=== PATIENT | female | born 1945 | race Caucasian/White ===

== ENCOUNTER → 2018-01-01 01:11 | Outpatient (CLI) | payer MEDICARE, SELFPAY ==
--- NOTE | 2018-01-01 09:30 | DI.REPORT_ITS ---
SYMPTOM/DIAGNOSIS: ABD PAIN, PERIUMBILICAL R10.33, ABD BLOATING R14.0 FLAT PLATE ABDOMEN: Comparison CT scan is 12/21/16. The visualized lung bases are clear. There are surgical clips seen in the right upper quadrant of the abdomen. There is a small amount of retained stool throughout the colon. No evidence of bowel obstruction or organomegaly seen. No pneumoperitoneum is present. There is a left convex scoliosis of the spine. Mild degenerative changes are present. IMPRESSION: No evidence of an acute abdomen.
== END ==
PROVIDERS: PCP Family Medicine; Visit Provider Family Medicine
DX: R10.33 Periumbilical pain (principal); R14.0 Abdominal distension (gaseous)
CPT/HCPCS: 74018

== ENCOUNTER → 2018-01-01 08:42 | Outpatient (CLI) | payer MEDICARE, SELFPAY ==
[2018-01-01 09:28] LABS: HCT 42.4 % (36.0-46.0); HGB 14.4 g/dL (12.0-15.5); Mean Corpuscular Hemoglobin 30.8 pg (27.0-33.0); Mean Corpuscular Volume 90.6 fL (80-95); Mean Platelet Volume 9.6 fL (8.0-11.0); Platelet Count 268 x1000/uL (130-400); RBC 4.68 m/cumm (4.00-5.20); RBC Distribution Width 12.7 % (11.7-14.6); White Blood Cell Count 5.78 k/cumm (4.4-10.8)
[2018-01-01 10:35] LABS: ALT 22 U/L (12-78); AST 23 U/L (15-37); Albumin 4.3 g/dL (3.4-5.0); Alkaline Phosphatase 97 U/L (46-116); Anion Gap 9.4 mmol/L (3-11); BUN 24 mg/dL (7-18); Bilirubin, Total 0.7 mg/dL (0.2-1.0); CO2 26.6 mmol/L (21.0-32.0); Calcium 10.1 mg/dL (8.5-10.1); Chloride 103 mmol/L (98-107); Estimated GFR 44.04 (mL/min/1.73m2); Glucose 109 mg/dL (70-100); Potassium 4.2 mmol/L (3.5-5.1); Sodium 139 mmol/L (136-145); TSH (W/Ref FT4) 4.18 uIU/mL (0.358-3.74); Vitamin B12 292 pg/mL (193-986)
[2018-01-01 10:40] LABS: Folate > 20.0 ng/mL (8.6-20.0)
[2018-01-01 11:02] LABS: FREE T4 0.74 ng/dL (0.76-1.46)
== END ==
PROVIDERS: PCP Family Medicine; Visit Provider Family Medicine
DX: I10 Essential (primary) hypertension (principal); R14.0 Abdominal distension (gaseous); R10.33 Periumbilical pain; R41.3 Other amnesia
CPT/HCPCS: 36415; 80053; 85027; 74018; 82607; 82746; 84439; 84443

== ENCOUNTER → 2018-01-15 01:13 | Outpatient (CLI) | payer MEDICARE, SELFPAY ==
--- NOTE | 2018-01-15 10:05 | DI.REPORT_ITS ---
SYMPTOM/DIAGNOSIS: [facility] Z00.00 BILATERAL SCREENING MAMMOGRAM: Mammograms were interpreted according to the usual protocol including computer analysis with CAD system, tomosynthesis and C view imaging. Comparison is made with exams from 2008 through 2013. The breasts are composed of scattered fibroglandular densities. No suspicious masses or suspicious microcalcifications are seen. There has been no significant change. IMPRESSION: Category 1-B, negative mammogram. Routine screening is recommended. [facility] ASSESS[facility] OF FINDINGS: Negative. Category 1. Patient will receive a letter notifying them of these results. BI-RADS category B. There are scattered areas of fibroglandular density.
== END ==
PROVIDERS: PCP Family Medicine; Visit Provider Family Medicine
DX: Z12.31 Encounter for screening mammogram for malignant neoplasm of breast (principal)
CPT/HCPCS: 77063; 77067

== ENCOUNTER 2018-02-02 00:55 | Outpatient (CLI) | payer MEDICARE, MEDICAID, SELFPAY ==
--- NOTE | 2018-02-02 07:51 | DI.US_ITS ---
SYMPTOM/DIAGNOSIS: ABD BLOATING, S/P HYST, PERIUMBILICAL PAIN, R10.33 PELVIC ULTRASOUND: Comparison is made with CT of the abdomen and pelvis dated 2006 and 2017. Transabdominal and transvaginal exams were performed. The transabdominal images are limited by lack of bladder distension. The bladder is unremarkable. The kidneys have a normal appearance. The ovaries are normal in size. A 6 mm. calcification is seen in the left ovary. This was seen on the prior CT examinations. No cyst or mass is identified. There is no evidence of free fluid. IMPRESSION: Incidental left ovarian calcification. No evidence of cyst or mass.
== END 2018-02-02 01:15 ==
PROVIDERS: PCP Family Medicine; Visit Provider Family Medicine
DX: R14.0 Abdominal distension (gaseous) (principal); R10.33 Periumbilical pain; N83.8 Other noninflammatory disorders of ovary, fallopian tube and broad ligament; Z90.710 Acquired absence of both cervix and uterus
CPT/HCPCS: 76830; 76856

== ENCOUNTER 2018-03-15 09:13 | Outpatient (CLI) | payer MEDICARE, MEDICAID, SELFPAY ==
--- NOTE | 2018-03-15 09:10 | DI.RAD_ITS ---
SYMPTOM/DIAGNOSIS: PAIN RIGHT SHOULDER: Two projections are provided. Mild degenerative changes involving the glenohumeral and AC joint are identified. The bony structures are normally mineralized.
== END 2018-03-15 09:33 ==
PROVIDERS: PCP Family Medicine; Referring Provider Family Medicine; Visit Provider Orthopaedic Surgery
DX: M25.511 Pain in right shoulder (principal); M19.011 Primary osteoarthritis, right shoulder; I10 Essential (primary) hypertension
CPT/HCPCS: 20610; 99214; 73030; J1040

== ENCOUNTER 2018-05-06 17:53 | Inpatient (IN) | payer MEDICARE, MEDICAID, SELFPAY ==
[2018-05-06] VITALS (35 sets, daily range): BP systolic 95–146; BP diastolic 38–63; PULSE 70–112; RESP 8–21; TEMP 37.1–38.7; O2SAT 94–99
--- NOTE | 2018-05-06 18:12 | DI.RAD_ITS ---
SYMPTOM/DIAGNOSIS: FEVER, CHEST PAIN, R/O ACUTE DISEASE PA AND LATERAL CHEST: Comparison is made with 02 January 2018. The heart size is at the upper limits of normal. Aortic calcification is seen. The lungs appear clear. IMPRESSION: No acute abnormality.
[2018-05-06 18:32] LABS: Abs Immature Grans 0.04 k/cumm (0.0-0.09); Absolute Basophil Count 0.01 k/cumm (0.0-0.2); Absolute Eosinophil Count 0.01 k/cumm (0.0-0.7); Absolute Monocyte Count 0.61 k/cumm (0.11-0.7); Absolute Neutrophil Count 12.09 k/cumm (1.2-6.7); Basophils % 0.1; Eosinophils % 0.1; HCT 36.7 % (36.0-46.0); HGB 12.6 g/dL (12.0-15.5); Immature Grans % 0.3; Lymphocytes % 6.2; Mean Corp. HGB Concentration 34.3 g/dL (32.0-36.0); Mean Corpuscular Hemoglobin 30.5 pg (27.0-33.0); Mean Corpuscular Volume 88.9 fL (80-95); Mean Platelet Volume 9.6 fL (8.0-11.0); Monocytes % 4.5; Neutrophils % 88.8; Platelet Count 210 x1000/uL (130-400); RBC 4.13 m/cumm (4.00-5.20); RBC Distribution Width 12.6 % (11.7-14.6); White Blood Cell Count 13.61 k/cumm (4.4-10.8)
[2018-05-06] MEDS: Acetaminophen 500 MG TAB 1000 MG PO (18:32)
[2018-05-06] MEDS: Normal Saline 250 ML 500 ML IV ×2 (18:32→21:37)
[2018-05-06 18:33] LABS: Absolute Lymphocyte Count 0.84 k/cumm (1.2-3.4); Lactate-non-spesis 1.8 mmol/L (0.6-1.4)
[2018-05-06] MEDS: Ondansetron 4 MG/2 ML VIAL IVP (18:33)
--- NOTE | 2018-05-06 18:35 | ED.GENADUL_ITS ---
Discharge Plan Disposition Patient Disposition: [facility] INPATIENT Condition: Stable Discharge Details Chief Complaint: Fever Clinical Impression: Acute pyelonephritis, Gastroenteritis, Fever, Intractable nausea and vomiting, Intractable abdominal pain Primary Care Provider: Tamiko Doe ED Provider: Lety Vinson Home Meds and New Rx's Prescriptions: No Action clonazepam [Klonopin] 0.5 MG tablet 0.5 mg PO PRN PRNRF: 0 amlodipine 2.5 MG tablet 2.5 mg PO DAILY RF: 0 Citalopram Hydrobromide [Citalopram HBr] 40 MG tablet 40 mg PO DAILY RF: 0 lisinopril 40 MG tablet 40 mg PO QAM RF: 0 dexlansoprazole [Dexilant] 60 MG capsule,biphase delayed releas 60 mg PO DAILY Qty: 28 RF: 0 aspirin 81 MG tablet,delayed release (DR/EC) 81 mg PO DAILY Qty: 30 RF: 0 rosuvastatin [Crestor] 40 MG tablet 40 mg PO QPM Qty: 30 RF: 0 Medical Decision Making 72-year-old female with a history of irritable bowel syndrome, hypertension, depression who presents for vomiting diarrhea with epigastric pain since yesterday. Patient denies known fever, recent travel or antibiotics. Temp 101.7. Heart rate 100s. Patient appears uncomfortable with nausea and epigastric pain. Tenderness palpation epigastric region. Lungs clear to auscultation. No lower extreme edema. Differential diagnosis includes gastroenteritis, cholecystitis, gastritis, peptic ulcer disease. No complaint of chest pain or shortness of breath and appears more infectious so doubt ACS. EKG notes a rate of 98, sinus, TWI in V5/V6, seen in previous w/ new < 1mm ST depression in V5/V6. No acute ST elevation. QTc 414. QRS 78. Will place an IV, labs, UA, blood cultures, lactate, CT abdomen/pelvis, normal saline, zofran, pepcid, and tylenol. 1929 --labs and imaging reviewed. White blood cell count 13. Potassium 3.2. Anion gap 13.1. Lactate 1.8. Magnesium 1.4. Troponin negative. Urinalysis notes small leukocyte esterase moderate blood, urine culture sent. Pt states nausea resolved still complaining of a GI cocktail reassess. 2114 --patient states nausea returning and still with epigastric pain. Will give a dose of Compazine and reassess. Patient states she is concerned about going home as her is home alone in a wheelchair. 2199 --patient states nausea is somewhat improved but still with epigastric pain radiating to chest. Repeat troponin negative. Repeat EKG appears to note resolution of ST depression and no other acute findings. She has hyperactive bowel sounds. Suspect chest pain referred from abdominal pain. Will give a dose of Rocephin, morphine and admit for pyelonephritis, gastroenteritis and intractable nausea and pain. 2204 --d/w Dr. Peña - accepts pt for admission. Medical Records Medical records reviewed: Yes I reviewed the patient's medical records. Imaging Data Radiologic Study: Radiologist's impression: CT Abdomen and Pelvis With Contrast EXAM DATE/TIME: 05/06/2018 6:14 PM FINDINGS: Lower thorax: Tiny hiatal hernia. ABDOMEN: Liver: No mass. Gallbladder and bile ducts: Cholecystectomy. No significant biliary dilation. Pancreas: No ductal dilation. No masses. Spleen: No splenomegaly or focal lesions. Adrenals: No mass. Kidneys and ureters: Moderate hydroureter, abnormal right epithelial ureteral enhancement. No calyceal dilation on the right. No vandana hydronephrosis bilaterally. No renal masses. Slightly heterogeneous right nephrogram. No gross stones are seen on postcontrast imaging. Stomach and bowel: Diverticulosis of the sigmoid colon. No focal pathology in the remainder of the colon. No focal pathology in the small bowel. Appendix: No evidence of appendicitis. PELVIS: Bladder: Unremarkable as visualized. Reproductive: Hysterectomy. ABDOMEN and PELVIS: Intraperitoneal space: No free air. No significant fluid collection. Bones/joints: No acute fracture. No dislocation. Soft tissues: Small fat-containing right inguinal hernia. Vasculature: Moderate aortoiliac atherosclerosis. No aortic aneurysm. Lymph nodes: No significantly enlarged lymph nodes. IMPRESSION: 1. Evidence of right renal and ureteral inflammation, suggesting ascending urinary tract infection such as pyelonephritis. 2. Incidental findings as described. XR Chest, 2 Views EXAM DATE/TIME: 05/06/2018 7:19 PM FINDINGS: Lungs: No airspace consolidation. Pleural space: No pleural effusion. No pneumothorax. Heart/Mediastinum: Mild cardiomegaly without significant volume overload. Upper abdomen: Right upper quadrant clips, probable cholecystectomy. Bones/joints: No acute fracture. IMPRESSION: Mild cardiomegaly without significant volume overload. Lab Data Lab results reviewed: Yes I reviewed the patient's lab results. 05/06/18 19:26 Urine - Reflex from Ua Urine Culture - Pending 05/06/18 18:48 Blood Blood Culture - Pending 05/06/18 18:25 Blood Blood Culture - Pending Laboratory Tests Range/Units 05/06/18 05/06/18 05/06/18 18:25 18:25 18:25 WBC (4.4-10.8) k/cumm 13.61 H RBC (4.00-5.20) m/cumm 4.13 Hgb (12.0-15.5) g/dL 12.6 Hct (36.0-46.0) % 36.7 MCV (80-95) fL 88.9 MCH (27.0-33.0) pg 30.5 MCHC (32.0-36.0) g/dL 34.3 RDW (11.7-14.6) % 12.6 Plt Count (130-400) x1000/uL 210 MPV (8.0-11.0) fL 9.6 Immature Gran % 0.3 Neutrophils % 88.8 Lymphocytes % 6.2 Monocytes % 4.5 Eosinophils % 0.1 Basophils % 0.1 Absolute Neutrophils (1.2-6.7) k/cumm 12.09 H Absolute Lymphocytes (1.2-3.4) k/cumm 0.84 L Absolute Monocytes (0.11-0.7) k/cumm 0.61 Absolute Eosinophils (0.0-0.7) k/cumm 0.01 Absolute Basophils (0.0-0.2) k/cumm 0.01 Sodium (136-145) mmol/L 136 Potassium (3.5-5.1) mmol/L 3.2 L Chloride (98-107) mmol/L 100 Carbon Dioxide (21.0-32.0) mmol/L 22.9 Anion Gap (3-11) mmol/L 13.1 H BUN (7-18) mg/dL 15 Creatinine (0.55-1.02) mg/dL 1.02 Estimated GFR/1.73 m2 (mL/min/1.73m2) 53.12 Glucose (70-100) mg/dL 115 H Lactate (0.6-1.4) mmol/L 1.8 H Calcium (8.5-10.1) mg/dL 9.7 Magnesium (1.8-2.4) mg/dL 1.4 L Total Bilirubin (0.2-1.0) mg/dL 1.1 H AST (15-37) U/L 24 ALT (12-78) U/L 21 Alkaline Phosphatase (46-116) U/L 114 Troponin I (0.00-0.06) ng/mL < 0.02 Total Protein (6.4-8.2) g/dL 7.3 Albumin (3.4-5.0) g/dL 3.4 Lipase (73-393) U/L 64 L Urine Color (Yellow) Urine Clarity Urine pH (5-8) Ur Specific [place] (1.005-1.025) Urine Protein (Negative) mg/dL Urine Ketones (Negative) mg/dL Urine Blood (Negative) Urine Nitrite (Negative) Urine Bilirubin (Negative) Urine Urobilinogen (Up TO 0.2) EU/dL Ur Leukocyte Esterase (Negative) Urine RBC Urine WBC (0-5) HPF Ur Epithelial Cells Urine Crystals Urine Bacteria Urine Mucus Ur Culture Indicated? Urine Glucose (Negative) mg/dL Range/Units 05/06/18 05/06/18 19:26 21:25 WBC (4.4-10.8) k/cumm RBC (4.00-5.20) m/cumm Hgb (12.0-15.5) g/dL Hct (36.0-46.0) % MCV (80-95) fL MCH (27.0-33.0) pg MCHC (32.0-36.0) g/dL RDW (11.7-14.6) % Plt Count (130-400) x1000/uL MPV (8.0-11.0) fL Immature Gran % Neutrophils % Lymphocytes % Monocytes % Eosinophils % Basophils % Absolute Neutrophils (1.2-6.7) k/cumm Absolute Lymphocytes (1.2-3.4) k/cumm Absolute Monocytes (0.11-0.7) k/cumm Absolute Eosinophils (0.0-0.7) k/cumm Absolute Basophils (0.0-0.2) k/cumm Sodium (136-145) mmol/L Potassium (3.5-5.1) mmol/L Chloride (98-107) mmol/L Carbon Dioxide (21.0-32.0) mmol/L Anion Gap (3-11) mmol/L BUN (7-18) mg/dL Creatinine (0.55-1.02) mg/dL Estimated GFR/1.73 m2 (mL/min/1.73m2) Glucose (70-100) mg/dL Lactate (0.6-1.4) mmol/L Calcium (8.5-10.1) mg/dL Magnesium (1.8-2.4) mg/dL Total Bilirubin (0.2-1.0) mg/dL AST (15-37) U/L ALT (12-78) U/L Alkaline Phosphatase (46-116) U/L Troponin I (0.00-0.06) ng/mL 0.03 Total Protein (6.4-8.2) g/dL Albumin (3.4-5.0) g/dL Lipase (73-393) U/L Urine Color (Yellow) Yellow Urine Clarity Cloudy Urine pH (5-8) 6.0 Ur Specific [place] (1.005-1.025) 1.010 Urine Protein (Negative) mg/dL 30 H Urine Ketones (Negative) mg/dL Trace H Urine Blood (Negative) Moderate H Urine Nitrite (Negative) Negative Urine Bilirubin (Negative) Negative Urine Urobilinogen (Up TO 0.2) EU/dL 0.2 Ur Leukocyte Esterase (Negative) Small H Urine RBC Not Applicable Urine WBC (0-5) HPF Ur Epithelial Cells Not Applicable Urine Crystals Not Applicable Urine Bacteria Not Applicable Urine Mucus Not Applicable Ur Culture Indicated? Yes Urine Glucose (Negative) mg/dL Negative ECG Data Attestation: I personally reviewed and interpreted this ECG (s) as follows: Interpretation: EKG #1: Rate of 98, sinus, less than [address] depression and T wave inversion in V5 and V6 but no acute ST elevation. QTc 414, QRS 78. EKG #2: Rate of 75, sinus, resolution of ST depression. T wave inversion noted in V5 and V6 which is been seen in previous. No acute ST elevation. QTc 440. QRS 80. HPI General Mode of arrival: EMS . Date/Time Provider Initiated Documentation: 05/06/18 17:56 . Limitations to Documentation: no limitations . Information obtained by: patient . HPI Narrative: Patient is a 72-year-old female with a history of hypertension, irritable bowel syndrome, depression who presents for vomiting and diarrhea since yesterday. Admits to 2 episodes of vomiting and 2 episodes of diarrhea with last occurring this afternoon. She also admits to epigastric pain. She denies any known fever, chest pain, shortness of breath, urinary symptoms, recent travel, recent antibiotics or recent surgery. Related Data Home Medications Medication Instructions Recorded Confirmed lisinopril 40 mg PO QAM 11/24/12 01/01/18 dexlansoprazole [Dexilant] 60 mg PO DAILY #28 cap 10/03/15 01/01/18 Citalopram Hydrobromide 40 mg PO DAILY tab-cap NS 11/28/17 01/01/18 [Citalopram HBr] amlodipine 2.5 mg PO DAILY tab-cap NS 11/28/17 clonazepam [Klonopin] 0.5 mg PO PRN PRN NS 11/28/17 01/02/18 aspirin 81 mg PO DAILY #30 tabec 01/02/18 rosuvastatin [Crestor] 40 mg PO QPM #30 tab 01/02/18 Previous Rx's Medication Instructions Recorded dexlansoprazole [Dexilant] 60 mg PO DAILY #28 cap 10/03/15 aspirin 81 mg PO DAILY #30 tabec 01/02/18 rosuvastatin [Crestor] 40 mg PO QPM #30 tab 01/02/18 Allergies Allergy/AdvReac Type Severity Reaction Status Date / Time aspirin AdvReac upset Unverified 05/06/18 18:06 stomach r/t GERD metoclopramide HCl AdvReac hysterical Unverified 05/06/18 18:06 [From Reglan] crying trazodone AdvReac itching Unverified 05/06/18 18:06 enviornmental Allergy Mild head Uncoded 05/06/18 18:06 congestion General Stated Complaint: Fever SEBASTIÁN: 3 Review of Systems Review of Systems All systems reviewed & are unremarkable except as noted in HPI and below Constitutional Reports as per HPI, Denies chills and Denies fever(s) Eyes Denies blurry vision ENT Denies dizziness, Denies sore throat and Denies throat swelling Cardiovascular Denies chest pain and Denies dyspnea Respiratory Denies dyspnea Gastrointestinal Denies abdominal pain, Denies diarrhea and Denies vomiting Genitourinary Denies hematuria and Denies dysuria Musculoskeletal Denies back pain and Denies numbness Integumentary/Breasts Denies lesions and Denies rash Neurologic Denies dizziness and Denies numbness Allergic/Immunologic Denies throat swelling PFSH Adenomatous polyp of colon Allergic rhinitis Cardiomyopathy Cervical spondylosis Depression Environmental allergies GERD (gastroesophageal reflux disease) Hypertension IBS (irritable bowel syndrome) Osteoarthritis Osteopenia COLONOSCOPY (~12/2014) Colonoscopy - IV Sedation Cystocele, Paravaginal repair GASTROSCOPY (01/20/15) Rectocele, Paravaginal repair Vaginal hysterectomy Medical History Adenomatous polyp of colon Allergic rhinitis Cardiomyopathy Cervical spondylosis Depression Environmental allergies GERD (gastroesophageal reflux disease) Hypertension IBS (irritable bowel syndrome) Osteoarthritis Osteopenia Social History Smoking/Tobacco Use Status: Never Surgical History COLONOSCOPY (~12/2014) Colonoscopy - IV Sedation Cystocele, Paravaginal repair GASTROSCOPY (01/20/15) Rectocele, Paravaginal repair Vaginal hysterectomy Social History Smoking/Tobacco Use Status: Never Exam Const General: cooperative and healthy appearing Orientation: alert and awake HENME Head: normal to inspection Ears: hearing grossly normal bilaterally and external ears normal General nose exam: external nose normal Face and sinus: normal facial exam Eyes General: appearance normal, both eyes and all related structures Eyelids: eyelids normal EOM: EOM intact bilaterally Neck Neck: normal visual inspection Lymphatic: no lymphadenopathy noted Chest Chest: normal inspection of the chest Resp Effort & Inspection: normal respiratory effort and able to speak in complete sentences Auscultation: clear to auscultation bilaterally Cardio Rate: regular rate Rhythm: regular rhythm GI Inspection: normal to inspection Palpation: soft, not firm, no guarding, no hepatosplenomegaly, no masses and tender in the epigastrum Auscultation: hyperactive bowel sounds Back/Spine/Pelvis Back: no CVA tenderness Skin General skin exam: no rashes or lesions noted Neuro General: alert and awake Cognition: normal cognition Speech: speech normal Gait: normal gait Motor: muscle tone normal throughout Sensory Exam: no sensory deficits noted Extrem General: normal to inspection, full ROM, normal capillary refill and no edema Psych Appearance: grossly normal Mental Status: mental status grossly normal Speech and Movement: speech and movement normal Affect: normal affect Thought Process: normal Course Vital Signs Temperature 99.6 F 12/09/18 17:45 Pulse 111 H 05/06/18 17:45 Respiratory Rate 15 05/06/18 17:45 Blood Pressure 126/57 L 05/06/18 17:45 Pulse Oximetry 99 05/06/18 17:45 Temperature 101.7 F H 05/06/18 18:32 Temperature Source Oral 05/06/18 18:12 Pulse 111 H 05/06/18 17:45 Respiratory Rate 15 05/06/18 17:45 Respiratory Effort 05/06/18 18:03 Blood Pressure 126/57 L 05/06/18 17:45 Blood Pressure Position Supine 05/06/18 17:45 Pulse Oximetry 99 05/06/18 17:45 Oxygen Delivery Method Room Air 05/06/18 17:45 Oxygen Flow Rate 0 05/06/18 17:45 Pain Level 6 05/06/18 17:45 Lab/Test Results Lab/Test Results: 05/06/18 18:25 Blood Blood Culture - Pending 05/06/18 18:12 Blood Blood Culture - Pending
[2018-05-06 18:52] LABS: ALT 21 U/L (12-78); AST 24 U/L (15-37); Albumin 3.4 g/dL (3.4-5.0); Alkaline Phosphatase 114 U/L (46-116); Anion Gap 13.1 mmol/L (3-11); BUN 15 mg/dL (7-18); Bilirubin, Total 1.1 mg/dL (0.2-1.0); CO2 22.9 mmol/L (21.0-32.0); CREATININE 1.02 mg/dL (0.55-1.02); Calcium 9.7 mg/dL (8.5-10.1); Chloride 100 mmol/L (98-107); Estimated GFR 53.12 (mL/min/1.73m2); Glucose 115 mg/dL (70-100); Lipase 64 U/L (73-393); Magnesium 1.4 mg/dL (1.8-2.4); Potassium 3.2 mmol/L (3.5-5.1); Sodium 136 mmol/L (136-145); Total Protein 7.3 g/dL (6.4-8.2); Troponin I < 0.02 ng/mL (0.00-0.06)
--- NOTE | 2018-05-06 19:14 | DI.CT_ITS ---
SYMPTOMS/DIAGNOSIS: EPIGASTRIC PAIN, DIARRHEA, ? ACUTE CHOLECYSTITIS, ? COLITIS CT OF THE ABDOMEN AND PELVIS: Comparison is made with November,. Images were performed after IV and without oral contrast. There is mild right perinephric stranding. There is a small area of inhomogeneity in the mid to lower pole of the right kidney. There is urothelial enhancement. No hydronephrosis or ureteral calculi are seen. The left kidney is unremarkable. The bladder is unremarkable. The patient is status post hysterectomy. There are bilateral fatty-containing inguinal hernias, right greater than left. The appendix is normal. There is sigmoid diverticulosis but no evidence of diverticulitis. The ovaries are unremarkable. The lung bases are clear. The liver, spleen, adrenals and pancreas are unremarkable. The patient is status post cholecystectomy. IMPRESSION: Findings suspicious for right focal pyelonephritis. There is diffuse enhancement of the urothelium. No obstructing stone is seen.
[2018-05-06] MEDS: Omnipaque 350 MG/ML 100 ML BTL IJ (19:25)
[2018-05-06] MEDS: Potassium Chloride 20 MEQ TABCR 40 MEQ PO (19:28)
[2018-05-06] MEDS: FAMOTIDINE 20 MG/50 ML BAG 200 MG IVPB (19:28)
--- NOTE | 2018-05-06 19:30 | DI.VRAD_ITS ---
EXAM: CT Abdomen and Pelvis With Contrast EXAM DATE/TIME: 05/06/2018 6:14 PM CLINICAL HISTORY: 72 years old, female; Pain; Abdominal pain; Epigastric; Patient HX: Epigastric pain; Additional info: R/O acute cholecystitis TECHNIQUE: Axial computed tomography images of the abdomen and pelvis with intravenous contrast. Coronal and sagittal reformatted images were created and reviewed. COMPARISON: CT ABD PELVIS WO CONTRAST 12/21/2016 3:24 PM FINDINGS: Lower thorax: Tiny hiatal hernia. ABDOMEN: Liver: No mass. Gallbladder and bile ducts: Cholecystectomy. No significant biliary dilation. Pancreas: No ductal dilation. No masses. Spleen: No splenomegaly or focal lesions. Adrenals: No mass. Kidneys and ureters: Moderate hydroureter, abnormal right epithelial ureteral enhancement. No calyceal dilation on the right. No vandana hydronephrosis bilaterally. No renal masses. Slightly heterogeneous right nephrogram. No gross stones are seen on postcontrast imaging. Stomach and bowel: Diverticulosis of the sigmoid colon. No focal pathology in the remainder of the colon. No focal pathology in the small bowel. Appendix: No evidence of appendicitis. PELVIS: Bladder: Unremarkable as visualized. Reproductive: Hysterectomy. ABDOMEN and PELVIS: Intraperitoneal space: No free air. No significant fluid collection. Bones/joints: No acute fracture. No dislocation. Soft tissues: Small fat-containing right inguinal hernia. Vasculature: Moderate aortoiliac atherosclerosis. No aortic aneurysm. Lymph nodes: No significantly enlarged lymph nodes. IMPRESSION: 1. Evidence of right renal and ureteral inflammation, suggesting ascending urinary tract infection such as pyelonephritis. 2. Incidental findings as described. Dictated and Authenticated by: Priya Betts MD. Ordering:BRENNA TAN MD
--- NOTE | 2018-05-06 19:31 | DI.VRAD_ITS ---
EXAM: XR Chest, 2 Views EXAM DATE/TIME: 05/06/2018 7:19 PM CLINICAL HISTORY: 72 years old, female; Pain and signs and symptoms; Fever; Chest pain; Type not specified; Patient HX: Fever, chest pain; Additional info: R/O acute disease TECHNIQUE: XR of the chest, 2 views. COMPARISON: CR CHEST 2 VIEWS PA,LAT 01/02/2018 1:03 AM FINDINGS: Lungs: No airspace consolidation. Pleural space: No pleural effusion. No pneumothorax. Heart/Mediastinum: Mild cardiomegaly without significant volume overload. Upper abdomen: Right upper quadrant clips, probable cholecystectomy. Bones/joints: No acute fracture. IMPRESSION: Mild cardiomegaly without significant volume overload. Dictated and Authenticated by: Priya Betts MD. Ordering:BRENNA TAN MD
[2018-05-06 19:35] LABS: Bilirubin Negative (Negative); Blood Moderate (Negative); Clarity Cloudy; Glucose Negative (Negative); Ketones Trace mg/dL (Negative); Leukocyte Esterase Small (Negative); Nitrite Negative (Negative); Urobilinogen 0.2 EU/dL (Up TO 0.2)
[2018-05-06 19:54] LABS: C & S Indicated? Yes
[2018-05-06] MEDS: traMADol 50 MG TAB PO (20:34)
[2018-05-06] MEDS: Prochlorperazine 10 MG/2 ML VIAL IVP (21:36)
[2018-05-06 21:48] LABS: Troponin I 0.03 ng/mL (0.00-0.06)
--- NOTE | 2018-05-06 23:38 | HPE_ITS ---
Date of service: 05/06/18 Time of Service: 23:37 Assessment and Plan (1) Pyelonephritis: Current visit: Yes Status: Acute continue parenteral antibiotics including Ceftriaxone however increase dosing to 2 gm iv Q24hr. check renal US to rule out obstruction/stones/abscess; cont. antiemetics and analgesics (2) Hypomagnesemia: Current visit: Yes Status: Acute correct w/ iv supplementation and when able add oral supplements as well. check repeat levels in the a.m. (3) Hypokalemia: Current visit: Yes Status: Acute replete w/ iv supplementation (and if able to tolerate oral supplements as well), repeat levels in the a.m. (4) Gastroenteritis: Current visit: Yes Status: Acute empiric treatment w/ iv fluids, antiemetics and analgesics. check stool for fecal WBC, stool pathogens but suspect her diarrhea is secondary to her pyelonephritis History of Present Illness Chief Complaint: nausea, vomiting, chills, abdominal pain Narrative: 72 yr old female w/ PMH IBS, GERD, HTN, depression w/ 3 d. hx of nausea, epigastric abdominal pains, diarrhea (loose stools 3 to 4 x per day, no melena nor hematochezia). No recent hx of travel or other ill contacts nor recent antibiotic use. Patient also complains of chills including rigors and was found to be febrile at 101.7 on arrival to the ER. Workup in the ER included labs: UA, lactate, CBC, cmp and CT of abdomen and pelvis. UA showed moderate blood, small leukocyte esterace and too many WBC on HPF that it obscured the microscopic exam. Her CT of her abdomen and pelvis showed right ureteral and renal inflammation suggesting and ascending UTI such as pyelonephritis. The rest of her labs were remarkable for leukocytosis of 13,600 , elevated lactate of 1.8, incr. anion gap of 12.1, low magnesium of 1.4 and low potassium of 3.2 and unremarkable for normal LFT and lipase. Treatment in the ER included iv fluids, potassium 40 meq po, pepcid 20 mg ivp, zofran and compazine for her nausea and tramadol and morphine for her pain and Ceftriaxone 1 gm for her UTI. She is now admitted for parenteral antibiotics for treatment of acute pyelonephritis and gastroenteritis. Review of Systems Review of Systems All systems reviewed & are unremarkable except as noted in HPI and below Constitutional Reports chills, Reports fever(s), Reports malaise, Reports poor appetite and Reports weakness Cardiovascular Denies chest pain, Denies edema and Reports lightheadedness Respiratory Reports system reviewed and no additional complaints, except as docu Gastrointestinal Reports as per HPI Genitourinary Denies hematuria, Reports urinary frequency and Denies dysuria Musculoskeletal Reports back pain Integumentary/Breasts Reports system reviewed and no additional complaints, except as docu Neurologic Reports system reviewed and no additional complaints, except as docu and Reports weakness Psychiatric Reports depression Endocrine Reports polyuria Hematologic/Lymphatic Reports system reviewed and no additional complaints, except as docu Allergic/Immunologic Reports system reviewed and no additional complaints, except as docu PFSH Depression (Chronic) GERD (gastroesophageal reflux disease) (Chronic) Gait disturbance (Chronic) Left carotid bruit (Chronic) Essential hypertension (Chronic) Adenomatous polyp of colon (Chronic) Allergic rhinitis (Chronic) Cardiomyopathy (Chronic) Cervical spondylosis (Chronic) Environmental allergies (Chronic) IBS (irritable bowel syndrome) (Chronic) Osteoarthritis (Chronic) Osteopenia (Chronic) COLONOSCOPY (Resolved ~12/2014) Colonoscopy - IV Sedation (Resolved) Cystocele, Paravaginal repair (Resolved) GASTROSCOPY (Resolved 01/20/15) Rectocele, Paravaginal repair (Resolved) Vaginal hysterectomy (Resolved) Medical History Depression (Chronic) GERD (gastroesophageal reflux disease) (Chronic) Gait disturbance (Chronic) Left carotid bruit (Chronic) Essential hypertension (Chronic) Adenomatous polyp of colon (Chronic) Allergic rhinitis (Chronic) Cardiomyopathy (Chronic) Cervical spondylosis (Chronic) Environmental allergies (Chronic) IBS (irritable bowel syndrome) (Chronic) Osteoarthritis (Chronic) Osteopenia (Chronic) Social History marital status: lives independently: Yes number of children: 2 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 Smoking/Tobacco Use Status: Never alcohol intake: current alcohol intake frequency: a few times a month substance use type: does not use Surgical History COLONOSCOPY (Resolved ~12/2014) Colonoscopy - IV Sedation (Resolved) Cystocele, Paravaginal repair (Resolved) GASTROSCOPY (Resolved 01/20/15) Rectocele, Paravaginal repair (Resolved) Vaginal hysterectomy (Resolved) Social History marital status: lives independently: Yes number of children: 2 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 Smoking/Tobacco Use Status: Never alcohol intake: current alcohol intake frequency: a few times a month substance use type: does not use Meds Home Medications Medication Instructions Recorded Confirmed Type lisinopril 40 mg PO QAM 11/24/12 05/06/18 History dexlansoprazole [Dexilant] 60 mg PO DAILY #28 cap 10/03/15 05/06/18 Rx Citalopram Hydrobromide 40 mg PO DAILY tab-cap NS 11/28/17 05/06/18 History [Citalopram HBr] amlodipine 2.5 mg PO DAILY tab-cap NS 11/28/17 05/06/18 History clonazepam [Klonopin] 0.5 mg PO PRN PRN NS 11/28/17 05/06/18 History aspirin 81 mg PO DAILY #30 tabec 01/02/18 05/06/18 Rx rosuvastatin [Crestor] 40 mg PO QPM #30 tab 01/02/18 05/06/18 Rx Allergies Allergy/AdvReac Type Severity Reaction Status Date / Time aspirin AdvReac upset Unverified 05/06/18 18:06 stomach r/t GERD metoclopramide HCl AdvReac hysterical Unverified 05/06/18 18:06 [From Reglan] crying trazodone AdvReac itching Unverified 05/06/18 18:06 enviornmental Allergy Mild head Uncoded 05/06/18 18:06 congestion Exam Const General: cooperative and no acute distress Nutritional Appearance: overweight [facility] Head: normal to inspection, normocephalic and atraumatic Ears: hearing grossly normal bilaterally General nose exam: external nose normal Face and sinus: normal facial exam Mouth: oral mucosae normal Neck Neck: normal visual inspection, full ROM, no lymphadenopathy, trachea midline and supple Carotids: normal carotid upstroke and bruit bilaterally Lymphatic: no lymphadenopathy noted Resp Effort & Inspection: normal respiratory effort and able to speak in complete sentences Auscultation: clear to auscultation bilaterally Cardio Jugular venous pressure: no JVD Palpation: normal PMI Rate: regular rate Rhythm: regular rhythm Heart Sounds: S1 normal, S2 normal and normal, physiologic split S2 Bruits: no abdominal aortic bruits and carotid bruit bilaterally Pulses: normal peripheral pulses GI Inspection: normal to inspection Palpation: soft, no hepatosplenomegaly and nontender Percussion: normal to percussion Auscultation: normal bowel sounds Rectal Exam - female: deferred General: No CVA tenderness Back/Spine/Pelvis Back: no CVA tenderness Cervical Spine: normal cervical lordosis Thoracic/Lumbar Spine: thoracic and lumbar spine normal to inspection Skin General skin exam: no rashes or lesions noted, elasticity normal and turgor normal Neuro General: alert, awake, oriented x3, moves all extremities and no focal motor deficits Cognition: normal cognition Speech: speech normal Motor: muscle tone normal throughout and strength 5/5 throughout Sensory Exam: no sensory deficits noted Extrem General: normal to inspection, full ROM, normal capillary refill, no joint enlargement, no clubbing, cyanosis or edema and no pedal edema Psych Appearance: grossly normal and well kempt Mental Status: mental status grossly normal Speech and Movement: speech and movement normal Mood: congruent mood Affect: normal affect Attitude: cooperative Thought Process: normal Thought Content: normal Insight: insight good Judgment: judgment good Results Imaging Abdomen CT scan report/results: report reviewed (FINDINGS: Lower thorax: Tiny hiatal hernia. ABDOMEN: Liver: No mass. Gallbladder and bile ducts: Cholecystectomy. No significant biliary dilation. Pancreas: No ductal dilation. No masses. Spleen: No splenomegaly or focal lesions. Adrenals: No mass. Kidneys and ureters: Moderate hy) EKG: image reviewed (1st EKG 05/06/2018 @ 17:56 demonstrated NSR rate 98 bpm, nonspecific ST-T abnormalities in I , aVL, V5-V6; repeat EKG at 21:29 w/ similar changes, NSR rate 75 bpm) Labs : 05/06/18 18:25 05/06/18 18:25 Laboratory Results - last 24 hr 05/06/18 05/06/18 05/06/18 18:25 18:25 18:25 WBC 13.61 H RBC 4.13 Hgb 12.6 Hct 36.7 MCV 88.9 MCH 30.5 MCHC 34.3 RDW 12.6 Plt Count 210 MPV 9.6 Immature Gran % 0.3 Neutrophils % 88.8 Lymphocytes % 6.2 Monocytes % 4.5 Eosinophils % 0.1 Basophils % 0.1 Absolute Neutrophils 12.09 H Absolute Lymphocytes 0.84 L Absolute Monocytes 0.61 Absolute Eosinophils 0.01 Absolute Basophils 0.01 Sodium 136 Potassium 3.2 L Chloride 100 Carbon Dioxide 22.9 Anion Gap 13.1 H BUN 15 Creatinine 1.02 Estimated GFR/1.73 m2 53.12 Glucose 115 H Lactate 1.8 H Calcium 9.7 Magnesium 1.4 L Total Bilirubin 1.1 H AST 24 ALT 21 Alkaline Phosphatase 114 Troponin I < 0.02 Total Protein 7.3 Albumin 3.4 Lipase 64 L Urine Color Urine Clarity Urine pH Ur Specific [place] Urine Protein Urine Ketones Urine Blood Urine Nitrite Urine Bilirubin Urine Urobilinogen Ur Leukocyte Esterase Urine RBC Urine WBC Ur Epithelial Cells Urine Crystals Urine Bacteria Urine Mucus Ur Culture Indicated? Urine Glucose 05/06/18 05/06/18 19:26 21:25 WBC RBC Hgb Hct MCV MCH MCHC RDW Plt Count MPV Immature Gran % Neutrophils % Lymphocytes % Monocytes % Eosinophils % Basophils % Absolute Neutrophils Absolute Lymphocytes Absolute Monocytes Absolute Eosinophils Absolute Basophils Sodium Potassium Chloride Carbon Dioxide Anion Gap BUN Creatinine Estimated GFR/1.73 m2 Glucose Lactate Calcium Magnesium Total Bilirubin AST ALT Alkaline Phosphatase Troponin I 0.03 Total Protein Albumin Lipase Urine Color Yellow Urine Clarity Cloudy Urine pH 6.0 Ur Specific [place] 1.010 Urine Protein 30 H Urine Ketones Trace H Urine Blood Moderate H Urine Nitrite Negative Urine Bilirubin Negative Urine Urobilinogen 0.2 Ur Leukocyte Esterase Small H Urine RBC Not Applicable Urine WBC Ur Epithelial Cells Not Applicable Urine Crystals Not Applicable Urine Bacteria Not Applicable Urine Mucus Not Applicable Ur Culture Indicated? Yes Urine Glucose Negative Last Vital Signs Temp 37.1 C 05/06/18 22:53 Pulse 70 05/06/18 22:53 Resp 17 05/06/18 22:53 BP 100/47 L 05/06/18 22:53 Pulse Ox 94 L 05/06/18 22:53
[2018-05-07] MEDS: Enoxaparin 40 MG/0.4 ML SYR SC (00:18)
[2018-05-07] MEDS: Pantoprazole 40 MG VIAL IVP (00:18)
[2018-05-07] MEDS: Normal Saline Flush 10 ML SYR IVP ×2 (00:18→01:22)
[2018-05-07] MEDS: Acetaminophen 325 MG TAB PO ×4 (00:19→20:20)
[2018-05-07] MEDS: POTASSIUM CHLORIDE/0.9% NACL 1,000 ML 150 MEQ IV ×2 (00:26→07:38)
[2018-05-07] MEDS: MAGNESIUM SULFATE 4 GM/100 ML BAG IVPB (01:10)
[2018-05-07 06:54] LABS: Lactate-non-spesis 2.5 mmol/L (0.6-1.4)
[2018-05-07 07:00] VITALS: BP 150/75; PULSE 83; RESP 17; TEMP 38.1; O2SAT 97
[2018-05-07 07:03] LABS: Absolute Eosinophil Count 0.01 k/cumm (0.0-0.7); Absolute Lymphocyte Count 0.72 k/cumm (1.2-3.4); Absolute Monocyte Count 0.01 k/cumm (0.11-0.7); Absolute Neutrophil Count 1.81 k/cumm (1.2-6.7); Eosinophils % 0.4; HCT 36.6 % (36.0-46.0); HGB 11.9 g/dL (12.0-15.5); Lymphocytes % 28.2; Mean Corp. HGB Concentration 32.5 g/dL (32.0-36.0); Mean Corpuscular Hemoglobin 30.2 pg (27.0-33.0); Mean Corpuscular Volume 92.9 fL (80-95); Mean Platelet Volume 9.5 fL (8.0-11.0); Monocytes % 0.4; Platelet Count 203 x1000/uL (130-400); RBC 3.94 m/cumm (4.00-5.20); RBC Distribution Width 13.2 % (11.7-14.6); White Blood Cell Count 2.55 k/cumm (4.4-10.8)
[2018-05-07 07:27] VITALS: TEMP 38.1
[2018-05-07 07:31] LABS: Troponin I < 0.02 ng/mL (0.00-0.06)
[2018-05-07 07:34] LABS: ALT 114 U/L (12-78); AST 210 U/L (15-37); Albumin 3.2 g/dL (3.4-5.0); Alkaline Phosphatase 165 U/L (46-116); Anion Gap 10.6 mmol/L (3-11); BUN 14 mg/dL (7-18); Bilirubin, Total 1.3 mg/dL (0.2-1.0); CO2 23.4 mmol/L (21.0-32.0); CREATININE 1.33 mg/dL (0.55-1.02); Calcium 9.1 mg/dL (8.5-10.1); Chloride 104 mmol/L (98-107); Estimated GFR 39.11 (mL/min/1.73m2); Glucose 126 mg/dL (70-100); Magnesium 3.6 mg/dL (1.8-2.4); Potassium 5.1 mmol/L (3.5-5.1); Sodium 138 mmol/L (136-145); Total Protein 7.4 g/dL (6.4-8.2)
[2018-05-07 07:35] LABS: Troponin I < 0.02 ng/mL (0.00-0.06)
[2018-05-07] MEDS: Aspirin E.C. 81 MG TABEC PO (08:25)
[2018-05-07] MEDS: amLODIPine 2.5 MG TAB PO (08:25)
[2018-05-07] MEDS: Citalopram 20 MG TAB 40 MG PO (08:25)
[2018-05-07] MEDS: Lisinopril 20 MG TAB 40 MG PO (08:26)
[2018-05-07 08:27] VITALS: TEMP 37.1
--- NOTE | 2018-05-07 09:36 | DI.US_ITS ---
SYMPTOMS/DIAGNOSIS: URINARY TRACT INFECTION, PYELONEPHRITIS, ABDOMINAL PAIN RENAL ULTRASOUND: Comparison is made with September,. The kidneys are normal in size and echogenicity. There are a few echogenic reflectors in both kidneys, which could represent artifacts. No stones are demonstrated by CT. There is no evidence of hydronephrosis. No perinephric collection is seen. The area of inhomogeneous enhancement in the right kidney is not visible by ultrasound. The bladder prevoid volume was 160 cc. Debris is noted in the bladder. The patient was unable to void. IMPRESSION: Debris is noted in the bladder. The kidneys are unremarkable.
--- NOTE | 2018-05-07 10:24 | PDOC.CMIN ---
- If Service Date Differs Date of service: 05/07/18 Time of Service: 10:24 Care Management Initial Assess REASON FOR HOSPITALIZATION:: Pyelonephritis PAST MEDICAL HISTORY/PAST SURGICAL HISTORY:: Depression (Chronic). GERD (gastroesophageal reflux disease) (Chronic). Gait disturbance (Chronic). Left carotid bruit (Chronic). Essential hypertension (Chronic). Adenomatous polyp of colon (Chronic). Allergic rhinitis (Chronic). Cardiomyopathy (Chronic). Cervical spondylosis (Chronic). Environmental allergies (Chronic). IBS (irritable bowel syndrome) (Chronic). Osteoarthritis (Chronic). Osteopenia (Chronic). COLONOSCOPY (Resolved ~12/2014). Colonoscopy - IV Sedation (Resolved). Cystocele, Paravaginal repair (Resolved). GASTROSCOPY (Resolved 01/20/15). Rectocele, Paravaginal repair (Resolved). Vaginal hysterectomy (Resolved) PREVIOUS FUNCTIONAL STATUS/SOCIAL/FAMILY SUPPORTS:: Venus resides with her Bryn and granddaughter in [place]. Venus states that she has one living son Jose Alejandro, whom resides locally, and one son whom passed years ago. Venus states that she is Bryn's caregiver in the community. 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 She is eating breakfast and states she is doing 'okay' ADVANCE DIRECTIVES:: On file - Bryn Marrufo is agent, Jose Alejandro Marrufo is alternate Has patient been provided with information about the portal?: Yes Did the patient sign up for the portal?: No CODE STATUS:: Full Code INSURANCE COVERAGE / FINANCIAL ISSUES:: Medicare, Medicaid, AARP CURRENT HOME/COMMUNITY SERVICES/EQUIPMENT:: Currently Venus has no service or medical equipment in the community. PRIMARY CARE PHYSICIAN:: Dr. Doe POTENTIAL DISCHARGE NEEDS:: F/U appointment with PCP PATIENT/FAMILY EDUCATION NEEDS:: Review DC instructions, any limitations, and ongoing DC planning discussion. Discuss 'Ask Me three' ANTICIPATED BARRIERS TO DISCHARGE:: None identified at this time. TRANSPORTATION:: Via private vehicle with son Jose Alejandro PLAN:: Venus will return home with no anticipated services, she will F/U with PCP and plan of care as prescribed. Venus's son Jose Alejandro will transport when ready.
[2018-05-07] MEDS: Heparin 5,000 UNITS/ML VIAL 5000 UNITS SC ×2 (10:43→16:10)
[2018-05-07] MEDS: Normal Saline 1,000 ML 150 ML IV (10:44)
--- NOTE | 2018-05-07 10:55 | INITIAL_ITS ---
- If Service Date Differs Date of service: 05/07/18 Time of Service: 10:24 Care Management Initial Assess REASON FOR HOSPITALIZATION:: Pyelonephritis PAST MEDICAL HISTORY/PAST SURGICAL HISTORY:: Depression (Chronic). GERD ( gastroesophageal reflux disease) (Chronic). Gait disturbance (Chronic). Left carotid bruit (Chronic). Essential hypertension (Chronic). Adenomatous polyp of colon (Chronic). Allergic rhinitis (Chronic). Cardiomyopathy (Chronic). Cervical spondylosis (Chronic). Environmental allergies (Chronic). IBS ( irritable bowel syndrome) (Chronic). Osteoarthritis (Chronic). Osteopenia ( Chronic). COLONOSCOPY (Resolved ~12/2014). Colonoscopy - IV Sedation (Resolved ). Cystocele, Paravaginal repair (Resolved). GASTROSCOPY (Resolved 01/20/15). Rectocele, Paravaginal repair (Resolved). Vaginal hysterectomy (Resolved) PREVIOUS FUNCTIONAL STATUS/SOCIAL/FAMILY SUPPORTS:: Venus resides with her Bryn and granddaughter in [place]. Venus states that she has one living son Jose Alejandro, whom resides locally, and one son whom passed years ago. Venus states that she is Bryn's caregiver in the community. 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 She is eating breakfast and states she is doing ' okay' ADVANCE DIRECTIVES:: On file - Bryn Marrufo is agent, Jose Alejandro Marrufo is alternate Has patient been provided with information about the portal?: Yes Did the patient sign up for the portal?: No CODE STATUS:: Full Code INSURANCE COVERAGE / FINANCIAL ISSUES:: Medicare, Medicaid, AARP CURRENT HOME/COMMUNITY SERVICES/EQUIPMENT:: Currently Venus has no service or medical equipment in the community. PRIMARY CARE PHYSICIAN:: Dr. Doe POTENTIAL DISCHARGE NEEDS:: F/U appointment with PCP PATIENT/FAMILY EDUCATION NEEDS:: Review DC instructions, any limitations, and ongoing DC planning discussion. Discuss 'Ask Me three' ANTICIPATED BARRIERS TO DISCHARGE:: None identified at this time. TRANSPORTATION:: Via private vehicle with son Jose Alejandro PLAN:: Venus will return home with no anticipated services, she will F/U with PCP and plan of care as prescribed. Venus's son Jose Alejandro will transport when ready.
[2018-05-07 13:37] VITALS: BP 91/48; PULSE 68; RESP 15; TEMP 37.1; O2SAT 95
[2018-05-07 15:55] VITALS: BP 86/56; PULSE 79; RESP 18; TEMP 36.5; O2SAT 95
--- NOTE | 2018-05-07 16:16 | PHARADMIT ---
Addendum entered by Neelam Hamilton 05/09/18 11:58: Pharmacy Note Subjective treating pyelonephritis switching to PO abx Objective one temp 37.9 this AM, SCr trending down, Mag 2.2, H/H trending down, stool occult pending, stool lactoferrin positive, Assessment ceftriaxone IV switched to Cipro PO, ctitalopram on hold due to possible QTc prolongation with added Cipro. lisinopril restarted, heparin switched to enoxaparin, pantoprazole switched to Q12H Plan continue to watch VS, for med changes, stool studies Original Note: Addendum entered by Kendal Muller 05/08/18 16:41: Pharmacy Note Subjective stool studies done- watch for results Objective BP-170/75 other VS okay Cl-108(up) mag-3.0(down) LFTs-improving Assessment ceftriaxone continues (day 3), low threshold to broaden abx E.Coli from urine culture sensitive to ceftriaxone; blood cultures no growth at 24 hours lisinopril still on hold Plan continue to watch VS, labs(mag), and for med changes Original Note: Admission Pharmacy Clinical Review acute pyelonephritis, gastroenteritis, n/v Code Status Full Code Current Weight 63.503 kg Renally Cleared and Narrow Therapeutic Index Meds Crcl ~32.4 using adjusted body weight current meds okay QTc Value / Action Taken QTc 440 BP Control, Fever BP 86/56 afebrile Electrolytes reviewed mag 3.6 DVT Prophylaxis heparin Opiate Usage / Scheduled Bowel Regimen Ordered prn/prn Plt/SCr for Heparin / Enoxaparin plt 203 SCr 1.33 INR for Warfarin n/a H/H stable, WBC/Bands h/h 11.9/36.6 wbc 2.55 Antibiotic appropriateness ceftriaxone Cultures and Sensitivities blood cultures pending, urine culture grew E.coli Surgical ABX d/c within 24 hr n/a DM control / Insulin Dosing BG 126 none Heart Failure (Check EF%) (WOLF's, B-Block, Diuretics) amlodipine, lisinopril, IV to PO Switch n/a Home Meds Reviewed yes Home Meds Not Ordered dexlanzoprazole (has pantoprazole ordered) Comments AST 210 ALT 114
--- NOTE | 2018-05-07 16:27 | PGE_ITS ---
Date of Service Date of service: 05/07/18 Time of Service: 16:25 Assessment and Plan (1) Pyelonephritis: Current visit: Yes Status: Acute Currently on high dose Ceftriaxone, with cultures positive for E.Coli, sensitivities pending. Fever curve appears to be downtrending. Will attempt fluid bolus, monitor lactate, with low threshold for broadening antibiotic therapy. (2) Gastroenteritis: Current visit: Yes Status: Acute Continue supportive care and monitor stool studies. Fecal leukocytes pending. (3) GERD (gastroesophageal reflux disease): Current visit: No Status: Chronic Currently on PPI therapy. (4) Hypomagnesemia: Current visit: Yes Status: Acute Check daily and replete along with hypokalemia. (5) Hypokalemia: Current visit: Yes Status: Acute Replete as above. (6) Hypertension: Current visit: Yes Status: Chronic Continue CCB and WOLF-I with strict hold parameters. (7) DVT prophylaxis: Current visit: Yes Status: Acute Heparin SC. Subjective Interval history since last seen: 72 year old woman with a prior history of DM and HTN admitted from [facility] Emergency Department with diagnosis of Pyelonephritis. Mrs. Mcrae has a past medical history significant for IBS, GERD, HTN, and depression. She presented to the ED with a 3 day history of nausea, epigastric abdominal pain, and diarrhea with reported loose stools 3-4 times per day without melena nor hematochezia. She also reported fevers with accompanied chills. Workup in the ED included evidence of a fever, mild leukocytosis, abnormal appearing urinalysis, elevated lactate, and elevated LFTs. CT of her abdomen and pelvis showed right ureteral and renal inflammation suggesting and ascending UTI / pyelonephritis. She was referred for admission for further evaluation and treatment. Current urine cultures are showing growth of E.Coli. Patient is currently febrile but with a favorable fever curve. She is hypotensive but not tachycardic. No other events reported. Exam Narrative Exam Narrative: General: Patient appears comfortable, AAOX3, NAD Neck: Supple CV: Regular, nontachycardic, S1S2, No rubs, murmurs, or gallops. Pulmonary: Clear to auscultation bilaterally, no crackles, wheezing, or rhonchi Abdomen: + Bowel Sounds, soft, nondistended. Minimal tenderness along suprapubic region. Vascular: No lower extremity edema Psych: Normal mood and affect. Objective Objective Clinical Data: Abnormal lab results 05/06/18 05/06/18 05/06/18 Range/Units 18:25 18:25 18:25 WBC 13.61 H (4.4-10.8) k/cumm RBC (4.00-5.20) m/cumm Hgb (12.0-15.5) g/dL Absolute Neutrophils 12.09 H (1.2-6.7) k/cumm Absolute Lymphocytes 0.84 L (1.2-3.4) k/cumm Absolute Monocytes (0.11-0.7) k/cumm Potassium 3.2 L (3.5-5.1) mmol/L Anion Gap 13.1 H (3-11) mmol/L Creatinine (0.55-1.02) mg/dL Glucose 115 H (70-100) mg/dL Lactate 1.8 H (0.6-1.4) mmol/L Magnesium 1.4 L (1.8-2.4) mg/dL Total Bilirubin 1.1 H (0.2-1.0) mg/dL AST (15-37) U/L ALT (12-78) U/L Alkaline Phosphatase (46-116) U/L Albumin (3.4-5.0) g/dL Lipase 64 L (73-393) U/L Urine Protein (Negative) mg/dL Urine Ketones (Negative) mg/dL Urine Blood (Negative) Ur Leukocyte Esterase (Negative) 05/06/18 05/07/18 05/07/18 Range/Units 19:26 06:40 06:40 WBC 2.55 L D (4.4-10.8) k/cumm RBC 3.94 L (4.00-5.20) m/cumm Hgb 11.9 L (12.0-15.5) g/dL Absolute Neutrophils (1.2-6.7) k/cumm Absolute Lymphocytes 0.72 L (1.2-3.4) k/cumm Absolute Monocytes 0.01 L (0.11-0.7) k/cumm Potassium (3.5-5.1) mmol/L Anion Gap (3-11) mmol/L Creatinine 1.33 H (0.55-1.02) mg/dL Glucose 126 H (70-100) mg/dL Lactate (0.6-1.4) mmol/L Magnesium 3.6 H (1.8-2.4) mg/dL Total Bilirubin 1.3 H (0.2-1.0) mg/dL AST 210 H (15-37) U/L ALT 114 H (12-78) U/L Alkaline Phosphatase 165 H (46-116) U/L Albumin 3.2 L (3.4-5.0) g/dL Lipase (73-393) U/L Urine Protein 30 H (Negative) mg/dL Urine Ketones Trace H (Negative) mg/dL Urine Blood Moderate H (Negative) Ur Leukocyte Esterase Small H (Negative) 05/07/18 Range/Units 06:40 WBC (4.4-10.8) k/cumm RBC (4.00-5.20) m/cumm Hgb (12.0-15.5) g/dL Absolute Neutrophils (1.2-6.7) k/cumm Absolute Lymphocytes (1.2-3.4) k/cumm Absolute Monocytes (0.11-0.7) k/cumm Potassium (3.5-5.1) mmol/L Anion Gap (3-11) mmol/L Creatinine (0.55-1.02) mg/dL Glucose (70-100) mg/dL Lactate 2.5 H (0.6-1.4) mmol/L Magnesium (1.8-2.4) mg/dL Total Bilirubin (0.2-1.0) mg/dL AST (15-37) U/L ALT (12-78) U/L Alkaline Phosphatase (46-116) U/L Albumin (3.4-5.0) g/dL Lipase (73-393) U/L Urine Protein (Negative) mg/dL Urine Ketones (Negative) mg/dL Urine Blood (Negative) Ur Leukocyte Esterase (Negative) Vital Signs Temperature 36.5 C 05/07/18 15:55 Temperature Source Tympanic 05/07/18 15:55 Pulse 79 05/07/18 15:55 Pulse Rhythm Regular 05/06/18 22:53 Pulse 74 05/06/18 21:20 Respiratory Rate 18 05/07/18 15:55 Respiratory Effort 05/06/18 22:53 Respiratory Depth Normal 05/06/18 22:53 Respiratory Pattern Normal 05/06/18 22:53 Blood Pressure 86/56 L 05/07/18 15:55 Blood Pressure Mean 64 05/06/18 21:00 Blood Pressure Position Supine 05/06/18 17:45 Pulse Oximetry 95 05/07/18 15:55 Oxygen Delivery Method Room Air 05/07/18 15:55 Oxygen Flow Rate 0 05/07/18 15:55 Pain Level 5 05/07/18 16:15 Intake & Output 05/06/18 05/07/18 05/07/18 23:59 11:59 23:59 Intake Total 100 / 100 1927.5 / 1927.5 740 / 740 Output Total 650 / 650 300 / 300 Balance 100 / 100 1277.5 / 1277.5 440 / 440 Weight 63.503 kg Intake: IV 100 / 100 1377.5 / 1377.5 Oral 550 / 550 740 / 740 Output: Urine 650 / 650 300 / 300 Other: Urine Color Light Yesenia Light Yesenia Urine Appearance Clear Clear Clear Urine Odor None None Comment Void x1 in the toilet. Void x1 in the toilet. Voiding Methods Toilet Toilet Laboratory Results WBC 2.55 k/cumm (4.4-10.8) L D 05/07/18 06:40 RBC 3.94 m/cumm (4.00-5.20) L 05/07/18 06:40 Hgb 11.9 g/dL (12.0-15.5) L 05/07/18 06:40 Hct 36.6 % (36.0-46.0) 05/07/18 06:40 MCV 92.9 fL (80-95) D 05/07/18 06:40 MCH 30.2 pg (27.0-33.0) 05/07/18 06:40 MCHC 32.5 g/dL (32.0-36.0) 05/07/18 06:40 RDW 13.2 % (11.7-14.6) 05/07/18 06:40 Plt Count 203 x1000/uL (130-400) 05/07/18 06:40 MPV 9.5 fL (8.0-11.0) 05/07/18 06:40 Immature Gran % 0.0 05/07/18 06:40 Neutrophils % 71.0 05/07/18 06:40 Lymphocytes % 28.2 05/07/18 06:40 Monocytes % 0.4 05/07/18 06:40 Eosinophils % 0.4 05/07/18 06:40 Basophils % 0.0 05/07/18 06:40 Absolute Neutrophils 1.81 k/cumm (1.2-6.7) 05/07/18 06:40 Absolute Lymphocytes 0.72 k/cumm (1.2-3.4) L 05/07/18 06:40 Absolute Monocytes 0.01 k/cumm (0.11-0.7) L 05/07/18 06:40 Absolute Eosinophils 0.01 k/cumm (0.0-0.7) 05/07/18 06:40 Absolute Basophils 0.00 k/cumm (0.0-0.2) 05/07/18 06:40 Sodium 138 mmol/L (136-145) 05/07/18 06:40 Potassium 5.1 mmol/L (3.5-5.1) D 05/07/18 06:40 Chloride 104 mmol/L (98-107) 05/07/18 06:40 Carbon Dioxide 23.4 mmol/L (21.0-32.0) 05/07/18 06:40 Anion Gap 10.6 mmol/L (3-11) 05/07/18 06:40 BUN 14 mg/dL (7-18) 05/07/18 06:40 Creatinine 1.33 mg/dL (0.55-1.02) H 05/07/18 06:40 Estimated GFR/1.73 m2 39.11 (mL/min/1.73m2) 05/07/18 06:40 Glucose 126 mg/dL (70-100) H 05/07/18 06:40 Lactate 2.5 mmol/L (0.6-1.4) H 05/07/18 06:40 Calcium 9.1 mg/dL (8.5-10.1) 05/07/18 06:40 Magnesium 3.6 mg/dL (1.8-2.4) H 05/07/18 06:40 Total Bilirubin 1.3 mg/dL (0.2-1.0) H 05/07/18 06:40 AST 210 U/L (15-37) H 05/07/18 06:40 ALT 114 U/L (12-78) H 05/07/18 06:40 Alkaline Phosphatase 165 U/L (46-116) H 05/07/18 06:40 Troponin I < 0.02 ng/mL (0.00-0.06) 05/07/18 06:40 Total Protein 7.4 g/dL (6.4-8.2) 05/07/18 06:40 Albumin 3.2 g/dL (3.4-5.0) L 05/07/18 06:40 Lipase 64 U/L (73-393) L 05/06/18 18:25 Urine Color Yellow (Yellow) 05/06/18 19:26 Urine Clarity Cloudy 05/06/18 19:26 Urine pH 6.0 (5-8) 05/06/18 19:26 Ur Specific [place] 1.010 (1.005-1.025) 05/06/18 19:26 Urine Protein 30 mg/dL (Negative) H 05/06/18 19:26 Urine Ketones Trace mg/dL (Negative) H 05/06/18 19:26 Urine Blood Moderate (Negative) H 05/06/18 19:26 Urine Nitrite Negative (Negative) 05/06/18 19:26 Urine Bilirubin Negative (Negative) 05/06/18 19:26 Urine Urobilinogen 0.2 EU/dL (Up TO 0.2) 05/06/18 19:26 Ur Leukocyte Esterase Small (Negative) H 05/06/18 19:26 Urine RBC Not Applicable 05/06/18 19:26 Urine WBC HPF (0-5) 05/06/18 19:26 Ur Epithelial Cells Not Applicable 05/06/18 19:26 Urine Crystals Not Applicable 05/06/18 19:26 Urine Bacteria Not Applicable 05/06/18 19:26 Urine Mucus Not Applicable 05/06/18 19:26 Ur Culture Indicated? Yes 05/06/18 19:26 Urine Glucose Negative mg/dL (Negative) 05/06/18 19:26 Objective Narrative Objective Narrative: Exam(s) a US:US renal SYMPTOMS/DIAGNOSIS: URINARY TRACT INFECTION, PYELONEPHRITIS, ABDOMINAL PAIN RENAL ULTRASOUND: Comparison is made with September,. The kidneys are normal in size and echogenicity. There are a few echogenic reflectors in both kidneys, which could represent artifacts. No stones are demonstrated by CT. There is no evidence of hydronephrosis. No perinephric collection is seen. The area of inhomogeneous enhancement in the right kidney is not visible by ultrasound. The bladder prevoid volume was 160 cc. Debris is noted in the bladder. The patient was unable to void. IMPRESSION: Debris is noted in the bladder. The kidneys are unremarkable.
[2018-05-07] MEDS: Normal Saline 500 ML IV (16:54)
[2018-05-07 17:57] VITALS: BP 116/71; PULSE 65; RESP 18; TEMP 37; O2SAT 96
[2018-05-07] MEDS: Normal Saline 1,000 ML 250 ML IV (18:12)
[2018-05-07] MEDS: ROSUVASTATIN 20 MG TAB 40 MG PO (20:14)
[2018-05-08] MEDS: Pantoprazole 40 MG VIAL IVP
[2018-05-08 00:13] VITALS: BP 103/65; PULSE 66; RESP 17; TEMP 37; O2SAT 96
[2018-05-08] MEDS: Normal Saline Flush 10 ML SYR IVP ×2 (02:15)
[2018-05-08] MEDS: Normal Saline 1,000 ML 150 ML IV ×3 (02:51→16:24)
[2018-05-08 07:20] VITALS: BP 152/81; PULSE 71; RESP 18; TEMP 36.6; O2SAT 96
[2018-05-08 08:25] LABS: Lactate-non-spesis 0.8 mmol/L (0.6-1.4)
[2018-05-08 08:31] LABS: Abs Immature Grans 0.02 k/cumm (0.0-0.09); Absolute Basophil Count 0.01 k/cumm (0.0-0.2); Absolute Eosinophil Count 0.06 k/cumm (0.0-0.7); Absolute Lymphocyte Count 2.17 k/cumm (1.2-3.4); Absolute Monocyte Count 0.89 k/cumm (0.11-0.7); Absolute Neutrophil Count 6.84 k/cumm (1.2-6.7); Basophils % 0.1; Eosinophils % 0.6; HGB 10.2 g/dL (12.0-15.5); Immature Grans % 0.2; Lymphocytes % 21.7; Mean Corp. HGB Concentration 31.9 g/dL (32.0-36.0); Mean Corpuscular Hemoglobin 30.1 pg (27.0-33.0); Mean Corpuscular Volume 94.4 fL (80-95); Mean Platelet Volume 9.9 fL (8.0-11.0); Monocytes % 8.9; Neutrophils % 68.5; Platelet Count 189 x1000/uL (130-400); RBC 3.39 m/cumm (4.00-5.20); White Blood Cell Count 9.99 k/cumm (4.4-10.8)
[2018-05-08] MEDS: Heparin 5,000 UNITS/ML VIAL 5000 UNITS SC ×3 (08:35→16:21)
[2018-05-08] MEDS: Aspirin E.C. 81 MG TABEC PO (08:36)
[2018-05-08] MEDS: amLODIPine 2.5 MG TAB PO (08:36)
[2018-05-08] MEDS: Citalopram 20 MG TAB 40 MG PO (08:36)
[2018-05-08 08:40] LABS: ALT 100 U/L (12-78); AST 98 U/L (15-37); Albumin 2.8 g/dL (3.4-5.0); Alkaline Phosphatase 156 U/L (46-116); Anion Gap 8.2 mmol/L (3-11); BUN 12 mg/dL (7-18); Bilirubin, Total 0.3 mg/dL (0.2-1.0); CO2 22.8 mmol/L (21.0-32.0); CREATININE 1.08 mg/dL (0.55-1.02); Calcium 8.8 mg/dL (8.5-10.1); Chloride 108 mmol/L (98-107); Estimated GFR 49.73 (mL/min/1.73m2); Glucose 110 mg/dL (70-100); Potassium 4.5 mmol/L (3.5-5.1); Sodium 139 mmol/L (136-145); Total Protein 6.7 g/dL (6.4-8.2)
[2018-05-08 16:15] VITALS: BP 170/75; PULSE 66; RESP 18; TEMP 37.1; O2SAT 95
[2018-05-08] MEDS: Acetaminophen 325 MG TAB PO (16:22)
--- NOTE | 2018-05-08 17:23 | W.PM.PROGNOT ---
Date of Service Date of service: 05/08/18 Time of Service: 17:23 Assessment and Plan (1) Pyelonephritis: Current visit: Yes Status: Acute Currently on high dose Ceftriaxone, with cultures positive for pansensitive E.Coli. Continues to be afebrile, now with hypotension resolved as well. Lactate now normalized. Continue to monitor. (2) Gastroenteritis: Current visit: Yes Status: Acute Continue supportive care and monitor stool studies. Fecal leukocytes positive, with C.diff Ag positive but toxin negative. Reflexed to PCR with results pending. Stool culture pending as well. (3) GERD (gastroesophageal reflux disease): Current visit: No Status: Chronic Currently on PPI therapy. (4) Hypomagnesemia: Current visit: Yes Status: Acute Check daily and replete along with hypokalemia - both now resolved. (5) Hypokalemia: Current visit: Yes Status: Acute Replete as above. (6) Hypertension: Current visit: Yes Status: Chronic Continue CCB. WOLF-I on hold due to initial dehydration and mild LORRIE that appears to be resolved - current creatinine at or near baseline. (7) DVT prophylaxis: Current visit: Yes Status: Acute Heparin SC. Subjective Interval history since last seen: 72 year old woman with a prior history of DM and HTN admitted from [facility] Emergency Department with diagnosis of Pyelonephritis. Mrs. Mcrae has a past medical history significant for IBS, GERD, HTN, and depression. She presented to the ED with a 3 day history of nausea, epigastric abdominal pain, and diarrhea with reported loose stools 3-4 times per day without melena nor hematochezia. She also reported fevers with accompanied chills. Workup in the ED included evidence of a fever, mild leukocytosis, abnormal appearing urinalysis, elevated lactate, and elevated LFTs. CT of her abdomen and pelvis showed right ureteral and renal inflammation suggesting and ascending UTI / pyelonephritis. She was referred for admission for further evaluation and treatment. Current urine cultures are showing growth of pansensitive E.Coli. Patient is currently afebrile, with hypotension resolved. No other events reported. She has been afebrile since morning of 12. Exam Narrative Exam Narrative: General: Patient appears comfortable, AAOX3, NAD Neck: Supple CV: Regular, nontachycardic, S1S2, No rubs, murmurs, or gallops. Pulmonary: Clear to auscultation bilaterally, no crackles, wheezing, or rhonchi Abdomen: + Bowel Sounds, soft, nondistended. No tenderness. Vascular: No lower extremity edema Psych: Normal mood and affect. Objective Objective Clinical Data: Abnormal lab results 05/08/18 05/08/18 Range/Units 08:10 08:10 RBC 3.39 L (4.00-5.20) m/cumm Hgb 10.2 L (12.0-15.5) g/dL Hct 32.0 L (36.0-46.0) % MCHC 31.9 L (32.0-36.0) g/dL Absolute Neutrophils 6.84 H (1.2-6.7) k/cumm Absolute Monocytes 0.89 H (0.11-0.7) k/cumm Chloride 108 H (98-107) mmol/L Creatinine 1.08 H (0.55-1.02) mg/dL Glucose 110 H (70-100) mg/dL Magnesium 3.0 H (1.8-2.4) mg/dL AST 98 H (15-37) U/L ALT 100 H (12-78) U/L Alkaline Phosphatase 156 H (46-116) U/L Albumin 2.8 L (3.4-5.0) g/dL Vital Signs Temperature 37.1 C 05/08/18 16:15 Temperature Source Tympanic 05/08/18 16:15 Pulse 66 05/08/18 16:15 Pulse Rhythm Regular 05/08/18 10:15 Pulse 74 05/06/18 21:20 Respiratory Rate 18 05/08/18 16:15 Respiratory Effort Non-Labored 05/08/18 10:15 Respiratory Depth Normal 05/08/18 10:15 Respiratory Pattern Normal 05/08/18 10:15 Blood Pressure 170/75 H 05/08/18 16:15 Blood Pressure Mean 64 05/06/18 21:00 Blood Pressure Position Supine 05/06/18 17:45 Pulse Oximetry 95 05/08/18 16:15 Oxygen Delivery Method Room Air 05/08/18 16:15 Oxygen Flow Rate 0 05/08/18 16:15 Pain Level 6 05/08/18 16:22 Comment 05/07/18 17:57 Intake & Output 1205/08/18 05/08/18 23:59 11:59 23:59 Intake Total 3030 / 3030 1800 / 1800 1160 / 1160 Output Total 500 / 500 1150 / 1150 650 / 650 Balance 2530 / 2530 650 / 650 510 / 510 Weight 62.8 kg Intake: IV 2049 1500 / 1500 980 / 980 Oral 980 / 980 300 / 300 180 / 180 Output: Urine 500 / 500 1150 / 1150 650 / 650 Other: Urine Color Light Yesenia Yellow Yellow Urine Appearance Clear Clear Urine Odor None Normal Comment Void x1 in the toilet. Voiding Methods Toilet Toilet Toilet Laboratory Results WBC 9.99 k/cumm (4.4-10.8) D 05/08/18 08:10 RBC 3.39 m/cumm (4.00-5.20) L 05/08/18 08:10 Hgb 10.2 g/dL (12.0-15.5) L 05/08/18 08:10 Hct 32.0 % (36.0-46.0) L 05/08/18 08:10 MCV 94.4 fL (80-95) 05/08/18 08:10 MCH 30.1 pg (27.0-33.0) 05/08/18 08:10 MCHC 31.9 g/dL (32.0-36.0) L 05/08/18 08:10 RDW 14.0 % (11.7-14.6) 05/08/18 08:10 Plt Count 189 x1000/uL (130-400) 05/08/18 08:10 MPV 9.9 fL (8.0-11.0) 05/08/18 08:10 Immature Gran % 0.2 05/08/18 08:10 Neutrophils % 68.5 05/08/18 08:10 Lymphocytes % 21.7 05/08/18 08:10 Monocytes % 8.9 05/08/18 08:10 Eosinophils % 0.6 05/08/18 08:10 Basophils % 0.1 05/08/18 08:10 Absolute Neutrophils 6.84 k/cumm (1.2-6.7) H 05/08/18 08:10 Absolute Lymphocytes 2.17 k/cumm (1.2-3.4) 05/08/18 08:10 Absolute Monocytes 0.89 k/cumm (0.11-0.7) H 05/08/18 08:10 Absolute Eosinophils 0.06 k/cumm (0.0-0.7) 05/08/18 08:10 Absolute Basophils 0.01 k/cumm (0.0-0.2) 05/08/18 08:10 Sodium 139 mmol/L (136-145) 05/08/18 08:10 Potassium 4.5 mmol/L (3.5-5.1) 05/08/18 08:10 Chloride 108 mmol/L (98-107) H 05/08/18 08:10 Carbon Dioxide 22.8 mmol/L (21.0-32.0) 05/08/18 08:10 Anion Gap 8.2 mmol/L (3-11) 05/08/18 08:10 BUN 12 mg/dL (7-18) 05/08/18 08:10 Creatinine 1.08 mg/dL (0.55-1.02) H 05/08/18 08:10 Estimated GFR/1.73 m2 49.73 (mL/min/1.73m2) 05/08/18 08:10 Glucose 110 mg/dL (70-100) H 05/08/18 08:10 Lactate 0.8 mmol/L (0.6-1.4) 05/08/18 08:10 Calcium 8.8 mg/dL (8.5-10.1) 05/08/18 08:10 Magnesium 3.0 mg/dL (1.8-2.4) H 05/08/18 08:10 Total Bilirubin 0.3 mg/dL (0.2-1.0) 05/08/18 08:10 AST 98 U/L (15-37) H 05/08/18 08:10 ALT 100 U/L (12-78) H 05/08/18 08:10 Alkaline Phosphatase 156 U/L (46-116) H 05/08/18 08:10 Troponin I < 0.02 ng/mL (0.00-0.06) 05/07/18 06:40 Total Protein 6.7 g/dL (6.4-8.2) 05/08/18 08:10 Albumin 2.8 g/dL (3.4-5.0) L 05/08/18 08:10 Lipase 64 U/L (73-393) L 05/06/18 18:25 Urine Color Yellow (Yellow) 05/06/18 19:26 Urine Clarity Cloudy 05/06/18 19:26 Urine pH 6.0 (5-8) 05/06/18 19:26 Ur Specific [place] 1.010 (1.005-1.025) 05/06/18 19:26 Urine Protein 30 mg/dL (Negative) H 05/06/18 19:26 Urine Ketones Trace mg/dL (Negative) H 05/06/18 19:26 Urine Blood Moderate (Negative) H 05/06/18 19:26 Urine Nitrite Negative (Negative) 05/06/18 19: Urine Bilirubin Negative (Negative) 05/06/18 19:26 Urine Urobilinogen 0.2 EU/dL (Up TO 0.2) 05/06/18 19:26 Ur Leukocyte Esterase Small (Negative) H 05/06/18 19:26 Urine RBC Not Applicable 05/06/18 19:26 Urine WBC HPF (0-5) 05/06/18 19:26 Ur Epithelial Cells Not Applicable 05/06/18 19:26 Urine Crystals Not Applicable 05/06/18 19:26 Urine Bacteria Not Applicable 05/06/18 19:26 Urine Mucus Not Applicable 05/06/18 19:26 Ur Culture Indicated? Yes 05/06/18 19:26 Urine Glucose Negative mg/dL (Negative) 05/06/18 19:26
--- NOTE | 2018-05-08 17:29 | PDOC.CMPRO ---
- If Service Date Differs Date of service: 05/08/18 Time of Service: 17:30 Care Management Progress Note S/O: CM met with the patient at the bedside, patient reviewed at interdisciplinary rounds, clinical chart reviewed. Venus reports that she is feeling better today. She states that she was ill for a few days before coming to the hospital. Venus is currently receiving IV antibiotics for pyelonephritis she continues to receive IV fluids, her white count is improving. She does have a plan in place to take care of her and granddaughter while she is in the hospital. She is unsure how she will transport home family versus RCT through [facility] coordinated by CM. A: Venus is a 72-year-old female admitted with pyelonephritis P: Venus will return home when medically ready per provider. No anticipated services at time of discharge. CM to coordinate transportation if family is unable to transport.
[2018-05-08] MEDS: ROSUVASTATIN 20 MG TAB 40 MG PO (19:42)
[2018-05-09] VITALS (13 sets, daily range): BP systolic 138–200; BP diastolic 63–82; PULSE 60–96; RESP 16–20; TEMP 37–37.9; O2SAT 92–95
[2018-05-09] MEDS: Pantoprazole 40 MG VIAL IVP ×3 (00:06→21:13)
[2018-05-09] MEDS: Heparin 5,000 UNITS/ML VIAL 5000 UNITS SC ×2 (00:06→08:08)
[2018-05-09] MEDS: Mylanta Suspension 30 ML CUP PO ×2 (02:51→03:24)
[2018-05-09] MEDS: Normal Saline 1,000 ML 75 ML IV (03:35)
[2018-05-09 04:30] LABS: Troponin I 0.03 ng/mL (0.00-0.06)
[2018-05-09] MEDS: Aspirin E.C. 81 MG TABEC PO (08:08)
[2018-05-09] MEDS: amLODIPine 2.5 MG TAB PO (08:08)
[2018-05-09] MEDS: Citalopram 20 MG TAB 40 MG PO (08:08)
[2018-05-09 08:12] LABS: Abs Immature Grans 0.05 k/cumm (0.0-0.09); Absolute Basophil Count 0.02 k/cumm (0.0-0.2); Absolute Eosinophil Count 0.04 k/cumm (0.0-0.7); Absolute Lymphocyte Count 2.06 k/cumm (1.2-3.4); Absolute Monocyte Count 0.94 k/cumm (0.11-0.7); Absolute Neutrophil Count 6.56 k/cumm (1.2-6.7); Basophils % 0.2; Eosinophils % 0.4; HCT 29.8 % (36.0-46.0); HGB 9.8 g/dL (12.0-15.5); Immature Grans % 0.5; Lymphocytes % 21.3; Mean Corp. HGB Concentration 32.9 g/dL (32.0-36.0); Mean Corpuscular Hemoglobin 30.4 pg (27.0-33.0); Mean Corpuscular Volume 92.5 fL (80-95); Mean Platelet Volume 9.3 fL (8.0-11.0); Monocytes % 9.7; Neutrophils % 67.9; Platelet Count 218 x1000/uL (130-400); RBC 3.22 m/cumm (4.00-5.20); RBC Distribution Width 13.2 % (11.7-14.6); White Blood Cell Count 9.67 k/cumm (4.4-10.8)
[2018-05-09 08:26] LABS: ALT 69 U/L (12-78); AST 43 U/L (15-37); Albumin 2.6 g/dL (3.4-5.0); Alkaline Phosphatase 150 U/L (46-116); BUN 9 mg/dL (7-18); Bilirubin, Total 0.2 mg/dL (0.2-1.0); CREATININE 0.95 mg/dL (0.55-1.02); Calcium 8.6 mg/dL (8.5-10.1); Chloride 107 mmol/L (98-107); Estimated GFR 57.66 (mL/min/1.73m2); Glucose 103 mg/dL (70-100); Magnesium 2.2 mg/dL (1.8-2.4); Potassium 3.9 mmol/L (3.5-5.1); Sodium 138 mmol/L (136-145); Total Protein 6.2 g/dL (6.4-8.2)
[2018-05-09 08:35] LABS: Troponin I < 0.02 ng/mL (0.00-0.06)
[2018-05-09] MEDS: Lisinopril 20 MG TAB 40 MG PO (09:24)
--- NOTE | 2018-05-09 11:15 | W.PM.PROGNOT ---
Date of Service Date of service: 05/09/18 Time of Service: 11:21 Assessment and Plan (1) Pyelonephritis: Current visit: Yes Status: Acute Complicated UTI, with initial CT showing mild right sided perinephric stranding, and right renal and ureteral inflammation. Subsequent ultrasound without evidence of abscess. Had been on high dose Ceftriaxone for 3 days, changed to oral cipro today with cultures positive for pansensitive E.Coli - SSRI placed on hold due to potential interaction in fluoroquinolone therapy - patient is being placed on telemetry as well. Continues to be afebrile, however now with rising temperature of unknown etiology. Hypotension resolved as well, and Lactate normalized. Continue to monitor carefully, and if repeat fever will need work-up. (2) Gastroenteritis: Current visit: Yes Status: Acute Fecal leukocytes +, with Stool cultures ordered and pending. Continue supportive care and monitor stool studies. Fecal leukocytes positive, with stool cultures pending. History of C. Diff Ag +, toxin negative stool with negative PCR in 2017 - will repeat a C.Diff test again now. (3) GERD (gastroesophageal reflux disease): Current visit: No Status: Chronic Currently on PPI therapy - Changed to IV at admission, and will increase to BID today given worsening anemia and current epigastric discomfort on exam. (4) Hypomagnesemia: Current visit: Yes Status: Acute Check daily and replete along with hypokalemia - both now resolved. (5) Hypokalemia: Current visit: Yes Status: Acute Replete as above. (6) Hypertension: Current visit: Yes Status: Chronic Continue CCB. WOLF-I had been on hold due to initial dehydration and mild LORRIE. Creatinine now at baseline and patient is hypertensive. Will resume Lisinopril. (7) Anemia: Current visit: Yes Status: Chronic Worsening Hgb in setting of acute illness - new finding for patient. Given concurrent loose stools and epigastric pain will increase to BID PPI and check stool for occult blood. Check iron studies, B12, FA, and TSH as well. Monitor hgb closely. (8) Chest pain: Current visit: Yes Status: Acute Episode of chest discomfort that appears to have resolved with prn mylanta overnight per report. EKG reviewed and compared to prior - evidence of NSR with normal axis and good R Wave Progression with Q Wave isolated to lead 3, TW inversion in V4-5, and flat in V6, along with nonspecific ST segment abnormality in I and AVL - all present previously on EKG from 12/2017. Current and repeat Troponin negative. Will trend. Patient is currently chest pain free. Will monitor on Telemetry as well. (9) DVT prophylaxis: Current visit: Yes Status: Acute Discontinue Heparin SC and initiate Lovenox as LORRIE has resolved. Subjective Interval history since last seen: 72 year old woman with a prior history of DM and HTN admitted from [facility] Emergency Department with diagnosis of Pyelonephritis. Mrs. Mcrae has a past medical history significant for IBS, GERD, HTN, and depression. She presented to the ED with a 3 day history of nausea, epigastric abdominal pain, and diarrhea with reported loose stools 3-4 times per day without melena nor hematochezia. She also reported fevers with accompanied chills. Workup in the ED included evidence of a fever, mild leukocytosis, abnormal appearing urinalysis, elevated lactate, and elevated LFTs. CT of her abdomen and pelvis showed right ureteral and renal inflammation suggesting and ascending UTI / pyelonephritis. She was referred for admission for further evaluation and treatment. Current urine cultures are showing growth of pansensitive E.Coli, and patient was changed to oral Ciprofloxacin this morning. Initial hypotension has resolved. However, overnight and again this morning her temperature [place] to 37.7 and 37.9 after a very nice drop over the last 2 days - the last time she was febrile was 48 hours prior. Today she states that she has had recurrence of diarrhea as well. No other events reported. Exam Narrative Exam Narrative: General: AAOX3, NAD Neck: Supple CV: Regular, nontachycardic, S1S2, No rubs, murmurs, or gallops. Pulmonary: Clear to auscultation bilaterally, no crackles, wheezing, or rhonchi Abdomen: + Bowel Sounds, soft, nondistended. Recurrence of mild epigastric tenderness. Vascular: No lower extremity edema Psych: Normal mood and affect. Objective Objective Clinical Data: Abnormal lab results 05/09/18 05/09/18 Range/Units 08:05 08:05 RBC 3.22 L (4.00-5.20) m/cumm Hgb 9.8 L (12.0-15.5) g/dL Hct 29.8 L (36.0-46.0) % Absolute Monocytes 0.94 H (0.11-0.7) k/cumm Glucose 103 H (70-100) mg/dL AST 43 H (15-37) U/L Alkaline Phosphatase 150 H (46-116) U/L Total Protein 6.2 L (6.4-8.2) g/dL Albumin 2.6 L (3.4-5.0) g/dL Vital Signs Temperature 37.9 C H 05/09/18 07:25 Temperature Source Tympanic 05/09/18 07:25 Pulse 60 05/09/18 07:25 Pulse Rhythm Regular 05/09/18 08:10 Pulse 74 05/06/18 21:20 Respiratory Rate 16 05/09/18 07:25 Respiratory Effort Non-Labored 05/09/18 08:10 Respiratory Depth Normal 05/09/18 08:10 Respiratory Pattern Normal 05/09/18 08:10 Blood Pressure 162/68 H 05/09/18 07:25 Blood Pressure Mean 64 05/06/18 21:00 Blood Pressure Position Supine 05/06/18 17:45 Pulse Oximetry 94 L 05/09/18 07:25 Oxygen Delivery Method Room Air 05/09/18 07:25 Oxygen Flow Rate 0 05/09/18 07:25 Pain Level 0 05/09/18 07:25 Comment 05/09/18 07:25 Intake & Output 05/08/18 05/08/18 05/09/18 11:59 23:59 11:59 Intake Total 1800 / 1800 2282.5 / 2282.5 603.75 / 603.75 Output Total 1150 / 1150 1350 / 1350 800 / 800 Balance 650 / 650 932.5 / 932.5 -196.25 / -196.25 Weight 62.8 kg 62.4 kg Intake: IV 1500 / 1500 1862.5 / 1862.5 603.75 / 603.75 Oral 300 / 300 420 / 420 0 / 0 Output: Urine 1150 / 1150 1350 / 1350 800 / 800 Other: Urine Color Yellow Yellow Yellow Urine Appearance Clear Clear Clear Urine Odor Normal Normal Comment Pt void in toilet x1. Voiding Methods Toilet Toilet Bedside Commode Laboratory Results WBC 9.67 k/cumm (4.4-10.8) 05/09/18 08:05 RBC 3.22 m/cumm (4.00-5.20) L 05/09/18 08:05 Hgb 9.8 g/dL (12.0-15.5) L 05/09/18 08:05 Hct 29.8 % (36.0-46.0) L 05/09/18 08:05 MCV 92.5 fL (80-95) 05/09/18 08:05 MCH 30.4 pg (27.0-33.0) 05/09/18 08:05 MCHC 32.9 g/dL (32.0-36.0) 05/09/18 08:05 RDW 13.2 % (11.7-14.6) 05/09/18 08:05 Plt Count 218 x1000/uL (130-400) 05/09/18 08:05 MPV 9.3 fL (8.0-11.0) 05/09/18 08:05 Immature Gran % 0.5 05/09/18 08:05 Neutrophils % 67.9 05/09/18 08:05 Lymphocytes % 21.3 05/09/18 08:05 Monocytes % 9.7 05/09/18 08:05 Eosinophils % 0.4 05/09/18 08:05 Basophils % 0.2 05/09/18 08:05 Absolute Neutrophils 6.56 k/cumm (1.2-6.7) 05/09/18 08:05 Absolute Lymphocytes 2.06 k/cumm (1.2-3.4) 05/09/18 08:05 Absolute Monocytes 0.94 k/cumm (0.11-0.7) H 05/09/18 08:05 Absolute Eosinophils 0.04 k/cumm (0.0-0.7) 05/09/18 08:05 Absolute Basophils 0.02 k/cumm (0.0-0.2) 05/09/18 08:05 Sodium 138 mmol/L (136-145) 05/09/18 08:05 Potassium 3.9 mmol/L (3.5-5.1) 05/09/18 08:05 Chloride 107 mmol/L (98-107) 05/09/18 08:05 Carbon Dioxide 23.0 mmol/L (21.0-32.0) 05/09/18 08:05 Anion Gap 8.0 mmol/L (3-11) 05/09/18 08:05 BUN 9 mg/dL (7-18) 05/09/18 08:05 Creatinine 0.95 mg/dL (0.55-1.02) 05/09/18 08:05 Estimated GFR/1.73 m2 57.66 (mL/min/1.73m2) 05/09/18 08:05 Glucose 103 mg/dL (70-100) H 05/09/18 08:05 Lactate 0.8 mmol/L (0.6-1.4) 05/08/18 08:10 Calcium 8.6 mg/dL (8.5-10.1) 05/09/18 08:05 Magnesium 2.2 mg/dL (1.8-2.4) 05/09/18 08:05 Total Bilirubin 0.2 mg/dL (0.2-1.0) 05/09/18 08:05 AST 43 U/L (15-37) H 05/09/18 08:05 ALT 69 U/L (12-78) 05/09/18 08:05 Alkaline Phosphatase 150 U/L (46-116) H 05/09/18 08:05 Troponin I < 0.02 ng/mL (0.00-0.06) 05/09/18 08:05 Total Protein 6.2 g/dL (6.4-8.2) L 05/09/18 08:05 Albumin 2.6 g/dL (3.4-5.0) L 05/09/18 08:05 Lipase 64 U/L (73-393) L 05/06/18 18:25 Urine Color Yellow (Yellow) 05/06/18 19:26 Urine Clarity Cloudy 05/06/18 19:26 Urine pH 6.0 (5-8) 05/06/18 19:26 Ur Specific [place] 1.010 (1.005-1.025) 05/06/18 19:26 Urine Protein 30 mg/dL (Negative) H 05/06/18 19:26 Urine Ketones Trace mg/dL (Negative) H 05/06/18 19:26 Urine Blood Moderate (Negative) H 05/06/18 19:26 Urine Nitrite Negative (Negative) 05/06/18 19:26 Urine Bilirubin Negative (Negative) 05/06/18 19:26 Urine Urobilinogen 0.2 EU/dL (Up TO 0.2) 05/06/18 19:26 Ur Leukocyte Esterase Small (Negative) H 05/06/18 19:26 Urine RBC Not Applicable 05/06/18 19:26 Urine WBC HPF (0-5) 05/06/18 19:26 Ur Epithelial Cells Not Applicable 05/06/18 19:26 Urine Crystals Not Applicable 05/06/18 19:26 Urine Bacteria Not Applicable 05/06/18 19:26 Urine Mucus Not Applicable 05/06/18 19:26 Ur Culture Indicated? Yes 05/06/18 19:26 Urine Glucose Negative mg/dL (Negative) 05/06/18 19:26
[2018-05-09] MEDS: Normal Saline Flush 10 ML SYR IVP ×2 (11:58→21:13)
[2018-05-09] MEDS: Ciprofloxacin 500 MG TAB PO ×2 (11:58→19:50)
[2018-05-09 12:12] LABS: Iron 33 ug/dL (50-175); Total Iron Binding Capacity 229 ug/dL (250-450); Transferrin Sat 14 % (15-50)
[2018-05-09 12:47] LABS: Ferritin 180 ng/mL (8-388); TSH 3.45 uIU/mL (0.358-3.74); Vitamin B12 295 pg/mL (193-986)
[2018-05-09 12:50] LABS: Folate > 20.0 ng/mL (8.6-20.0)
--- NOTE | 2018-05-09 13:19 | PDOC.CMPRO ---
- If Service Date Differs Date of service: 05/09/18 Time of Service: 13:19 Care Management Progress Note S/O: Venus is sitting up on the edge of her bed when this administrative underwriter visits this morning, she is pleasant and receptive to discussion. Venus had chest pain overnight, and states that she is feeling better at the time of discussion. Per MD report Venus continues on PO Cipro at this time, and telemetry has been placed. No change in DC plan at this time. A: Venus is a 72-year-old female admitted with pyelonephritis P: Venus will return home when medically ready per provider. No anticipated services at time of discharge. CM to coordinate transportation if family is unable to transport.
[2018-05-09 15:53] LABS: Troponin I < 0.02 ng/mL (0.00-0.06)
[2018-05-09] MEDS: ROSUVASTATIN 20 MG TAB 40 MG PO (19:50)
--- NOTE | 2018-05-10 00:25 | NUR.NOTE ---
Nursing Note: 7P to 7A shift: Pt is AO x 3. Ambulates to bathroom with walker with supervision. Denied of pain until this time. B/P improves.Lung sounds clear throughout. No diarrhea reported this shift. voiding well. Call lights within reach.
[2018-05-10 03:37] VITALS: BP 132/78; PULSE 78; RESP 18; TEMP 36.8; O2SAT 95
[2018-05-10 07:00] VITALS: PULSE 70
[2018-05-10 07:18] LABS: Abs Immature Grans 0.08 k/cumm (0.0-0.09); Absolute Basophil Count 0.01 k/cumm (0.0-0.2); Absolute Eosinophil Count 0.07 k/cumm (0.0-0.7); Absolute Lymphocyte Count 2.25 k/cumm (1.2-3.4); Absolute Monocyte Count 1.05 k/cumm (0.11-0.7); Absolute Neutrophil Count 5.48 k/cumm (1.2-6.7); Basophils % 0.1; Eosinophils % 0.8; HCT 31.3 % (36.0-46.0); HGB 10.3 g/dL (12.0-15.5); Immature Grans % 0.9; Lymphocytes % 25.2; Mean Corp. HGB Concentration 32.9 g/dL (32.0-36.0); Mean Corpuscular Hemoglobin 29.6 pg (27.0-33.0); Mean Corpuscular Volume 89.9 fL (80-95); Mean Platelet Volume 9.4 fL (8.0-11.0); Monocytes % 11.7; Neutrophils % 61.3; Platelet Count 249 x1000/uL (130-400); RBC 3.48 m/cumm (4.00-5.20); RBC Distribution Width 12.9 % (11.7-14.6); White Blood Cell Count 8.94 k/cumm (4.4-10.8)
[2018-05-10 07:20] VITALS: BP 180/82; PULSE 78; RESP 18; TEMP 37.5; O2SAT 96
[2018-05-10 07:35] LABS: ALT 54 U/L (12-78); AST 30 U/L (15-37); Albumin 2.9 g/dL (3.4-5.0); Alkaline Phosphatase 156 U/L (46-116); Anion Gap 11.6 mmol/L (3-11); BUN 8 mg/dL (7-18); Bilirubin, Total 0.5 mg/dL (0.2-1.0); CO2 24.4 mmol/L (21.0-32.0); CREATININE 1.06 mg/dL (0.55-1.02); Calcium 9.7 mg/dL (8.5-10.1); Chloride 103 mmol/L (98-107); Estimated GFR 50.81 (mL/min/1.73m2); Glucose 102 mg/dL (70-100); Magnesium 1.8 mg/dL (1.8-2.4); Potassium 3.7 mmol/L (3.5-5.1); Sodium 139 mmol/L (136-145); Total Protein 6.7 g/dL (6.4-8.2)
[2018-05-10] MEDS: Ciprofloxacin 500 MG TAB PO (08:16)
[2018-05-10] MEDS: Lisinopril 20 MG TAB 40 MG PO (08:16)
[2018-05-10] MEDS: amLODIPine 2.5 MG TAB PO (08:16)
[2018-05-10] MEDS: Enoxaparin 40 MG/0.4 ML SYR SC (08:16)
[2018-05-10] MEDS: Aspirin E.C. 81 MG TABEC PO (08:16)
[2018-05-10] MEDS: Magnesium Oxide 400 MG TAB PO (08:52)
[2018-05-10] MEDS: Acetaminophen 325 MG TAB PO (08:52)
[2018-05-10] MEDS: Normal Saline Flush 10 ML SYR IVP (08:53)
[2018-05-10] MEDS: POTASSIUM CHLORIDE 20 MEQ, POTASSIUM CHLORIDE 10 MEQ 30 MEQ PO (08:54)
[2018-05-10] MEDS: Pantoprazole 40 MG VIAL IVP (10:07)
[2018-05-10 10:42] LABS: Specimen Description Feces
--- NOTE | 2018-05-10 10:48 | W.PM.DS.N ---
Date of service: 05/10/18 Time of Service: 12:24 DS: Diagnosis Discharge Diagnosis (1) Pyelonephritis: Status: Acute (2) GERD (gastroesophageal reflux disease): Status: Chronic (3) Hypomagnesemia: Status: Acute (4) Hypokalemia: Status: Acute (5) Anemia: Status: Chronic (6) C. difficile enteritis: Status: Acute Discharge Plan Disposition Patient Disposition: HOME Condition: Stable Discharge Details Reason For Visit: ACUTE PYELONEPHRITIS,GASTROENTERISTIS,INTRACT.N/V/ Admit Date/Time: 05/06/18 22:06 Admit Provider: Scott Peña Attending Provider: Scott Peña Primary Care Provider: Tamiko Doe [facility] Course Hospital Course: CC: Fever, Diarrhea HPI: 72 year old woman with a prior history of DM and HTN admitted from [facility] Emergency Department with diagnosis of Acute Complicated UTI. Mrs. Mcrae has a past medical history significant for IBS, GERD, HTN, and depression. She presented to the ED with a 3 day history of nausea, epigastric abdominal pain, and diarrhea with reported loose stools 3-4 times per day without melena nor hematochezia. She also reported fevers with accompanied chills. Workup in the ED included evidence of a fever, mild leukocytosis, abnormal appearing urinalysis, elevated lactate, and elevated LFTs. CT of her abdomen and pelvis showed right ureteral and renal inflammation suggesting and ascending UTI / pyelonephritis. She was referred for admission for further evaluation and treatment. Current urine cultures are showing growth of pansensitive E.Coli, and patient was changed to oral Ciprofloxacin yesterday morning. She is tolerating this medicine well and reports continued improvement in her symptoms. Her suprapubic tenderness continues but is markedly better. Initial hypotension has resolved. The patient had developed temperature elevation to 37.7 and 37.9 yesterday morning after a very nice drop over the last 2 days - the last time she was febrile was 48 hours prior to that. She also reported recurrence of diarrhea yesterday, but no further episodes today. Her C. Diff came back positive by PCR - of note, she reports that her had this infection recently. No other events reported. Hospital Course: (1) Complicated UTI: Complicated UTI, with initial CT showing mild right sided perinephric stranding, and right renal and ureteral inflammation. Subsequent ultrasound without evidence of abscess. Had been on high dose Ceftriaxone for 3 days, changed to oral cipro yesterday with cultures positive for pansensitive E.Coli - SSRI placed on hold due to potential interaction in fluoroquinolone therapy. Continues to be afebrile. Hypotension resolved as well, and Lactate normalized. (2) C. Diff: Initial labs included Fecal leukocytes +, with Stool cultures ordered and still pending. Patient's C. Diff Ag was positive, with toxin negative prompting a reflexed sample for PCR - verbally reported today as positive. Patient's symptoms appear to be mild, with slightly improved diarrhea.. She also reports with C. difficile infection recently at home. Will initiate low-dose oral vancomycin. As Mrs. Marrufo still requires antibiotic therapy, the plan will be for continuation of oral vancomycin for a 1 week after completion of ciprofloxacin. She will also be initiated on probiotics, and her PPI therapy will be changed to an H2 jose. Discussion on hygiene and appropriate home practices for preventive measures of spreading this infection were discussed with the patient in detail as well. This plan was discussed and agreed upon with infectious disease specialist at [facility]. (3) GERD (gastroesophageal reflux disease): Currently on PPI therapy -will be changed to H2 jose in the setting of C. difficile infection. Will follow up with symptoms with primary care after this hospitalization. (4) Hypomagnesemia: Along with hypokalemia - both now resolved. (5) Hypokalemia: Replete as above. (6) Hypertension: Continue CCB. WOLF-I had been on hold due to initial dehydration and mild LORRIE. Creatinine now at baseline and patient is hypertensive. Resumed Lisinopril. (7) Anemia: Worsening Hgb in setting of acute illness - new finding for patient. Normal B12, FA, and TSH. Iron low but with low TIBC and normal ferritin that is not elevated - etiology likely multifactorial. (8) Chest pain: Episode of chest discomfort that appears to have resolved with prn mylanta overnight per report. EKG reviewed and compared to prior - evidence of NSR with normal axis and good R Wave Progression with Q Wave isolated to lead 3, TW inversion in V4-5, and flat in V6, along with nonspecific ST segment abnormality in I and AVL - all present previously on EKG from 12/2017. Current and repeat Troponin negative. Likely GI in origin. (9) Depression SSRI on hold as patient is on Fluoroquinolone therapy. (10) LORRIE: Likely prerenal in setting of diarrhea/dehydration and illness. Resolved. Home Meds and New Rx's Prescriptions: New ciprofloxacin HCl 500 mg Tablet 500 mg PO BID Qty: 10 RF: 0 vancomycin 125 mg Capsule 125 mg PO Q6H Qty: 48 RF: 0 acidophilus-pectin, citrus 25 million cell -100 mg Tablet 1 cap PO TID Qty: 90 RF: 0 ranitidine HCl 150 mg capsule 150 mg PO BID Qty: 60 RF: 0 Continued clonazepam [Klonopin] 0.5 MG tablet 0.5 mg PO PRN PRNRF: 0 amlodipine 2.5 MG tablet 2.5 mg PO DAILY RF: 0 Citalopram Hydrobromide [Citalopram HBr] 40 MG tablet 40 mg PO DAILY RF: 0 lisinopril 40 MG tablet 40 mg PO QAM RF: 0 aspirin 81 MG tablet,delayed release (DR/EC) 81 mg PO DAILY Qty: 30 RF: 0 rosuvastatin [Crestor] 40 MG tablet 40 mg PO QPM Qty: 30 RF: 0 Discontinued Dexilant 60 MG capsule,biphase delayed releas 60 mg PO DAILY Qty: 28 RF: 0 Discharge Instructions Instructions: Clostridium Difficile Infection (DC), Clostridium Difficile Infection (GEN) Additional Instructions: See your primary care doctor within 1 week. Please take your antibiotics until they are both finished. You will stop your dexilant because this medicine can be associated with increased risk for a C.Diff infection. Please hold your Citalopram until you finish your antibiotic 'ciprofloxacin', then you may restart it. Take probiotics as prescribed. Stand Alone Forms: Nursing Discharge Form Referrals: Tamiko Doe MD [Primary Care Provider] - 05/21/18 1:00 pm Activity:: No strenuous activity. Equipment/Supplies:: No Equipment Needed Diet:: Carb Counting Discharge Orders Discharge Orders: Discharge Order (Routine); Ordered 05/10/18 Ordered By: Shade Lagos Exam Narrative Exam Narrative: General: AAOX3, NAD Neck: Supple CV: Regular, nontachycardic, S1S2, No rubs, murmurs, or gallops. Pulmonary: Clear to auscultation bilaterally, no crackles, wheezing, or rhonchi Abdomen: + Bowel Sounds, soft, nondistended. Minimal suprapubic tenderness, improved since admission. Vascular: No lower extremity edema Psych: Normal mood and affect. DS: Data Vitals/I&O Vitals and I&O: Vital Signs Temperature 37.5 C 05/10/18 07:20 Temperature Source Tympanic 05/10/18 07:20 Pulse 78 05/10/18 07:20 Pulse Rhythm Regular 05/09/18 20:29 Pulse 74 05/06/18 21:20 Respiratory Rate 18 05/10/18 07:20 Respiratory Effort Non-Labored 05/09/18 20:29 Respiratory Depth Normal 05/09/18 20:29 Respiratory Pattern Normal 05/09/18 20:29 Blood Pressure 180/82 H 05/10/18 07:20 Blood Pressure Mean 64 05/06/18 21:00 Blood Pressure Position Supine 05/06/18 17:45 Pulse Oximetry 96 05/10/18 07:20 Oxygen Delivery Method Room Air 05/10/18 07:20 Oxygen Flow Rate 0 05/10/18 07:20 Pain Level 6 05/10/18 07:20 Comment 05/09/18 07:25 Intake & Output 05/09/18 05/09/18 05/10/18 11:59 23:59 11:59 Intake Total 903.75 / 903.75 120 / 120 Output Total 1300 / 2400 1100 / 2400 900 / 900 Balance -396.25 / -1496.25 -1100 / -1496.25 -780 / -780 Weight 62.4 kg Intake: IV 603.75 / 603.75 Oral 300 / 300 120 / 120 Output: Urine 1300 / 2400 1100 / 2400 900 / 900 Other: Urine Color Yellow Yellow Yellow Urine Appearance Clear Clear Clear Urine Odor Normal Normal Normal Comment Pt void in toilet x1. Voiding Methods Toilet Toilet Completed studies during hospitalization [Text1]: Exam(s) 05/06 a RAD:XR chest 2V PA & lateral SYMPTOM/DIAGNOSIS: FEVER, CHEST PAIN, R/O ACUTE DISEASE PA AND LATERAL CHEST: Comparison is made with 02 January 2018. The heart size is at the upper limits of normal. Aortic calcification is seen. The lungs appear clear. IMPRESSION: No acute abnormality. Exam(s) EXAM: CT Abdomen and Pelvis With Contrast EXAM DATE/TIME: 05/06/2018 6:14 PM CLINICAL HISTORY: 72 years old, female; Pain; Abdominal pain; Epigastric; Patient HX: Epigastric pain; Additional info: R/O acute cholecystitis TECHNIQUE: Axial computed tomography images of the abdomen and pelvis with intravenous contrast. Coronal and sagittal reformatted images were created and reviewed. COMPARISON: CT ABD PELVIS WO CONTRAST 12/21/2016 3:24 PM FINDINGS: Lower thorax: Tiny hiatal hernia. ABDOMEN: Liver: No mass. Gallbladder and bile ducts: Cholecystectomy. No significant biliary dilation. Pancreas: No ductal dilation. No masses. Spleen: No splenomegaly or focal lesions. Adrenals: No mass. Kidneys and ureters: Moderate hydroureter, abnormal right epithelial ureteral enhancement. No calyceal dilation on the right. No vandana hydronephrosis bilaterally. No renal masses. Slightly heterogeneous right nephrogram. No gross stones are seen on postcontrast imaging. Stomach and bowel: Diverticulosis of the sigmoid colon. No focal pathology in the remainder of the colon. No focal pathology in the small bowel. Appendix: No evidence of appendicitis. PELVIS: Bladder: Unremarkable as visualized. Reproductive: Hysterectomy. ABDOMEN and PELVIS: Intraperitoneal space: No free air. No significant fluid collection. Bones/joints: No acute fracture. No dislocation. Soft tissues: Small fat-containing right inguinal hernia. Vasculature: Moderate aortoiliac atherosclerosis. No aortic aneurysm. Lymph nodes: No significantly enlarged lymph nodes. IMPRESSION: 1. Evidence of right renal and ureteral inflammation, suggesting ascending urinary tract infection such as pyelonephritis. 2. Incidental findings as described. Exam(s) 04/[address]:CT abdomen & pelvis w SYMPTOMS/DIAGNOSIS: EPIGASTRIC PAIN, DIARRHEA, ? ACUTE CHOLECYSTITIS, ? COLITIS CT OF THE ABDOMEN AND PELVIS: Comparison is made with November,. Images were performed after IV and without oral contrast. There is mild right perinephric stranding. There is a small area of inhomogeneity in the mid to lower pole of the right kidney. There is urothelial enhancement. No hydronephrosis or ureteral calculi are seen. The left kidney is unremarkable. The bladder is unremarkable. The patient is status post hysterectomy. There are bilateral fatty-containing inguinal hernias, right greater than left. The appendix is normal. There is sigmoid diverticulosis but no evidence of diverticulitis. The ovaries are unremarkable. The lung bases are clear. The liver, spleen, adrenals and pancreas are unremarkable. The patient is status post cholecystectomy. IMPRESSION: Findings suspicious for right focal pyelonephritis. There is diffuse enhancement of the urothelium. No obstructing stone is seen. Exam(s) EXAM: XR Chest, 2 Views EXAM DATE/TIME: 05/06/2018 7:19 PM CLINICAL HISTORY: 72 years old, female; Pain and signs and symptoms; Fever; Chest pain; Type not specified; Patient HX: Fever, chest pain; Additional info: R/O acute disease TECHNIQUE: XR of the chest, 2 views. COMPARISON: CR CHEST 2 VIEWS PA,LAT 01/02/2018 1:03 AM FINDINGS: Lungs: No airspace consolidation. Pleural space: No pleural effusion. No pneumothorax. Heart/Mediastinum: Mild cardiomegaly without significant volume overload. Upper abdomen: Right upper quadrant clips, probable cholecystectomy. Bones/joints: No acute fracture. IMPRESSION: Mild cardiomegaly without significant volume overload. Exam(s) a US:US renal SYMPTOMS/DIAGNOSIS: URINARY TRACT INFECTION, PYELONEPHRITIS, ABDOMINAL PAIN RENAL ULTRASOUND: Comparison is made with September,. The kidneys are normal in size and echogenicity. There are a few echogenic reflectors in both kidneys, which could represent artifacts. No stones are demonstrated by CT. There is no evidence of hydronephrosis. No perinephric collection is seen. The area of inhomogeneous enhancement in the right kidney is not visible by ultrasound. The bladder prevoid volume was 160 cc. Debris is noted in the bladder. The patient was unable to void. IMPRESSION: Debris is noted in the bladder. The kidneys are unremarkable. Labs on day of discharge: Labs from last 24 hours 05/10/18 05/10/18 05/09/18 06:15 06:15 15:15 WBC 8.94 RBC 3.48 L Hgb 10.3 L Hct 31.3 L MCV 89.9 MCH 29.6 MCHC 32.9 RDW 12.9 Plt Count 249 MPV 9.4 Immature Gran % 0.9 Neutrophils % 61.3 Lymphocytes % 25.2 Monocytes % 11.7 Eosinophils % 0.8 Basophils % 0.1 Absolute Neutrophils 5.48 Absolute Lymphocytes 2.25 Absolute Monocytes 1.05 H Absolute Eosinophils 0.07 Absolute Basophils 0.01 Sodium 139 Potassium 3.7 Chloride 103 Carbon Dioxide 24.4 Anion Gap 11.6 H BUN 8 Creatinine 1.06 H Estimated GFR/1.73 m2 50.81 Glucose 102 H Calcium 9.7 Magnesium 1.8 Iron TIBC Transferrin % Sat Ferritin Total Bilirubin 0.5 AST 30 ALT 54 Alkaline Phosphatase 156 H Troponin I < 0.02 Total Protein 6.7 Albumin 2.9 L Vitamin B12 Folate TSH Stl C.difficile Tox PCR C.difficile Tox Source 05/09/18 05/09/18 05/09/18 08:30 08:05 08:05 WBC RBC Hgb Hct MCV MCH MCHC RDW Plt Count MPV Immature Gran % Neutrophils % Lymphocytes % Monocytes % Eosinophils % Basophils % Absolute Neutrophils Absolute Lymphocytes Absolute Monocytes Absolute Eosinophils Absolute Basophils Sodium Potassium Chloride Carbon Dioxide Anion Gap BUN Creatinine Estimated GFR/1.73 m2 Glucose Calcium Magnesium Iron 33 L TIBC 229 L Transferrin % Sat 14 L Ferritin 180 Total Bilirubin AST ALT Alkaline Phosphatase Troponin I Total Protein Albumin Vitamin B12 295 Folate > 20.0 H TSH 3.45 Stl C.difficile Tox PCR Pending C.difficile Tox Source Pending Preliminary micro results at discharge 05/06/18 18:48 Blood Culture - Preliminary Blood NO GROWTH 72 HOURS 05/06/18 18:25 Blood Culture - Preliminary Blood NO GROWTH 72 HOURS Urine Culture Final 05/08/18-0804 Day 1 Result ISOLATES BELOW ISOLATE 1 COLONY COUNT >100,000 COLONIES/ML ISOLATE 1 APPEARANCE Gram Negative Ilia ISOLATE 1 ACTION SUSCEPTIBILITY TO FOLLOW Day 2 Result ISOLATES BELOW ISOLATE 1 COLONY COUNT >100,000 COLONIES/ML ISOLATE 1 APPEARANCE Gram Negative Ilia ISOLATE 2 COLONY COUNT 10,000 - 50,000 COLONIES/ML ISOLATE 2 APPEARANCE Mixed Gram Positive Demetrio Organism 1 Escherichia coli COLONY COUNT >100,000 COLONIES/ML Organism 2 GRAM POSITIVE DEMETRIO,MIXED COLONY COUNT 10,000 - 50,000 COLONIES/ML Esch coli RESULT Ampicillin S Ampicillin/Sulbactam S Cefazolin S Ceftazidime S CEFTRIAXONE S Ciprofloxacin S Gentamicin S Nitrofurantoin S Imipenem S Levofloxacin S Tobramycin S Trimethoprim/Sulfamethoxazole S Piperacillin/Tazobactam S Lactoferrin Detection Final 05/08/18-1519 RESULT POSITIVE Occult Blood Stool Guaiac(1sp) Final 05/09/18-1205 STOOL OCCULT BLOOD #1 NEGATIVE [facility] Depression (Chronic) GERD (gastroesophageal reflux disease) (Chronic) Gait disturbance (Chronic) Left carotid bruit (Chronic) Essential hypertension (Chronic) Adenomatous polyp of colon (Chronic) Allergic rhinitis (Chronic) Cardiomyopathy (Chronic) Cervical spondylosis (Chronic) Environmental allergies (Chronic) IBS (irritable bowel syndrome) (Chronic) Osteoarthritis (Chronic) Osteopenia (Chronic) COLONOSCOPY (Resolved ~12/2014) Colonoscopy - IV Sedation (Resolved) Cystocele, Paravaginal repair (Resolved) GASTROSCOPY (Resolved 01/20/15) Rectocele, Paravaginal repair (Resolved) Vaginal hysterectomy (Resolved) Medical History Depression (Chronic) GERD (gastroesophageal reflux disease) (Chronic) Gait disturbance (Chronic) Left carotid bruit (Chronic) Essential hypertension (Chronic) Adenomatous polyp of colon (Chronic) Allergic rhinitis (Chronic) Cardiomyopathy (Chronic) Cervical spondylosis (Chronic) Environmental allergies (Chronic) IBS (irritable bowel syndrome) (Chronic) Osteoarthritis (Chronic) Osteopenia (Chronic) Social History marital status: lives independently: Yes number of children: 2 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 Surgical History COLONOSCOPY (Resolved ~12/2014) Colonoscopy - IV Sedation (Resolved) Cystocele, Paravaginal repair (Resolved) GASTROSCOPY (Resolved 01/20/15) Rectocele, Paravaginal repair (Resolved) Vaginal hysterectomy (Resolved) Social History marital status: lives independently: Yes number of children: 2 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
[2018-05-10 11:30] LABS: Campylobacter PCR SEE COMMENTS; Salmonella PCR SEE COMMENTS; Shiga Toxin PCR SEE COMMENTS; Shigella/Enteroinvasive Ecoli SEE COMMENTS
[2018-05-10 12:00] VITALS: BP 127/67; PULSE 68; RESP 18; TEMP 36.4; O2SAT 96
[2018-05-10] MEDS: Vancomycin 125 MG CAP PO (12:20)
[2018-05-10] MEDS: Lactobacillus Acidophilus CAP 1 CAP PO (13:50)
--- NOTE | 2018-05-10 14:12 | PT.INIE ---
Date of service: 05/10/18 Time of Service: 14:12 PT Notes Inpatient Physical Therapy Evaluation Date: 05/09/2018 Referring Doctor: Shade Lagos PT Orders: PT CONSULT: Assess for discharge safety Precautions: Contact precautions/enteric precautions Patient Profile/Admitting Diagnosis: Patient is a 72-year-old female admitted with pyelonephritis, hypomagnesemia, hypokalemia, gastroenteritis, rule out C. difficile PMHX: Irritable bowel syndrome, polyp of the colon, osteoarthritis, cervical spondylosis, hypertension, gastroesophageal reflux disease, depression, allergic rhinitis, cardiomyopathy, osteopenia, colonoscopy, hysterectomy, paravaginal repair Social History/Home Situation: Lives with spouse in a home, baseline mobility independent gait without assistive device, independent with ADLs Equipment Owned/DME: None Subjective: Patient sitting dressed in her own clothing at edge of bed, stands to greet the therapist in room. Agreeable to PT eval, states she has not been having any difficulty with walking. Objective: Mental Status: Alert and oriented to name place and situation Pain: No complaints of pain Bed Mobility/Transfers: Sit to stand: Independent Stand to sit: Independent Gait: Contact/enteric precautions observed for mobility out of room Independent gait with no assistive device 200 feet, steady step through gait pattern with no loss of balance. Patient returned to room sitting at edge of bed at end of session attempting to call on the phone. Balance: Static Sitting: Normal Dynamic Sitting: Normal Static Standing: Normal Dynamic Standing: Good Special Tests: Mobility Limitations Standardized Measure [facility] AM-PAC 6 clicks Basic Mobility Inpatient Short Form: Raw Score: 24 standardized Score: 61.14 CMS Score: 0% [facility] Modifier: CH Informed Consent/Education: Patient instructed in purpose of PT consult and plan of care. Assessment: Patient is a 72-year-old female admitted with pyelonephritis, hypomagnesemia, hypokalemia, gastroenteritis, rule out C. difficile in setting of Irritable bowel syndrome, polyp of the colon, osteoarthritis, cervical spondylosis, hypertension, gastroesophageal reflux disease, depression, allergic rhinitis, cardiomyopathy, osteopenia, colonoscopy, hysterectomy, paravaginal repair. Patient presents at baseline level of mobility, independent transfers, independent gait without assistive device, no loss of balance with gait. Patient is being discharged home today skilled PT services not indicated, patient is not in need of an assistive device. Impairments are contributing to the following functional limitations: AMPAC score CMS Score: 0% Patient is assessed as a Low 27277 complexity based on the following: History: See above Examination: See above Presentation: Stable Decision Making: AMPAC score CMS Score: 0% Goals: Not applicable Plan of Care/Treatment Plan: PT eval only DISCHARGE RECOMMENDATIONS: Home with his spouse TREATMENT CODE/TIME: 24 minutes initial evaluation 1350 G Codes in the area mobility of walking and moving around: current status [id number] ; projected status GP [id number] discharge status (if discharging) GP [id number] based on [facility] CMS Score: 0% Zelda Glez PT Disclaimer: This note was created using [employer] voice recognition software. It was reviewed for major content. However, there may be multiple small discrepancies and errors due to the voice recognition aspects of the software.
--- NOTE | 2018-05-10 14:22 | IN_ITS ---
Date of service: 05/10/18 Time of Service: 14:12 PT Notes Inpatient Physical Therapy Evaluation Date: 05/09/2018 Referring Doctor: Shade Lagos PT Orders: PT CONSULT: Assess for discharge safety Precautions: Contact precautions/enteric precautions Patient Profile/Admitting Diagnosis: Patient is a 72-year-old female admitted with pyelonephritis, hypomagnesemia, hypokalemia, gastroenteritis, rule out C. difficile PMHX: Irritable bowel syndrome, polyp of the colon, osteoarthritis, cervical spondylosis, hypertension, gastroesophageal reflux disease, depression, allergic rhinitis, cardiomyopathy, osteopenia, colonoscopy, hysterectomy, paravaginal repair Social History/Home Situation: Lives with spouse in a home, baseline mobility independent gait without assistive device, independent with ADLs Equipment Owned/DME: None Subjective: Patient sitting dressed in her own clothing at edge of bed, stands to greet the therapist in room. Agreeable to PT eval, states she has not been having any difficulty with walking. Objective: Mental Status: Alert and oriented to name place and situation Pain: No complaints of pain Bed Mobility/Transfers: Sit to stand: Independent Stand to sit: Independent Gait: Contact/enteric precautions observed for mobility out of room Independent gait with no assistive device 200 feet, steady step through gait pattern with no loss of balance. Patient returned to room sitting at edge of bed at end of session attempting to call on the phone. Balance: Static Sitting: Normal Dynamic Sitting: Normal Static Standing: Normal Dynamic Standing: Good Special Tests: Mobility Limitations Standardized Measure [facility] AM-PAC 6 clicks Basic Mobility Inpatient Short Form: Raw Score: 24 standardized Score: 61.14 CMS Score: 0% [facility] Modifier: CH Informed Consent/Education: Patient instructed in purpose of PT consult and plan of care. Assessment: Patient is a 72-year-old female admitted with pyelonephritis, hypomagnesemia, hypokalemia, gastroenteritis, rule out C. difficile in setting of Irritable bowel syndrome, polyp of the colon, osteoarthritis, cervical spondylosis, hypertension, gastroesophageal reflux disease, depression, allergic rhinitis, cardiomyopathy, osteopenia, colonoscopy, hysterectomy, paravaginal repair. Patient presents at baseline level of mobility, independent transfers, independent gait without assistive device, no loss of balance with gait. Patient is being discharged home today skilled PT services not indicated, patient is not in need of an assistive device. Impairments are contributing to the following functional limitations: AMPAC score CMS Score: 0% Patient is assessed as a Low 29785 complexity based on the following: History: See above Examination: See above Presentation: Stable Decision Making: AMPAC score CMS Score: 0% Goals: Not applicable Plan of Care/Treatment Plan: PT eval only DISCHARGE RECOMMENDATIONS: Home with his spouse TREATMENT CODE/TIME: 24 minutes initial evaluation 1350 G Codes in the area mobility of walking and moving around: current status [id number] ; projected status GP [id number] discharge status (if discharging) GP G8980 based on [facility] CMS Score: 0% Zelda Glez PT Disclaimer: This note was created using [employer] voice recognition software. It was reviewed for major content. However, there may be multiple small discrepancies and errors due to the voice recognition aspects of the software.
[2018-05-10 14:23] LABS: Result Positive
[2018-05-10 14:32] VITALS: PULSE 70
--- NOTE | 2018-05-10 14:32 | PDOC.CMDIS ---
- If Service Date Differs Date of service: 05/10/18 Time of Service: 14:32 LACE Index Scoring Tool - Questions: Length of Stay (in days): 4 - 6 Acuity (Admit via E.D.?): Yes E.D. Visits: 2 - Answers: Total Score: 9 Risk of Readmission: Low Risk Care Management Discharge Reason for Hospitalization: Pyelonephritis Discharge Plan: Venus will return home today with no services. She will F/U with PCP and plan of care as prescribed. Venus states that she has a friend whom will be transporting her home. Patient/Family Education Needs: Review DC instructions, any limitations, and discuss Ask Me Three
--- NOTE | 2018-05-10 14:36 | CHAPLAIN ---
I visited with Venus yesterday. She was resting in bed telling me that she has been very tired lately. She shared some personal history and talked about caring for her Bryn and their 17 year old granddaughter who has CP. Kendall said she occasionally gets a few hours to herself, but not often. It is becoming more difficult she said, for her to provide physical care for Bryn as it's hard to lift him.
== END 2018-05-10 15:47 | disposition home or self-care (01) | DRG 690 ==
LOC: ER 22:39 → MS 05-07 09:37
PROVIDERS: General Practice; Internal Medicine; Admitting Provider Internal Medicine; Emergency Provider Physician Assistant; PCP Family Medicine; Visit Provider Internal Medicine
DX: N10 Acute pyelonephritis (principal); A04.72 Enterocolitis due to Clostridium difficile, not specified as recurrent; B96.20 Unspecified Escherichia coli [E. coli] as the cause of diseases classified elsewhere; E87.6 Hypokalemia; E83.42 Hypomagnesemia; K21.9 Gastro-esophageal reflux disease without esophagitis; K58.0 Irritable bowel syndrome with diarrhea; I10 Essential (primary) hypertension; D64.9 Anemia, unspecified; F32.9 Major depressive disorder, single episode, unspecified; R07.9 Chest pain, unspecified
CPT/HCPCS: 36415; 76770; 80053; 83690; 87040; 87077; 87505; 93005; 96361; 96365; 96375; 97161; 99220; 99232; 99233; 99239; 99285; J1650; 71046; 74177; 81003; 81015; 82270; 82272; 82607; 82728; 82746; 83540; 83550; 83605; 83630; 83735; 84443; 84484; 85025; 87086; 87186; 87324; 87798; 93010; 99226; G0378; J0696; J0780; J1644; J2405; J3475; J3490

== ENCOUNTER 2018-05-12 12:39 | Emergency (ER) | payer MEDICARE, MEDICAID, SELFPAY ==
[2018-05-12 12:46] VITALS: BP 161/61; PULSE 71; RESP 18; TEMP 36.5; O2SAT 97
--- NOTE | 2018-05-12 13:17 | DI.CT_ITS ---
SYMPTOM/DIAGNOSIS: LLQ PAIN, C-DIFF, DIARRHEA, CONCERN FOR COLITIS CT ABDOMEN AND PELVIS: Comparison is 05/06/18 No acute findings are seen in the lung bases. There is a small hiatal hernia. The liver, spleen, pancreas, bile ducts and adrenal glands are unremarkable. The patient is status post cholecystectomy. The kidneys show normal and symmetric enhancement. No evidence of a solid renal mass or calculus is seen. There is persistent prominence of the right renal collecting system with a mild enhancement of the wall. No ureterolithiasis seen. The urinary bladder is unremarkable. Reproductive organs are unremarkable as visualized. There is diverticulosis of the colon but no evidence of acute diverticulitis. A normal appendix is seen. No evidence of bowel obstruction or inflammation is present. No significant abdominal or pelvic adenopathy, ascites or pneumoperitoneum is present. Note is made of bilateral fat containing inguinal hernia right greater than left. Degenerative changes are seen in the spine. No aggressive osseous lesions are seen. IMPRESSION: No acute abnormality.
--- NOTE | 2018-05-12 13:43 | ED.GENADUL_ITS ---
Discharge Plan Disposition Patient Disposition: HOME Condition: Good Discharge Details Chief Complaint: Nausea/Vomit/Diar Clinical Impression: Diarrhea Primary Care Provider: Tamiko Doe ED Provider: Geo Elias Home Meds and New Rx's Prescriptions: No Action clonazepam [Klonopin] 0.5 MG tablet 0.5 mg PO PRN PRNRF: 0 amlodipine 2.5 MG tablet 2.5 mg PO DAILY RF: 0 Citalopram Hydrobromide [Citalopram HBr] 40 MG tablet 40 mg PO DAILY RF: 0 lisinopril 40 MG tablet 40 mg PO QAM RF: 0 aspirin 81 MG tablet,delayed release (DR/EC) 81 mg PO DAILY Qty: 30 RF: 0 rosuvastatin [Crestor] 40 MG tablet 40 mg PO QPM Qty: 30 RF: 0 ciprofloxacin HCl 500 mg Tablet 500 mg PO BID Qty: 10 RF: 0 vancomycin 125 mg Capsule 125 mg PO Q6H Qty: 48 RF: 0 acidophilus-pectin, citrus 25 million cell -100 mg Tablet 1 cap PO TID Qty: 90 RF: 0 ranitidine HCl 150 mg capsule 150 mg PO BID Qty: 60 RF: 0 Discharge Instructions Instructions: Acute Diarrhea (ED) Additional Instructions: Please continue taking your home vancomycin dose as prescribed by the hospitalist Dr. Lagos. We have given you your dose for today, the next dose will need to be taken in 6 hours from discharge. Please drink 8-10 cups of water per day if you notice any worsening of your symptoms, or any new symptoms such as vomiting, worsening diarrhea, bloody diarrhea, worsening abdominal fever, chills, shortness of breath, chest pain, numbness, weakness, or fainting , please return immediately to the emergency department for reevaluation. Please follow up with your primary care provider as soon as possible for reassessment and reevaluation. As always, it was a pleasure participating in your medical care today. Referrals: Tamiko Doe MD [Primary Care Provider] - Medical Decision Making This is a 72-year-old female with a past medical history of C. difficile diarrhea, and pyelonephritis for which she was admitted within the past week, and then discharged 2 days ago. She was discharged home on ciprofloxacin, for the pyelonephritis with a prescription for oral vancomycin for home use for the C. difficile. She is doing well at home until this morning when she noted that her diarrhea returned and she developed cramping in her abdomen. The cramping is new compared to her initial presentation, she states that the pain is worse than it was in the past. Physical exam shows no signs of an acute abdomen but mild cramping throughout. Signs are relatively stable. Due to the patient's age, and risk factors, as well as her abdominal tenderness in the setting of known C. difficile, I am concerned for potential worsening colitis or abscess. Initial CT scan was negative. Patient's pain we will get a repeat CT scan, to rule out any acute process. If this appears relatively benign, I feel that she can continue on her home vancomycin with close PCP follow-up. Additionally we will rehydrate the patient for the time being. 3:24 PM Patient's laboratory workup has returned there is no evidence of leukocytosis, left shift, or significant anemia. Electrolytes are normal. The patient CT scan has returned demonstrates no acute process in the abdomen, no evidence of colitis. After a mild fluid rehydration patient is feeling much better, and she states that her cramping is notably improved. With no fever, reassuring vital signs, resolved abdominal cramping, very minimal diarrhea with only 3-4 episodes per day, as well as being on the appropriate antibiotics for Clostridium difficile, and no evidence of colitis on CT scan I feel that she can be safely discharged home. We recommended the importance of continuing her oral vancomycin prescription, we have given her first dose here today. We discussed red flags which to return the patient understands. I have extensively reviewed the treatment plan and discharge instructions with the patient. I have addressed all patient concerns at this time. The patient was made aware of what symptoms to monitor for that would warrant a return to the emergency department. Discussed the plan with the patient, they demonstrate verbal understanding and agreement with our assessment and plan at this time. Additionally of note the patient states that while I am here I would like imaging of my right shoulder because I have chronic arthritis there and my orthopedic surgeon wanted imaging. We did get a shoulder x-ray, this shows no evidence of acute process. Right Shoulder XRAY FINDINGS: The bony structures are in anatomic alignment. No fracture is present. No radiopaque foreign body is identified. The joint spaces are well maintained. IMPRESSION: No evidence of acute bony abnormality. Comparison: CT ABDOMEN PELVIS W 05/06/2018 7:01 PM Findings: Small hiatal hernia. Prior cholecystectomy. Prior hysterectomy. Fat-containing bilaterally normal hernias. Persistent prominence to the right intrarenal collecting system and renal pelvis unchanged. Normal appearing solid organs. No intestinal obstruction. No obstructive uropathy. No free fluid. No free air. No inflammatory changes. Impression: No specific etiology identified for the patient's symptoms. Dictated and Authenticated by: Chapincito Blood MD. HPI General Date/Time Provider Initiated Documentation: 05/12/18 12:52 . HPI Narrative: This is a 72-year-old female who is a very poor personal medical history historian who presents today for evaluation of diarrhea and abdominal cramping. Patient was seen and assessed here in the emergency department within the past week, she was admitted and subsequently treated for pyelonephritis, as well as Clostridium difficile. CT scan at that time showed no evidence of acute diverticulitis. Patient's also demonstrated chronic anemia at that time, he was eventually discharged home 2 days ago with continued Cipro ofloxacin treatment for the UTI, and a prescription to start vancomycin at the completion of that treatment which would start today. The patient denies any vomiting but does admit to nausea, she denies any dark or tarry stools, or any blood in her stools. Patient denies any associated chest pain, arm pain, or leg pain. She denies any dysuria, hematuria, increased urinary frequency, or systemic symptoms of fever or chills. She has been able to eat without significant difficulty but does have slightly decreased appetite. Past surgical history is positive for cholecystectomy. Patient denies any other complaints at this time, she denies any other modifying factors. Related Data Home Medications Medication Instructions Recorded Confirmed lisinopril 40 mg PO QAM 11/24/12 05/06/18 Citalopram Hydrobromide 40 mg PO DAILY tab-cap NS 11/28/17 05/06/18 [Citalopram HBr] amlodipine 2.5 mg PO DAILY tab-cap NS 11/28/17 05/06/18 clonazepam [Klonopin] 0.5 mg PO PRN PRN NS 11/28/17 05/06/18 aspirin 81 mg PO DAILY #30 tabec 01/02/18 05/06/18 rosuvastatin [Crestor] 40 mg PO QPM #30 tab 01/02/18 05/06/18 acidophilus-pectin, citrus 1 cap PO TID #90 tab 05/10/18 ciprofloxacin HCl 500 mg PO BID #10 tab 05/10/18 ranitidine HCl 150 mg PO BID #60 cap 05/10/18 vancomycin 125 mg PO Q6H #48 cap 05/10/18 Previous Rx's Medication Instructions Recorded aspirin 81 mg PO DAILY #30 tabec 01/02/18 rosuvastatin [Crestor] 40 mg PO QPM #30 tab 01/02/18 acidophilus-pectin, citrus 1 cap PO TID #90 tab 05/10/18 ciprofloxacin HCl 500 mg PO BID #10 tab 05/10/18 ranitidine HCl 150 mg PO BID #60 cap 05/10/18 vancomycin 125 mg PO Q6H #48 cap 05/10/18 Allergies Allergy/AdvReac Type Severity Reaction Status Date / Time aspirin AdvReac upset Unverified 05/12/18 12:52 stomach r/t GERD metoclopramide HCl AdvReac hysterical Unverified 05/12/18 12:52 [From Reglan] crying trazodone AdvReac itching Unverified 05/12/18 12:52 enviornmental Allergy Mild head Uncoded 05/12/18 12:52 congestion General Stated Complaint: Nausea/Vomit/Diar SEBASTIÁN: 3 Review of Systems Review of Systems All systems reviewed & are unremarkable except as noted in HPI and below PFSH Medical History Depression (Chronic) GERD (gastroesophageal reflux disease) (Chronic) Gait disturbance (Chronic) Left carotid bruit (Chronic) Essential hypertension (Chronic) Adenomatous polyp of colon (Chronic) Allergic rhinitis (Chronic) Cardiomyopathy (Chronic) Cervical spondylosis (Chronic) Environmental allergies (Chronic) IBS (irritable bowel syndrome) (Chronic) Osteoarthritis (Chronic) Osteopenia (Chronic) Surgical History COLONOSCOPY (Resolved ~12/2014) Colonoscopy - IV Sedation (Resolved) Cystocele, Paravaginal repair (Resolved) GASTROSCOPY (Resolved 01/20/15) Rectocele, Paravaginal repair (Resolved) Vaginal hysterectomy (Resolved) Social History lives independently: Yes number of children: 2 current occupational status: retired 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 3.ENT: Atraumatic external nose and ears. Mildly dry MM. Neck: Symmetric, trachea midline, No thyromegaly. 4.CVS: +S1/S2, No murmurs or gallops. Peripheral pulses 2+ and equal in all extremities. Brisk capillary refill in all extremities. 5.RESP: Unlabored respiratory effort. Clear to auscultation bilaterally. No wheezes rales or rhonchi 6.GI: Soft, Nondistended, No hepatosplenomegaly. No guarding or rebound. Mild tenderness throughout, particularly in the left lower quadrant, as well as the right lower quadrant. No signs of abdominal distention. 7.MSK: Normocephalic/Atraumatic, Extremities w/o deformity or ttp No cyanosis or clubbing, Normal movement of all extremities 8.Skin: Warm, Dry. No rashes or lesions. 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 Sensation grossly intact, no focal neurologic deficits. 10.Psych: (AAO) x3. Appropriate mood and affect Course Vital Signs Temperature 36.5 C 05/12/18 12:46 Pulse 71 05/12/18 12:46 Respiratory Rate 18 05/12/18 12:46 Blood Pressure 161/61 H 05/12/18 12:46 Pulse Oximetry 97 05/12/18 12:46 Temperature 36.5 C 05/12/18 12:46 Temperature Source Temporal Artery Scan 05/12/18 12:46 Pulse 71 05/12/18 12:46 Respiratory Rate 18 05/12/18 12:46 Respiratory Effort Non-Labored 05/12/18 12:51 Blood Pressure 161/61 H 05/12/18 12:46 Blood Pressure Position Sitting 05/12/18 12:46 Pulse Oximetry 97 05/12/18 12:46 Oxygen Delivery Method Room Air 05/12/18 12:46 Oxygen Flow Rate 0 05/12/18 12:46 Pain Level 4 05/12/18 12:46
[2018-05-12 13:45] LABS: Absolute Basophil Count 0.03 k/cumm (0.0-0.2); Absolute Eosinophil Count 0.09 k/cumm (0.0-0.7); Absolute Lymphocyte Count 2.26 k/cumm (1.2-3.4); Absolute Monocyte Count 0.78 k/cumm (0.11-0.7); Absolute Neutrophil Count 4.37 k/cumm (1.2-6.7); Basophils % 0.4; Eosinophils % 1.2; HCT 36.1 % (36.0-46.0); HGB 12.1 g/dL (12.0-15.5); Immature Grans % 1.3; Lymphocytes % 29.6; Mean Corp. HGB Concentration 33.5 g/dL (32.0-36.0); Mean Corpuscular Hemoglobin 30.4 pg (27.0-33.0); Mean Corpuscular Volume 90.7 fL (80-95); Mean Platelet Volume 8.9 fL (8.0-11.0); Monocytes % 10.2; Neutrophils % 57.3; Platelet Count 311 x1000/uL (130-400); RBC 3.98 m/cumm (4.00-5.20); RBC Distribution Width 13.3 % (11.7-14.6); White Blood Cell Count 7.63 k/cumm (4.4-10.8)
[2018-05-12 13:57] LABS: ALT 58 U/L (12-78); AST 45 U/L (15-37); Albumin 3.5 g/dL (3.4-5.0); Alkaline Phosphatase 146 U/L (46-116); Anion Gap 11.4 mmol/L (3-11); BUN 8 mg/dL (7-18); Bilirubin, Total 0.6 mg/dL (0.2-1.0); CO2 27.6 mmol/L (21.0-32.0); CREATININE 1.09 mg/dL (0.55-1.02); Chloride 103 mmol/L (98-107); Glucose 100 mg/dL (70-100); Potassium 3.7 mmol/L (3.5-5.1); Sodium 142 mmol/L (136-145); Total Protein 7.8 g/dL (6.4-8.2)
[2018-05-12] MEDS: Normal Saline 1,000 ML 1000 ML IV (14:10)
[2018-05-12] MEDS: Omnipaque 350 MG/ML 100 ML BTL IJ (14:42)
--- NOTE | 2018-05-12 14:48 | DI.RAD_ITS ---
SYMPTOM/DIAGNOSIS: CHRONIC ARTHRITIS PAIN RIGHT SHOULDER: Multiple views. No acute fracture or dislocation is seen. Mild hypertrophic changes are seen at the acromioclavicular joint. The glenohumeral joint was well maintained. The soft tissues are unremarkable. IMPRESSION: No acute abnormality.
--- NOTE | 2018-05-12 15:13 | DI.VRAD_ITS ---
EXAM: CT Abdomen and Pelvis With Contrast EXAM DATE/TIME: 05/12/2018 1:21 PM CLINICAL HISTORY: 72 years old, female; Pain; Other: Llq; Patient HX: C diff, diarrhea, concern for colitis TECHNIQUE: Axial computed tomography images of the abdomen and pelvis with intravenous contrast. All CT scans at this facility use at least one of these dose optimization techniques: automated exposure control; mA and/or kV adjustment per patient size (includes targeted exams where dose is matched to clinical indication); or iterative reconstruction. Coronal and sagittal reformatted images were created and reviewed. CONTRAST: 77 ml of Omnipaque 350 administered intravenously. COMPARISON: CT ABDOMEN PELVIS W 05/06/2018 7:01 PM FINDINGS: Small hiatal hernia. Prior cholecystectomy. Prior hysterectomy. Fat-containing bilaterally normal hernias. Persistent prominence to the right intrarenal collecting system and renal pelvis unchanged. Normal appearing solid organs. No intestinal obstruction. No obstructive uropathy. No free fluid. No free air. No inflammatory changes. IMPRESSION: No specific etiology identified for the patient's symptoms. Dictated and Authenticated by: Chapincito Blood MD. Ordering:GUILHERME Guardado MD
--- NOTE | 2018-05-12 15:14 | DI.VRAD_ITS ---
EXAM: XR Right Shoulder Complete, 2 or More Views EXAM DATE/TIME: 05/12/2018 2:28 PM CLINICAL HISTORY: 72 years old, female; Pain; Shoulder; Right; Patient HX: Shoulder pain TECHNIQUE: XR Right shoulder complete 2 or more views. COMPARISON: CR XR shoulder RT complete 2+V 03/15/2018 9:24 AM FINDINGS: The bony structures are in anatomic alignment. No fracture is present. No radiopaque foreign body is identified. The joint spaces are well maintained. IMPRESSION: No evidence of acute bony abnormality. Dictated and Authenticated by: Chapincito Blood MD. Ordering:GUILHERME Guardado MD
[2018-05-12 15:50] VITALS: PULSE 77; RESP 18; TEMP 36.4; O2SAT 99
== END 2018-05-12 15:49 | disposition home or self-care (01) ==
PROVIDERS: Emergency Provider Student in an Organized Health Care Education/Training Program; PCP Family Medicine
DX: R19.7 Diarrhea, unspecified (principal); M19.011 Primary osteoarthritis, right shoulder
CPT/HCPCS: 36415; 80053; 96360; 96361; 99285; 73030; 74177; 85025; 99284; J3490

== ENCOUNTER → 2018-07-10 09:49 | Outpatient (BNVA) | payer MEDICARE, MEDICAID, SELFPAY | PROVIDERS: PCP Family Medicine; Referring Provider Family Medicine; Visit Provider Orthopaedic Surgery | DX: M75.81 Other shoulder lesions, right shoulder (principal) | CPT/HCPCS: 20610; 99214; 99241; J1040 ==

== ENCOUNTER → 2018-08-08 09:30 | Outpatient (BNVA) | payer MEDICARE, MEDICAID, SELFPAY | PROVIDERS: PCP Family Medicine; Referring Provider Family Medicine; Visit Provider Orthopaedic Surgery | DX: M25.511 Pain in right shoulder (principal); I10 Essential (primary) hypertension | CPT/HCPCS: 99211; 99213 ==

== ENCOUNTER 2018-10-12 00:56 | Outpatient (CLI) | payer MEDICARE, MEDICAID, SELFPAY ==
--- NOTE | 2018-10-12 10:47 | DI.MRI_ITS ---
SYMPTOMS/DIAGNOSIS: RT ROTATOR CUFF PAIN MRI OF THE RIGHT SHOULDER: Comparison is made with plain films dated . Proton density and fat suppressed T 2 axial and coronal and T 1 and fat suppressed T 2 sagittal sequences were performed. There is significant spurring at the AC joint with inferior impingement. There is a full thickness tear of the supraspinatus tendon which is retracted to the level of the acromion. There is high signal in the supraspinatus tendon consistent with degeneration. There is significant muscular atrophy of the supraspinatus, greater than 50%, consistent with a Goutallier grade IV. The infraspinatus tendon also shows high signal which may represent a partial tear. The teres minor, biceps and subscapularis tendons appear intact. No labral defects are identified. There is a joint effusion as well as fluid in the subcoracoid bursa. IMPRESSION: Full thickness tear with retraction of the supraspinatus tendon as well as severe muscle atrophy consistent with a chronic rotator cuff tear. There is also a severe partial tear vs degeneration of the infraspinatus tendon.
== END 2018-10-12 01:16 ==
PROVIDERS: PCP Family Medicine; Visit Provider Orthopaedic Surgery
DX: M75.101 Unspecified rotator cuff tear or rupture of right shoulder, not specified as traumatic (principal)
CPT/HCPCS: 73221

== ENCOUNTER → 2018-10-23 09:05 | Outpatient (BNVA) | payer MEDICARE, MEDICAID, SELFPAY | PROVIDERS: PCP Family Medicine; Referring Provider Family Medicine; Visit Provider Orthopaedic Surgery | DX: M75.101 Unspecified rotator cuff tear or rupture of right shoulder, not specified as traumatic (principal); I10 Essential (primary) hypertension | CPT/HCPCS: 99211; 99213 ==

== ENCOUNTER 2019-01-25 13:47 | Outpatient (REF) | payer MEDICARE, MEDICAID, SELFPAY ==
[2019-01-25 18:49] LABS: HCT 38.9 % (36.0-46.0); HGB 12.8 g/dL (12.0-15.5); Mean Corp. HGB Concentration 32.9 g/dL (32.0-36.0); Mean Corpuscular Volume 91.1 fL (80-95); Mean Platelet Volume 10.4 fL (8.0-11.0); Platelet Count 299 x1000/uL (130-400); RBC 4.27 m/cumm (4.00-5.20); RBC Distribution Width 12.9 % (11.7-14.6); White Blood Cell Count 7.53 k/cumm (4.4-10.8)
[2019-01-25 18:59] LABS: ALT 19 U/L (14-59); AST 10 U/L (15-37); Alkaline Phosphatase 108 U/L (46-116); BUN 29 mg/dL (7-18); Bilirubin, Total 0.5 mg/dL (0.2-1.0); CREATININE 1.27 mg/dL (0.55-1.02); Chloride 104 mmol/L (98-107); Estimated GFR 41.13 (mL/min/1.73m2); Glucose 100 mg/dL (70-100); Potassium 4.3 mmol/L (3.5-5.1); Sodium 139 mmol/L (136-145); Total Protein 7.7 g/dL (6.4-8.2)
== END 2019-01-25 14:07 ==
LOC: NCHCN 13:47
PROVIDERS: PCP Family Medicine; Visit Provider Nurse Practitioner Family
DX: N18.3 Chronic kidney disease, stage 3 (moderate) (principal)
CPT/HCPCS: 80053; 85027

== ENCOUNTER 2019-06-15 16:16 | Observation (INO) | payer MEDICARE, MEDICAID, SELFPAY ==
[2019-06-15] VITALS (41 sets, daily range): BP systolic 122–195; BP diastolic 54–82; PULSE 70–90; RESP 9–21; TEMP 36.7–36.9; O2SAT 96–99
--- NOTE | 2019-06-15 17:01 | ED.GENADUL_ITS ---
Discharge Plan Disposition Patient Disposition: [facility] INPATIENT Condition: Good Discharge Details Chief Complaint: Chest Pain Clinical Impression: Chest pain, Abdominal pain Admit Date/Time: 06/15/19 21:23 Admit Provider: Scott Peña Attending Provider: Nellie Estrada Primary Care Provider: Branden Atkinson ED Provider: Po Schultz Hospital Course Hospital Course: 73 y.o female with Costochondritis admitted from [facility] ED with CP. EKG in ED T wave inversion in aVL and nonspecific J point depression in V leads, all which have been present on prior EKG's, troponins negative, CTA abdomen and pelvis which did not show any TAA/dissection or any PE but demonstrated 3 mm subpleural nodule in RUL. CTA of the abdomen and pelvis demonstrated prior cholecystectomy, hysterectomy and 10 mm left adnexal calcification, fatty liver changes and atherosclerosis of her abdominal aorta w/out AAA. She was admitted to [facility] [place] for further management. Telemetry was NSR. Her pain is more consitent with costocondritis. She was given tylenol and ibuprofen for symptom management with good relief. When speaking with patient she endorses she takes care of her at home and has been pulling and pushing his wheelchair up and down the ramp to get in and out of the house likely factor for pain. PT evaluated patient and recommend outpatient physical therapy for shoulder. Patient is being discharged home. Recommend to take tylenol and ibuprofen for pain. She denies SOB, N/V/D Discharge Instructions Instructions: Costochondritis (DC) Additional Instructions: Take tylenol 650-1000 mg every 6-8 hours for pain Apply bengay to chest twice a day for pain Recommend outpatient PT for strength Forms: Nursing Discharge Form Referrals: Branden Atkinson, [employer] [employer] [facility] [facility] [Primary Care Provider] - 06/28/19 10:45 am Discharge Data Discharge Date/Time-TO BE ENTERED AT DEPARTURE: 06/15/19 21:55 Medical Decision Making 1700 --73-year-old female with multiple complaints including history of GERD, hypertension, here with chest discomfort that started last night, resolved and then recurred today during stressful situation, arguing with her . Pain is currently mild. Hemodynamically stable. Screening ECG was reviewed and interpreted by me: Initial EKG with heart rate of 83 has artifact and is missing signal lead V3. A second ECG timed 1626 was reviewed and interpreted by me: Normal sinus rhythm, 85 bpm, normal axis, T wave inversion noted in aVL. I compared this EKG to prior ECG from 05/06/2018 where T wave inversions were present laterally V4 to th e 6. There is a change on today's ECG compared to prior. Plan to check troponin. Patient is already taken aspirin today. Patient has no shortness of breath, no hypoxia, no leg swelling or calf ten derness and has no risk factor identified for pulmonary embolism. Consider GI etiology given patient's history. I will give Pepcid IV. Nursing unable to obtain IV access. A peripheral ultrasound-guided IV was placed by me right upper arm without complication. -- Patient reassessed and now notes epigastric abd pain. Tender in epigastrum with no peritoneal findings. Consider dissection of aorta. Discussed labs with patient including GFR. Patient provides informed consent to proceed with CTA. Mylanta given. -- CTA chest interpreted by radiology: IMPRESSION: 1. No acute findings. 2. No thoracic aortic aneurysm or dissection. Mild atherosclerotic calcium 3. 3 mm right upper lobe nodule in a subpleural location. This is of low index suspicion. CTA abd/pelv interpreted by radiology: IMPRESSION: 1. Atherosclerotic aorta without aneurysm or dissection. 2. Fatty liver changes. 3. Previous hysterectomy. 4. Coarse benign appearing left adnexal 10 mm calcification. Labs reviewed: initial trop neg. Patient reassessed and continues to have abdominal discomfort. Plan for observation hospitalization. Spoke with Dr. Peña who will admit. Plan for trend trop. HPI General Mode of arrival: ambulatory . Date/Time Provider Initiated Documentation: 06/15/19 16:23 . Limitations to Documentation: no limitations . Information obtained by: patient . HPI Narrative: 73-year-old female with history of multiple medical problems including GERD, hiatal hernia, gastritis, hypertension, here with complaint of chest pain. Pain is localized to retrosternal and also seems to radiate to her back. Pain started last night when she was having an argument with her . Pain resolved and then recurred today around 4 PM. Pain is been persistent since 4 PM. Pain is mild. No modifiers. No associated shortness of breath. No leg swelling. No nausea or vomiting. She does had some mild dizziness today. Related Data Home Medications Medication Instructions Recorded Confirmed lisinopril 40 mg PO QAM 11/24/12 06/15/19 Citalopram Hydrobromide 40 mg PO DAILY tab-cap NS 11/28/17 10/23/18 [Citalopram HBr] amlodipine 2.5 mg PO DAILY tab-cap NS 11/28/17 06/15/19 clonazepam [Klonopin] 0.5 mg PO PRN PRN NS 11/28/17 10/23/18 aspirin 81 mg PO DAILY #30 tabec 01/02/18 06/15/19 rosuvastatin [Crestor] 40 mg PO QPM #30 tab 01/02/18 10/23/18 ranitidine HCl 150 mg PO BID #60 cap 05/10/18 10/23/18 tramadol 50 mg tablet 50 mg PO QHS 10/23/18 10/23/18 ondansetron 4 mg PO Q6H PRN 06/15/19 06/15/19 camphor-methyl salicyl-menthol 1 applic TP QD-BID PRN #113 gm 06/17/19 [Bengay Ultra Strength] carvedilol [Coreg] 6.25 mg PO BID #30 tab 06/17/19 Previous Rx's Medication Instructions Recorded aspirin 81 mg PO DAILY #30 tabec 01/02/18 rosuvastatin [Crestor] 40 mg PO QPM #30 tab 01/02/18 ranitidine HCl 150 mg PO BID #60 cap 05/10/18 camphor-methyl salicyl-menthol 1 applic TP QD-BID PRN #113 gm 06/17/19 [Bengay Ultra Strength] carvedilol [Coreg] 6.25 mg PO BID #30 tab 06/17/19 Allergies Allergy/AdvReac Type Severity Reaction Status Date / Time aspirin AdvReac upset Unverified 06/15/19 16:23 stomach r/t GERD metoclopramide HCl AdvReac hysterical Unverified 06/15/19 16:23 [From Reglan] crying trazodone AdvReac itching Unverified 06/15/19 16:23 enviornmental Allergy Mild head Uncoded 06/15/19 16:23 congestion General Stated Complaint: Chest Pain SEBASTIÁN: 2 Review of Systems All systems reviewed & are unremarkable except as noted in HPI and below Constitutional Constitutional: Denies fever(s) Cardiovascular Cardiovascular: Reports as per HPI and Denies dyspnea Respiratory Respiratory: Denies dyspnea PFSH Medical History Adenomatous polyp of colon (Chronic) Allergic rhinitis (Chronic) Cardiomyopathy (Chronic) Cervical spondylosis (Chronic) Depression (Chronic) Environmental allergies (Chronic) Essential hypertension (Chronic) Gait disturbance (Chronic) GERD (gastroesophageal reflux disease) (Chronic) IBS (irritable bowel syndrome) (Chronic) Left carotid bruit (Chronic) Osteoarthritis (Chronic) Osteopenia (Chronic) Surgical History COLONOSCOPY (Resolved ~12/2014) DR.ANNICK ARAMBULA Colonoscopy - IV Sedation (Resolved) 2009 Cystocele, Paravaginal repair (Resolved) GASTROSCOPY (Resolved 01/20/15) DR.ANNICK ARAMBULA Rectocele, Paravaginal repair (Resolved) Vaginal hysterectomy (Resolved) Social History Smoking/Tobacco Use Status: Never Alcohol Intake: current Alcohol Intake frequency: a few times a month Drug use: Never Substance use type: does not use Number of Children: 2 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 What is your relationship status?: Panel score (0-1 are the most socially isolated patients): 1 Do you feel safe at home: Yes Do you feel safe in your relationship?: Yes Exam Const General: cooperative and no acute distress HENMT Head: normocephalic and atraumatic Mouth: moist mucous membranes Eyes Conjunctivae: normal conjunctivae Sclera: normal sclerae Neck Neck: trachea midline and supple Resp Auscultation: clear to auscultation bilaterally, no rales, no rhonchi and no wheezes Cardio Jugular venous pressure: no JVD Rate: regular rate and not tachycardic Rhythm: regular rhythm GI Palpation: soft, not firm, no guarding, no masses, not rigid and nontender Skin General skin exam: no rashes or lesions noted Neuro General: alert, awake, oriented x3 and tone normal Extrem General: no calf tenderness and no edema Psych Appearance: grossly normal Mental Status: mental status grossly normal Course Vital Signs Vital signs: Vital Signs Temperature 36.7 C 06/15/19 16:20 Pulse 90 06/15/19 16:20 Respiratory Rate 20 06/15/19 16:20 Blood Pressure 156/66 H 06/15/19 16:20 Pulse Oximetry 99 06/15/19 16:20 Temperature 36.7 C 06/15/19 16:20 Temperature Source Skin 06/15/19 16:20 Pulse 90 06/15/19 16:20 Respiratory Rate 16 06/15/19 16:24 Respiratory Effort Non-Labored 06/15/19 16:24 Respiratory Depth Normal 06/15/19 16:24 Respiratory Pattern Normal 06/15/19 16:24 Blood Pressure 156/66 H 06/15/19 16:20 Blood Pressure Position Sitting 06/15/19 16:20 Pulse Oximetry 99 06/15/19 16:20 Oxygen Delivery Method Room Air 06/15/19 16:20 Oxygen Flow Rate 0 06/15/19 16:20 Pain Level 6 06/15/19 16:20
[2019-06-15] MEDS: Normal Saline Flush 10 ML SYR IVP (17:07)
[2019-06-15 17:10] LABS: Abs Immature Grans 0.02 k/cumm (0.0-0.09); Absolute Basophil Count 0.02 k/cumm (0.0-0.2); Absolute Eosinophil Count 0.05 k/cumm (0.0-0.7); Absolute Lymphocyte Count 2.24 k/cumm (1.2-3.4); Absolute Monocyte Count 0.42 k/cumm (0.11-0.7); Absolute Neutrophil Count 5.98 k/cumm (1.2-6.7); Basophils % 0.2; Eosinophils % 0.6; HCT 41.8 % (36.0-46.0); HGB 13.9 g/dL (12.0-15.5); Immature Grans % 0.2 %; Lymphocytes % 25.7; Mean Corp. HGB Concentration 33.3 g/dL (32.0-36.0); Mean Corpuscular Volume 90.1 fL (80-95); Mean Platelet Volume 9.4 fL (8.0-11.0); Monocytes % 4.8; Neutrophils % 68.5; Platelet Count 334 x1000/uL (130-400); RBC 4.64 m/cumm (4.00-5.20); RBC Distribution Width 12.8 % (11.7-14.6); White Blood Cell Count 8.73 k/cumm (4.4-10.8)
[2019-06-15] MEDS: FAMOTIDINE 20 MG/50 ML BAG 200 MG IVPB (17:11)
[2019-06-15 17:16] LABS: Lipase 115 U/L (73-393)
--- NOTE | 2019-06-15 17:17 | DI.RAD_ITS ---
EXAM: XR CHEST 2V PA LATERAL CLINICAL HISTORY: chest pain TECHNIQUE: COMPARISON: XR shoulder RT complete 2+V from 05/12/2018 CT THORAX ABD/PEL CTA from 06/15/2019 FINDINGS: The heart is not enlarged. Lungs are clear. No pleural effusion. IMPRESSION: No evidence of acute process.
[2019-06-15 17:25] LABS: Albumin 4.3 g/dL (3.4-5.0); Alkaline Phosphatase 146 U/L (46-116); BUN 23 mg/dL (7-18); Bilirubin, Total 0.4 mg/dL (0.2-1.0); Calcium 10.2 mg/dL (8.5-10.1); Chloride 100 mmol/L (98-107); Estimated GFR 40.04 (mL/min/1.73m2); Glucose 134 mg/dL (74-106); Potassium 3.7 mmol/L (3.5-5.1); Sodium 138 mmol/L (136-145); Total Protein 8.8 g/dL (6.4-8.2); Troponin I < 0.05 ng/Ml (<0.06)
--- NOTE | 2019-06-15 17:43 | DI.VRAD_ITS ---
PROCEDURE INFORMATION: Exam: XR Chest, 2 Views Exam date and time: 06/15/2019 5:20 PM Age: 73 years old Clinical indication: Other: Lt chest pain, improved TECHNIQUE: Imaging protocol: XR of the chest Views: 2 views. COMPARISON: CR XR CHEST 2V PA LATERAL 05/06/2018 7:15 PM FINDINGS: Lungs: Unremarkable. No consolidation. Pleural space: Unremarkable. No pleural effusion. No pneumothorax. Heart/Mediastinum: Unremarkable. No cardiomegaly. Vasculature: Atherosclerosis. Bones/joints: Degenerative changes in the spine. IMPRESSION: No acute finding. Dictated and Authenticated by: Vero Hansen MD. Ordering:JONO Fontenot MD
--- NOTE | 2019-06-15 18:17 | NUR.NOTE ---
Patient unable to recall her home medications. Attempted to access medication list from her PCP, unsuccessful. All pharmacies in [facility] contacted, [facility] and [facility] Patient does not get her medications from any these places.
[2019-06-15 18:18] LABS: ALT 24 U/L (14-59)
[2019-06-15 18:19] LABS: AST 28 U/L (15-37)
[2019-06-15] MEDS: Mylanta Suspension 30 ML CUP (18:25)
--- NOTE | 2019-06-15 18:42 | NUR.NOTE ---
I was able to contact granddaughter and about her medications. Was able to update/ confirm a few of the medications
--- NOTE | 2019-06-15 19:26 | DI.CT_ITS ---
EXAM: CT THORAX ABD/PEL CTA CLINICAL HISTORY: retrosternal CP radiating to back, ttp upper abd TECHNIQUE: CT angiography of the chest, abdomen, and pelvis was performed with a bolus infusion of 1 00 cc of Omnipaque 350. Axial CT angiography was performed with multi-slice acquisition and multi-planar and/or 3D reconstruc tions. COMPARISON: CT ABDOMEN PELVIS W from 05/12/2018 XR CHEST 2V PA LATERAL from 06/15/2019 FINDINGS: Thoracic aorta and major branches are unremarkable except for mild atheromatous calcification. Abdo ovidio aorta is unremarkable in appearance except for mild atheromatous calcification. Major abdomina l aortic branches appear normal. No evidence of pulmonary embolic disease. Lungs are clear. No pleural effusion. Incidental 3 millimeter right middle lobe pulmonary nodule. No mediastinal or hilar adenopathy. Prior cholecystectomy noted. Hepatic steatosis noted. Otherwise liver, spleen and pancreas are unre markable. No biliary dilatation. Adrenals and kidneys are unremarkable. No urinary tract calcification or obstruction. Fat containing bilateral inguinal hernias noted. Appendix is normal. No evidence of bowel obstruction or diverticulitis. IMPRESSION: No evidence of acute process.
--- NOTE | 2019-06-15 20:21 | NUR.NOTE ---
Nursing Note: #2 troponin drawn, sent to lab.
[2019-06-15] MEDS: Omnipaque 350 MG/ML 100 ML BTL IJ (20:23)
--- NOTE | 2019-06-15 20:35 | DI.VRAD_ITS ---
PROCEDURE INFORMATION: Exam: CT Angiography Chest With Contrast Exam date and time: 06/15/2019 7:12 PM Age: 73 years old Clinical indication: Abdominal pain; Localized; Patient HX: Retrosternal cp radiating to back, ttp upper abd TECHNIQUE: Imaging protocol: Computed tomographic angiography of the chest with intravenous contrast. 3D rendering: MIP and/or 3D reconstructed images were created by the technologist. COMPARISON: CR XR CHEST 2V PA LATERAL 06/15/2019 5:17 PM FINDINGS: Pulmonary arteries: Normal. No pulmonary emboli. Aorta: Mild atherosclerotic calcium.. No aortic aneurysm. No aortic dissection. Lungs: Nonspecific nodule lateral right upper lobe measuring 3 mm. Subpleural in location. Low index of suspicion.. No consolidation. No masses. Pleural space: Unremarkable. No pneumothorax. No pleural effusion. Heart: Unremarkable. No cardiomegaly. No pericardial effusion. Mediastinum: Mediastinum unremarkable. Retrosternal and parasternal tissues within normal limits. Lymph nodes: Unremarkable. No enlarged lymph nodes. Bones/joints: Mild degenerative thoracic spine disease. No compression fracture.. No acute fracture. Soft tissues: Unremarkable. IMPRESSION: 1. No acute findings. 2. No thoracic aortic aneurysm or dissection. Mild atherosclerotic calcium 3. 3 mm right upper lobe nodule in a subpleural location. This is of low index suspicion. PROCEDURE INFORMATION: Exam: CT Angiography Abdomen and Pelvis With Contrast Exam date and time: 06/15/2019 7:12 PM Age: 73 years old Clinical indication: Abdominal pain; Localized; Patient HX: Retrosternal cp radiating to back, ttp upper abd TECHNIQUE: Imaging protocol: Computed tomographic angiography of the abdomen and pelvis with intravenous contrast material. 3D rendering: MIP and/or 3D reconstructed images were created by the technologist. COMPARISON: CR XR CHEST 2V PA LATERAL 06/15/2019 5:17 PM FINDINGS: Aorta: No aortic aneurysm. No aortic dissection. Atherosclerotic calcium. Celiac trunk and mesenteric arteries: No occlusion or significant stenosis. Renal arteries: No occlusion or significant stenosis. Right iliac arteries: No occlusion or significant stenosis. Left iliac arteries: No occlusion or significant stenosis. Liver: No mass. Fatty liver change. Gallbladder and bile ducts: Patient has had a previous cholecystectomy. There is no biliary dilatation. There are no ductal stones visible. Pancreas: Unremarkable. No mass. No ductal dilation. Spleen: Unremarkable. No splenomegaly. Adrenals: Unremarkable. No mass. Kidneys and ureters: Unremarkable. No solid mass. No hydronephrosis. Stomach and bowel: Unremarkable. No obstruction. No mucosal thickening. Appendix: No evidence of appendicitis. Normal appendix visible. Intraperitoneal space: Unremarkable. No free air. No significant fluid collection. Lymph nodes: Unremarkable. No enlarged lymph nodes. Bladder: Unremarkable. No mass. Reproductive: Previous hysterectomy. Coarse benign-appearing left adnexal calcification measuring 10 mm. Bones/joints: No acute fracture. No dislocation. Degenerative spine changes. No compression fracture. Soft tissues: Unremarkable. IMPRESSION: 1. Atherosclerotic aorta without aneurysm or dissection. 2. Fatty liver changes. 3. Previous hysterectomy. 4. Coarse benign appearing left adnexal 10 mm calcification. Dictated and Authenticated by: Jose Bunn MD. Ordering:JONO Fontenot MD
[2019-06-15 20:48] LABS: Troponin I < 0.05 ng/Ml (<0.06)
[2019-06-15] MEDS: Normal Saline 500 ML IV (20:59)
--- NOTE | 2019-06-15 22:43 | W.PM.HP.N ---
Date of service: 06/15/19 Time of Service: 22:43 Assessment and Plan Assessment and plan (1) Atypical chest pain: Status: Acute Assessment and plan: Continue to monitor troponin levels. If all troponins are negative we will plan for an outpatient Lexiscan nuclear MPI. Otherwise we will pursue musculoskeletal sources of her chest pain and get an x-ray of her thoracic spine. We will give a trial of NSAID tonight (2) Costochondritis: Status: Acute Assessment and plan: As above (3) Thoracic back pain: Status: Acute Assessment and plan: Check plain film x-ray of her thoracic spine. Otherwise treat with NSAIDs. Qualifiers: Back pain laterality: midline Chronicity: acute Qualified Code(s): M54.6 - Pain in thoracic spine (4) Gastroesophageal reflux disease without esophagitis: Status: Acute Assessment and plan: We will place her on a PPI. Consider outpatient work-up with a EGD. (5) Hypertension: Status: Chronic Assessment and plan: Continue her amlodipine and her lisinopril. Add carvedilol for improved blood pressure control. Qualifiers: Hypertension type: essential hypertension Qualified Code(s): I10 - Essential (primary) hypertension History of Present Illness History of Present Illness Chief Complaint: I just did not feel well Narrative: 73-year-old female non-smoker with a history of hypertension no history of diabetes positive history for hyperlipidemia, positive family history of premature coronary artery disease. Presents to the emergency department with 2-week history of generalized fatigue just not feeling well, malaise, nausea without vomiting, chest wall pain. Evaluation in the ER included routine labs including 2 sets of troponin that were negative as well as EKG that showed diffuse nonspecific ST T wave abnormalities that have been present on prior ECGs. She has known GERD but denies any increased dyspepsia or belching or waterbrash. she states that she takes Nexium for her GERD which controls her symptoms. She states that for past couple weeks she has just felt exhaused. She has been having increased sternal and upper thoracic back pain that is not necessarily increased w/ physical activity and goes on for days on end and is worse w/ lying on her back and better on her side. Workup in the ER included CTA of her chest , abdomen and pelvis which did not show any TAA/dissection or any PE but demonstrated 3 mm subpleural nodule in RUL. CTA of the abdomen and pelvis demonstrated prior cholecystectomy, hysterectomy and 10 mm left adnexal calcification, fatty liver changes and atherosclerosis of her abdominal aorta w/out AAA. EKG demonstrated T wave inversion in aVL and nonspecific J point depression in V leads, all which have been present on prior EKG's. Patient is admitted for further serial troponin levels and monitoring of her chest pains. She was given antacids in the ER w/out effect. I will give her a trial of toradol. Her BP has not been well controlled even at home. She says that her systolic has been as high as the 190's. I have started her on carvedilol to improve her BP. Review of Systems All systems reviewed & are unremarkable except as noted in HPI and below PFSH Medical History Adenomatous polyp of colon (Chronic) Allergic rhinitis (Chronic) Cardiomyopathy (Chronic) Cervical spondylosis (Chronic) Depression (Chronic) Environmental allergies (Chronic) Essential hypertension (Chronic) Gait disturbance (Chronic) GERD (gastroesophageal reflux disease) (Chronic) IBS (irritable bowel syndrome) (Chronic) Left carotid bruit (Chronic) Osteoarthritis (Chronic) Osteopenia (Chronic) Surgical History COLONOSCOPY (Resolved ~12/2014) DR.ANNICK ARAMBULA Colonoscopy - IV Sedation (Resolved) 2009 Cystocele, Paravaginal repair (Resolved) GASTROSCOPY (Resolved 01/20/15) DR.ANNICK ARAMBULA Rectocele, Paravaginal repair (Resolved) Vaginal hysterectomy (Resolved) Social History Smoking/Tobacco Use Status: Never Alcohol Intake: current Alcohol Intake frequency: a few times a month Drug use: Never Substance use type: does not use Number of Children: 2 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 What is your relationship status?: Panel score (0-1 are the most socially isolated patients): 1 Do you feel safe at home: Yes Do you feel safe in your relationship?: Yes Meds Home Medications and Allergies Home Medications Medication Instructions Recorded Confirmed Type lisinopril 40 mg PO QAM 11/24/12 06/15/19 History Citalopram Hydrobromide 40 mg PO DAILY tab-cap NS 11/28/17 10/23/18 History [Citalopram HBr] amlodipine 2.5 mg PO DAILY tab-cap NS 11/28/17 06/15/19 History clonazepam [Klonopin] 0.5 mg PO PRN PRN NS 11/28/17 10/23/18 History aspirin 81 mg PO DAILY #30 tabec 01/02/18 06/15/19 Rx rosuvastatin [Crestor] 40 mg PO QPM #30 tab 01/02/18 10/23/18 Rx ranitidine HCl 150 mg PO BID #60 cap 05/10/18 10/23/18 Rx tramadol 50 mg tablet 50 mg PO QHS 10/23/18 10/23/18 History ondansetron 4 mg PO Q6H PRN 06/15/19 06/15/19 History Allergies Allergy/AdvReac Type Severity Reaction Status Date / Time aspirin AdvReac upset Unverified 06/15/19 16:23 stomach r/t GERD metoclopramide HCl AdvReac hysterical Unverified 06/15/19 16:23 [From Reglan] crying trazodone AdvReac itching Unverified 06/15/19 16:23 enviornmental Allergy Mild head Uncoded 06/15/19 16:23 congestion Exam Narrative Exam Narrative: Elderly female lying in bed in semi-Dye position in no acute distress. HEENT is unremarkable Neck is supple nontender with no JVD. She has a soft carotid bruit over the left side with diminished left carotid pulse. No bruit on the right. No thyromegaly. Lungs are clear to auscultation. Heart is regular rate and rhythm without murmur rub or gallop. Abdomen soft nontender nondistended no bruits no palpable masses no organomegaly. Lower extremities without calf tenderness or swelling and no peripheral cyanosis or edema. Neurologic exam grossly intact with no focal motor or sensory deficits no facial asymmetry no dysarthric speech no focal cranial nerve abnormalities. Genitalia rectal and breast exam deferred. Results Imaging Abdomen CT scan report/results: report reviewed CT scan - chest: report reviewed EKG: report reviewed Labs Result diagrams: 06/15/19 17:00 06/16/19 06:15 Labs: Laboratory Results - last 24 hr 06/15/19 06/15/19 06/15/19 17:00 17:00 17:00 WBC 8.73 RBC 4.64 Hgb 13.9 Hct 41.8 MCV 90.1 MCH 30.0 MCHC 33.3 RDW 12.8 Plt Count 334 MPV 9.4 Immature Gran % 0.2 Neutrophils % 68.5 Lymphocytes % 25.7 Monocytes % 4.8 Eosinophils % 0.6 Basophils % 0.2 Absolute Neutrophils 5.98 Absolute Lymphocytes 2.24 Absolute Monocytes 0.42 Absolute Eosinophils 0.05 Absolute Basophils 0.02 Sodium 138 Potassium 3.7 Chloride 100 Carbon Dioxide 26.0 Anion Gap 12.0 H BUN 23 H Creatinine 1.30 H Estimated GFR/1.73 m2 40.04 Glucose 134 H Calcium 10.2 H Total Bilirubin 0.4 AST 28 ALT 24 Alkaline Phosphatase 146 H Troponin I < 0.05 Total Protein 8.8 H Albumin 4.3 Lipase 115 06/15/19 20:25 WBC RBC Hgb Hct MCV MCH MCHC RDW Plt Count MPV Immature Gran % Neutrophils % Lymphocytes % Monocytes % Eosinophils % Basophils % Absolute Neutrophils Absolute Lymphocytes Absolute Monocytes Absolute Eosinophils Absolute Basophils Sodium Potassium Chloride Carbon Dioxide Anion Gap BUN Creatinine Estimated GFR/1.73 m2 Glucose Calcium Total Bilirubin AST ALT Alkaline Phosphatase Troponin I < 0.05 Total Protein Albumin Lipase Last Vital Signs Temp 36.7 C 06/15/19 16:20 Pulse 70 06/15/19 21:50 Resp 15 06/15/19 21:50 BP 156/69 H 06/15/19 21:50 Pulse Ox 99 06/15/19 21:50
[2019-06-15] MEDS: Carvedilol 6.25 MG TAB PO (23:36)
[2019-06-15 23:37] LABS: Troponin I < 0.05 ng/Ml (<0.06)
[2019-06-16] VITALS (9 sets, daily range): BP systolic 96–160; BP diastolic 47–78; PULSE 58–70; RESP 17–20; TEMP 36.7–37.1; O2SAT 95–98
[2019-06-16] MEDS: Pantoprazole 40 MG TABCR PO ×2 (00:01→08:56)
[2019-06-16] MEDS: Ketorolac 30 MG/ML VIAL IVP (00:01)
[2019-06-16] MEDS: Normal Saline Flush 10 ML SYR IVP (00:01)
[2019-06-16] MEDS: Normal Saline 1,000 ML 85 ML IV (00:52)
[2019-06-16 07:13] LABS: Anion Gap 8.9 mmol/L (3-11); BUN 20 mg/dL (7-18); CO2 23.1 mmol/L (21.0-32.0); CREATININE 1.24 mg/dL (0.55-1.02); Calcium 8.8 mg/dL (8.5-10.1); Chloride 115 mmol/L (98-107); Estimated GFR 42.28 (mL/min/1.73m2); Glucose 98 mg/dL (74-106); Sodium 147 mmol/L (136-145)
[2019-06-16 07:15] LABS: Hemoglobin A1C 6.4 % (3.8-5.6)
[2019-06-16 07:25] LABS: Calculated LDL 157 mg/dL; Cholesterol 256 mg/dL (<200); HDL Cholesterol 38 mg/dL (40-60); Triglyceride 308 mg/dL (<150)
[2019-06-16 07:26] LABS: Troponin I < 0.05 ng/Ml (<0.06)
[2019-06-16 07:35] LABS: Platelet Count 249 x1000/uL (130-400)
[2019-06-16] MEDS: Lisinopril 20 MG TAB 40 MG PO (08:54)
[2019-06-16] MEDS: Carvedilol 6.25 MG TAB PO ×2 (08:54→20:00)
[2019-06-16] MEDS: Aspirin E.C. 81 MG TABEC PO (08:54)
[2019-06-16] MEDS: Enoxaparin 30 MG/0.3 ML SYR SC (08:55)
[2019-06-16] MEDS: amLODIPine 2.5 MG TAB 5 MG PO (08:55)
--- NOTE | 2019-06-16 11:15 | DI.RAD_ITS ---
EXAM: XR THORACIC SPINE COMPLETE CLINICAL HISTORY: Thoracic back pain TECHNIQUE: COMPARISON: CT THORAX ABD/PEL CTA from 06/15/2019 FINDINGS: Three views were obtained. There are degenerative endplate changes throughout the thoracic spine. N o acute fracture seen. IMPRESSION:
--- NOTE | 2019-06-16 12:09 | DI.VRAD_ITS ---
PROCEDURE INFORMATION: Exam: XR Thoracic Spine, 3 Views Exam date and time: 06/16/2019 12:00 AM Age: 73 years old Clinical indication: Other: Thoracic back pain TECHNIQUE: Imaging protocol: XR of the thoracic spine, 3 views. COMPARISON: No relevant prior studies available. FINDINGS: Vertebrae: Degenerative changes in the thoracic spine There is no evidence of acute fracture.There is no evidence of malalignment or dislocation. Intraperitoneal space: Surgical clip in the right upper quadrant Soft tissues: Normal. Other findings: Overlying EKG wires IMPRESSION: There is no evidence of acute fracture.There is no evidence of malalignment or dislocation. Dictated and Authenticated by: Susan Brooks MD. Ordering:[facility] Casey Chavez MD
[2019-06-16] MEDS: Acetaminophen 325 MG TAB PO ×2 (15:50→19:59)
--- NOTE | 2019-06-16 16:09 | W.PM.PROGNOT ---
Date of Service Date of service: 06/16/19 Time of Service: 16:10 Assessment and Plan Assessment and plan (1) Atypical chest pain: Status: Acute Assessment and plan: This is clearly musculoskeletal chest pain. Will continue NSAIDs and tylenol. I do not see the need to continue telemetry monitoring or further cardiac workup at this time. (2) Costochondritis: Status: Acute Assessment and plan: As above (3) Thoracic back pain: Status: Acute Assessment and plan: XR negative. PT consult. Qualifiers: Chronicity: acute Back pain laterality: midline Qualified Code(s): M54.6 - Pain in thoracic spine (4) Gastroesophageal reflux disease without esophagitis: Status: Acute Assessment and plan: Continue protonix (5) Hypertension: Status: Chronic Assessment and plan: Continue coreg, amlodipine, and lisinopril. Qualifiers: Hypertension type: essential hypertension Qualified Code(s): I10 - Essential (primary) hypertension (6) DVT prophylaxis: Status: Acute Assessment and plan: lovenox (7) Discharge planning issues: Status: Acute Assessment and plan: Full code Expected to be discharged home tomorrow. Subjective Subjective Interval history since last seen: Ms Marrufo states she feels weak and continues to have chest pain reproducible with palpation. Denies dizziness, shortness of breath, nausea. Exam Narrative Exam Narrative: General: Very pleasant, anxious middle-aged female, who does not appear weak. HEENT: EOMI, MMM Heart: RRR, no m/r/g, chest pain, reproducible with palpation Lungs: CTAB Abd: soft, nontender, nondistended Extremities: no e/c/c BLE's Objective Objective Clinical Data: Abnormal lab results 06/15/19 06/16/19 06/16/19 Range/Units 17:00 06:15 06:15 Sodium 147 H (136-145) mmol/L Chloride 115 H (98-107) mmol/L Anion Gap 12.0 H (3-11) mmol/L BUN 23 H 20 H (7-18) mg/dL Creatinine 1.30 H 1.24 H (0.55-1.02) mg/dL Glucose 134 H (74-106) mg/dL Hemoglobin A1c (3.8-5.6) % Calcium 10.2 H (8.5-10.1) mg/dL Alkaline Phosphatase 146 H (46-116) U/L Total Protein 8.8 H (6.4-8.2) g/dL Triglycerides 308 H (<150) mg/dL Total Cholesterol 256 H (<200) mg/dL HDL Cholesterol 38 L (40-60) mg/dL 06/16/19 Range/Units 06:15 Sodium (136-145) mmol/L Chloride (98-107) mmol/L Anion Gap (3-11) mmol/L BUN (7-18) mg/dL Creatinine (0.55-1.02) mg/dL Glucose (74-106) mg/dL Hemoglobin A1c 6.4 H (3.8-5.6) % Calcium (8.5-10.1) mg/dL Alkaline Phosphatase (46-116) U/L Total Protein (6.4-8.2) g/dL Triglycerides (<150) mg/dL Total Cholesterol (<200) mg/dL HDL Cholesterol (40-60) mg/dL Vital Signs Temperature 36.7 C 06/16/19 15:24 Temperature Source Tympanic 06/16/19 15:24 Pulse 70 06/16/19 15:28 Pulse Rhythm Regular 06/16/19 08:40 Pulse 71 06/15/19 21:31 Respiratory Rate 18 06/16/19 15:24 Respiratory Effort Non-Labored 06/16/19 08:40 Respiratory Depth Normal 06/16/19 08:40 Respiratory Pattern Normal 06/16/19 08:40 Blood Pressure 102/47 L 06/16/19 15:24 Blood Pressure Mean 86 06/15/19 21:30 Blood Pressure Position Sitting 06/15/19 16:20 Pulse Oximetry 98 06/16/19 15:24 Oxygen Delivery Method Room Air 06/16/19 15:24 Oxygen Flow Rate 0 06/16/19 15:24 Pain Level 2 06/16/19 08:47 Comment 06/15/19 23:30 Intake & Output 06/15/19 06/16/19 06/16/19 23:59 11:59 23:59 Intake Total 80 / 80 900 / 2121.833 1221.833 / 2121.833 Output Total 200 / 200 450 / 450 Balance -120 / -120 450 / 9956.381 8012.833 / 1671.833 Weight 61.8 kg 61.5 kg Intake: IV 80 / 80 971.833 / 971.833 Oral 900 / 1150 250 / 1150 Output: Urine 200 / 200 450 / 450 Other: Urine Color Yellow Light Yesenia Urine Appearance Clear Clear Urine Odor None Normal Voiding Methods Toilet Toilet Laboratory Results WBC 8.73 k/cumm (4.4-10.8) 06/15/19 17:00 RBC 4.64 m/cumm (4.00-5.20) 06/15/19 17:00 Hgb 13.9 g/dL (12.0-15.5) 06/15/19 17:00 Hct 41.8 % (36.0-46.0) 06/15/19 17:00 MCV 90.1 fL (80-95) 06/15/19 17:00 MCH 30.0 pg (27.0-33.0) 06/15/19 17:00 MCHC 33.3 g/dL (32.0-36.0) 06/15/19 17:00 RDW 12.8 % (11.7-14.6) 06/15/19 17:00 Plt Count 249 x1000/uL (130-400) 06/16/19 06:15 MPV 9.4 fL (8.0-11.0) 06/15/19 17:00 Immature Gran % 0.2 % 06/15/19 17:00 Neutrophils % 68.5 06/15/19 17:00 Lymphocytes % 25.7 06/15/19 17:00 Monocytes % 4.8 06/15/19 17:00 Eosinophils % 0.6 06/15/19 17:00 Basophils % 0.2 06/15/19 17:00 Absolute Neutrophils 5.98 k/cumm (1.2-6.7) 06/15/19 17:00 Absolute Lymphocytes 2.24 k/cumm (1.2-3.4) 06/15/19 17:00 Absolute Monocytes 0.42 k/cumm (0.11-0.7) 06/15/19 17:00 Absolute Eosinophils 0.05 k/cumm (0.0-0.7) 06/15/19 17:00 Absolute Basophils 0.02 k/cumm (0.0-0.2) 06/15/19 17:00 Sodium 147 mmol/L (136-145) H 06/16/19 06:15 Potassium 4.0 mmol/L (3.5-5.1) 06/16/19 06:15 Chloride 115 mmol/L (98-107) H 06/16/19 06:15 Carbon Dioxide 23.1 mmol/L (21.0-32.0) 06/16/19 06:15 Anion Gap 8.9 mmol/L (3-11) 06/16/19 06:15 BUN 20 mg/dL (7-18) H 06/16/19 06:15 Creatinine 1.24 mg/dL (0.55-1.02) H 06/16/19 06:15 Estimated GFR/1.73 m2 42.28 (mL/min/1.73m2) 06/16/19 06:15 Glucose 98 mg/dL (74-106) 06/16/19 06:15 Hemoglobin A1c 6.4 % (3.8-5.6) H 06/16/19 06:15 Calcium 8.8 mg/dL (8.5-10.1) 06/16/19 06:15 Total Bilirubin 0.4 mg/dL (0.2-1.0) 06/15/19 17:00 AST 28 U/L (15-37) 06/15/19 17:00 ALT 24 U/L (14-59) 06/15/19 17:00 Alkaline Phosphatase 146 U/L (46-116) H 06/15/19 17:00 Troponin I < 0.05 ng/Ml (<0.06) 06/16/19 06:15 Total Protein 8.8 g/dL (6.4-8.2) H 06/15/19 17:00 Albumin 4.3 g/dL (3.4-5.0) 06/15/19 17:00 Triglycerides 308 mg/dL (<150) H 06/16/19 06:15 Total Cholesterol 256 mg/dL (<200) H 06/16/19 06:15 LDL Cholesterol, Calc 157 mg/dL 06/16/19 06:15 HDL Cholesterol 38 mg/dL (40-60) L 06/16/19 06:15 Lipase 115 U/L (73-393) 06/15/19 17:00 TSH 3.50 uIU/mL (0.36-3.74) 06/16/19 06:15
[2019-06-16] MEDS: Ketorolac 15 MG/ML VIAL IVP ×2 (17:24→23:44)
--- NOTE | 2019-06-16 18:06 | INITIAL_ITS ---
- If Service Date Differs Date of service: 06/16/19 Time of Service: 18:06 Care Management Initial Assess REASON FOR HOSPITALIZATION:: Abdominal pain, chest pain PAST MEDICAL HISTORY/PAST SURGICAL HISTORY:: Medical History . Adenomatous polyp of colon (Chronic). Allergic rhinitis (Chronic). Cardiomyopathy (Chronic). Cervical spondylosis (Chronic). Depression (Chronic). Environmental allergies (Chronic). Essential hypertension (Chronic). Gait disturbance (Chronic). GERD (gastroesophageal reflux disease) (Chronic). IBS (irritable bowel syndrome) (Chronic). Left carotid bruit (Chronic). Osteoarthritis (Chronic). Osteopenia (Chronic). Surgical History . COLONOSCOPY (Resolved ~12/2014). DR.ANNICK ARAMBULA. Colonoscopy - IV Sedation (Resolved). 2009. Cystocele, Paravaginal repair (Resolved). GASTROSCOPY (Resolved 01/20/15). DR.ANNICK ARAMBULA. Rectocele, Paravaginal repair (Resolved). Vaginal hysterectomy (Resolved) PREVIOUS FUNCTIONAL STATUS/SOCIAL/FAMILY SUPPORTS:: Venus lives in [place] with her Bryn, who is w/c bound, and their grand daughter, Yesenia. Their son, Jose Alejandro lives near by and is identified as a support. Venus is independent at baseline. CURRENT FUNCTIONAL STATUS:: Venus was sitting up in her bed when CM met with her. CM has seen her walking the halls previous to their first meeting. Venus reported that she is not feeling well today, and expects to stay overnight. She had an x ray and was awaiting the results. Per provider, Xray is negative, and her pain is likely musculoskeletal chest pain. CM will continue to follow. ADVANCE DIRECTIVES:: On file, Bryn listed as agent. Jose Alejandro listed as alternate agent. Has patient been provided with information about the portal?: No Did the patient sign up for the portal?: No CODE STATUS:: Full Code INSURANCE COVERAGE / FINANCIAL ISSUES:: FELI/ MCR/ AARP CURRENT HOME/COMMUNITY SERVICES/EQUIPMENT:: Venus currently does not have any equipment or community services. PRIMARY CARE PHYSICIAN:: Branden Atkinson POTENTIAL DISCHARGE NEEDS:: Evaluations for further needs, follow up appointments PATIENT/FAMILY EDUCATION NEEDS:: Review discharge instructions, discussion of self care needs including Ask Me Three ANTICIPATED BARRIERS TO DISCHARGE:: None identified at this time. TRANSPORTATION:: Anticipate Jose Alejandro, her son, will drive her home via private vehicle. PLAN:: Anticipate Venus will return home with no addtional services when medically cleared. Her son, Jose Alejandro will transport her home when ready. She will follow up with her PCP, as recommended. CM will continue to follow.
[2019-06-16] MEDS: Rosuvastatin 10 MG TAB 40 MG PO (20:00)
[2019-06-16] MEDS: Mylanta Suspension 30 ML CUP PO (23:44)
[2019-06-17 04:40] VITALS: BP 120/67; PULSE 60; RESP 18; TEMP 37; O2SAT 97
--- NOTE | 2019-06-17 07:08 | NUR.NOTE ---
Patient got up at about 5:00am and went into the patient in 215 room two times and had to redirected to her room. She thought the patient was her and she was going to check on him
[2019-06-17 07:15] VITALS: BP 105/65; PULSE 67; RESP 97; TEMP 36.5
[2019-06-17 07:38] LABS: Anion Gap 8.6 mmol/L (3-11); BUN 30 mg/dL (7-18); CO2 23.4 mmol/L (21.0-32.0); CREATININE 1.51 mg/dL (0.55-1.02); Calcium 9.3 mg/dL (8.5-10.1); Chloride 108 mmol/L (98-107); Estimated GFR 33.69 (mL/min/1.73m2); Glucose 101 mg/dL (74-106); Magnesium 2.3 mg/dL (1.8-2.4); Potassium 4.1 mmol/L (3.5-5.1); Sodium 140 mmol/L (136-145)
[2019-06-17] MEDS: Aspirin E.C. 81 MG TABEC PO (08:50)
[2019-06-17] MEDS: Pantoprazole 40 MG TABCR PO (08:50)
[2019-06-17] MEDS: Enoxaparin 30 MG/0.3 ML SYR SC (08:51)
[2019-06-17] MEDS: Carvedilol 6.25 MG TAB PO (08:54)
[2019-06-17 11:00] VITALS: BP 110/62; PULSE 66; RESP 16; TEMP 36.6; O2SAT 96
--- NOTE | 2019-06-17 12:21 | IN_ITS ---
Date of service: 06/17/19 Time of Service: 09:50 PT Notes Visit Reasons: ABDOMINAL PAIN, CHEST PAIN Physical Therapy Inpatient Initial Evaluation Date: 06/17/2019 Referring Doctor: Nellie Estrada M.D. PT Orders: PT CONSULT: Limited ability Precautions: Fall. Standard. Activity as tolerated. Patient Profile/Admitting Diagnosis: Pt presented to the ER on complaining of chest pain and abdominal pain. Per chart, the pain had resolved and recurred when arguing with . She was admitted to the hospital with diagnosis of atypical chest pain, costochondritis, thoracic back pain, GERD, HTN, and complaints of general weakness x two weeks. CTA of chest/abdomen/pelvis showed no acute findings. Negative x-ray of thoracic spine. PMHX: Medical History Adenomatous polyp of colon (Chronic) Allergic rhinitis (Chronic) Cardiomyopathy (Chronic) Cervical spondylosis (Chronic) Depression (Chronic) Environmental allergies (Chronic) Essential hypertension (Chronic) Gait disturbance (Chronic) GERD (gastroesophageal reflux disease) (Chronic) IBS (irritable bowel syndrome) (Chronic) Left carotid bruit (Chronic) Osteoarthritis (Chronic) Osteopenia (Chronic) Surgical History COLONOSCOPY (Resolved ~12/2014) DR.ANNICK ARAMBULA Colonoscopy - IV Sedation (Resolved) 2009 Cystocele, Paravaginal repair (Resolved) GASTROSCOPY (Resolved 01/20/15) DR.ANNICK ARAMBULA Rectocele, Paravaginal repair (Resolved) Vaginal hysterectomy (Resolved) Social History/Home Situation: Pt lives at home with her . Reports that there are about five steps to enter the home with a ramp that she is required to push her up in his wheelchair. 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 Equipment Owned/DME: none Subjective: Pt reports that she has a constant aching pain in her chest that is exacerbated with changes in positions and lifting heavy objects. She denies expe riencing SOB. Also complains of R shoulder pain that radiates from the occiput to mid humerus. She notes that she always has R shoulder pain, but believes it is in her neck and arm due to sleeping in the hospital bed. She states that she has not done outpatient physical therapy as she would have to travel and does not like to leave her alone for long periods of time. Tends not to leave the home to do things that she enjoys, such as bingo, as she does not like to leave her . Objective: General Observation: Presents with forward rounded shoulders and R sided scoliosis of the thoracic spine. Mental Status: alert and oriented x4 Pain: 5/10 aching Vital Signs: NT ROM: Cervical: decreased cervical rotation and side bending with increased R shoulder pain with R and L rotation and L side-bending. Right Upper Extremity: Shoulder Flexion WFL. Shoulder abduction WFL. Elbow flexion WFL. Wrist flexion WFL. Opening and closing of hand WFL. Left Upper Extremity: Shoulder Flexion WFL. Shoulder abduction WFL. Elbow flexion WFL. Wrist flexion WFL. Opening and closing of hand WFL. Right Lower Extremity: Hip flexion WFL. Hip abduction WFL. Knee flexion WFL. Ankle dorsiflexion WFL. Ankle plantarflexion WFL. Left Lower Extremity: Hip flexion WFL. Hip abduction WFL. Knee flexion WFL. Ankle dorsiflexion WFL. Ankle plantarflexion WFL. Strength: Right Upper Extremity: Shoulder flexors 4/5. Shoulder abductors 5/5. Elbow flexors 5/5. Elbow extensors 5/5. Plan Consultant strong. Left Upper Extremity: Shoulder flexors 5/5. Shoulder abductors 5/5. Elbow flexors 5/5. Elbow extensors 5/5. Plan Consultant strong. Right Lower Extremity: Hip flexors 4/5. Hip abductors 5/5. Knee flexors 5/5. Knee extensors 5/5. Ankle dorsiflexors 5/5. Ankle plantarflexors 5/5. Left Lower Extremity: Hip flexors 5/5. Hip abductors 5/5. Knee flexors 5/5. Knee extensors 5/5. Ankle dorsiflexors 5/5. Ankle plantarflexors 5/5. Sensation: Intact as to pain and pressure on bilateral lower extremities. Bed Mobility/Transfers: Rolling independent Supine to sit independent Sit to supine independent Sit to stand independent Stand to sit independent Bed to chair NT Chair to bed NT Gait: Patient was able to independently ambulate 120 feet x 2. She denies increases in chest pain and SOB. Does note some thoracic back pain, but does not increase with ambulation. Balance: Static Sitting: Normal Dynamic Sitting: Normal Static Standing: Normal Dynamic Standing: Good Palpation: TTP along right sided middle 1/3 of sternum. TTP along bilateral cervical spine and upper trapezius. Special Tests: Mobility Limitations Standardized Measure [facility] AM-PAC 6 clicks Basic Mobility Inpatient Short Form: Raw Score: 24 CMS Score: 0% deficit Informed Consent/Education: Patient instructed in purpose of PT consult and plan of care. Assessment: Pt presented to the ER on complaining of chest pain and abdominal pain. The pain had resolved and recurred when arguing with . She was admitted to the hospital with diagnosis of atypical chest pain, costochondritis, thoracic back pain, GERD, HTN, and complaints of general weakness x two weeks. CTA of chest/abdomen/pelvis showed no acute findings. Negative x-ray of thoracic spine. She presents on initial evaluation with decreased cervical spine side bending and rotation to the R and L with increased shoulder pain with rotation and side bending to the L. Complains pain with palpation of the TTP along right sided middle 1/3 of sternum. Patient?s pain appears to be musculoskeletal in nature. She does not require skilled physical therapy services at this time, but may benefit from outpatient physical therapy to address her shoulder and chest pain. Patient presents with clinical signs and symptoms consistent with current/admitting diagnoses that have resulted to mobility limitation as demonstrated by the following impairment level findings: 1. Decreased strength to R shoulder and hip flexors 2. Decreased cervical spine rotation and side-bending 3. TTP along cervical spine and right side middle 1/3 of sternum. Impairments are contributing to the following functional limitations: 1. Pain with bed mobility skills and transfers 2. Difficulty lifting heavy objects [place] [id number] moderate complexity based on the following: History: Pt presented to the ER on complaining of chest pain and abdominal pain. The pain had resolved and recurred when arguing with . She was admitted to the hospital with diagnosis of atypical chest pain, costochondritis, thoracic back pain, GERD, HTN, and complaints of general weakness x two weeks. CTA of chest/abdomen/pelvis showed no acute findings. Negative x-ray of thoracic spine. Examination: Demonstrable impairment in strength with underlying impairments and functional limitations as documented above Presentation: Evolving Decision Makin moderate complexity Goals: N/A, PT evaluation only at this time. DISCHARGE RECOMMENDATIONS: Discharge to home with recommendation for outpatient physical therapy services to address right shoulder rotator cuff issue and chest pain from costochodritis. Discussed respite care with care management for assistance with care of patients . TREATMENT CODE/TIME: 81392 x 20 minutes beginning at 9:50 A.M. Thank you very much for this referral. Marino Abarca, SPT Doctor of Physical Therapy Student [facility] Supervision provided by Francisca Harris PT, DPT, CLT [facility] [place], [place]
--- NOTE | 2019-06-17 12:21 | W.PM.DS.N ---
Date of service: 06/17/19 Time of Service: 12:22 DS: Diagnosis Discharge Diagnosis (1) Atypical chest pain: Start date: 06/17/19 Start time: 12:22 Status: Acute Asessment and Plan: Muscoskeletal. Trops negative, EKG showing diffuse nonspecific ST abnormaltities present on previous EKGS. (2) Costochondritis: Start date: 06/17/19 Start time: 12:36 Status: Acute Asessment and Plan: Ischemic work up negative. Appears muscoskeletal, pain relief with tylenol. continue tylenol po, recommend outpatient PT for shoulder and ice or heat as well for pain. (3) Thoracic back pain: Status: Acute (4) Gastroesophageal reflux disease without esophagitis: Start date: 06/17/19 Start time: 12:37 Status: Acute Asessment and Plan: Continue to take nexium (5) Hypertension: Start date: 06/17/19 Start time: 12:37 Status: Chronic Asessment and Plan: Started on coreg for better control, have outpatient PCP manage BP. (6) DVT prophylaxis: Status: Acute (7) Discharge planning issues: Status: Acute Discharge Plan Disposition Patient Disposition: HOME Condition: Good Discharge Details Chief Complaint: Chest Pain Clinical Impression: Chest pain, Abdominal pain Reason For Visit: ABDOMINAL PAIN, CHEST PAIN Admit Date/Time: 06/15/19 21:23 Admit Provider: Scott Peña Attending Provider: Scott Peña Primary Care Provider: Branden Atkinson ED Provider: Po Schultz Hospital Course Hospital Course: 73 y.o female with Costochondritis admitted from [facility] ED with CP. EKG in ED T wave inversion in aVL and nonspecific J point depression in V leads, all which have been present on prior EKG's, troponins negative, CTA abdomen and pelvis which did not show any TAA/dissection or any PE but demonstrated 3 mm subpleural nodule in RUL. CTA of the abdomen and pelvis demonstrated prior cholecystectomy, hysterectomy and 10 mm left adnexal calcification, fatty liver changes and atherosclerosis of her abdominal aorta w/out AAA. She was admitted to /S for further management. Telemetry was NSR. Her pain is more consitent with costocondritis. She was given tylenol and ibuprofen for symptom management with good relief. When speaking with patient she endorses she takes care of her at home and has been pulling and pushing his wheelchair up and down the ramp to get in and out of the house likely factor for pain. PT evaluated patient and recommend outpatient physical therapy for shoulder. Patient is being discharged home. Recommend to take tylenol and ibuprofen for pain. She denies SOB, N/V/D Home Meds and New Rx's Prescriptions: New carvedilol [Coreg] 6.25 mg Tablet 6.25 mg PO BID Qty: 30 RF: 0 Bengay Ultra Strength 4-30-10 % cream 1 applic TP QD-BID PRN (Reason: muscle pain) Qty: 113 RF: 0 Continued tramadol 50 mg tablet 50 mg PO QHS RF: 0 clonazepam [Klonopin] 0.5 MG tablet 0.5 mg PO PRN PRNRF: 0 amlodipine 2.5 MG tablet 2.5 mg PO DAILY RF: 0 Citalopram Hydrobromide [Citalopram HBr] 40 MG tablet 40 mg PO DAILY RF: 0 lisinopril 40 MG tablet 40 mg PO QAM RF: 0 aspirin 81 MG tablet,delayed release (DR/EC) 81 mg PO DAILY Qty: 30 RF: 0 rosuvastatin [Crestor] 40 MG tablet 40 mg PO QPM Qty: 30 RF: 0 ondansetron 4 mg Tablet,Disintegrating 4 mg PO Q6H PRNRF: 0 No Action ranitidine HCl 150 mg capsule 150 mg PO BID Qty: 60 RF: 0 Discharge Instructions Instructions: Costochondritis (DC) Additional Instructions: Take tylenol 650-1000 mg every 6-8 hours for pain Apply bengay to chest twice a day for pain Recommend outpatient PT for strength Stand Alone Forms: Nursing Discharge Form Referrals: Branden Atkinson NP [Primary Care Provider] - 06/28/19 10:45 am Activity:: Activity as Tolerated Equipment/Supplies:: No Equipment Needed Diet:: As Tolerated Discharge Orders Discharge Orders: Discharge Order (Routine); Ordered 06/17/19 Ordered By: Vivien Larsen DS: Summary Status at Discharge Functional status at discharge: independent ambulation Overall status at discharge: patient is back to baseline Mental Status: mental status grossly normal Speech and Movement: speech and movement normal Mood: congruent mood Affect: normal affect Exam Narrative Exam Narrative: General: Very pleasant, anxious middle-aged female, who does not appear weak. HEENT: EOMI, MMM Heart: RRR, no m/r/g, chest pain, reproducible with palpation Lungs: CTAB Abd: soft, nontender, nondistended Extremities: no e/c/c BLE's Psych Mental Status: mental status grossly normal Speech and Movement: speech and movement normal Mood: congruent mood Affect: normal affect DS: Data Vitals/I&O Vitals and I&O: Vital Signs Temperature 36.6 C 06/17/19 11:00 Temperature Source Tympanic 06/17/19 11:00 Pulse 66 06/17/19 11:00 Pulse Rhythm Regular 06/17/19 08:06 Pulse 71 06/15/19 21:31 Respiratory Rate 16 06/17/19 11:00 Respiratory Effort 06/17/19 08:06 Respiratory Depth Normal 06/17/19 08:06 Respiratory Pattern Normal 06/17/19 08:06 Blood Pressure 110/62 06/17/19 11:00 Blood Pressure Mean 86 06/15/19 21:30 Blood Pressure Position Sitting 06/15/19 16:20 Pulse Oximetry 96 06/17/19 11:00 Oxygen Delivery Method Room Air 06/17/19 11:00 Oxygen Flow Rate 0 06/17/19 11:00 Pain Level 0 06/17/19 11:00 Comment 06/15/19 23:30 Intake & Output 06/16/19 06/17/19 06/17/19 23:59 11:59 23:59 Intake Total 1471.833 / 2371.833 250 / 250 Balance 1471.833 / 1921.833 250 / 250 Weight 62 kg Intake: IV 981.833 / 981.833 10 / 10 Oral 490 / 1390 240 / 240 Other: Urine Color Pale Urine Appearance Clear Clear Urine Odor None Comment pt denies having any urinary symptoms Voiding Methods Toilet Data Completed and Pending Completed studies during hospitalization [Text1]: Exam(s) a RAD:XR chest 2V PA & lateral EXAM: XR CHEST 2V PA LATERAL CLINICAL HISTORY: chest pain TECHNIQUE: COMPARISON: XR shoulder RT complete 2+V from 05/12/2018 CT THORAX ABD/PEL CTA from 06/15/2019 FINDINGS: The heart is not enlarged. Lungs are clear. No pleural effusion. IMPRESSION: No evidence of acute process. PROCEDURE INFORMATION: Exam: XR Chest, 2 Views Exam date and time: 06/15/2019 5:20 PM Age: 73 years old Clinical indication: Other: Lt chest pain, improved TECHNIQUE: Imaging protocol: XR of the chest Views: 2 views. COMPARISON: CR XR CHEST 2V PA LATERAL 05/06/2018 7:15 PM FINDINGS: Lungs: Unremarkable. No consolidation. Pleural space: Unremarkable. No pleural effusion. No pneumothorax. Heart/Mediastinum: Unremarkable. No cardiomegaly. Vasculature: Atherosclerosis. Bones/joints: Degenerative changes in the spine. IMPRESSION: No acute finding. FINDINGS: Thoracic aorta and major branches are unremarkable except for mild atheromatous calcification. Abdominal aorta is unremarkable in appearance except for mild atheromatous calcification. Major abdominal aortic branches appear normal. No evidence of pulmonary embolic disease. Lungs are clear. No pleural effusion. Incidental 3 millimeter right middle lobe pulmonary nodule. No mediastinal or hilar adenopathy. Prior cholecystectomy noted. Hepatic steatosis noted. Otherwise liver, spleen and pancreas are unremarkable. No biliary dilatation. Adrenals and kidneys are unremarkable. No urinary tract calcification or obstruction. Fat containing bilateral inguinal hernias noted. Appendix is normal. No evidence of bowel obstruction or diverticulitis. IMPRESSION: No evidence of acute process. COMPARISON: CR XR CHEST 2V PA LATERAL 06/15/2019 5:17 PM FINDINGS: Pulmonary arteries: Normal. No pulmonary emboli. Aorta: Mild atherosclerotic calcium.. No aortic aneurysm. No aortic dissection. Lungs: Nonspecific nodule lateral right upper lobe measuring 3 mm. Subpleural in location. Low index of suspicion.. No consolidation. No masses. Pleural space: Unremarkable. No pneumothorax. No pleural effusion. Heart: Unremarkable. No cardiomegaly. No pericardial effusion. Mediastinum: Mediastinum unremarkable. Retrosternal and parasternal tissues within normal limits. Lymph nodes: Unremarkable. No enlarged lymph nodes. Bones/joints: Mild degenerative thoracic spine disease. No compression fracture.. No acute fracture. Soft tissues: Unremarkable. IMPRESSION: 1. No acute findings. 2. No thoracic aortic aneurysm or dissection. Mild atherosclerotic calcium 3. 3 mm right upper lobe nodule in a subpleural location. This is of low index suspicion. Exam(s) a RAD:XR thoracic spine complete EXAM: XR THORACIC SPINE COMPLETE CLINICAL HISTORY: Thoracic back pain TECHNIQUE: COMPARISON: CT THORAX ABD/PEL CTA from 06/15/2019 FINDINGS: Three views were obtained. There are degenerative endplate changes throughout the thoracic spine. No acute fracture seen. IMPRESSION: FINDINGS: Vertebrae: Degenerative changes in the thoracic spine There is no evidence of acute fracture.There is no evidence of malalignment or dislocation. Intraperitoneal space: Surgical clip in the right upper quadrant Soft tissues: Normal. Other findings: Overlying EKG wires IMPRESSION: There is no evidence of acute fracture.There is no evidence of malalignment or dislocation. Labs on day of discharge: Labs from last 24 hours 06/17/19 06:37 Sodium 140 Potassium 4.1 Chloride 108 H Carbon Dioxide 23.4 Anion Gap 8.6 BUN 30 H D Creatinine 1.51 H Estimated GFR/1.73 m2 33.69 Glucose 101 Calcium 9.3 Magnesium 2.3 PFSH Medical History Adenomatous polyp of colon (Chronic) Allergic rhinitis (Chronic) Cardiomyopathy (Chronic) Cervical spondylosis (Chronic) Depression (Chronic) Environmental allergies (Chronic) Essential hypertension (Chronic) Gait disturbance (Chronic) GERD (gastroesophageal reflux disease) (Chronic) IBS (irritable bowel syndrome) (Chronic) Left carotid bruit (Chronic) Osteoarthritis (Chronic) Osteopenia (Chronic) Surgical History COLONOSCOPY (Resolved ~12/2014) DR.ANNICK ARAMBULA Colonoscopy - IV Sedation (Resolved) 2009 Cystocele, Paravaginal repair (Resolved) GASTROSCOPY (Resolved 01/20/15) DR.ANNICK ARAMBULA Rectocele, Paravaginal repair (Resolved) Vaginal hysterectomy (Resolved) Social History Smoking/Tobacco Use Status: Never Alcohol Intake: current Alcohol Intake frequency: a few times a month Drug use: Never Substance use type: does not use Number of Children: 2 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
--- NOTE | 2019-06-17 18:00 | CMDISCH_ITS ---
- If Service Date Differs Date of service: 06/17/19 Time of Service: 18:00 LACE Index Scoring Tool - Questions: Length of Stay (in days): 1 Acuity (Admit via E.D.?): Yes E.D. Visits: 1 - Answers: Total Score: 5 Risk of Readmission: Low Risk Care Management Discharge Reason for Hospitalization: Abdominal pain, chest pain Discharge Plan: Venus is being discharged home today. 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 Venus is feeling over whelmed and reports she has not been sleeping well due to the pain. She is taking tramadol for pain and she was prescribed bengay for topical relief. Venus will attend outpatient PT for her shoulder and follow up with primary care provider. CM has left a message for [facility] to assist with additional services for her spouse. CM also faxed a referral to [facility] for options counciling. Venus will drive herself home at time of discharge. Patient/Family Education Needs: Discharge education, limitations and follow up plan of care. Provided resource referrals related to addtional supports at home and assistance in her caregiver role through [facility].
== END 2019-06-17 14:41 | disposition home or self-care (01) ==
LOC: ER 21:22 → MS 06-16 08:21
PROVIDERS: Admitting Provider Internal Medicine; Emergency Provider Student in an Organized Health Care Education/Training Program; PCP Nurse Practitioner Family; Visit Provider Internal Medicine
DX: R07.89 Other chest pain (principal); M94.0 Chondrocostal junction syndrome [Tietze]; R91.1 Solitary pulmonary nodule; X50.0XXA Overexertion from strenuous movement or load, initial encounter; M54.6 Pain in thoracic spine; K21.9 Gastro-esophageal reflux disease without esophagitis; I10 Essential (primary) hypertension
CPT/HCPCS: 36415; 74177; 80048; 80053; 80061; 83690; 93005; 96361; 96374; 97161; 99223; 99225; 99239; 99285; 71046; 72072; 83036; 83735; 84443; 84484; 85025; 85049; 93010; 99217; 99220; G0378; J1650; J1885; J3490

== ENCOUNTER 2020-05-20 11:33 | Outpatient (REF) | payer OTHER, SELFPAY ==
[2020-05-20 20:52] LABS: Abs Immature Grans 0.02 10^3/uL (0.0-0.06); Absolute Basophil Count 0.02 10^3/uL (0.0-0.2); Absolute Eosinophil Count 0.09 10^3/uL (0.0-0.7); Absolute Lymphocyte Count 2.32 10^3/uL (1.2-3.4); Absolute Monocyte Count 0.35 10^3/uL (0.1-0.8); Absolute Neutrophil Count 3.72 10^3/uL (1.2-6.7); Basophils % 0.3; Eosinophils % 1.4; HGB 12.8 g/dL (11.2-15.7); Immature Grans % 0.3; Lymphocytes % 35.6; MCH 29.8 pg (27.0-33.0); MCHC 32.8 % (32.0-36.0); MCV 90.7 fL (80-95); Monocytes % 5.4; Nucleated RBC 0 %; RDW 12.7 % (11.7-14.6); RDW-SD 41.8 fL
[2020-05-20 21:02] LABS: COMMENT (LAB VIEW ONLY) 150.72 mg/dL
[2020-05-20 21:07] LABS: WBC 6.52 10^3/uL (4.4-10.8)
[2020-05-20 21:15] LABS: ALT 19 U/L (14-59); AST 15 U/L (15-37); Albumin 3.8 g/dL (3.4-5.0); Alkaline Phosphatase 115 U/L (46-116); Anion Gap 8.8 mmol/L (3-11); BUN 28 mg/dL (7-18); Bilirubin, Total 0.5 mg/dL (0.2-1.0); CO2 25.2 mmol/L (21.0-32.0); CREATININE 1.19 mg/dL (0.55-1.02); Calcium 9.8 mg/dL (8.5-10.1); Calculated LDL 129 mg/dL (<100); Chloride 106 mmol/L (98-107); Cholesterol 254 mg/dL (<200); Estimated GFR 44.22 (mL/min/1.73m2); Glucose 108 mg/dL (74-106); HDL Cholesterol 46 mg/dL (40-60); Potassium 4.2 mmol/L (3.5-5.1); Sodium 140 mmol/L (136-145); TSH (W/Ref FT4) 5.12 uIU/mL (0.36-3.74); Total Protein 7.6 g/dL (6.4-8.2); Triglyceride 395 mg/dL (<150)
[2020-05-20 21:55] LABS: FREE T4 0.71 ng/dL (0.76-1.46)
== END 2020-05-20 11:53 ==
LOC: NCHCN 11:33
PROVIDERS: PCP Nurse Practitioner Family; Visit Provider Physician Assistant
DX: I10 Essential (primary) hypertension (principal); E78.5 Hyperlipidemia, unspecified; R73.9 Hyperglycemia, unspecified; N18.30 Chronic kidney disease, stage 3 unspecified
CPT/HCPCS: 80053; 80061; 82043; 82570; 84439; 84443; 85025

== ENCOUNTER 2020-07-22 12:45 | Outpatient (REF) | payer OTHER, SELFPAY ==
[2020-07-22 16:05] LABS: HCT 37.2 % (36.0-46.0); HGB 12.4 g/dL (11.2-15.7); MCH 29.1 pg (27.0-33.0); MCHC 33.3 % (32.0-36.0); MCV 87.3 fL (80-95); MPV 10.2 fL (8.0-11.0); Platelet Count 295 10^3/uL (130-400); RBC 4.26 10^6/uL (3.93-5.22); RDW 12.8 % (11.7-14.6); RDW-SD 40.6 fL; WBC 11.08 10^3/uL (4.4-10.8)
[2020-07-22 16:13] LABS: BUN 15 mg/dL (7-18); CO2 24.4 mmol/L (21.0-32.0); CREATININE 1.1 mg/dL (0.55-1.02); Calcium 9.7 mg/dL (8.5-10.1); Chloride 102 mmol/L (98-107); Estimated GFR 48.42 (mL/min/1.73m2); Glucose 110 mg/dL (74-106)
[2020-07-22 16:18] LABS: Anion Gap 7.6 mmol/L (3-11); Sodium 134 mmol/L (136-145)
== END 2020-07-22 12:46 | disposition home or self-care (01) ==
LOC: NCHCN 12:45
PROVIDERS: PCP Nurse Practitioner Family; Visit Provider Internal Medicine
DX: K57.92 Diverticulitis of intestine, part unspecified, without perforation or abscess without bleeding (principal); I10 Essential (primary) hypertension; E78.5 Hyperlipidemia, unspecified
CPT/HCPCS: 80048; 85027

== ENCOUNTER 2021-12-07 17:10 | Outpatient (REF) | payer MEDICARE, SELFPAY ==
[2021-12-07 20:00] LABS: Anion Gap 10.9 mmol/L (3-11); BUN 23 mg/dL (7-18); CO2 28.1 mmol/L (21.0-32.0); CREATININE 1.2 mg/dL (0.55-1.02); Calcium 10.4 mg/dL (8.5-10.1); Chloride 104 mmol/L (98-107); Estimated GFR 43.56 (mL/min/1.73m2); Glucose 118 mg/dL (74-106); Sodium 143 mmol/L (136-145); TSH (W/Ref FT4) 2.65 uIU/mL (0.36-3.74)
== END 2021-12-07 17:11 | disposition home or self-care (01) ==
LOC: NCHCN 17:10
PROVIDERS: PCP Nurse Practitioner Family; Visit Provider Physician Assistant
DX: E03.9 Hypothyroidism, unspecified (principal); I10 Essential (primary) hypertension; R73.03 Prediabetes
CPT/HCPCS: 80048; 84443

== ENCOUNTER 2023-08-24 14:13 | Outpatient (REF) | payer MEDICARE, MEDICAID, SELFPAY ==
[2023-08-24 19:22] LABS: Hemoglobin A1C 6.3 % (<5.7)
[2023-08-24 19:29] LABS: ALT 17 U/L (14-59); AST 20 U/L (15-37); Albumin 3.6 g/dL (3.4-5.0); Alkaline Phosphatase 108 U/L (46-116); Anion Gap 9.2 mmol/L (3-11); BUN 19 mg/dL (7-18); Bilirubin, Total 0.5 mg/dL (0.2-1.0); CO2 26.8 mmol/L (21.0-32.0); CREATININE 1.2 mg/dL (0.55-1.02); Calcium 9.6 mg/dL (8.5-10.1); Chloride 106 mmol/L (98-107); Estimated GFR 46.33 (mL/min/1.73m2); Glucose 106 mg/dL (74-106); Sodium 142 mmol/L (136-145); TSH (W/Ref FT4) 0.97 uIU/mL (0.36-3.74); Total Protein 7.3 g/dL (6.4-8.2)
== END 2023-08-24 14:14 | disposition home or self-care (01) ==
LOC: NCHCN 14:13
PROVIDERS: Visit Provider Physician Assistant
DX: I10 Essential (primary) hypertension (principal); R73.03 Prediabetes
CPT/HCPCS: 80053; 83036; 84443

== ENCOUNTER 2023-10-02 08:40 | Emergency (ER) | payer MEDICARE, MEDICAID, SELFPAY ==
[2023-10-02 08:44] VITALS: BP 196/61; PULSE 76; RESP 16; TEMP 36.8; O2SAT 99
--- NOTE | 2023-10-02 09:04 | W.ED.GENAD ---
Discharge Plan Disposition Patient Disposition: Home Condition: Improving Discharge Details Clinical Impression: Back pain Primary Care Provider: Katya Phelan ED Provider: Nawaf Rader Home Meds and New Rx's Prescriptions: New lidocaine [Lidoderm] 5 % adhesive patch,medicated 1 patch topical DAILY Qty: 15 0RF Rx Instructions: leave on most painful area for up to 12 hrs No Action tramadol 50 mg tablet 50 mg PO QHS Patient Comments: #30 with 1 refill.HE clonazepam [Klonopin] 0.5 MG tablet 0.5 mg PO PRN PRN amlodipine 2.5 MG tablet 5 mg PO DAILY Citalopram Hydrobromide [Citalopram HBr] 40 MG tablet 40 mg PO DAILY Hold Instructions: patient stated lisinopril 40 MG tablet 40 mg PO QAM aspirin 81 MG tablet,delayed release (DR/EC) 81 mg PO DAILY Qty: 30 0RF ondansetron 4 mg Tablet,Disintegrating 4 mg PO Q6H PRN carvedilol [Coreg] 6.25 mg Tablet 6.25 mg PO BID Qty: 30 0RF Bengay Ultra Strength 4-30-10 % cream 1 applic TP QD-BID PRN (Reason: muscle pain) Qty: 113 0RF dexlansoprazole 60 mg capsule,biphase delayed releas 60 mg PO DAILY Patient Comments: TAKE ONE CAPSULE BY MOUTH EVERY DAY levothyroxine 50 mcg tablet 50 mcg PO DAILY Patient Comments: TAKE ONE TABLET BY MOUTH EVERY MORNING ON AN EMPTY STOMACH 30 MINUTES BEFORE BREAKFAST donepezil 5 mg tablet 5 mg PO DAILY Patient Comments: TAKE ONE TABLET BY MOUTH EVERY DAY rosuvastatin [Crestor] 40 MG tablet 20 mg PO QPM ranitidine HCl 150 mg capsule 150 mg PO BID Qty: 60 0RF Discharge Instructions Instructions: Back Pain (ED) HPI General Date/Time Provider Initiated Documentation: 10/02/23 08:53. HPI Narrative: 78-year-old female presents with lower back pain rating down both legs that began yesterday while doing yard work, felt her legs give out from underneath of her. No bowel or bladder dysfunction. No saddle anesthesia. Has been able to walk however feels that she cannot get comfortable. Endorses pain rating down the back of both legs. Related Data Home Medications Medication Instructions Recorded Confirmed lisinopril 40 mg tablet 40 mg PO QAM 11/24/12 10/02/23 Citalopram Hydrobromide 40 mg PO DAILY 11/28/17 10/02/23 [Citalopram HBr] Klonopin 0.5 mg tablet (clonazepam) 0.5 mg PO PRN PRN 11/28/17 10/02/23 amlodipine 2.5 mg tablet 5 mg PO DAILY 11/28/17 10/02/23 aspirin 81 mg tablet,delayed 81 mg PO DAILY ##30 01/02/18 10/02/23 release ranitidine HCl 150 mg capsule 150 mg PO BID #60 caps 05/10/18 10/02/23 tramadol 50 mg tablet 50 mg PO QHS 10/23/18 10/02/23 ondansetron 4 mg disintegrating 4 mg PO Q6H PRN 06/15/19 10/02/23 tablet camphor 4 %-methyl salicylate 30 1 applic topical QD-BID PRN muscle 06/17/19 10/02/23 %-menthol 10 % topical cream pain #113 grams (Bengay Ultra Strength) carvedilol 6.25 mg tablet (Coreg) 6.25 mg PO BID #30 tabs 06/17/19 10/02/23 dexlansoprazole 60 mg 60 mg PO DAILY 10/02/23 10/02/23 capsule,biphase delayed release donepezil 5 mg tablet 5 mg PO DAILY 10/02/23 10/02/23 levothyroxine 50 mcg tablet 50 mcg PO DAILY 10/02/23 10/02/23 lidocaine 5 % topical patch 1 patch topical DAILY #15 ea 10/02/23 (Lidoderm) rosuvastatin 40 mg tablet (Crestor) 20 mg PO QPM 10/02/23 10/02/23 Previous Rx's Medication Instructions Recorded aspirin 81 mg tablet,delayed 81 mg PO DAILY ##30 01/02/18 release ranitidine HCl 150 mg capsule 150 mg PO BID #60 caps 05/10/18 camphor 4 %-methyl salicylate 30 1 applic topical QD-BID PRN muscle 06/17/19 %-menthol 10 % topical cream pain #113 grams (Bengay Ultra Strength) carvedilol 6.25 mg tablet (Coreg) 6.25 mg PO BID #30 tabs 06/17/19 lidocaine 5 % topical patch 1 patch topical DAILY #15 ea 10/02/23 (Lidoderm) Allergies Allergy/AdvReac Type Severity Reaction Status Date / Time aspirin AdvReac upset Unverified 10/02/23 09:39 stomach r/t GERD metoclopramide HCl AdvReac hysterical Unverified 10/02/23 09:39 [From Reglan] crying trazodone AdvReac itching Unverified 10/02/23 09:39 enviornmental Allergy Mild head Uncoded 10/02/23 09:39 congestion General Stated Complaint: Nk/Back Pain SEBASTIÁN: 4 Review of Systems Narrative: Review of Systems Constitutional: negative Eyes: negative ENT: negative Cardiovascular: negative Respiratory: negative Gastrointestinal: negative : negative Musculoskeletal: Back pain Skin: negative Neurologic: negative Psych: negative Exam Narrative Exam Narrative: Physical Examination General: alert, awake, cooperative HEENT: normocephalic, atraumatic; PERRL, EOM intact, conjunctiva normal; no nasal discharge; moist mucous membranes, oral and pharyngeal mucosa normal, tolerating secretions Neck: supple, trachea midline; full ROM Chest: normal to inspection Respiratory: normal respiratory effort, speaking in full sentences Cardiac: regular rate, regular rhythm, S1S2 intact, no murmurs rubs or gallops GI: abdomen soft, non-tender, non-distended; no palpable mass or hepatosplenomegaly Skin: no lesions, rashes or trauma appreciated Neuro: AAOx3, normal speech, moving all extremities; motor 5 strength upper and lower extremities bilaterally, ambulatory, no ataxia Extremities: Full range of motion no signs of trauma Psych: Appropriate mood and affect Course Vital Signs Vital signs: Vital Signs Temperature 36.8 C 10/02/23 08:44 Pulse 76 10/02/23 08:44 Respiratory Rate 16 10/02/23 08:44 Blood Pressure 196/61 H 10/02/23 08:44 Pulse Oximetry 99 10/02/23 08:44 Temperature 36.8 C 10/02/23 08:44 Pulse 76 10/02/23 08:44 Respiratory Rate 16 10/02/23 08:44 Blood Pressure 196/61 H 10/02/23 08:44 Blood Pressure Position Sitting 10/02/23 08:44 Pulse Oximetry 99 10/02/23 08:44 Oxygen Delivery Method Room Air 10/02/23 08:44 Oxygen Flow Rate 0 10/02/23 08:44 Pain Level 8 10/02/23 08:44 Medical Decision Making 78-year-old female presents with lower back pain over the last day rating down bilateral lower legs, felt her legs give out from underneath her yesterday while doing yard work, has been able to walk, 5-5 strength upper and lower extremities bilaterally, cranial nerves intact, normal speech, no ataxia, no midline spinal tenderness step-off crepitus or deformity. Afebrile nontoxic. Does appear uncomfortable. Likely sciatica versus lumbar spasm versus lumbar strain lower suspicion for spinal epidural abscess tumor or cauda equina. Trial of analgesia anti-inflammatory. Close reassessment. 10: 43 patient resting comfortably feeling better. Likely resolving sciatica. Home care instructions and return precautions given Quality:SDOH Health Related Social Needs: No Data to Display PFSH All Active Problems (Updated 10/02/23 @ 10:44 by Nawaf Rader MD) Back pain (Acute) Discharge planning issues (Acute) DVT prophylaxis (Acute) Incidental lung nodule, less than or equal to 3mm (Acute) Thoracic back pain (Acute) Costochondritis (Acute) Atypical chest pain (Acute) Allergic rhinitis (Acute 05/26/14) Anxiety associated with depression (Acute 11/28/17) Cervical spondylolysis (Acute 11/28/17) Diverticulosis of intestine without bleeding (Acute 11/28/17) Erosive gastritis (Acute 11/28/17) Gastroesophageal reflux disease without esophagitis (Acute 11/28/17) Hiatal hernia (Acute 11/28/17) Unspecified essential hypertension (Acute 11/28/17) Illiteracy (Acute 11/28/17) Insomnia (Acute 05/26/14) Irritable bowel syndrome (Acute 11/28/17) Obstructive sleep apnea (Acute 11/28/17) Osteoarthritis (Acute 11/28/17) Polyp of colon (Acute 11/28/17) Postnasal drip (Acute 05/26/14) C. difficile enteritis (Acute) Chest pain (Acute) Anemia (Chronic) Hypertension (Chronic) DVT prophylaxis (Acute) Gastroenteritis (Acute) Hypokalemia (Acute) Hypomagnesemia (Acute) Pyelonephritis (Acute) Depression (Chronic) GERD (gastroesophageal reflux disease) (Chronic) Gait disturbance (Chronic) Left carotid bruit (Chronic) Essential hypertension (Chronic) Medical History (Updated 10/02/23 @ 10:44 by Nawaf Rader MD) IBS (irritable bowel syndrome) Cardiomyopathy Allergic rhinitis Adenomatous polyp of colon Environmental allergies Osteopenia Cervical spondylosis Osteoarthritis Surgical History Rectocele, Paravaginal repair Vaginal hysterectomy GASTROSCOPY (01/20/15) DR.ANNICK ARAMBULA Cystocele, Paravaginal repair Colonoscopy - IV Sedation 2009 COLONOSCOPY (~12/2014) DR.ANNICK ARAMBULA Social History Smoking/Tobacco Use Status: Never Smoking risk assessment performed?: Yes Alcohol Intake: current Alcohol Intake frequency: a few times a month Drug use: Never Substance use type: does not use Number of Children: 2 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
[2023-10-02] MEDS: Lidocaine 5% Patch 1 PATCH TP (09:38)
[2023-10-02] MEDS: Normal Saline 500 ML 1000 ML IV (09:38)
[2023-10-02] MEDS: Ketorolac 15 MG/ML VIAL IVP (09:38)
[2023-10-02] MEDS: Dexamethasone 10 MG/ML VIAL IVP (09:39)
[2023-10-02] MEDS: Famotidine 20 MG/2 ML VIAL IVP (09:45)
[2023-10-02 10:54] VITALS: BP 153/53; PULSE 78; RESP 14; O2SAT 100
== END 2023-10-02 11:03 | disposition home or self-care (01) ==
LOC: ER 10:51
PROVIDERS: Emergency Provider Emergency Medicine; PCP Physician Assistant
DX: M54.50 Low back pain, unspecified (principal); M79.604 Pain in right leg; M79.605 Pain in left leg; X50.0XXA Overexertion from strenuous movement or load, initial encounter
CPT/HCPCS: 80053; 96374; 96375; 99284; 85025; 99283; J1100; J1885

== ENCOUNTER 2024-01-24 22:34 | Outpatient (REF) | payer MEDICARE, MEDICAID, SELFPAY ==
[2024-01-24 20:01] LABS: Bilirubin Negative (Negative); Blood Negative (Negative); Clarity Clear (Clear); Glucose Negative (Negative); Ketones Negative (Negative); Leukocyte Esterase Negative (Negative); Nitrite Negative (Negative); Urobilinogen 0.2 mg/dL (Up to 0.2)
== END 2024-01-24 22:35 | disposition home or self-care (01) ==
LOC: NCHCN 22:34
PROVIDERS: PCP Physician Assistant; Visit Provider Nurse Practitioner Family
DX: R35.0 Frequency of micturition (principal)
CPT/HCPCS: 81003

== ENCOUNTER 2024-02-02 17:58 | Outpatient (REF) | payer MEDICARE, MEDICAID, SELFPAY | END 2024-02-02 17:59 | disposition home or self-care (01) | LOC: NCHCN 17:58 | PROVIDERS: PCP Physician Assistant; Visit Provider Physician Assistant | DX: R35.0 Frequency of micturition (principal); R82.89 Other abnormal findings on cytological and histological examination of urine | CPT/HCPCS: 87086 ==

== ENCOUNTER 2024-02-18 15:11 | Inpatient (IN) | payer MEDICARE, MEDICAID, SELFPAY ==
[2024-02-18] VITALS (158 sets, daily range): BP systolic 51–197; BP diastolic 18–172; PULSE 57–116; RESP 8–28; TEMP 1–37.2; O2SAT 88–100
--- NOTE | 2024-02-18 15:15 | RT.EKG_ITS ---
APPROVED REPORT Exam: Resting ECG Reason for Exam: Weakness Patient Location: E HR:64 bpm ECG Measurements Heart Rate 64 AXIS OR [id number] P [id number] QRSd 77 QRS 73 QT 403 T 99 QTc 417 Conclusion Junctional rhythm...absent P waves, slow V-rate Nonspecific T abnrm, anterolateral leads...T <-0.10mV, I aVL V2-V narrow complex, regular rhythm, normal axis, normal intervals
[2024-02-18] MEDS: Normal Saline 1,000 ML 1000 ML IV ×2 (15:30→15:40)
--- NOTE | 2024-02-18 15:30 | DI.RAD_ITS ---
Exam(s) XR PORTABLE CHEST AP EXAM: XR PORTABLE CHEST AP CLINICAL HISTORY: ams, fatigue, hypotension. TECHNIQUE: 2D digital imaging was performed. COMPARISON: CR,XR XR CHEST 2V PA LATERAL from 06/15/2019 FINDINGS: Single AP portable view. Heart size is upper normal. The mediastinum is not widened. Lungs are clear. No infiltrates nor obvious pleural effusions. IMPRESSION: No acute pulmonary findings on this single AP portable view of the chest. DATA REPOSITORY: RADIATION DOSE DELIVERED:
--- NOTE | 2024-02-18 15:41 | W.ED.GENAD ---
Discharge Plan Disposition Patient Disposition: Admit to [facility] Condition: Improving Discharge Details Chief Complaint: Abd Prob Clinical Impression: LORRIE (acute kidney injury), Acute hyperkalemia, Dehydration Primary Care Provider: Katya Phelan ED Provider: Nawaf Rader Home Meds and New Rx's Prescriptions: No Action tramadol 50 mg tablet 50 mg PO QHS Patient Comments: #30 with 1 refill.HE clonazepam [Klonopin] 0.5 MG tablet 0.5 mg PO PRN PRN amlodipine 2.5 MG tablet 5 mg PO DAILY Citalopram Hydrobromide [Citalopram HBr] 40 MG tablet 40 mg PO DAILY lisinopril 40 MG tablet 40 mg PO QAM aspirin 81 MG tablet,delayed release (DR/EC) 81 mg PO DAILY Qty: 30 0RF carvedilol [Coreg] 6.25 mg Tablet 6.25 mg PO BID Qty: 30 0RF Bengay Ultra Strength 4-30-10 % cream 1 applic TP QD-BID PRN (Reason: muscle pain) Qty: 113 0RF dexlansoprazole 60 mg capsule,biphase delayed releas 60 mg PO DAILY Patient Comments: TAKE ONE CAPSULE BY MOUTH EVERY DAY levothyroxine 50 mcg tablet 50 mcg PO DAILY Patient Comments: TAKE ONE TABLET BY MOUTH EVERY MORNING ON AN EMPTY STOMACH 30 MINUTES BEFORE BREAKFAST donepezil 5 mg tablet 5 mg PO DAILY Patient Comments: TAKE ONE TABLET BY MOUTH EVERY DAY rosuvastatin [Crestor] 40 MG tablet 20 mg PO QPM lidocaine [Lidoderm] 5 % adhesive patch,medicated 1 patch topical DAILY Qty: 15 0RF Rx Instructions: leave on most painful area for up to 12 hrs ranitidine HCl 150 mg capsule 150 mg PO BID Qty: 60 0RF HPI General Date/Time Provider Initiated Documentation: 02/18/24 15:16. HPI Narrative: 78-year-old female history of GERD hiatal hernia brought in by family for evaluation of nausea vomiting decreased appetite over the last week generalized fatigue unclear when last bowel movement was Related Data Home Medications ?Medication ?Instructions ?Recorded ?Confirmed lisinopril 40 mg tablet 40 mg PO QAM 11/24/12 02/18/24 Citalopram Hydrobromide 40 mg PO DAILY 11/28/17 02/18/24 [Citalopram HBr] Klonopin 0.5 mg tablet (clonazepam) 0.5 mg PO PRN PRN 11/28/17 02/18/24 amlodipine 2.5 mg tablet 5 mg PO DAILY 11/28/17 02/18/24 aspirin 81 mg tablet,delayed 81 mg PO DAILY ##30 01/02/18 02/18/24 release ranitidine HCl 150 mg capsule 150 mg PO BID #60 caps 05/10/18 02/18/24 tramadol 50 mg tablet 50 mg PO QHS 10/23/18 02/18/24 camphor 4 %-methyl salicylate 30 1 applic topical QD-BID PRN muscle 06/17/19 02/18/24 %-menthol 10 % topical cream pain #113 grams (Bengay Ultra Strength) carvedilol 6.25 mg tablet (Coreg) 6.25 mg PO BID #30 tabs 06/17/19 02/18/24 dexlansoprazole 60 mg 60 mg PO DAILY 10/02/23 02/18/24 capsule,biphase delayed release donepezil 5 mg tablet 5 mg PO DAILY 10/02/23 02/18/24 levothyroxine 50 mcg tablet 50 mcg PO DAILY 10/02/23 02/18/24 lidocaine 5 % topical patch 1 patch topical DAILY #15 ea 10/02/23 02/18/24 (Lidoderm) rosuvastatin 40 mg tablet (Crestor) 20 mg PO QPM 10/02/23 02/18/24 Previous Rx's ?Medication ?Instructions ?Recorded aspirin 81 mg tablet,delayed 81 mg PO DAILY ##30 01/02/18 release ranitidine HCl 150 mg capsule 150 mg PO BID #60 caps 05/10/18 camphor 4 %-methyl salicylate 30 1 applic topical QD-BID PRN muscle 06/17/19 %-menthol 10 % topical cream pain #113 grams (Bengay Ultra Strength) carvedilol 6.25 mg tablet (Coreg) 6.25 mg PO BID #30 tabs 06/17/19 lidocaine 5 % topical patch 1 patch topical DAILY #15 ea 10/02/23 (Lidoderm) Allergies Allergy/AdvReac Type Severity Reaction Status Date / Time aspirin AdvReac upset Unverified 10/02/23 09:39 stomach r/t GERD metoclopramide HCl (From AdvReac hysterical Unverified 10/02/23 09:39 Reglan) crying trazodone AdvReac itching Unverified 10/02/23 09:39 enviornmental Allergy Mild head Uncoded 10/02/23 09:39 congestion General Stated Complaint: Abd Prob SEBASTIÁN: 3 Exam Narrative Exam Narrative: Appears greatly fatigued Dry oral mucosa Quite soft speech Lungs clear bilaterally no wheezes rales or rhonchi Normal heart sounds no murmurs rubs or gallops Abdomen soft nontender nondistended Moving all extremities without deficit sensation intact quiet speech without aphasia No peripheral edema No ecchymosis abrasions or lacerations no signs of trauma Course Vital Signs Vital signs: Vital Signs Pulse 71 02/18/24 15:14 Respiratory Rate 16 02/18/24 15:14 Pulse Oximetry 94 02/18/24 15:14 Pulse 71 02/18/24 15:14 Respiratory Rate 16 02/18/24 15:14 Pulse Oximetry 94 02/18/24 15:14 Pain Level 6 02/18/24 15:14 Lab/Test Results Lab/Test Results: 02/18/24 15:38 Blood Blood Culture - Pending 02/18/24 15:38 Blood Blood Culture - Pending Medical Decision Making 78-year-old female presents with nausea vomiting decreased p.o. intake over the last week, brought in by family, noted to be hypotensive to 70 systolic, EKG showing narrow complex regular rhythm normal axis nonischemic consider faint P waves with low voltage sinus rhythm versus hide junctional, patient denies chest pain or shortness of breath, abdomen soft nontender nondistended, very dry oral mucosa and dry skin consistent with hypovolemia consider gastroenteritis versus enteritis versus colitis versus gastritis versus diverticulitis versus cholecystitis versus less likely cholangitis lower suspicion for ACS PE aortic pathology muscles consider pneumonia UTI COVID flu RSV, will obtain labs imaging fluid resuscitation close reassessment 16: 11 metabolic acidosis likely related to dehydration must also consider ACS with hypoperfusion as patient is having anterior chest discomfort and is bradycardic and hypotensive consider sick sinus syndrome in the setting of recent NSTEMI, obtaining stat repeat EKG, continue with 2 L of crystalloid pressure bag, will place central line as needed 17: 21 evidence of prerenal LORRIE, patient on third liter crystalloid with improving BPs, also improving mentation, testing Stanford catheter being placed to monitor urine output, supplies or central line at bedside however patient seems to be responding to fluids, will continue to monitor closely, will also send C. difficile patient had recent antibiotic use has history of C. difficile and has soft loose stool 18: 05 multiple episodes of intermittent low BP as well as the 70s systolic however upon readjustment of cuff and reassessment blood pressures as high as 120 systolic averaging around 100-1 10 systolic. Will continue with fluid resuscitation as patient has severe prerenal LORRIE is beginning to put out urine. No respiratory distress. Mental status improving. Pending CT abdomen pelvis for admission 20: 09 blood pressure and mental status continue to improve blood pressure is 120 systolic, coloration of skin and mental status improving. More alert interactive. Still complaining of intermittent nausea. CT abdomen pelvis unremarkable. Acidemia without elevated lactate likely related to uremia in the setting of severe LORRIE, patient now experiencing hyperkalemia, is beginning to put out urine will treat with dextrose and insulin calcium gluconate D5 LR drip, will continue with fluid boluses have added labs such as salicylate ethanol and carbon monoxide to rule out other causes of acidemia. 20: 25 patient is only put out 300 cc of urine, will bolus 1 L LR 21: 33 patient is beginning to make more urine, resting comfortably blood pressure 90s systolic mental status greatly improved from arrival. Will recheck basic metabolic panel in approximately 1/2-hour 23: 17 greatly improving basic metabolic panel and VBG. Patient putting out good urine. This demonstrates improving LORRIE likely of prerenal etiology. Quality:SDOH Health Related Social Needs: No Data to Display Critical Care Time Critical Care Time Critical Care Time: Yes Total Critical Care Time: 30 Attestation: Critical care time spent the bedside assessing patient interpreting labs determining imaging coordinating ICU admission for patient with severe LORRIE related to dehydration, episodes of hypotension and severe electrolyte derangement PFSH All Active Problems (Updated 02/18/24 @ 23:19 by Nawaf Rader MD) Dehydration (Acute) Acute hyperkalemia (Acute) LORRIE (acute kidney injury) (Acute) Discharge planning issues (Acute) DVT prophylaxis (Acute) Incidental lung nodule, less than or equal to 3mm (Acute) Thoracic back pain (Acute) Costochondritis (Acute) Atypical chest pain (Acute) Allergic rhinitis (Acute 05/26/14) Anxiety associated with depression (Acute 11/28/17) Cervical spondylolysis (Acute 11/28/17) Diverticulosis of intestine without bleeding (Acute 11/28/17) Erosive gastritis (Acute 11/28/17) Gastroesophageal reflux disease without esophagitis (Acute 11/28/17) Hiatal hernia (Acute 11/28/17) Unspecified essential hypertension (Acute 11/28/17) Illiteracy (Acute 11/28/17) Insomnia (Acute 05/26/14) Irritable bowel syndrome (Acute 11/28/17) Obstructive sleep apnea (Acute 11/28/17) Osteoarthritis (Acute 11/28/17) Polyp of colon (Acute 11/28/17) Postnasal drip (Acute 05/26/14) C. difficile enteritis (Acute) Chest pain (Acute) Anemia (Chronic) Hypertension (Chronic) DVT prophylaxis (Acute) Gastroenteritis (Acute) Hypokalemia (Acute) Hypomagnesemia (Acute) Pyelonephritis (Acute) Depression (Chronic) GERD (gastroesophageal reflux disease) (Chronic) Gait disturbance (Chronic) Left carotid bruit (Chronic) Essential hypertension (Chronic) Medical History (Updated 02/18/24 @ 23:19 by Nawaf Rader MD) IBS (irritable bowel syndrome) Cardiomyopathy Allergic rhinitis Adenomatous polyp of colon Environmental allergies Osteopenia Cervical spondylosis Osteoarthritis Surgical History Rectocele, Paravaginal repair Vaginal hysterectomy GASTROSCOPY (01/20/15) DR.ANNICK ARAMBULA Cystocele, Paravaginal repair Colonoscopy - IV Sedation 2009 COLONOSCOPY (~12/2014) DR.ANNICK ARAMBULA Social History Smoking/Tobacco Use Status: Never Smoking risk assessment performed?: Yes Alcohol Intake: current Alcohol Intake frequency: a few times a month Drug use: Never Substance use type: does not use Housing: house Number of Children: 2 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
[2024-02-18 15:59] LABS: BE (Venous) -19 mmol/L (-2-3); HCO3 (Venous) 11 mmol/L (23-28); O2 Sat (Venous) 62 %; TCO2 (Venous) 11 mmol/L (24-29); pCO2 (Venous) 36 mmHg (41-51); pO2 (Venous) 39 mmHg
--- NOTE | 2024-02-18 16:00 | RT.EKG_ITS ---
APPROVED REPORT Exam: Resting ECG Reason for Exam: Chest Pain Patient Location: E HR:64 bpm ECG Measurements Heart Rate 64 AXIS NJ 168 P 78 QRSd 73 QRS 77 QT 515 T 83 QTc 531 Conclusion Sinus rhythm...normal P axis, V-rate 60- [address] depression, lateral leads...ST <-0.07mV, I aVL V5 V6 Prolonged QT interval...QTc >500mS sinus, normla axis, prolonged QT
[2024-02-18 16:02] LABS: Abs Immature Grans 0.02 10^3/uL (0.0-0.06); Absolute Basophil Count 0.04 10^3/uL (0.0-0.2); Absolute Eosinophil Count 0.06 10^3/uL (0.0-0.7); Absolute Lymphocyte Count 2.46 10^3/uL (1.2-3.4); Absolute Monocyte Count 0.39 10^3/uL (0.1-0.8); Basophils % 0.6 %; Eosinophils % 0.9 %; HCT 43.2 % (36.0-46.0); Immature Grans % 0.3 %; Lymphocytes % 37.4 %; MCH 29.4 pg (27.0-33.0); MCHC 32.4 % (32.0-36.0); MCV 91 fL (80-95); MPV 10.3 fL (8.0-11.0); Monocytes % 5.9 %; Neutrophils % 54.9 %; Platelet Count 236 10^3/uL (130-400); RBC 4.77 10^6/uL (3.93-5.22); RDW 13.1 % (11.7-14.6); RDW-SD 43.9 fL; WBC 6.57 10^3/uL (4.4-10.8)
[2024-02-18 16:03] LABS: pH (Venous) 7.09 (7.31-7.41)
[2024-02-18 16:14] LABS: PTT Activated 24.7 sec (23.6-32.8); Prothrombin Time 9.8 sec (9.1-11.1)
--- NOTE | 2024-02-18 16:30 | DI.CT_ITS ---
Exam(s) CT ABDOMEN PELVIS WO EXAM: CT ABDOMEN PELVIS WO CLINICAL HISTORY: nausea vomiting. TECHNIQUE: Imaging Protocol: Axial computed tomography images with coronal and sagittal reformatted images were created and reviewed CONTRAST MATERIAL: Intravenous: none Oral: None COMPARISON: CT CT THORAX ABD/PEL CTA from 06/15/2019 FINDINGS: VISUALIZED LUNG BASES: No nodules nor pleural effusions evident. ABDOMEN: There is no ascites. LIVER: There are no obvious focal hepatic lesions evident of this noninfused study. GALLBLADDER/BILIARY: The gallbladder is again noted be surgically absent. CBD is not dilated. PANCREAS: No evidence of pancreatic mass nor dilatation of the pancreatic duct. SPLEEN: Spleen is not enlarged. No obvious intrasplenic lesions. ADRENALS: There are no significant adrenal masses. KIDNEYS:No cysts evident. No solid renal masses. No calculi nor hydronephrosis.. No hydroureter. Th ere is a Stanford catheter in the urinary bladder and the bladder is not distended. ABDOMINAL AORTA: The abdominal aorta is heavily calcified but not enlarged. Iliac arteries not enlar ged. LYMPH NODES: There is no retroperitoneal nor paraaortic adenopathy. ABDOMINAL WALL: No evidence of significant anterior abdominal wall nor inguinal hernia. GI: There is no evidence of bowel obstruction, free air, nor abscess. PELVIS: LYMPH NODES: There is no intrapelvic nor inguinal adenopathy. GI: Appendix is not identified as a separate structure but there is no evidence of obvious appendicit is.There are sigmoid diverticuli. No obvious acute diverticulitis. URINARY BLADDER: Stanford catheter in the bladder lumen noted. REPRODUCTIVE: Uterus surgically absent. No abnormal adnexal masses. OSSEOUS: No fractures. No disc space narrowing. No osseous lesions. IMPRESSION: 1. There is Stanford catheter noted in the left side of the urinary bladder. The bladder is not distend ed. No hydronephrosis. 2. There is evidence of previous cholecystectomy and hysterectomy. 3. Sigmoid diverticuli but no evidence of obvious acute diverticulitis. No evidence of bowel obstruc tion, free air, nor abscess. Report called by myself to ER physician 02/18/2024 6:29 p.m. RADIATION DOSE DELIVERED: 526.07mGy.cm Total DLP DATA REPOSITORY: All CT scans at this facility are submitted to the National Radiology Data Registry (NRDR) Dose Index Registry (DIR) with the [employer] (ACR). RADIATION OPTIMIZATION: All CT scans at this facility use at least one of these dose optimization te chniques: automated exposure control; mA and/or kV adjustment per patient size (includes targeted exa ms where dose is matched to clinical indication); or iterative reconstruction.
[2024-02-18 16:37] LABS: ALT 30 U/L (14-59); AST 30 U/L (15-37); Albumin 3.9 g/dL (3.4-5.0); Alkaline Phosphatase 131 U/L (46-116); Anion Gap 21.3 mmol/L (3-11); Bilirubin, Total 0.56 mg/dL (0.2-1.0); CO2 13.7 mmol/L (21.0-32.0); Calcium 9.5 mg/dL (8.5-10.1); Chloride 97 mmol/L (98-107); Estimated GFR 4.87 (mL/min/1.73m2); Glucose 121 mg/dL (74-106); Lipase 139 U/L (16-77); Magnesium 2.7 mg/dL (1.8-2.4); NT-proBNP 202 pg/mL (<300); Sodium 132 mmol/L (136-145); TSH (W/Ref FT4) 0.11 uIU/mL (0.36-3.74); Total Protein 8.2 g/dL (6.4-8.2); Troponin I 9 ng/L (<or=51)
[2024-02-18 16:41] LABS: BUN 120 mg/dL (7-18); CREATININE 7.8 mg/dL (0.55-1.02)
[2024-02-18 16:44] LABS: COVID-19 PCR Negative (Negative); Influenza A PCR Negative (Negative); Influenza B PCR Negative (Negative); RSV PCR Negative (Negative)
[2024-02-18 16:49] LABS: Source Nasopharynx
[2024-02-18 16:59] LABS: FREE T4 1.38 ng/dL (0.76-1.46)
[2024-02-18 17:37] LABS: Troponin I 9 ng/L (<or=51)
[2024-02-18 17:44] LABS: Bilirubin Small (Negative); Blood Small (Negative); Clarity Sl Cloudy (Clear); Glucose Negative (Negative); Ketones Trace mg/dL (Negative); Leukocyte Esterase Negative (Negative); Nitrite Negative (Negative); Specific Gravity 1.025 (1.005-1.025); Urobilinogen 0.2 mg/dL (Up to 0.2)
[2024-02-18 17:56] LABS: Epithelial Cells Few HPF (Negative); WBC 0-2 HPF (0-5)
[2024-02-18 17:57] LABS: Bacteria Rare HPF (Negative); C & S Indicated? No; Crystals Negative HPF (Negative); Mucus Negative (Negative); Other Cells Few Renal (Negative)
[2024-02-18 18:10] LABS: C Diff PCR Negative (Negative)
[2024-02-18] MEDS: Ondansetron 4 MG/2 ML VIAL (18:12)
[2024-02-18 19:28] LABS: BE (Venous) -22 mmol/L (-2-3); HCO3 (Venous) 9 mmol/L (23-28); O2 Sat (Venous) 66 %; TCO2 (Venous) 9 mmol/L (24-29); pCO2 (Venous) 32 mmHg (41-51); pO2 (Venous) 42 mmHg
[2024-02-18 19:33] LABS: pH (Venous) 7.05 (7.31-7.41)
[2024-02-18 19:38] LABS: Lactate 1.4 mmol/L (0.6-1.4)
[2024-02-18 19:44] LABS: Anion Gap 20.1 mmol/L (3-11); CO2 10.9 mmol/L (21.0-32.0); Calcium 7.6 mg/dL (8.5-10.1); Chloride 106 mmol/L (98-107); Estimated GFR 6.18 (mL/min/1.73m2); Glucose 99 mg/dL (74-106); Potassium 5.8 mmol/L (3.5-5.1); Sodium 137 mmol/L (136-145)
[2024-02-18 19:57] LABS: BUN 111 mg/dL (7-18); CREATININE 6.4 mg/dL (0.55-1.02)
[2024-02-18 20:07] LABS: Bilirubin Small (Negative); Blood Moderate (Negative); Clarity Sl Cloudy (Clear); Glucose Negative (Negative); Ketones 15 mg/dL (Negative); Leukocyte Esterase Negative (Negative); Nitrite Negative (Negative); Specific Gravity 1.025 (1.005-1.025); Urobilinogen 0.2 mg/dL (Up to 0.2)
[2024-02-18 20:16] LABS: Procalcitonin 0.1 ng/mL
[2024-02-18 20:21] LABS: Epithelial Cells Moderate HPF (Negative); RBC 0-2 HPF (0-2); WBC 0-2 HPF (0-5)
[2024-02-18 20:22] LABS: Bacteria Rare HPF (Negative); C & S Indicated? No; Crystals Negative HPF (Negative); Mucus Negative (Negative); Other Cells Few Transitional (Negative)
[2024-02-18] MEDS: CALCIUM GLUCONATE in NaCl 1 GM/50 ML BAG IVPB (20:32)
[2024-02-18 20:35] LABS: Iron 87 ug/dL (50-170); Total Iron Binding Capacity 212 ug/dL (250-450); Transferrin Sat 41 % (15-50)
[2024-02-18] MEDS: Insulin REGULAR-Human 100 UNITS/ML UNIT IV (20:41)
[2024-02-18] MEDS: Dextrose 50%-Water 25 GM/50 ML SYR IVP (20:41)
[2024-02-18] MEDS: Albuterol 2.5 MG/3 ML INH SOLN VIAL UPD (20:41)
[2024-02-18 20:43] LABS: Acetaminophen 3 ug/mL (10-30); Salicylate < 2.8 mg/dL (<2.8)
[2024-02-18] MEDS: Lactated Ringers 1,000 ML 1000 ML IV (20:43)
[2024-02-18 20:56] LABS: ETHANOL BLOOD < 3.0 mg/dL (<10)
[2024-02-18 20:57] LABS: Carboxyhemoglobin 1.2 %
[2024-02-18] MEDS: DEXTROSE 5%-LACTATED RINGERS 1,000 ML 50 ML IV (21:12)
[2024-02-18 22:25] LABS: BE (Venous) -20 mmol/L (-2-3); HCO3 (Venous) 9 mmol/L (23-28); O2 Sat (Venous) 90 %; TCO2 (Venous) 9 mmol/L (24-29); pCO2 (Venous) 27 mmHg (41-51); pO2 (Venous) 63 mmHg
[2024-02-18 22:27] LABS: pH (Venous) 7.15 (7.31-7.41)
[2024-02-18 22:41] LABS: Anion Gap 17.8 mmol/L (3-11); CO2 11.2 mmol/L (21.0-32.0); Chloride 106 mmol/L (98-107); Estimated GFR 6.95 (mL/min/1.73m2); Glucose 225 mg/dL (74-106); Potassium 4.8 mmol/L (3.5-5.1); Sodium 135 mmol/L (136-145)
[2024-02-18 22:42] LABS: CREATININE 5.8 mg/dL (0.55-1.02)
[2024-02-18 22:43] LABS: BUN 99 mg/dL (7-18)
[2024-02-19] VITALS (64 sets, daily range): BP systolic 88–135; BP diastolic 28–68; PULSE 55–85; RESP 11–31; TEMP 2.9–37.2; O2SAT 89–99
--- NOTE | 2024-02-19 00:07 | W.PM.HP.N ---
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 She is not planning to IV fluid resuscitation and had a prior to treatment of hyperkalemia with insulin and D5 lactated Ringer's. She is not on chronic therapy for diabetes but does have hyperglycemia especially with her acute situation. Her baseline creatinine is just above 1 mg/dL with a last measurement at 1.2 mg/dL. Continue monitoring labs with lactated Ringer's without D5 at 150 cc an hour watch for fluid overload patient having history of cardiomyopathy though there is been no recent echocardiogram. Her lungs are clear and she had no peripheral edema. She is a full code. (2) Dehydration: Start date: 02/18/24 Status: Acute Assessment and plan: Secondary to GI loss and poor intake over a week or greater. Continue IV fluid resuscitation for acute renal failure as above. (3) Nausea vomiting and diarrhea: Start date: 02/18/24 Status: Acute Assessment and plan: Symptomatic treatment with Zofran and low-dose Ativan as needed. (4) Acute hyperkalemia: Start date: 02/18/24 Status: Acute Assessment and plan: Continue monitoring with above treatment. (5) Acute hyperglycemia: Start date: 02/18/24 Status: Acute Assessment and plan: Stop D5 solutions and glucometers ACHS with sensitive sliding scale short acting insulin coverage if needed. This may not be required once her acute distress resolves and she stopped receiving dextrose IV. She does not appear to be on chronic treatment for diabetes. (6) Cardiomyopathy: Assessment and plan: By history with patient on carvedilol but echocardiogram in 2018 revealing normal right ventricular function and hyperdynamic left ventricular function. With fluid resuscitation was necessary with patient's acute renal failure, update echocardiogram in the morning. Qualifiers: Cardiomyopathy type: other Qualified Code(s): I42.8 - Other cardiomyopathies (7) Essential hypertension: Status: Chronic Assessment and plan: Hold usual outpatient medications therefore carvedilol and monitor closely reinitiated nephrotoxic antihypertensive therapy as patient recovers. (8) GERD (gastroesophageal reflux disease): Status: Chronic Assessment and plan: Continue PPI. Qualifiers: Esophagitis presence: without esophagitis Qualified Code(s): K21.9 - Gastro-esophageal reflux disease without esophagitis (9) Anxiety associated with depression: Status: Chronic Assessment and plan: Continue outpatient medication therapy with Ativan as needed for nausea as well. (10) IBS (irritable bowel syndrome): Assessment and plan: No specific therapy at this time does appear to have an associated diarrhea. Follow-up long-term with PCP. Qualifiers: Irritable bowel syndrome type: with diarrhea Qualified Code(s): K58.0 - Irritable bowel syndrome with diarrhea History of Present Illness History of Present Illness Chief Complaint: Nausea and vomiting with decreased appetite and fatigue Narrative: This is a 78-year-old female patient who was brought in by her son because of persistent nausea and vomiting and decreased intake over the last week with increasing weakness. Patient also may have been having diarrhea with a history of IBS. She was found to be in acute renal failure and in the ED was hypotensive requiring blood pressure support for short period but responded to IV fluid resuscitation for severely elevated creatinine with hyperkalemia and metabolic acidosis. She also is diabetic but not on a chronic medical therapy and has depression with anxiety. She is usually on treatment for hypertension with hyperlipidemia and has a history of GERD, obstructive sleep apnea not on treatment and chest pain in the past with no overt history of CAD or CHF on carvedilol for previous diagnosis of cardiomyopathy with no recent echocardiogram. Patient was advised to IV fluid therapy and has been switched to lactated Ringer's because of acidosis after being corrected for hypokalemia with regular insulin and D5 lactated Ringer's. She also received 2 L of normal saline before being converted to lactated Ringer's. At the time I saw the patient she was conversing but yet slightly confused. She was not attended by family. She also complained of nausea. She was not vomiting. Stanford catheter in place with some urine output which was clear and yellow but cannot and just starting to flow with just over 400 cc since presentation to the ED. Creatinine was decreasing from 7.8 to 5.8 mg/dL. She will continue with aggressive IV fluid resuscitation and monitoring of labs in the ICU with her hypotension resolving after initial need of epinephrine. He chronically is on antihypertensives that will be continued on carvedilol but the rest progressive will be held for now. She is a full code. Review of Systems Narrative: 13 point review of systems otherwise unrevealing or stable. FORMERLY [facility] All Active Problems (Updated 02/19/24 @ 02:36 by Koko Vega) Nausea vomiting and diarrhea (Acute) Acute hyperglycemia (Acute) Dehydration (Acute) Acute hyperkalemia (Acute) LORRIE (acute kidney injury) (Acute) Discharge planning issues (Acute) DVT prophylaxis (Acute) Incidental lung nodule, less than or equal to 3mm (Acute) Thoracic back pain (Acute) Costochondritis (Acute) Atypical chest pain (Acute) Allergic rhinitis (Acute 05/26/14) Anxiety associated with depression (Chronic 11/28/17) Cervical spondylolysis (Acute 11/28/17) Diverticulosis of intestine without bleeding (Acute 11/28/17) Erosive gastritis (Acute 11/28/17) Gastroesophageal reflux disease without esophagitis (Acute 11/28/17) Hiatal hernia (Acute 11/28/17) Unspecified essential hypertension (Acute 11/28/17) Illiteracy (Acute 11/28/17) Insomnia (Acute 05/26/14) Irritable bowel syndrome (Acute 11/28/17) Obstructive sleep apnea (Chronic 11/28/17) Osteoarthritis (Acute 11/28/17) Polyp of colon (Acute 11/28/17) Postnasal drip (Acute 05/26/14) C. difficile enteritis (Acute) Chest pain (Acute) Anemia (Chronic) Hypertension (Chronic) DVT prophylaxis (Acute) Gastroenteritis (Acute) Hypokalemia (Acute) Hypomagnesemia (Acute) Pyelonephritis (Acute) Depression (Chronic) GERD (gastroesophageal reflux disease) (Chronic) Gait disturbance (Chronic) Left carotid bruit (Chronic) Essential hypertension (Chronic) Medical History (Updated 02/19/24 @ 02:36 by Koko Vega) IBS (irritable bowel syndrome) Cardiomyopathy Allergic rhinitis Adenomatous polyp of colon Environmental allergies Osteopenia Cervical spondylosis Osteoarthritis Surgical History Rectocele, Paravaginal repair Vaginal hysterectomy GASTROSCOPY (01/20/15) DR.ANNICK ARAMBULA Cystocele, Paravaginal repair Colonoscopy - IV Sedation 2009 COLONOSCOPY (~12/2014) DR.ANNICK ARAMBULA Social History Smoking/Tobacco Use Status: Never Smoking risk assessment performed?: Yes Alcohol Intake: current Alcohol Intake frequency: a few times a month Drug use: Never Substance use type: does not use Housing: house Number of Children: 2 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 What is your relationship status?: Panel score (0-1 are the most socially isolated patients): 1 Do you feel safe at home: Yes Do you feel safe in your relationship?: Yes Additional Social history: lives with niece during week then son on weekend Meds Allergies and Home Medications Allergies Allergy/AdvReac Type Severity Reaction Status Date / Time aspirin AdvReac upset Unverified 10/02/23 09:39 stomach r/t GERD metoclopramide HCl (From AdvReac hysterical Unverified 10/02/23 09:39 Reglan) crying trazodone AdvReac itching Unverified 10/02/23 09:39 enviornmental Allergy Mild head Uncoded 10/02/23 09:39 congestion Home Medications ?Medication ?Instructions ?Recorded ?Confirmed ?Type lisinopril 40 mg tablet 40 mg PO QAM 11/24/12 02/18/24 History Citalopram Hydrobromide 40 mg PO DAILY 11/28/17 02/18/24 History [Citalopram HBr] Klonopin 0.5 mg tablet (clonazepam) 0.5 mg PO PRN PRN 11/28/17 02/18/24 History amlodipine 2.5 mg tablet 5 mg PO DAILY 11/28/17 02/18/24 History aspirin 81 mg tablet,delayed 81 mg PO DAILY ##30 01/02/18 02/18/24 Rx release ranitidine HCl 150 mg capsule 150 mg PO BID #60 caps 05/10/18 02/18/24 Rx tramadol 50 mg tablet 50 mg PO QHS 10/23/18 02/18/24 History camphor 4 %-methyl salicylate 30 1 applic topical QD-BID PRN muscle 06/17/19 02/18/24 Rx %-menthol 10 % topical cream pain #113 grams (Bengay Ultra Strength) carvedilol 6.25 mg tablet (Coreg) 6.25 mg PO BID #30 tabs 06/17/19 02/18/24 Rx dexlansoprazole 60 mg 60 mg PO DAILY 10/02/23 02/18/24 History capsule,biphase delayed release donepezil 5 mg tablet 5 mg PO DAILY 10/02/23 02/18/24 History levothyroxine 50 mcg tablet 50 mcg PO DAILY 10/02/23 02/18/24 History lidocaine 5 % topical patch 1 patch topical DAILY #15 ea 10/02/23 02/18/24 Rx (Lidoderm) rosuvastatin 40 mg tablet (Crestor) 20 mg PO QPM 10/02/23 02/18/24 History Exam Narrative Exam Narrative: General: Patient is thin, in moderate distress from her nausea and appears chronically ill. He has a flattened affect fair eye contact. He is alert and oriented at least to person and place. HEENT: Normocephalic, eyes with pupils equal and reactive light symmetrically, extraocular movement intact and sclera anicteric. Or mucosa dry with fair dentition. Neck: Supple without JVD. Back: Kyphotic without CVA tenderness. Lungs: Good aeration with normal vesicular breath sounds, no focalizing rales or rhonchi. No expiratory wheeze. Breast: Exam deferred. Heart: Regular rate and rhythm with no murmurs or gallops appreciated. Abdomen: Mildly obese contour, soft with no focalizing tenderness, no guarding or rebound. No palpable hepatosplenomegaly. Bowel sounds hyperactive in all quadrants. Genitalia: Exam deferred. Patient does have Stanford catheter in place draining scant clear yellow urine. Extremities: Without clubbing, cyanosis or pitting edema. Fair capillary refill. Skin: Pale, warm and dry. Neuro: Cranial nerves II through XII gross intact, no focal deficits and no tremor. Psych: Flattened affect with depressed mood. Patient appears mildly confused. No abnormal thought processes. Remote memory grossly intact with recent memory less intact. Results Imaging Imaging Studies: EXAM: XR PORTABLE CHEST AP CLINICAL HISTORY: ams, fatigue, hypotension. TECHNIQUE: 2D digital imaging was performed. COMPARISON: CR,XR XR CHEST 2V PA LATERAL from 06/15/2019 FINDINGS: Single AP portable view. Heart size is upper normal. The mediastinum is not widened. Lungs are clear. No infiltrates nor obvious pleural effusions. IMPRESSION: No acute pulmonary findings on this single AP portable view of the chest. EXAM: CT ABDOMEN PELVIS WO CLINICAL HISTORY: nausea vomiting. TECHNIQUE: Imaging Protocol: Axial computed tomography images with coronal and sagittal reformatted images were created and reviewed CONTRAST MATERIAL: Intravenous: none Oral: None COMPARISON: CT CT THORAX ABD/PEL CTA from 06/15/2019 FINDINGS: VISUALIZED LUNG BASES: No nodules nor pleural effusions evident. ABDOMEN: There is no ascites. LIVER: There are no obvious focal hepatic lesions evident of this noninfused study. GALLBLADDER/BILIARY: The gallbladder is again noted be surgically absent. CBD is not dilated. PANCREAS: No evidence of pancreatic mass nor dilatation of the pancreatic duct. SPLEEN: Spleen is not enlarged. No obvious intrasplenic lesions. ADRENALS: There are no significant adrenal masses. KIDNEYS:No cysts evident. No solid renal masses. No calculi nor hydronephrosis.. No hydroureter. There is a Stanford catheter in the urinary bladder and the bladder is not distended. ABDOMINAL AORTA: The abdominal aorta is heavily calcified but not enlarged. Iliac arteries not enlarged. LYMPH NODES: There is no retroperitoneal nor paraaortic adenopathy. ABDOMINAL WALL: No evidence of significant anterior abdominal wall nor inguinal hernia. GI: There is no evidence of bowel obstruction, free air, nor abscess. PELVIS: LYMPH NODES: There is no intrapelvic nor inguinal adenopathy. GI: Appendix is not identified as a separate structure but there is no evidence of obvious appendicitis.There are sigmoid diverticuli. No obvious acute diverticulitis. URINARY BLADDER: Stanford catheter in the bladder lumen noted. REPRODUCTIVE: Uterus surgically absent. No abnormal adnexal masses. OSSEOUS: No fractures. No disc space narrowing. No osseous lesions. IMPRESSION: 1. There is Stanford catheter noted in the left side of the urinary bladder. The bladder is not distended. No hydronephrosis. 2. There is evidence of previous cholecystectomy and hysterectomy. 3. Sigmoid diverticuli but no evidence of obvious acute diverticulitis. No evidence of bowel obstruction, free air, nor abscess. Date of study: 01/02/2018 Transthoracic Echocardiography M-mode, complete 2D, complete spectral Doppler, and color Doppler *STUDY CONCLUSIONS* Summary: 1. Left ventricle: The cavity size was normal. Wall thickness was increased in a pattern of mild LVH. Systolic function was hyperdynamic. The estimated ejection fraction was 65-70%. There was no significant dynamic obstruction. Wall motion was normal; there were no regional wall motion abnormalities. 2. Aortic valve: Trileaflet; mildly thickened, mildly calcified leaflets. 3. Mitral valve: Mildly calcified annulus. Mildly thickened leaflets. There was mild regurgitation. 4. Right ventricle: The cavity size was normal. Wall thickness was normal. Systolic function was normal. 5. Atrial septum: A patent foramen ovale cannot be excluded. Doppler showed no atrial level shunt. Labs 02/18/24 15:45 02/18/24 22:20 Labs: Laboratory Results - last 24 hr 02/18/24 02/18/24 02/18/24 15:30 15:45 15:54 WBC 6.57 RBC 4.77 Hgb 14.0 Hct 43.2 MCV 91 MCH 29.4 MCHC 32.4 RDW 13.1 Plt Count 236 MPV 10.3 Immature Gran % 0.3 Neutrophils % 54.9 Lymphocytes % 37.4 Monocytes % 5.9 Eosinophils % 0.9 Basophils % 0.6 Nucleated RBC % 0.0 Absolute Neutrophils 3.60 Absolute Lymphocytes 2.46 Absolute Monocytes 0.39 Absolute Eosinophils 0.06 Absolute Basophils 0.04 PT 9.8 INR 1.0 APTT 24.7 VBG pH 7.09 L* VBG pCO2 36 L VBG pO2 39 VBG HCO3 11 L VBG Total CO2 11 L VBG O2 Saturation 62 VBG Base Excess -19 L VBG Lactate Carboxyhemoglobin % Sodium 132 L Potassium 5.0 Chloride 97 L Carbon Dioxide 13.7 L Anion Gap 21.3 H BUN 120 H* Creatinine 7.8 H* Est GFR (CKD-EPI 2020) 4.87 Glucose 121 H Calcium 9.5 Magnesium 2.7 H Iron TIBC Transferrin % Sat Total Bilirubin 0.56 AST 30 ALT 30 Alkaline Phosphatase 131 H Troponin I 9 NT-Pro-B Natriuret Pep 202 Total Protein 8.2 Albumin 3.9 Lipase 139 H Procalcitonin TSH 0.11 L Free T4 1.38 Urine Color Urine Clarity Urine pH Ur Specific [place] Urine Protein Urine Ketones Urine Blood Urine Nitrite Urine Bilirubin Urine Urobilinogen Ur Leukocyte Esterase Urine RBC Urine WBC Ur Epithelial Cells Urine Crystals Urine Bacteria Urine Casts Urine Mucus Urine Other Ur Culture Indicated? Urine Glucose Stl C.difficile Tox PCR Negative Salicylates Acetaminophen Ethyl Alcohol COVID-19 Source SARS-CoV-2 (PCR) Influenza Type A (PCR) Influenza Type B (PCR) RSV (PCR) ABO/Rh O Negative Antibody Screen NEGATIVE 02/18/24 02/18/24 02/18/24 15:58 17:03 17:15 WBC RBC Hgb Hct MCV MCH MCHC RDW Plt Count MPV Immature Gran % Neutrophils % Lymphocytes % Monocytes % Eosinophils % Basophils % Nucleated RBC % Absolute Neutrophils Absolute Lymphocytes Absolute Monocytes Absolute Eosinophils Absolute Basophils PT INR APTT VBG pH VBG pCO2 VBG pO2 VBG HCO3 VBG Total CO2 VBG O2 Saturation VBG Base Excess VBG Lactate Carboxyhemoglobin % Sodium Potassium Chloride Carbon Dioxide Anion Gap BUN Creatinine Est GFR (CKD-EPI 2020) Glucose Calcium Magnesium Iron TIBC Transferrin % Sat Total Bilirubin AST ALT Alkaline Phosphatase Troponin I 9 NT-Pro-B Natriuret Pep Total Protein Albumin Lipase Procalcitonin TSH Free T4 Urine Color Yellow Urine Clarity Sl Cloudy Urine pH 5.0 Ur Specific [place] 1.025 Urine Protein 100 H Urine Ketones Trace H Urine Blood Small H Urine Nitrite Negative Urine Bilirubin Small H Urine Urobilinogen 0.2 Ur Leukocyte Esterase Negative Urine RBC 3-5 H Urine WBC 0-2 Ur Epithelial Cells Few Urine Crystals Negative Urine Bacteria Rare Urine Casts 20-50 Fine Granular Urine Mucus Negative Urine Other Few Renal Ur Culture Indicated? No Urine Glucose Negative Stl C.difficile Tox PCR Salicylates Acetaminophen Ethyl Alcohol COVID-19 Source Nasopharynx SARS-CoV-2 (PCR) Negative Influenza Type A (PCR) Negative Influenza Type B (PCR) Negative RSV (PCR) Negative ABO/Rh Antibody Screen 09/22/24 09/22/24 09/22/24 19:20 19:48 20:05 WBC RBC Hgb Hct MCV MCH MCHC RDW Plt Count MPV Immature Gran % Neutrophils % Lymphocytes % Monocytes % Eosinophils % Basophils % Nucleated RBC % Absolute Neutrophils Absolute Lymphocytes Absolute Monocytes Absolute Eosinophils Absolute Basophils PT INR APTT VBG pH 7.05 L* VBG pCO2 32 L VBG pO2 42 VBG HCO3 9 L VBG Total CO2 9 L VBG O2 Saturation 66 VBG Base Excess -22 L VBG Lactate 1.4 Carboxyhemoglobin % Sodium 137 Potassium 5.8 H Chloride 106 Carbon Dioxide 10.9 L Anion Gap 20.1 H BUN 111 H* Creatinine 6.4 H* Est GFR (CKD-EPI 2020) 6.18 Glucose 99 Calcium 7.6 L Magnesium Iron 87 TIBC 212 L Transferrin % Sat 41 Total Bilirubin AST ALT Alkaline Phosphatase Troponin I NT-Pro-B Natriuret Pep Total Protein Albumin Lipase Procalcitonin 0.1 TSH Free T4 Urine Color Yellow Urine Clarity Sl Cloudy Urine pH 5.0 Ur Specific [place] 1.025 Urine Protein 100 H Urine Ketones 15 H Urine Blood Moderate H Urine Nitrite Negative Urine Bilirubin Small H Urine Urobilinogen 0.2 Ur Leukocyte Esterase Negative Urine RBC 0-2 Urine WBC 0-2 Ur Epithelial Cells Moderate Urine Crystals Negative Urine Bacteria Rare Urine Casts 20-50 Fine Granular Urine Mucus Negative Urine Other Few Transitional Ur Culture Indicated? No Urine Glucose Negative Stl C.difficile Tox PCR Salicylates < 2.8 Acetaminophen 3 Ethyl Alcohol < 3.0 COVID-19 Source SARS-CoV-2 (PCR) Influenza Type A (PCR) Influenza Type B (PCR) RSV (PCR) ABO/Rh Antibody Screen 02/18/24 02/18/24 20:55 22:20 WBC RBC Hgb Hct MCV MCH MCHC RDW Plt Count MPV Immature Gran % Neutrophils % Lymphocytes % Monocytes % Eosinophils % Basophils % Nucleated RBC % Absolute Neutrophils Absolute Lymphocytes Absolute Monocytes Absolute Eosinophils Absolute Basophils PT INR APTT VBG pH 7.15 L* VBG pCO2 27 L VBG pO2 63 VBG HCO3 9 L VBG Total CO2 9 L VBG O2 Saturation 90 VBG Base Excess -20 L VBG Lactate Carboxyhemoglobin % 1.2 Sodium 135 L Potassium 4.8 D Chloride 106 Carbon Dioxide 11.2 L Anion Gap 17.8 H BUN 99 H* Creatinine 5.8 H* Est GFR (CKD-EPI 2020) 6.95 Glucose 225 H Calcium 8.0 L Magnesium Iron TIBC Transferrin % Sat Total Bilirubin AST ALT Alkaline Phosphatase Troponin I NT-Pro-B Natriuret Pep Total Protein Albumin Lipase Procalcitonin TSH Free T4 Urine Color Urine Clarity Urine pH Ur Specific [place] Urine Protein Urine Ketones Urine Blood Urine Nitrite Urine Bilirubin Urine Urobilinogen Ur Leukocyte Esterase Urine RBC Urine WBC Ur Epithelial Cells Urine Crystals Urine Bacteria Urine Casts Urine Mucus Urine Other Ur Culture Indicated? Urine Glucose Stl C.difficile Tox PCR Salicylates Acetaminophen Ethyl Alcohol COVID-19 Source SARS-CoV-2 (PCR) Influenza Type A (PCR) Influenza Type B (PCR) RSV (PCR) ABO/Rh Antibody Screen Last Vital Signs Temp 2.9 C L 02/19/24 00:01 Pulse 76 02/19/24 00:01 Resp 17 02/19/24 00:01 BP 98/37 L 02/19/24 00:01 Pulse Ox 98 02/19/24 00:01 Time Spent Time spent with Patient: >75 minutes Time was spent: preparing to see the patient(eg.review tests), obtaining and/or reviewing separately otained hiistory, ordering medications,tests, procedures, referring, communicating with other health pediatric acute care unit nurse, indepentently interpreting results and care coordination
[2024-02-19] MEDS: Ondansetron 4 MG/2 ML VIAL IVP (02:00)
--- NOTE | 2024-02-19 02:34 | W.PC.ACHO ---
Registration Status: Primary Language: Preferred Language: ED Information & Data Chief Complaint Abd Prob 02/18/24 16:07 Chief Complaint Abd Prob 02/18/24 15:43 Triage Note for 1 week pt appetite 02/18/24 15:14 decreased, wont drink. abd pain and nausea. vomiting in triage. doesn't now when last BM was Medical / Surgical History (Last Reviewed 02/19/24 @ 00:17 by Koko Vega) IBS (irritable bowel syndrome) Cardiomyopathy Allergic rhinitis Adenomatous polyp of colon Environmental allergies Osteopenia Cervical spondylosis Osteoarthritis (Last Reviewed 02/19/24 @ 00:17 by Koko Vega) Rectocele, Paravaginal repair Vaginal hysterectomy GASTROSCOPY (01/20/15) Cystocele, Paravaginal repair Colonoscopy - IV Sedation COLONOSCOPY (~12/2014) Most Recent Vital Signs Temperature 37.2 C 02/19/24 01:05 Temperature Source Temporal Artery Scan 02/19/24 01:05 Pulse 70 02/19/24 02:01 Pulse 71 02/19/24 02:01 Respiratory Rate 18 02/19/24 02:01 Respiratory Effort Normal 02/19/24 01:05 Respiratory Depth Normal 02/19/24 01:05 Respiratory Pattern Normal 02/19/24 01:05 Blood Pressure 111/49 L 02/19/24 02:01 Blood Pressure Mean 67 02/19/24 02:01 Blood Pressure Position Supine 02/19/24 01:05 Pulse Oximetry 99 02/19/24 01:10 Oxygen Delivery Method Room Air 02/19/24 01:05 Oxygen Flow Rate 0 02/19/24 01:05 Pain Level 2 02/19/24 01:05 Allergies aspirin Adverse Reaction (Unverified 10/02/23 09:39) upset stomach r/t GERD metoclopramide HCl (From Reglan) Adverse Reaction (Unverified 10/02/23 09:39) hysterical crying trazodone Adverse Reaction (Unverified 10/02/23 09:39) itching enviornmental Allergy (Mild, Uncoded 10/02/23 09:39) head congestion Precautions Isolation Standard precaution 02/18/24 16:07 IV IV Catheter Type [Left Peripheral IV Antecubital] IV Catheter Type [Right Upper Peripheral IV arm] IV Catheter Gauge [Right Upper 18 arm] Diet Orders Category Date Time Status Diabetes Consistent CHO/Heart Healthy [DIET] Nutrition 02/19/24 Breakfast Active Diagnostics 02/19/24 02/19/24 02/19/24 Range/Units 11:35 05:35 01:08 WBC Pending (4.4-10.8) 10^3/uL RBC Pending (3.93-5.22) 10^6/uL Hgb Pending (11.2-15.7) g/dL Hct Pending (36.0-46.0) % MCV Pending (80-95) fL MCH Pending (27.0-33.0) pg MCHC Pending (32.0-36.0) % RDW Pending (11.7-14.6) % Plt Count Pending (130-400) 10^3/uL MPV Pending (8.0-11.0) fL Immature Gran % % Neutrophils % % Lymphocytes % % Monocytes % % Eosinophils % % Basophils % % Nucleated RBC % (0.0-0.3) % Absolute Neutrophils (1.2-6.7) 10^3/uL Absolute Lymphocytes (1.2-3.4) 10^3/uL Absolute Monocytes (0.1-0.8) 10^3/uL Absolute Eosinophils (0.0-0.7) 10^3/uL Absolute Basophils (0.0-0.2) 10^3/uL PT (9.1-11.1) sec INR (0.9-1.1) APTT (23.6-32.8) sec VBG pH Pending (7.31-7.41) VBG pCO2 Pending (41-51) mmHg VBG pO2 Pending mmHg VBG HCO3 Pending (23-28) mmol/L VBG Total CO2 Pending (24-29) mmol/L VBG O2 Saturation Pending % VBG Base Excess Pending (-2-3) mmol/L VBG Lactate (0.6-1.4) mmol/L Carboxyhemoglobin % % Sodium Pending Pending (136-145) mmol/L Potassium Pending Pending (3.5-5.1) mmol/L Chloride Pending Pending (98-107) mmol/L Carbon Dioxide Pending Pending (21.0-32.0) mmol/L Anion Gap Pending Pending (3-11) mmol/L BUN Pending Pending (7-18) mg/dL Creatinine Pending Pending (0.55-1.02) mg/dL Est GFR (CKD-EPI 2020) Pending Pending (mL/min/1.73m2) Glucose Pending Pending (74-106) mg/dL Calcium Pending Pending (8.5-10.1) mg/dL Magnesium Pending (1.8-2.4) mg/dL Iron (50-170) ug/dL TIBC (250-450) ug/dL Transferrin % Sat (15-50) % Total Bilirubin (0.2-1.0) mg/dL AST (15-37) U/L ALT (14-59) U/L Alkaline Phosphatase (46-116) U/L Troponin I (<or=51) ng/L NT-Pro-B Natriuret Pep (<300) pg/mL Total Protein (6.4-8.2) g/dL Albumin (3.4-5.0) g/dL Lipase (16-77) U/L Procalcitonin ng/mL TSH Pending (0.36-3.74) uIU/mL Free T4 (0.76-1.46) ng/dL Urine Color (Yellow) Urine Clarity (Clear) Urine pH (5-8) Ur Specific [place] (1.005-1.025) Urine Protein (Neg-Trace) mg/dL Urine Ketones (Negative) mg/dL Urine Blood (Negative) Urine Nitrite (Negative) Urine Bilirubin (Negative) Urine Urobilinogen (Up to 0.2) mg/dL Ur Leukocyte Esterase (Negative) Urine RBC (0-2) HPF Urine WBC (0-5) HPF Ur Epithelial Cells (Negative) HPF Urine Crystals (Negative) HPF Urine Bacteria (Negative) HPF Urine Casts (Negative) LPF Urine Mucus (Negative) Urine Other (Negative) Ur Culture Indicated? Urine Glucose (Negative) mg/dL Stl C.difficile Tox PCR (Negative) Salicylates (<2.8) mg/dL Acetaminophen (10-30) ug/mL Ethyl Alcohol (<10) mg/dL COVID-19 Source SARS-CoV-2 (PCR) (Negative) Influenza Type A (PCR) (Negative) Influenza Type B (PCR) (Negative) RSV (PCR) (Negative) ABO/Rh Antibody Screen 09/22/24 09/22/24 09/22/24 Range/Units 22:20 20:55 20:05 WBC (4.4-10.8) 10^3/uL RBC (3.93-5.22) 10^6/uL Hgb (11.2-15.7) g/dL Hct (36.0-46.0) % MCV (80-95) fL MCH (27.0-33.0) pg MCHC (32.0-36.0) % RDW (11.7-14.6) % Plt Count (130-400) 10^3/uL MPV (8.0-11.0) fL Immature Gran % % Neutrophils % % Lymphocytes % % Monocytes % % Eosinophils % % Basophils % % Nucleated RBC % (0.0-0.3) % Absolute Neutrophils (1.2-6.7) 10^3/uL Absolute Lymphocytes (1.2-3.4) 10^3/uL Absolute Monocytes (0.1-0.8) 10^3/uL Absolute Eosinophils (0.0-0.7) 10^3/uL Absolute Basophils (0.0-0.2) 10^3/uL PT (9.1-11.1) sec INR (0.9-1.1) APTT (23.6-32.8) sec VBG pH 7.15 L* (7.31-7.41) VBG pCO2 27 L (41-51) mmHg VBG pO2 63 mmHg VBG HCO3 9 L (23-28) mmol/L VBG Total CO2 9 L (24-29) mmol/L VBG O2 Saturation 90 % VBG Base Excess -20 L (-2-3) mmol/L VBG Lactate (0.6-1.4) mmol/L Carboxyhemoglobin % 1.2 % Sodium 135 L (136-145) mmol/L Potassium 4.8 D (3.5-5.1) mmol/L Chloride 106 (98-107) mmol/L Carbon Dioxide 11.2 L (21.0-32.0) mmol/L Anion Gap 17.8 H (3-11) mmol/L BUN 99 H* (7-18) mg/dL Creatinine 5.8 H* (0.55-1.02) mg/dL Est GFR (CKD-EPI 2020) 6.95 (mL/min/1.73m2) Glucose 225 H (74-106) mg/dL Calcium 8.0 L (8.5-10.1) mg/dL Magnesium (1.8-2.4) mg/dL Iron 87 (50-170) ug/dL TIBC 212 L (250-450) ug/dL Transferrin % Sat 41 (15-50) % Total Bilirubin (0.2-1.0) mg/dL AST (15-37) U/L ALT (14-59) U/L Alkaline Phosphatase (46-116) U/L Troponin I (<or=51) ng/L NT-Pro-B Natriuret Pep (<300) pg/mL Total Protein (6.4-8.2) g/dL Albumin (3.4-5.0) g/dL Lipase (16-77) U/L Procalcitonin ng/mL TSH (0.36-3.74) uIU/mL Free T4 (0.76-1.46) ng/dL Urine Color (Yellow) Urine Clarity (Clear) Urine pH (5-8) Ur Specific [place] (1.005-1.025) Urine Protein (Neg-Trace) mg/dL Urine Ketones (Negative) mg/dL Urine Blood (Negative) Urine Nitrite (Negative) Urine Bilirubin (Negative) Urine Urobilinogen (Up to 0.2) mg/dL Ur Leukocyte Esterase (Negative) Urine RBC (0-2) HPF Urine WBC (0-5) HPF Ur Epithelial Cells (Negative) HPF Urine Crystals (Negative) HPF Urine Bacteria (Negative) HPF Urine Casts (Negative) LPF Urine Mucus (Negative) Urine Other (Negative) Ur Culture Indicated? Urine Glucose (Negative) mg/dL Stl C.difficile Tox PCR (Negative) Salicylates < 2.8 (<2.8) mg/dL Acetaminophen 3 (10-30) ug/mL Ethyl Alcohol < 3.0 (<10) mg/dL COVID-19 Source SARS-CoV-2 (PCR) (Negative) Influenza Type A (PCR) (Negative) Influenza Type B (PCR) (Negative) RSV (PCR) (Negative) ABO/Rh Antibody Screen 09/22/24 09/22/24 09/22/24 Range/Units 19:48 19:20 17:15 WBC (4.4-10.8) 10^3/uL RBC (3.93-5.22) 10^6/uL Hgb (11.2-15.7) g/dL Hct (36.0-46.0) % MCV (80-95) fL MCH (27.0-33.0) pg MCHC (32.0-36.0) % RDW (11.7-14.6) % Plt Count (130-400) 10^3/uL MPV (8.0-11.0) fL Immature Gran % % Neutrophils % % Lymphocytes % % Monocytes % % Eosinophils % % Basophils % % Nucleated RBC % (0.0-0.3) % Absolute Neutrophils (1.2-6.7) 10^3/uL Absolute Lymphocytes (1.2-3.4) 10^3/uL Absolute Monocytes (0.1-0.8) 10^3/uL Absolute Eosinophils (0.0-0.7) 10^3/uL Absolute Basophils (0.0-0.2) 10^3/uL PT (9.1-11.1) sec INR (0.9-1.1) APTT (23.6-32.8) sec VBG pH 7.05 L* (7.31-7.41) VBG pCO2 32 L (41-51) mmHg VBG pO2 42 mmHg VBG HCO3 9 L (23-28) mmol/L VBG Total CO2 9 L (24-29) mmol/L VBG O2 Saturation 66 % VBG Base Excess -22 L (-2-3) mmol/L VBG Lactate 1.4 (0.6-1.4) mmol/L Carboxyhemoglobin % % Sodium 137 (136-145) mmol/L Potassium 5.8 H (3.5-5.1) mmol/L Chloride 106 (98-107) mmol/L Carbon Dioxide 10.9 L (21.0-32.0) mmol/L Anion Gap 20.1 H (3-11) mmol/L BUN 111 H* (7-18) mg/dL Creatinine 6.4 H* (0.55-1.02) mg/dL Est GFR (CKD-EPI 2020) 6.18 (mL/min/1.73m2) Glucose 99 (74-106) mg/dL Calcium 7.6 L (8.5-10.1) mg/dL Magnesium (1.8-2.4) mg/dL Iron (50-170) ug/dL TIBC (250-450) ug/dL Transferrin % Sat (15-50) % Total Bilirubin (0.2-1.0) mg/dL AST (15-37) U/L ALT (14-59) U/L Alkaline Phosphatase (46-116) U/L Troponin I (<or=51) ng/L NT-Pro-B Natriuret Pep (<300) pg/mL Total Protein (6.4-8.2) g/dL Albumin (3.4-5.0) g/dL Lipase (16-77) U/L Procalcitonin 0.1 ng/mL TSH (0.36-3.74) uIU/mL Free T4 (0.76-1.46) ng/dL Urine Color Yellow Yellow (Yellow) Urine Clarity Sl Cloudy Sl Cloudy (Clear) Urine pH 5.0 5.0 (5-8) Ur Specific [place] 1.025 1.025 (1.005-1.025) Urine Protein 100 H 100 H (Neg-Trace) mg/dL Urine Ketones 15 H Trace H (Negative) mg/dL Urine Blood Moderate H Small H (Negative) Urine Nitrite Negative Negative (Negative) Urine Bilirubin Small H Small H (Negative) Urine Urobilinogen 0.2 0.2 (Up to 0.2) mg/dL Ur Leukocyte Esterase Negative Negative (Negative) Urine RBC 0-2 3-5 H (0-2) HPF Urine WBC 0-2 0-2 (0-5) HPF Ur Epithelial Cells Moderate Few (Negative) HPF Urine Crystals Negative Negative (Negative) HPF Urine Bacteria Rare Rare (Negative) HPF Urine Casts 20-50 Fine Granular 20-50 Fine Granular (Negative) LPF Urine Mucus Negative Negative (Negative) Urine Other Few Transitional Few Renal (Negative) Ur Culture Indicated? No No Urine Glucose Negative Negative (Negative) mg/dL Stl C.difficile Tox PCR (Negative) Salicylates (<2.8) mg/dL Acetaminophen (10-30) ug/mL Ethyl Alcohol (<10) mg/dL COVID-19 Source SARS-CoV-2 (PCR) (Negative) Influenza Type A (PCR) (Negative) Influenza Type B (PCR) (Negative) RSV (PCR) (Negative) ABO/Rh Antibody Screen 02/18/24 02/18/24 02/18/24 Range/Units 17:03 15:58 15:54 WBC (4.4-10.8) 10^3/uL RBC (3.93-5.22) 10^6/uL Hgb (11.2-15.7) g/dL Hct (36.0-46.0) % MCV (80-95) fL MCH (27.0-33.0) pg MCHC (32.0-36.0) % RDW (11.7-14.6) % Plt Count (130-400) 10^3/uL MPV (8.0-11.0) fL Immature Gran % % Neutrophils % % Lymphocytes % % Monocytes % % Eosinophils % % Basophils % % Nucleated RBC % (0.0-0.3) % Absolute Neutrophils (1.2-6.7) 10^3/uL Absolute Lymphocytes (1.2-3.4) 10^3/uL Absolute Monocytes (0.1-0.8) 10^3/uL Absolute Eosinophils (0.0-0.7) 10^3/uL Absolute Basophils (0.0-0.2) 10^3/uL PT (9.1-11.1) sec INR (0.9-1.1) APTT (23.6-32.8) sec VBG pH (7.31-7.41) VBG pCO2 (41-51) mmHg VBG pO2 mmHg VBG HCO3 (23-28) mmol/L VBG Total CO2 (24-29) mmol/L VBG O2 Saturation % VBG Base Excess (-2-3) mmol/L VBG Lactate (0.6-1.4) mmol/L Carboxyhemoglobin % % Sodium (136-145) mmol/L Potassium (3.5-5.1) mmol/L Chloride (98-107) mmol/L Carbon Dioxide (21.0-32.0) mmol/L Anion Gap (3-11) mmol/L BUN (7-18) mg/dL Creatinine (0.55-1.02) mg/dL Est GFR (CKD-EPI 2020) (mL/min/1.73m2) Glucose (74-106) mg/dL Calcium (8.5-10.1) mg/dL Magnesium (1.8-2.4) mg/dL Iron (50-170) ug/dL TIBC (250-450) ug/dL Transferrin % Sat (15-50) % Total Bilirubin (0.2-1.0) mg/dL AST (15-37) U/L ALT (14-59) U/L Alkaline Phosphatase (46-116) U/L Troponin I 9 (<or=51) ng/L NT-Pro-B Natriuret Pep (<300) pg/mL Total Protein (6.4-8.2) g/dL Albumin (3.4-5.0) g/dL Lipase (16-77) U/L Procalcitonin ng/mL TSH (0.36-3.74) uIU/mL Free T4 (0.76-1.46) ng/dL Urine Color (Yellow) Urine Clarity (Clear) Urine pH (5-8) Ur Specific [place] (1.005-1.025) Urine Protein (Neg-Trace) mg/dL Urine Ketones (Negative) mg/dL Urine Blood (Negative) Urine Nitrite (Negative) Urine Bilirubin (Negative) Urine Urobilinogen (Up to 0.2) mg/dL Ur Leukocyte Esterase (Negative) Urine RBC (0-2) HPF Urine WBC (0-5) HPF Ur Epithelial Cells (Negative) HPF Urine Crystals (Negative) HPF Urine Bacteria (Negative) HPF Urine Casts (Negative) LPF Urine Mucus (Negative) Urine Other (Negative) Ur Culture Indicated? Urine Glucose (Negative) mg/dL Stl C.difficile Tox PCR (Negative) Salicylates (<2.8) mg/dL Acetaminophen (10-30) ug/mL Ethyl Alcohol (<10) mg/dL COVID-19 Source Nasopharynx SARS-CoV-2 (PCR) Negative (Negative) Influenza Type A (PCR) Negative (Negative) Influenza Type B (PCR) Negative (Negative) RSV (PCR) Negative (Negative) ABO/Rh O Negative Antibody Screen NEGATIVE 02/18/24 02/18/24 Range/Units 15:45 15:30 WBC 6.57 (4.4-10.8) 10^3/uL RBC 4.77 (3.93-5.22) 10^6/uL Hgb 14.0 (11.2-15.7) g/dL Hct 43.2 (36.0-46.0) % MCV 91 (80-95) fL MCH 29.4 (27.0-33.0) pg MCHC 32.4 (32.0-36.0) % RDW 13.1 (11.7-14.6) % Plt Count 236 (130-400) 10^3/uL MPV 10.3 (8.0-11.0) fL Immature Gran % 0.3 % Neutrophils % 54.9 % Lymphocytes % 37.4 % Monocytes % 5.9 % Eosinophils % 0.9 % Basophils % 0.6 % Nucleated RBC % 0.0 (0.0-0.3) % Absolute Neutrophils 3.60 (1.2-6.7) 10^3/uL Absolute Lymphocytes 2.46 (1.2-3.4) 10^3/uL Absolute Monocytes 0.39 (0.1-0.8) 10^3/uL Absolute Eosinophils 0.06 (0.0-0.7) 10^3/uL Absolute Basophils 0.04 (0.0-0.2) 10^3/uL PT 9.8 (9.1-11.1) sec INR 1.0 (0.9-1.1) APTT 24.7 (23.6-32.8) sec VBG pH 7.09 L* (7.31-7.41) VBG pCO2 36 L (41-51) mmHg VBG pO2 39 mmHg VBG HCO3 11 L (23-28) mmol/L VBG Total CO2 11 L (24-29) mmol/L VBG O2 Saturation 62 % VBG Base Excess -19 L (-2-3) mmol/L VBG Lactate (0.6-1.4) mmol/L Carboxyhemoglobin % % Sodium 132 L (136-145) mmol/L Potassium 5.0 (3.5-5.1) mmol/L Chloride 97 L (98-107) mmol/L Carbon Dioxide 13.7 L (21.0-32.0) mmol/L Anion Gap 21.3 H (3-11) mmol/L BUN 120 H* (7-18) mg/dL Creatinine 7.8 H* (0.55-1.02) mg/dL Est GFR (CKD-EPI 2020) 4.87 (mL/min/1.73m2) Glucose 121 H (74-106) mg/dL Calcium 9.5 (8.5-10.1) mg/dL Magnesium 2.7 H (1.8-2.4) mg/dL Iron (50-170) ug/dL TIBC (250-450) ug/dL Transferrin % Sat (15-50) % Total Bilirubin 0.56 (0.2-1.0) mg/dL AST 30 (15-37) U/L ALT 30 (14-59) U/L Alkaline Phosphatase 131 H (46-116) U/L Troponin I 9 (<or=51) ng/L NT-Pro-B Natriuret Pep 202 (<300) pg/mL Total Protein 8.2 (6.4-8.2) g/dL Albumin 3.9 (3.4-5.0) g/dL Lipase 139 H (16-77) U/L Procalcitonin ng/mL TSH 0.11 L (0.36-3.74) uIU/mL Free T4 1.38 (0.76-1.46) ng/dL Urine Color (Yellow) Urine Clarity (Clear) Urine pH (5-8) Ur Specific [place] (1.005-1.025) Urine Protein (Neg-Trace) mg/dL Urine Ketones (Negative) mg/dL Urine Blood (Negative) Urine Nitrite (Negative) Urine Bilirubin (Negative) Urine Urobilinogen (Up to 0.2) mg/dL Ur Leukocyte Esterase (Negative) Urine RBC (0-2) HPF Urine WBC (0-5) HPF Ur Epithelial Cells (Negative) HPF Urine Crystals (Negative) HPF Urine Bacteria (Negative) HPF Urine Casts (Negative) LPF Urine Mucus (Negative) Urine Other (Negative) Ur Culture Indicated? Urine Glucose (Negative) mg/dL Stl C.difficile Tox PCR Negative (Negative) Salicylates (<2.8) mg/dL Acetaminophen (10-30) ug/mL Ethyl Alcohol (<10) mg/dL COVID-19 Source SARS-CoV-2 (PCR) (Negative) Influenza Type A (PCR) (Negative) Influenza Type B (PCR) (Negative) RSV (PCR) (Negative) ABO/Rh Antibody Screen 02/18/24 17:03 Blood Culture - Pending Blood 02/18/24 17:00 Blood Culture - Pending Blood [id number] Documentation Fingerstick Glucose Start: 02/18/24 20:25 Freq: Status: Complete Protocol: Activity Type Activity Date Activity User E-sign Co-sign Detail Recorded Client Recorded Date Recorded By Document 02/18/24 23:00 BKG DAEMON(5) [id number] 02/18/24 23:01 BKG DAEMON(6) Fingerstick Glucose Start: 02/19/24 00:06 Freq: AC & HS Status: Active Protocol: Activity Type Activity Date Activity User E-sign Co-sign Detail Recorded Client Recorded Date Recorded By Document 02/19/24 00:45 BKG DAEMON(7) [id number] 02/19/24 00:46 BKG DAEMON(8) Intake and Output - 24 Hour Total 02/18/24 15:11 thru 02/19/24 02:00 Intake Total 3290 Output Total 475 Balance 2815 Weight 56.2 kg Intake: IV 3290 Output: Urine 475 Other: Urine Color Pale Yellow Urine Appearance Clear Urinary Catheter Urinary Catheter Date of 02/18/24 Insertion [Urethral ([facility])] Falls Risk Assessment History of Falls No History 02/19/24 01:05 Contributing Factors Confusion,Unstable 02/19/24 01:05 Ambulatory Aids Uses ambulatory device + 02/19/24 01:05 Tubes/Lines With any additional score 02/19/24 01:05 Gait Evaluation W/any additional score 02/19/24 01:05 Cognition Cognitive impairment 02/19/24 01:05 Fall Total Score 91 02/19/24 01:05 Level of Risk Maximum Risk 02/19/24 01:05 Problems (Last Reviewed 02/19/24 @ 00:17 by Koko Vega) Acute hyperglycemia (Acute) Dehydration (Acute) Acute hyperkalemia (Acute) LORRIE (acute kidney injury) (Acute) Anxiety associated with depression (Chronic 11/28/17) Obstructive sleep apnea (Chronic 11/28/17) GERD (gastroesophageal reflux disease) (Chronic) Essential hypertension (Chronic) v v v v v v v v v Sending and/or Receiving Nurses: Please use comment section below to note any information pertinent to the patient hand-off not included above. Information / Comments: Report received from: Ronald Cordero automated access systems technician III 02/19/24 @ 0032
[2024-02-19] MEDS: Normal Saline Flush 10 ML SYR IVP ×4 (02:50→19:41)
[2024-02-19] MEDS: Lactated Ringers 1,000 ML 150 ML IV ×4 (02:55→23:25)
[2024-02-19] MEDS: Levothyroxine 50 MCG TAB PO (05:36)
[2024-02-19] MEDS: Heparin 5,000 UNITS/ML VIAL 5000 UNITS SC ×3 (05:37→23:26)
[2024-02-19 06:40] LABS: BE (Venous) -14 mmol/L (-2-3); HCO3 (Venous) 13 mmol/L (23-28); HCT 30.4 % (36.0-46.0); HGB 10.1 g/dL (11.2-15.7); MCH 29.7 pg (27.0-33.0); MCHC 33.2 % (32.0-36.0); MCV 89 fL (80-95); MPV 10.1 fL (8.0-11.0); O2 Sat (Venous) 96 %; Platelet Count 134 10^3/uL (130-400); RDW 13.2 % (11.7-14.6); RDW-SD 43.3 fL; TCO2 (Venous) 13 mmol/L (24-29); WBC 5.93 10^3/uL (4.4-10.8); pCO2 (Venous) 31 mmHg (41-51); pH (Venous) 7.23 (7.31-7.41); pO2 (Venous) 78 mmHg
[2024-02-19 06:54] LABS: Magnesium 2.1 mg/dL (1.8-2.4)
[2024-02-19 06:57] LABS: Calcium 8.3 mg/dL (8.5-10.1); Chloride 108 mmol/L (98-107); Estimated GFR 7.41 (mL/min/1.73m2); Glucose 90 mg/dL (74-106); Potassium 4.7 mmol/L (3.5-5.1); Sodium 138 mmol/L (136-145)
[2024-02-19 07:01] LABS: BUN 93 mg/dL (7-18)
[2024-02-19 07:19] LABS: TSH 0.05 uIU/Ml (0.36-3.74)
--- NOTE | 2024-02-19 07:30 | DI.US_ITS ---
APPROVED REPORT EXAM: Comprehensive 2D, Doppler, and color-flow Echocardiogram Patient Location: In-Patient Room/Bed: 222 Landscaper: Geovanny Moura RDCS (AE) Indications: Acute renal failure with history of cardiomyopathy Other Information Technically limited study due to body habitus, inability to position patient. Conclusion Normal left ventricular wall thickness and chamber size. Ejection fraction is 67%. Wall motion is n ormal Normal right ventricular size and function Left atrium is mildly dilated. Right atrial size is normal Aortic valve is trileaflet and sclerotic without stenosis or regurgitation Mild mitral annular calcification. Mild mitral regurgitation Normal tricuspid valve with mild to moderate regurgitation. Estimated right ventricular systolic pre ssure is 44 mmHg Wall motion Left Ventricle The left ventricle is normal size. The left ventricular systolic function is normal. The left ventric ular ejection fraction is within the normal range. Mild concentric left ventricular hypertrophy. Ther e is normal LV segmental wall motion. There is no ventricular septal defect visualized. LVEF is 67%. Right Ventricle The right ventricle is normal size. The right ventricular systolic function is normal. Atria The left atrium size is mildly dilated The right atrium size is normal. The interatrial septum is int act with no evidence for an atrial septal defect. Aortic Valve The aortic valve is sclerotic. Aortic valve is trileaflet. There is no aortic valvular stenosis. No a ortic regurgitation is present. Mitral Valve Mild mitral annular calcification. No evidence of mitral valve stenosis. Mild mitral regurgitation. Tricuspid Valve The tricuspid valve is normal in structure. There is no tricuspid valve stenosis. Mild to moderate tr icuspid regurgitation. The RVSP is 44.0 mmHg. Pulmonic Valve The pulmonary valve is normal in structure. There is no pulmonic valvular stenosis. There is no pulmo more valvular regurgitation. Great Vessels The aortic root is normal in size. The ascending aorta is normal in size. Aortic arch is not well vis ualized. IVC is normal in size and collapses >50% with inspiration. Pericardium There is no pericardial effusion. 2D Dimensions IVSD d PLAX 1.00 cm F: 0.6-1.0 Ao Root d 2.19 cm F: 2.7 - 3.3 LVPW d PLAX 1.00 cm F: 0.6 - 1.0 Ao Asc Diam d 2.30 cm F: 2.3 - 3.1 LVID d PLAX 3.60 cm F: 3.8 - 5.2 LVDs 2.31 cm F: 2.2 - 3.5 LV EF Teichholz 66.6 % FS 36.00 % LV EDV (Teich) 54.5 mL LV ESV (Teich) 18.2 mL Stroke Vol Index (Teich) 24.84 M-Mode TAPSE 1.78 cm (M/F) >1.7 Auto EF LV EDV A4C 64.1 mL LV EDV A2C 57.3 mL LV EDV BP LV ESV A4C 21.9 mL LV ESV A2C 18.7 mL LV ESV BP LVEF(%) A4C 65.9 % LVEF(%) A2C 67.3 % LVEF(%) BP LV SV A4C 42.2 ml LV SV A2C 38.6 ml LV SV BP LV CO A4C 2.9 L/min LV CO A2C 2.7 L/min LV CO BP HR A4C 67.54 BPM HR A2C 69.10 BPM LV EDV Index (BP) LA Volume LA Length A4C 4.9 cm LA Length A2C 5.5 cm LA Area A4C s 14.62 cm2 LA Area A2C s 14.64 cm2 LA Vol A4C A-L 36.97 mL LA Vol A2C A-L 33.25 mL LA Vol Biplane A-L 37.0 mL LA Vol/BSA A4C A-L LA Vol/BSA A2C A-L LA Vol/BSA BP A-L 25.3 mL/m2 LA Vol A4C MOD 36.0 mL LA Vol A2C MOD 31.6 mL LA Vol BP MOD 35.5 mL RA Volume RA Area A4C 5.5 cm2 RA ESV A4C (A-L) 7.0mL RA Vol/BSA A4C A-L RA Length A4C 3.6 cm RA ESV A4C (MOD) 7.4mL LV Diastology MV E' medial 0.073 (>0.07 m/s) MV E Vmax 0.85 (0.4-1.3 m/s) MV E/E' MED 11.68 (<14) MV A Vmax 1.00 (0.4-1.3 m/s) MV E' lateral 0.050 (>0.1 m/s) E/A Ratio 0.9 MV E/E' LAT 17.01 (<14) MV E' Average 0.062 m/s MV E/E'(average) 13.85 Aortic Valve AoV Vmax 1.99 m/s LVOT Vmax 1.26 m/s AoV Peak Grad 15.8 mmHg LVOT Peak Grad 6.3 mmHg AoV Area (Vmax) 1.13 cm2 LVOT VTI 0.247 m AoV VTI 0.381 m LVOT Mean Grad 3.3 mmHg AoV Mean Jean. 1.32 m/s LVOT SV 44.18 mL AoV Mean Grad 8.0 mmHg LVOT Diam s 1.50 cm AoV Area (VTI) 1.16 cm2 AV Regurg Peak Gr. 15.81 mmHg Velocity Ratio 0.63 Mitral Valve MV DT 249 (160-240 msec) MV Vmax TIPS 0.95 m/s MV Mean Grad 1.4 (<2mmHg) MV VTI 0.311 m Pulmonary Valve PV Vmax 0.90 (0.5-1.5 m/s) RVOT Vmax 0.79 m/s PV Peak Grad 3.2 mmHg RVOT Peak Gr. 2.5 mmHg PV Mean Jean 0.64 m/s RVOT VTI 0.185 m PV Mean Grad 1.9 mmHg RVOT Mean Gr. 1.6 mmHg Tricuspid Valve RA Pressure 3.00 mmHg TR Vmax 3.20 m/s TR Peak Grad 41.0 mmHg RVSP (TR) 44.0 mmHg
[2024-02-19] MEDS: Lidocaine 5% Patch 1 PATCH TP (08:52)
[2024-02-19] MEDS: Donepezil 5 MG TAB PO (08:52)
[2024-02-19] MEDS: Citalopram 20 MG TAB 40 MG PO (08:52)
[2024-02-19] MEDS: Aspirin E.C. 81 MG TABEC PO (08:52)
[2024-02-19] MEDS: Carvedilol 6.25 MG TAB PO ×2 (08:52→19:41)
--- NOTE | 2024-02-19 09:10 | PDOC.CMIN ---
Date of service: 02/19/24 Time of Service: 09:10 Care Management Initial Assmt Initial Assessment Reason for Hospitalization: acute renal failure Functional Status/Living Situation Patient Presentation: Venus was sitting up in bed when CM met with her. She was pleasant in interaction and agreeable to conversation, but was very forgetful. Per nursing, she made the same statement (I have a sore throat) to her nurse at least 5 times in 5 minutes and made the same statement to CM 3 times within a few minutes. She had trouble recalling the names of relatives or why she is in the hospital. Within that context, Venus stated that she has one child, a son whose name is Jose Alejandro. She stated she had another son named Amado who very young, but was unable to state the cause of . Venus informed CM that her granddaughter Yesenia lives with her and is very helpful, stating she will do anything i need. She acknowledged that she has other grandchildren and one of them lives in [place]. She was unable to recall any other names or details.Venus went on to share that she is independent with ADLs and continues to drive. CM reached out to her son Kishore but was unsuccessful in reaching him. Town of Residence: [place] Resides with: Spouse and Other (niece Yesenia lives with her) Significant Other/Family: Out of area (niece in [place]) Employment Status: Unemployed Instrumental Activities of Daily Living (ADLs): Independent (per patient) Medications Medication Management: No Issues/Barriers identified Physical Functioning/Mobility Assistive Device: denies Advance Directives Advance Directives: Do you have an Advance Directive: Y 01/02/15 14:11 AD On File at [facility]: Y 01/02/15 14:11 Date Asked AD Date Reviewed 02/19/24 02/19/24 00:19 COLST On File at [facility] COLST Date Scanned Code Status Resuscitation Status Full Code Portal Pt does not currently have a portal and education provided: No Insurance Coverage/Financial Issues Insurance: [employer] Medicare replacement Care Team Visit Care Team Role Provider Type Katya Phelan Primary Care Provider [facility] STAFF PHYSICIAN Nawaf Rader MD Emergency Provider [facility] STAFF PHYSICIAN Koko Vega Admit Provider NON-[facility] STAFF PHYSICIAN Attending Provider Discharge Potential Discharge Needs: PCP F/U Appt Anticipated Barriers to Discharge: None Identified Patient/Family Education Needs: Review discharge instructions, discuss Ask Me Three Transportation: Private vehicle Plan: Anticipate Venus will be discharged home with no services when medically stable. She will follow up with her PCP and plan of care and transport with family. CM will follow and continue to support discharge planning needs. 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 difficile enteritis (Acute) Chest pain (Acute) Anemia (Chronic) Hypertension (Chronic) DVT prophylaxis (Acute) Gastroenteritis (Acute) Hypokalemia (Acute) Hypomagnesemia (Acute) Pyelonephritis (Acute) Depression (Chronic) GERD (gastroesophageal reflux disease) (Chronic) Gait disturbance (Chronic) Left carotid bruit (Chronic) Essential hypertension (Chronic) Medical History (Updated 02/19/24 @ 02:36 by Koko Vega) IBS (irritable bowel syndrome) Cardiomyopathy Allergic rhinitis Adenomatous polyp of colon Environmental allergies Osteopenia Cervical spondylosis Osteoarthritis Surgical History Rectocele, Paravaginal repair Vaginal hysterectomy GASTROSCOPY (01/20/15) DR.ELIANE ARAMBULA Cystocele, Paravaginal repair Colonoscopy - IV Sedation 2009 COLONOSCOPY (~12/2014) DR.ANNICK ARAMBULA Social History Smoking/Tobacco Use Status: Never Smoking risk assessment performed?: Yes Alcohol Intake: current Alcohol Intake frequency: a few times a month Drug use: Never Substance use type: does not use Housing: house Number of Children: 2 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 What is your relationship status?: Panel score (0-1 are the most socially isolated patients): 1 Do you feel safe at home: Yes Do you feel safe in your relationship?: Yes Additional Social history: lives with niece during week then son on weekend SDOH(Care Management) Screening Will the Patient Participate in the Screening?: Yes Do you worry about having a steady place to live?: no Problems where you live: no known problems In the past 12 months, have you had to go without electric, gas, oil or water in your home?: no Have you or anyone in your house had to go without enough food to eat?: no Has lack of transportation kept you from medical appointments or from doing things needed for daily living?: no Has anyone in your support network made you feel unsafe for any reason?: no
[2024-02-19 12:06] LABS: Anion Gap 11.3 mmol/L (3-11); CO2 15.7 mmol/L (21.0-32.0); Calcium 8.3 mg/dL (8.5-10.1); Chloride 110 mmol/L (98-107); Estimated GFR 7.75 (mL/min/1.73m2); Glucose 104 mg/dL (74-106); Potassium 4.5 mmol/L (3.5-5.1); Sodium 137 mmol/L (136-145)
[2024-02-19 12:08] LABS: BUN 84 mg/dL (7-18); CREATININE 5.3 mg/dL (0.55-1.02)
--- NOTE | 2024-02-19 12:17 | PGE_ITS ---
Date of Service Date of service: 02/19/24 Time of Service: 12:19 Assessment and Plan Assessment and plan (1) LORRIE (acute kidney injury): Start date: 02/18/24 Status: Acute Assessment and plan: -secondary to increased loss with nausea and vomiting and possibly diarrhea and decreased PO intake over the last ~5 days -Cr 7.8 on admission (baseline 1.2), significantly improved with IV fluids and is down to 5.3 as of 11am 02/18 -will continue IV fluids until patient is able to tolerate PO intake -f/u AM BMP (2) Dehydration: Start date: 02/18/24 Status: Acute Assessment and plan: -Secondary to GI loss and poor intake as noted above (3) Nausea vomiting and diarrhea: Start date: 02/18/24 Status: Acute Assessment and plan: -continue PRN Zofran and low-dose Ativan as needed. (4) Acute hyperkalemia: Start date: 02/18/24 Status: Acute Assessment and plan: -K was up to 5.8 in ED, now down to 4.5 as of 11a02/18 -f/u AM BMP (5) Acute hyperglycemia: Start date: 02/18/24 Status: Acute Assessment and plan: -brief, and did respond rapidly with IV insulin (6) Cardiomyopathy: Assessment and plan: -echocardiogram in 2018 revealing normal right ventricular function and hyperdynamic left ventricular function -f/u AM TTE Qualifiers: Cardiomyopathy type: other Qualified Code(s): I42.8 - Other cardiomyopathies (7) Essential hypertension: Status: Chronic Assessment and plan: -Hold home carvedilol (8) GERD (gastroesophageal reflux disease): Status: Chronic Assessment and plan: -Continue PPI. Qualifiers: Esophagitis presence: without esophagitis Qualified Code(s): K21.9 - Gastro-esophageal reflux disease without esophagitis (9) Anxiety associated with depression: Status: Chronic Assessment and plan: -Continue outpatient medication therapy with Ativan as needed for nausea as well. (10) IBS (irritable bowel syndrome): Assessment and plan: -No specific therapy at this time does appear to have an associated diarrhea. Follow-up long-term with PCP. Qualifiers: Irritable bowel syndrome type: with diarrhea Qualified Code(s): K58.0 - Irritable bowel syndrome with diarrhea Subjective Subjective Interval history since last seen: Patient states that she is feeling better today and has been able to have some sips of water as well as being able to tolerate her p.o. medications. She understands the importance of slowly increasing her p.o. fluid intake, but that she is also significantly improving since admission. Otherwise she has no other complaints or concerns at this Exam Narrative Exam Narrative: Fatigued but well-appearing older female laying in bed in no acute distress, ANO x 4, heart regular rhythm, lungs clear to auscultation bilaterally, abdomen soft, with mild diffuse tenderness without guarding or rebound Objective Last Vital Signs Temp 98.1 F 02/19/24 07:24 Pulse 59 L 02/19/24 12:00 Resp 18 02/19/24 12:00 BP 102/47 L 02/19/24 12:00 Pulse Ox 95 02/19/24 12:00 Laboratory Results - last 24 hr 02/18/24 02/18/24 02/18/24 15:30 15:45 15:54 WBC 6.57 RBC 4.77 Hgb 14.0 Hct 43.2 MCV 91 MCH 29.4 MCHC 32.4 RDW 13.1 Plt Count 236 MPV 10.3 Immature Gran % 0.3 Neutrophils % 54.9 Lymphocytes % 37.4 Monocytes % 5.9 Eosinophils % 0.9 Basophils % 0.6 Nucleated RBC % 0.0 Absolute Neutrophils 3.60 Absolute Lymphocytes 2.46 Absolute Monocytes 0.39 Absolute Eosinophils 0.06 Absolute Basophils 0.04 PT 9.8 INR 1.0 APTT 24.7 VBG pH 7.09 L* VBG pCO2 36 L VBG pO2 39 VBG HCO3 11 L VBG Total CO2 11 L VBG O2 Saturation 62 VBG Base Excess -19 L VBG Lactate Carboxyhemoglobin % Sodium 132 L Potassium 5.0 Chloride 97 L Carbon Dioxide 13.7 L Anion Gap 21.3 H BUN 120 H* Creatinine 7.8 H* Est GFR (CKD-EPI 2020) 4.87 Glucose 121 H Calcium 9.5 Magnesium 2.7 H Iron TIBC Transferrin % Sat Total Bilirubin 0.56 AST 30 ALT 30 Alkaline Phosphatase 131 H Troponin I 9 NT-Pro-B Natriuret Pep 202 Total Protein 8.2 Albumin 3.9 Lipase 139 H Procalcitonin TSH 0.11 L Free T4 1.38 Urine Color Urine Clarity Urine pH Ur Specific [place] Urine Protein Urine Ketones Urine Blood Urine Nitrite Urine Bilirubin Urine Urobilinogen Ur Leukocyte Esterase Urine RBC Urine WBC Ur Epithelial Cells Urine Crystals Urine Bacteria Urine Casts Urine Mucus Urine Other Ur Culture Indicated? Urine Glucose Stl C.difficile Tox PCR Negative Salicylates Acetaminophen Ethyl Alcohol COVID-19 Source SARS-CoV-2 (PCR) Influenza Type A (PCR) Influenza Type B (PCR) RSV (PCR) ABO/Rh O Negative Antibody Screen NEGATIVE 02/18/24 02/18/24 02/18/24 15:58 17:03 17:15 WBC RBC Hgb Hct MCV MCH MCHC RDW Plt Count MPV Immature Gran % Neutrophils % Lymphocytes % Monocytes % Eosinophils % Basophils % Nucleated RBC % Absolute Neutrophils Absolute Lymphocytes Absolute Monocytes Absolute Eosinophils Absolute Basophils PT INR APTT VBG pH VBG pCO2 VBG pO2 VBG HCO3 VBG Total CO2 VBG O2 Saturation VBG Base Excess VBG Lactate Carboxyhemoglobin % Sodium Potassium Chloride Carbon Dioxide Anion Gap BUN Creatinine Est GFR (CKD-EPI 2020) Glucose Calcium Magnesium Iron TIBC Transferrin % Sat Total Bilirubin AST ALT Alkaline Phosphatase Troponin I 9 NT-Pro-B Natriuret Pep Total Protein Albumin Lipase Procalcitonin TSH Free T4 Urine Color Yellow Urine Clarity Sl Cloudy Urine pH 5.0 Ur Specific [place] 1.025 Urine Protein 100 H Urine Ketones Trace H Urine Blood Small H Urine Nitrite Negative Urine Bilirubin Small H Urine Urobilinogen 0.2 Ur Leukocyte Esterase Negative Urine RBC 3-5 H Urine WBC 0-2 Ur Epithelial Cells Few Urine Crystals Negative Urine Bacteria Rare Urine Casts 20-50 Fine Granular Urine Mucus Negative Urine Other Few Renal Ur Culture Indicated? No Urine Glucose Negative Stl C.difficile Tox PCR Salicylates Acetaminophen Ethyl Alcohol COVID-19 Source Nasopharynx SARS-CoV-2 (PCR) Negative Influenza Type A (PCR) Negative Influenza Type B (PCR) Negative RSV (PCR) Negative ABO/Rh Antibody Screen 02/18/24 02/18/24 02/18/24 19:20 19:48 20:05 WBC RBC Hgb Hct MCV MCH MCHC RDW Plt Count MPV Immature Gran % Neutrophils % Lymphocytes % Monocytes % Eosinophils % Basophils % Nucleated RBC % Absolute Neutrophils Absolute Lymphocytes Absolute Monocytes Absolute Eosinophils Absolute Basophils PT INR APTT VBG pH 7.05 L* VBG pCO2 32 L VBG pO2 42 VBG HCO3 9 L VBG Total CO2 9 L VBG O2 Saturation 66 VBG Base Excess -22 L VBG Lactate 1.4 Carboxyhemoglobin % Sodium 137 Potassium 5.8 H Chloride 106 Carbon Dioxide 10.9 L Anion Gap 20.1 H BUN 111 H* Creatinine 6.4 H* Est GFR (CKD-EPI 2020) 6.18 Glucose 99 Calcium 7.6 L Magnesium Iron 87 TIBC 212 L Transferrin % Sat 41 Total Bilirubin AST ALT Alkaline Phosphatase Troponin I NT-Pro-B Natriuret Pep Total Protein Albumin Lipase Procalcitonin 0.1 TSH Free T4 Urine Color Yellow Urine Clarity Sl Cloudy Urine pH 5.0 Ur Specific [place] 1.025 Urine Protein 100 H Urine Ketones 15 H Urine Blood Moderate H Urine Nitrite Negative Urine Bilirubin Small H Urine Urobilinogen 0.2 Ur Leukocyte Esterase Negative Urine RBC 0-2 Urine WBC 0-2 Ur Epithelial Cells Moderate Urine Crystals Negative Urine Bacteria Rare Urine Casts 20-50 Fine Granular Urine Mucus Negative Urine Other Few Transitional Ur Culture Indicated? No Urine Glucose Negative Stl C.difficile Tox PCR Salicylates < 2.8 Acetaminophen 3 Ethyl Alcohol < 3.0 COVID-19 Source SARS-CoV-2 (PCR) Influenza Type A (PCR) Influenza Type B (PCR) RSV (PCR) ABO/Rh Antibody Screen 02/18/24 02/18/24 02/19/24 20:55 22:20 06:34 WBC 5.93 RBC 3.40 L Hgb 10.1 L D Hct 30.4 L MCV 89 MCH 29.7 MCHC 33.2 RDW 13.2 Plt Count 134 MPV 10.1 Immature Gran % Neutrophils % Lymphocytes % Monocytes % Eosinophils % Basophils % Nucleated RBC % Absolute Neutrophils Absolute Lymphocytes Absolute Monocytes Absolute Eosinophils Absolute Basophils PT INR APTT VBG pH 7.15 L* 7.23 L VBG pCO2 27 L 31 L VBG pO2 63 78 VBG HCO3 9 L 13 L VBG Total CO2 9 L 13 L VBG O2 Saturation 90 96 VBG Base Excess -20 L -14 L VBG Lactate Carboxyhemoglobin % 1.2 Sodium 135 L 138 Potassium 4.8 D 4.7 Chloride 106 108 H Carbon Dioxide 11.2 L 15.0 L Anion Gap 17.8 H 15.0 H BUN 99 H* 93 H* Creatinine 5.8 H* 5.5 H* Est GFR (CKD-EPI 2020) 6.95 7.41 Glucose 225 H 90 Calcium 8.0 L 8.3 L Magnesium 2.1 Iron TIBC Transferrin % Sat Total Bilirubin AST ALT Alkaline Phosphatase Troponin I NT-Pro-B Natriuret Pep Total Protein Albumin Lipase Procalcitonin TSH 0.05 L Free T4 Urine Color Urine Clarity Urine pH Ur Specific [place] Urine Protein Urine Ketones Urine Blood Urine Nitrite Urine Bilirubin Urine Urobilinogen Ur Leukocyte Esterase Urine RBC Urine WBC Ur Epithelial Cells Urine Crystals Urine Bacteria Urine Casts Urine Mucus Urine Other Ur Culture Indicated? Urine Glucose Stl C.difficile Tox PCR Salicylates Acetaminophen Ethyl Alcohol COVID-19 Source SARS-CoV-2 (PCR) Influenza Type A (PCR) Influenza Type B (PCR) RSV (PCR) ABO/Rh Antibody Screen 02/19/24 11:32 WBC RBC Hgb Hct MCV MCH MCHC RDW Plt Count MPV Immature Gran % Neutrophils % Lymphocytes % Monocytes % Eosinophils % Basophils % Nucleated RBC % Absolute Neutrophils Absolute Lymphocytes Absolute Monocytes Absolute Eosinophils Absolute Basophils PT INR APTT VBG pH VBG pCO2 VBG pO2 VBG HCO3 VBG Total CO2 VBG O2 Saturation VBG Base Excess VBG Lactate Carboxyhemoglobin % Sodium 137 Potassium 4.5 Chloride 110 H Carbon Dioxide 15.7 L Anion Gap 11.3 H BUN 84 H* Creatinine 5.3 H* Est GFR (CKD-EPI 2020) 7.75 Glucose 104 Calcium 8.3 L Magnesium Iron TIBC Transferrin % Sat Total Bilirubin AST ALT Alkaline Phosphatase Troponin I NT-Pro-B Natriuret Pep Total Protein Albumin Lipase Procalcitonin TSH Free T4 Urine Color Urine Clarity Urine pH Ur Specific [place] Urine Protein Urine Ketones Urine Blood Urine Nitrite Urine Bilirubin Urine Urobilinogen Ur Leukocyte Esterase Urine RBC Urine WBC Ur Epithelial Cells Urine Crystals Urine Bacteria Urine Casts Urine Mucus Urine Other Ur Culture Indicated? Urine Glucose Stl C.difficile Tox PCR Salicylates Acetaminophen Ethyl Alcohol COVID-19 Source SARS-CoV-2 (PCR) Influenza Type A (PCR) Influenza Type B (PCR) RSV (PCR) ABO/Rh Antibody Screen Time Spent with Patient Time Spent with Patient: >50 minutes Time was spent: preparing to see the patient(eg.review tests), obtaining and/or reviewing separately otained hiistory, ordering medications,tests, procedures, referring, communicating with other health md do resident urgent care, indepentently interpreting results, counseling the patient and care coordination
[2024-02-19 14:01] LABS: CREATININE 5.5 mg/dL (0.55-1.02)
--- NOTE | 2024-02-19 14:05 | PHA.REVIEW2 ---
Pharmacy Admission Review Admission Clinical Review Admission Pharmacy Review: Nausea vomiting and diarrhea (Acute) Acute hyperglycemia (Acute) Dehydration (Acute) Acute hyperkalemia (Acute) LORRIE (acute kidney injury) (Acute) aspirin Adverse Reaction (Unverified 10/02/23 09:39) upset stomach r/t GERD metoclopramide HCl (From Reglan) Adverse Reaction (Unverified 10/02/23 09:39) hysterical crying trazodone Adverse Reaction (Unverified 10/02/23 09:39) itching enviornmental Allergy (Mild, Uncoded 10/02/23 09:39) head congestion Resuscitation Status Full Code Height 4 ft 9 in Weight 56.2 kg Pharmacy Admission Review Renal Dosing Renal Dosing: BUN 84 mg/dL (7-18) H* 02/19/24 11:32 Creatinine 5.3 mg/dL (0.55-1.02) H* 02/19/24 11:32 Medications needing adjustments: Reviewed (CrCl 6.8 mL/min, BUN decreased from 93, SCr decreased from 5.5) List of meds needing interventions: Current medications are okay Anticoagulation Anticoagulation: Hgb 10.1 g/dL (11.2-15.7) L D 02/19/24 06:34 Hct 30.4 % (36.0-46.0) L 02/19/24 06:34 Plt Count 134 10^3/uL (130-400) 02/19/24 06:34 INR 1.0 (0.9-1.1) 02/18/24 15:45 Creatinine 5.3 mg/dL (0.55-1.02) H* 02/19/24 11:32 DVT Prophylaxis: Reviewed (hgb decreased from 14) Medications: Heparin (q8h) Relevant Labs Relevant Labs: Sodium 137 mmol/L (136-145) 02/19/24 11:32 Potassium 4.5 mmol/L (3.5-5.1) 02/19/24 11:32 Chloride 110 mmol/L (98-107) H 02/19/24 11:32 Magnesium 2.1 mg/dL (1.8-2.4) 02/19/24 06:34 Electrolytes, C-Reactive P, ESR: Reviewed (has blood cultures pending) DM Control DM Control: Glucose 104 mg/dL (74-106) 02/19/24 11:32 Finger Stick Blood Glucose 104 1210 Finger Stick Blood Glucose 104 1132 Finger Stick Blood Glucose 90 0859 Finger Stick Blood Glucose 90 0730 Finger Stick Blood Glucose 90 0720 DM Control: Reviewed Insulin Dosing, Diabetic Medication: Has order for SS insulin Cardiac Review Cardiac Review: Troponin I 9 ng/L (<or=51) 02/18/24 17:03 NT-Pro-B Natriuret Pep 202 pg/mL (<300) 02/18/24 15:45 Blood Pressure 102/47 1200 Blood Pressure 91/44 1138 Blood Pressure 105/54 1001 Blood Pressure 101/54 0902 Blood Pressure 109/50 0801 Blood Pressure 97/57 0715 Blood Pressure 102/42 0506 Blood Pressure 98/45 0401 Blood Pressure 112/48 0300 BP, HR, EF%: Reviewed (HR 59) List meds needing interventions: Has order for carvedilol 6.25mg BID QTc Review QTc: Intervened (531 FROM 02/18/24) List meds needing interventions: Reached out to provider about PRN ondansetron order. Provider was okay with this being discontinued. IV to PO Switch IV Medications: Reviewed (PRN lorazepam) Home Meds Home Med List reviewed: Intervened Relevent Home Meds Not ordered & why?: Amlodipine (on hold per H+P - LORRIE), Bengay (PRN), clonazepam (has order for lorazepam), lisinopril (on hold per H+P - LORRIE) and ranitidine (order was put in but cancelled this AM, product no longer available and has order for dexlansoprazole) Reached out to provider as citalopram on home med list says not taking per patient but order was put in. Provider wants this continued for now. Order had been put in for clonazepam from patients home med list but did not have a frequency so was left pending by over night pharmacy. Reached out to provider to verify frequency and to let them know that there is no fill history of this in past year per [facility]. Provider said to discontinue order as patient already has an order for PRN lorazepam. Current Meds Current Medication Order Review: Intervened Comments: Added 2nd PRN to lorazepam order per pharmacy protocol Pharmacy Antibiotic Review Relevant Labs: Relevant Labs 02/18/24 19:20 Procalcitonin 0.1
--- NOTE | 2024-02-19 17:47 | W.PC.ACHO ---
Registration Status: Primary Language: Preferred Language: ED Information & Data Chief Complaint Abd Prob 02/18/24 16:07 Chief Complaint Abd Prob 02/18/24 15:43 Triage Note for 1 week pt appetite 02/18/24 15:14 decreased, wont drink. abd pain and nausea. vomiting in triage. doesn't now when last BM was Medical / Surgical History (Last Reviewed 02/19/24 @ 00:17 by Koko Vega) IBS (irritable bowel syndrome) Cardiomyopathy Allergic rhinitis Adenomatous polyp of colon Environmental allergies Osteopenia Cervical spondylosis Osteoarthritis (Last Reviewed 02/19/24 @ 00:17 by Koko Vega) Rectocele, Paravaginal repair Vaginal hysterectomy GASTROSCOPY (01/20/15) Cystocele, Paravaginal repair Colonoscopy - IV Sedation COLONOSCOPY (~12/2014) Most Recent Vital Signs Temperature 36.7 C 02/19/24 07:24 Temperature Source Temporal Artery Scan 02/19/24 07:24 Pulse 61 02/19/24 17:01 Pulse 64 02/19/24 17:01 Respiratory Rate 21 02/19/24 17:01 Respiratory Effort Normal 02/19/24 01:05 Respiratory Depth Normal 02/19/24 01:05 Respiratory Pattern Normal 02/19/24 01:05 Blood Pressure 118/53 L 02/19/24 17:01 Blood Pressure Mean 69 02/19/24 17:01 Blood Pressure Position Supine 02/19/24 01:05 Pulse Oximetry 96 02/19/24 17:01 Oxygen Delivery Method Room Air 02/19/24 01:05 Oxygen Flow Rate 0 02/19/24 01:05 Pain Level 0 02/19/24 17:44 Allergies aspirin Adverse Reaction (Unverified 10/02/23 09:39) upset stomach r/t GERD metoclopramide HCl (From Reglan) Adverse Reaction (Unverified 10/02/23 09:39) hysterical crying trazodone Adverse Reaction (Unverified 10/02/23 09:39) itching enviornmental Allergy (Mild, Uncoded 10/02/23 09:39) head congestion Precautions Isolation Standard precaution 02/18/24 16:07 Active Medications Generic Name Dose Route Start Last Admin Trade Name Freq PRN Reason Stop Dose Admin Aspirin 81 mg 02/19/24 08:30 02/19/24 08:52 Aspirin E.C. 81 Mg Tabec PO 81 mg DAILY BARAK Administration Carvedilol 6.25 mg 02/19/24 08:30 02/19/24 08:52 Carvedilol 6.25 Mg Tab PO 6.25 mg BID BARAK Administration Citalopram Hydrobromide 40 mg 02/19/24 08:30 02/19/24 08:52 Citalopram 20 Mg Tab PO 40 mg DAILY BARAK Administration Dexlansoprazole 60 mg 02/19/24 08:30 02/19/24 12:17 Dexlansoprazole 30 Mg Cap PO Not Given DAILY BARAK Donepezil HCl 5 mg 02/19/24 08:30 02/19/24 08:52 Donepezil 5 Mg Tab PO 5 mg DAILY BARAK Administration Heparin Sodium (Porcine) 5,000 units 02/19/24 06:00 02/19/24 16:19 Heparin 5,000 Units/Ml Vial SC 5,000 units Q8H BARAK Administration Ringer's Solution 1,000 mls @ 150 mls/hr 02/19/24 02:30 02/19/24 16:39 IV 150 mls/hr INFUSION BARAK Administration Insulin Aspart 0 units 02/19/24 08:00 02/19/24 16:34 Insulin Aspart 300 Units/3 Ml Pen SC Not Given 0800,1200,1700,2200 [facility] Protocol Levothyroxine Sodium 50 mcg 02/19/24 06:00 02/19/24 05:36 Levothyroxine 50 Mcg Tab PO 50 mcg 0600 BARAK Administration Lidocaine 1 patch 02/19/24 08:30 02/19/24 08:52 Lidocaine 5% Patch TP 1 patch DAILY BARAK Administration Lorazepam 0.5 mg 02/19/24 08:12 02/19/24 10:09 Lorazepam 2 Mg/Ml Syr IVP 0.5 mg Q6H PRN PRN Administration Sodium Chloride 0 ml 02/19/24 01:08 02/19/24 06:13 Normal Saline Flush 10 Ml Syr IVP 30 ml PRN PRN Administration Sodium Chloride 0 ml 02/19/24 08:30 02/19/24 08:52 Normal Saline Flush 10 Ml Syr IVP 10 ml BID BARAK Administration IV IV Catheter Type [Right Saline Lock Forearm] IV Catheter Type [Left Peripheral IV Antecubital] IV Catheter Type [Right Upper Peripheral IV arm] IV Catheter Gauge [Right 20 Forearm] IV Catheter Gauge [Right Upper 18 arm] Diagnostics 02/19/24 02/19/24 02/18/24 Range/Units 11:32 06:34 22:20 WBC 5.93 (4.4-10.8) 10^3/uL RBC 3.40 L (3.93-5.22) 10^6/uL Hgb 10.1 L D (11.2-15.7) g/dL Hct 30.4 L (36.0-46.0) % MCV 89 (80-95) fL MCH 29.7 (27.0-33.0) pg MCHC 33.2 (32.0-36.0) % RDW 13.2 (11.7-14.6) % Plt Count 134 (130-400) 10^3/uL MPV 10.1 (8.0-11.0) fL VBG pH 7.23 L 7.15 L* (7.31-7.41) VBG pCO2 31 L 27 L (41-51) mmHg VBG pO2 78 63 mmHg VBG HCO3 13 L 9 L (23-28) mmol/L VBG Total CO2 13 L 9 L (24-29) mmol/L VBG O2 Saturation 96 90 % VBG Base Excess -14 L -20 L (-2-3) mmol/L VBG Lactate (0.6-1.4) mmol/L Carboxyhemoglobin % % Sodium 137 138 135 L (136-145) mmol/L Potassium 4.5 4.7 4.8 D (3.5-5.1) mmol/L Chloride 110 H 108 H 106 (98-107) mmol/L Carbon Dioxide 15.7 L 15.0 L 11.2 L (21.0-32.0) mmol/L Anion Gap 11.3 H 15.0 H 17.8 H (3-11) mmol/L BUN 84 H* 93 H* 99 H* (7-18) mg/dL Creatinine 5.3 H* 5.5 H* 5.8 H* (0.55-1.02) mg/dL Est GFR (CKD-EPI 2020) 7.75 7.41 6.95 (mL/min/1.73m2) Glucose 104 90 225 H (74-106) mg/dL Calcium 8.3 L 8.3 L 8.0 L (8.5-10.1) mg/dL Magnesium 2.1 (1.8-2.4) mg/dL Iron (50-170) ug/dL TIBC (250-450) ug/dL Transferrin % Sat (15-50) % Procalcitonin ng/mL TSH 0.05 L (0.36-3.74) uIU/Ml Urine Color (Yellow) Urine Clarity (Clear) Urine pH (5-8) Ur Specific [place] (1.005-1.025) Urine Protein (Neg-Trace) mg/dL Urine Ketones (Negative) mg/dL Urine Blood (Negative) Urine Nitrite (Negative) Urine Bilirubin (Negative) Urine Urobilinogen (Up to 0.2) mg/dL Ur Leukocyte Esterase (Negative) Urine RBC (0-2) HPF Urine WBC (0-5) HPF Ur Epithelial Cells (Negative) HPF Urine Crystals (Negative) HPF Urine Bacteria (Negative) HPF Urine Casts (Negative) LPF Urine Mucus (Negative) Urine Other (Negative) Ur Culture Indicated? Urine Glucose (Negative) mg/dL Stl C.difficile Tox PCR (Negative) Salicylates (<2.8) mg/dL Acetaminophen (10-30) ug/mL Ethyl Alcohol (<10) mg/dL 02/18/24 02/18/24 02/18/24 Range/Units 20:55 20:05 19:48 WBC (4.4-10.8) 10^3/uL RBC (3.93-5.22) 10^6/uL Hgb (11.2-15.7) g/dL Hct (36.0-46.0) % MCV (80-95) fL MCH (27.0-33.0) pg MCHC (32.0-36.0) % RDW (11.7-14.6) % Plt Count (130-400) 10^3/uL MPV (8.0-11.0) fL VBG pH (7.31-7.41) VBG pCO2 (41-51) mmHg VBG pO2 mmHg VBG HCO3 (23-28) mmol/L VBG Total CO2 (24-29) mmol/L VBG O2 Saturation % VBG Base Excess (-2-3) mmol/L VBG Lactate (0.6-1.4) mmol/L Carboxyhemoglobin % 1.2 % Sodium (136-145) mmol/L Potassium (3.5-5.1) mmol/L Chloride (98-107) mmol/L Carbon Dioxide (21.0-32.0) mmol/L Anion Gap (3-11) mmol/L BUN (7-18) mg/dL Creatinine (0.55-1.02) mg/dL Est GFR (CKD-EPI 2020) (mL/min/1.73m2) Glucose (74-106) mg/dL Calcium (8.5-10.1) mg/dL Magnesium (1.8-2.4) mg/dL Iron 87 (50-170) ug/dL TIBC 212 L (250-450) ug/dL Transferrin % Sat 41 (15-50) % Procalcitonin ng/mL TSH (0.36-3.74) uIU/Ml Urine Color Yellow (Yellow) Urine Clarity Sl Cloudy (Clear) Urine pH 5.0 (5-8) Ur Specific [place] 1.025 (1.005-1.025) Urine Protein 100 H (Neg-Trace) mg/dL Urine Ketones 15 H (Negative) mg/dL Urine Blood Moderate H (Negative) Urine Nitrite Negative (Negative) Urine Bilirubin Small H (Negative) Urine Urobilinogen 0.2 (Up to 0.2) mg/dL Ur Leukocyte Esterase Negative (Negative) Urine RBC 0-2 (0-2) HPF Urine WBC 0-2 (0-5) HPF Ur Epithelial Cells Moderate (Negative) HPF Urine Crystals Negative (Negative) HPF Urine Bacteria Rare (Negative) HPF Urine Casts 20-50 Fine Granular (Negative) LPF Urine Mucus Negative (Negative) Urine Other Few Transitional (Negative) Ur Culture Indicated? No Urine Glucose Negative (Negative) mg/dL Stl C.difficile Tox PCR (Negative) Salicylates < 2.8 (<2.8) mg/dL Acetaminophen 3 (10-30) ug/mL Ethyl Alcohol < 3.0 (<10) mg/dL 02/18/24 02/18/24 02/18/24 Range/Units 19:20 17:15 15:30 WBC (4.4-10.8) 10^3/uL RBC (3.93-5.22) 10^6/uL Hgb (11.2-15.7) g/dL Hct (36.0-46.0) % MCV (80-95) fL MCH (27.0-33.0) pg MCHC (32.0-36.0) % RDW (11.7-14.6) % Plt Count (130-400) 10^3/uL MPV (8.0-11.0) fL VBG pH 7.05 L* (7.31-7.41) VBG pCO2 32 L (41-51) mmHg VBG pO2 42 mmHg VBG HCO3 9 L (23-28) mmol/L VBG Total CO2 9 L (24-29) mmol/L VBG O2 Saturation 66 % VBG Base Excess -22 L (-2-3) mmol/L VBG Lactate 1.4 (0.6-1.4) mmol/L Carboxyhemoglobin % % Sodium 137 (136-145) mmol/L Potassium 5.8 H (3.5-5.1) mmol/L Chloride 106 (98-107) mmol/L Carbon Dioxide 10.9 L (21.0-32.0) mmol/L Anion Gap 20.1 H (3-11) mmol/L BUN 111 H* (7-18) mg/dL Creatinine 6.4 H* (0.55-1.02) mg/dL Est GFR (CKD-EPI 2020) 6.18 (mL/min/1.73m2) Glucose 99 (74-106) mg/dL Calcium 7.6 L (8.5-10.1) mg/dL Magnesium (1.8-2.4) mg/dL Iron (50-170) ug/dL TIBC (250-450) ug/dL Transferrin % Sat (15-50) % Procalcitonin 0.1 ng/mL TSH (0.36-3.74) uIU/Ml Urine Color Yellow (Yellow) Urine Clarity Sl Cloudy (Clear) Urine pH 5.0 (5-8) Ur Specific [place] 1.025 (1.005-1.025) Urine Protein 100 H (Neg-Trace) mg/dL Urine Ketones Trace H (Negative) mg/dL Urine Blood Small H (Negative) Urine Nitrite Negative (Negative) Urine Bilirubin Small H (Negative) Urine Urobilinogen 0.2 (Up to 0.2) mg/dL Ur Leukocyte Esterase Negative (Negative) Urine RBC 3-5 H (0-2) HPF Urine WBC 0-2 (0-5) HPF Ur Epithelial Cells Few (Negative) HPF Urine Crystals Negative (Negative) HPF Urine Bacteria Rare (Negative) HPF Urine Casts 20-50 Fine Granular (Negative) LPF Urine Mucus Negative (Negative) Urine Other Few Renal (Negative) Ur Culture Indicated? No Urine Glucose Negative (Negative) mg/dL Stl C.difficile Tox PCR Negative (Negative) Salicylates (<2.8) mg/dL Acetaminophen (10-30) ug/mL Ethyl Alcohol (<10) mg/dL 02/18/24 17:03 Blood Culture - Pending Blood 02/18/24 17:00 Blood Culture - Pending Blood [id number] Documentation Fingerstick Glucose Start: 02/18/24 20:25 Freq: Status: Complete Protocol: Activity Type Activity Date Activity User E-sign Co-sign Detail Recorded Client Recorded Date Recorded By Document 02/18/24 23:00 BKG DAEMON [id number] 02/18/24 23:01 BKG DAEMON(2) Fingerstick Glucose Start: 02/19/24 00:06 Freq: AC & HS Status: Active Protocol: Activity Type Activity Date Activity User E-sign Co-sign Detail Recorded Client Recorded Date Recorded By Document 02/19/24 16:32 BKG DAEMON(3) [id number] 02/19/24 16:33 BKG DAEMON(4) Intake and Output - 24 Hour Total 02/18/24 15:11 thru 02/19/24 17:47 Intake Total 5290 Output Total 1470 Balance 3820 Weight 56.2 kg Intake: IV 5290 Output: Urine 1470 Other: Urine Color Yellow Urine Appearance Clear Comment Per report, pt had 400 out in ED. Stool Size Moderate Stool Characteristics Soft Brown Urinary Catheter Urinary Catheter Date of 02/18/24 Insertion [Urethral ([place])] Urinary Catheter Date of 02/18/24 Insertion [Urethral ([place])] Urinary Catheter Date of 02/18/24 Insertion [Urethral ([place])] Falls Risk Assessment History of Falls No History 02/19/24 01:05 Contributing Factors Confusion,Unstable 02/19/24 01:05 Ambulatory Aids Uses ambulatory device + 02/19/24 01:05 Tubes/Lines With any additional score 02/19/24 01:05 Gait Evaluation W/any additional score 02/19/24 01:05 Cognition Cognitive impairment 02/19/24 01:05 Fall Total Score 91 02/19/24 01:05 Level of Risk Maximum Risk 02/19/24 01:05 Problems (Last Reviewed 02/19/24 @ 00:17 by Koko Vega) Nausea vomiting and diarrhea (Acute) Acute hyperglycemia (Acute) Dehydration (Acute) Acute hyperkalemia (Acute) LORRIE (acute kidney injury) (Acute) Anxiety associated with depression (Chronic 11/28/17) GERD (gastroesophageal reflux disease) (Chronic) Essential hypertension (Chronic) v v v v v v v v v Sending and/or Receiving Nurses: Please use comment section below to note any information pertinent to the patient hand-off not included above. Information / Comments: Report recieved from Zelda [facility] @[phone] Report received from:
--- NOTE | 2024-02-19 18:51 | NUR.NOTE ---
Nursing Note: Pt arrived on unit at 1830 from ICU to Med Surg. Report given from Zelda RN to Irene MARADIAGA. Skin assessment preformed. VS WNL. PT AO to self and place
[2024-02-19] MEDS: Acetaminophen 325 MG TAB PO (19:40)
[2024-02-19] MEDS: traMADol 50 MG TAB PO (19:40)
[2024-02-19] MEDS: Rosuvastatin 20 MG TAB PO (19:41)
[2024-02-19] MEDS: Patch Removal 1 EACH TP (19:55)
[2024-02-20] VITALS (8 sets, daily range): BP systolic 97–141; BP diastolic 46–67; PULSE 55–63; RESP 15–19; TEMP 36.1–36.7; O2SAT 95–97
[2024-02-20] MEDS: Acetaminophen 325 MG TAB PO ×2 (01:13→20:00)
[2024-02-20] MEDS: Mylanta Suspension 30 ML CUP PO (01:17)
--- NOTE | 2024-02-20 03:56 | NUR.NOTE ---
Nursing Note: At approximately 0100, pt was complaining of a sore throat. When this [employer] entered to bring her tylenol, pt then began stating she was having chest pain and desribed it as someone pushing on her chest. Pt pointed to the sternal area. Pain did not change with palpation and was not reproducable. Vital signs obtained as documented. NEVIN Encinas RN was notified and MD Eaton was also notified, advised give mylanta and reported pt complained of a similar episode last night and improved with the mylanta. Patient fell back asleep shortly after and appears to be sleeping comfortably at this time.
[2024-02-20] MEDS: Lactated Ringers 1,000 ML 150 ML IV ×3 (06:23→19:59)
[2024-02-20] MEDS: Heparin 5,000 UNITS/ML VIAL 5000 UNITS SC ×2 (06:41→13:56)
[2024-02-20] MEDS: Levothyroxine 50 MCG TAB PO (06:41)
[2024-02-20 06:59] LABS: HCT 29.2 % (36.0-46.0); HGB 9.4 g/dL (11.2-15.7); MCH 29.1 pg (27.0-33.0); MCHC 32.2 % (32.0-36.0); MCV 90 fL (80-95); MPV 10.4 fL (8.0-11.0); Platelet Count 118 10^3/uL (130-400); RBC 3.23 10^6/uL (3.93-5.22); RDW 13.3 % (11.7-14.6); RDW-SD 44.3 fL; WBC 4.07 10^3/uL (4.4-10.8)
[2024-02-20 07:13] LABS: Anion Gap 11.7 mmol/L (3-11); BUN 70 mg/dL (7-18); CO2 17.3 mmol/L (21.0-32.0); Calcium 8.4 mg/dL (8.5-10.1); Chloride 110 mmol/L (98-107); Estimated GFR 9.43 (mL/min/1.73m2); Glucose 84 mg/dL (74-106); Potassium 4.7 mmol/L (3.5-5.1); Sodium 139 mmol/L (136-145)
[2024-02-20 07:15] LABS: CREATININE 4.5 mg/dL (0.55-1.02)
[2024-02-20] MEDS: Normal Saline Flush 10 ML SYR IVP ×2 (09:02→20:02)
[2024-02-20] MEDS: Lidocaine 5% Patch 1 PATCH TP (09:02)
[2024-02-20] MEDS: Dexlansoprazole 30 MG CAP 60 MG PO (09:03)
[2024-02-20] MEDS: Donepezil 5 MG TAB PO (09:04)
[2024-02-20] MEDS: Carvedilol 6.25 MG TAB PO ×2 (09:04→20:04)
[2024-02-20] MEDS: Citalopram 20 MG TAB 40 MG PO (09:04)
[2024-02-20] MEDS: Aspirin E.C. 81 MG TABEC PO (09:04)
[2024-02-20] MEDS: Lidocaine 2% Viscous 15 ML CUP PO ×2 (11:22→20:01)
--- NOTE | 2024-02-20 13:32 | PT.INIE ---
PT Notes Visit Reasons: Acute renal failure Inpatient Physical Therapy Evaluation Date: 02-20-2024 Referring Doctor: Dr Fagan PT Orders: PT CONSULT: evaluate and treat Precautions: Standard, IV RUE, blair catheter in place Patient Profile/Admitting Diagnosis: Pt is 78 yo female presented to ED from home via son transport. Pt presented with 1 week h/o Nausea, vomitting, and diarrhea d/t IBS. Pt found to be in LORRIE, dehydration and Hypotensive requiring IV Fluid resuscitation. Pt developed Hyperglycemia and IV fluids changed and labs monitored in ICU. Pt then transferred to Med surg unit with PT consult placed. Pt had CxR with incidental finding of multiple lung nodules less than 3mm. PMHX: Nausea vomiting and diarrhea (Acute) Acute hyperglycemia (Acute) Dehydration (Acute) Acute hyperkalemia (Acute) LORRIE (acute kidney injury) (Acute) Discharge planning issues (Acute) DVT prophylaxis (Acute) Incidental lung nodule, less than or equal to 3mm (Acute) Thoracic back pain (Acute) Costochondritis (Acute) Atypical chest pain (Acute) Allergic rhinitis (Acute 05/26/14) Anxiety associated with depression (Chronic 11/28/17) Cervical spondylolysis (Acute 11/28/17) Diverticulosis of intestine without bleeding (Acute 11/28/17) Erosive gastritis (Acute 11/28/17) Gastroesophageal reflux disease without esophagitis (Acute 11/28/17) Hiatal hernia (Acute 11/28/17) Unspecified essential hypertension (Acute 11/28/17) Illiteracy (Acute 11/28/17) Insomnia (Acute 05/26/14) Irritable bowel syndrome (Acute 11/28/17) Obstructive sleep apnea (Chronic 11/28/17) Osteoarthritis (Acute 11/28/17) Polyp of colon (Acute 11/28/17) Postnasal drip (Acute 05/26/14) C. difficile enteritis (Acute) Chest pain (Acute) Anemia (Chronic) Hypertension (Chronic) DVT prophylaxis (Acute) Gastroenteritis (Acute) Hypokalemia (Acute) Hypomagnesemia (Acute) Pyelonephritis (Acute) Depression (Chronic) GERD (gastroesophageal reflux disease) (Chronic) Gait disturbance (Chronic) Left carotid bruit (Chronic) Essential hypertension (Chronic) Medical History (Updated 02/19/24 @ 02:36 by Koko Vega) IBS (irritable bowel syndrome) Cardiomyopathy Allergic rhinitis Adenomatous polyp of colon Environmental allergies Osteopenia Cervical spondylosis Osteoarthritis Surgical History Rectocele, Paravaginal repair Vaginal hysterectomy GASTROSCOPY (01/20/15) DR.ANNICK ARAMBULACystocele, Paravaginal repair Colonoscopy - IV Sedation 2010COLONOSCOPY (~12/2014) DR.ANNICK ARAMBULA Social History/Home Situation: lives with her granddaughter in single level home with 5 steps with rail to enter. She was independent without device for ambulation. Independent ADl, cooking, home management . Pt reports she has a son nearby who is available if she needs help. Equipment Owned/DME: none Subjective: Pt reporting she is weak and her back hurts as well as having chest pain. Nurse notified and assessment completed by Nursing with MD notification. Nurse Irene and Javier present for evaluation to monitor vitals. after vitals taken pt reported maybe its from how I am laying in the bed Objective: [] General Observation: female semireclined in bed with multiple layers of bedding on her IV infusing into right UE and blair catheter to bedside drainage. Pt agreeable to get up with nurse and PT Mental Status: Alert and Oriented x 3 , Pain: mid back 3/10 Vital Signs: supine 127/57 sit 109/60, stand 118/63 sit( after8 mins of standing tasks) 93/57; 10 mins after sit (with legs elevated) 131/61 HR 49-55 oxygen sats 96% throughout ROM: Right Upper Extremity: WNL Left Upper Extremity: WNL Right Lower Extremity: WNL Left Lower Extremity: WNL Strength: BUE: grossly 4/5 Right Lower Extremity: hip: 3+/5 knee 3+/5 ankle 3/5 Left Lower Extremity: hip 3+/5 knee 3+/5 ankle 3/5 Sensation: Intact to light touch deep pressure bilateral lower extremities Bed Mobility/Transfers: Supine?sit min assist for trunk Sit?supine min assist for lower extremities Sit?stand CGA with cues for hand placement Stand to sit CGA with cues for hand placement Bed to chair: Step turn with FWW minimal assist and cues for safe approach to chair Gait: Ambulate with FWW min assist and close wheelchair follow 12 feet demonstrating bilateral knee instability decreased step height and length bilaterally and excessive trunk sway. Stairs: Patient unable to perform at this time Balance: [] Static Sitting: Normal Dynamic Sitting: Fair plus Static Standing: Fair with bilateral upper extremity support Dynamic Standing: Fair minus with bilateral upper extremity support Special Tests: Mobility Limitations Standardized Measure [facility] 6 clicks Basic Mobility Inpatient Short Form: Raw Score: 16 CMS Score: 54.16% disability Informed Consent/Education: Patient instructed in purpose of PT consult and plan of care. Assessment: Patient is a 78year old female referred to physical therapy services with the diagnosis of LORRIE/hypotension/dehydration. Patient demonstrates need for assistance of 1 for all functional mobility at this time. Patient presents with clinical signs and symptoms consistent with admitting diagnosis that have resulted in mobility limitations, gait instability, generalized weakness and overall ADL decline as demonstrated by the following impairment level findings: 1. Decreased strength bilateral upper extremity and lower extremity major muscle groups 2. Decreased balance sitting and standing 3. Decreased functional activity tolerance and standing 4. Increased pain mid back Impairments are contributing to the following functional limitations: AMPAC score. 1. Decline in bed mobility 2. Declining transfer skills 3. Difficulty with ambulation without assistive device and physical assistance 4. Increased risk for falls 5. Increased completion time for mobility/ADL performance 6. Difficulty with managing steps safely alone Patient is assessed as a Moderate 56726 complexity based on the following: History: 78-year-old female with past medical history as indicated above Examination: Demonstrates impairment in strength, balance, and mobility level with underlying impairments and functional limitations stated above as well as deficits score of 54.16% utilizing the [facility] mobility inpatient Short form Presentation: Evolving Decision Making: Moderate Goals: Goals X1 week 1. Supine-Sit supervision 2. Sit-Supine supervision 3. Sit-Stand supervision 4. Stand-Sit supervision 5. Bed-Chair supervision with least restrictive device 6. Chair-Bed supervision with least restrictive device 7. Ambulate with FWW greater than 50 feet and CGA 8. performed 2 steps with rail with contact-guard assist 9. Independent with home exercise program 10. improved balance standing to allow for supervised mobility with FWW Plan of Care/Treatment Plan: 1-2x/day, 7 days/week x 1 week. Plan of care has been reviewed with the [employer] providing the service under Physical Therapy direction. Initiate Physical Therapy intervention for strengthening, bed mobility, transfers, gait, stairs, balance training, use of assistive device. DISCHARGE RECOMMENDATIONS: [] [] Home with no services [] [] Home with services [specify] [] Home with outpatient PT [] [X] SNF for continued rehabilitation to return to prior level of function [] [facility] [] [] SNF versus LTC based on ability to participate and progress [] TREATMENT CODE/TIME: 35795 x 20 minutes for 1 unit, 22334 x 15 minutes for 1 unit/1455?1530 Please sign an return this page within 30 days if you agree with the above POC. Thank you! Physician Signature Date [facility]
--- NOTE | 2024-02-20 14:01 | CMPROGNOTE_ITS ---
Date of service: 02/20/24 Time of Service: 14:02 Care Management Progress Note Progress Note Text Progress Note Text: Venus was sitting up in bed visiting with her son Kishore and her grandson when CM met with her. She was pleasant and agreeable to conversation. CM raised the subject of discharge planning. Venus was admitted with acute kidney failure following an acute bout of GI illness. She had had vomiting and diarrhea for several days and was unable to get out of bed or eat or drink much. She is very weak and would likely benefit from short term rehab before returning home. Kishore agreed that this would be a good plan and Venus was in agreement as well. Venus has not had a PT evaluation yet but it is ordered for this afternoon. When the evaluation is complete, a referral will be sent to [facility] and to [facility] at Kishore and Venus's request. Clinically Venus is showing improvement. Her LTS are coming down as well as her BUN and creatinine. Her creatinine was 7.8 on admission and is down to 4.5 today. Her vital signs are stable and she is no longer having diarrhea. Discharge Potential Discharge Needs: Other (likely SNF for short term rehab) Anticipated Barriers to Discharge: Bed availability Patient/Family Education Needs: Review discharge instructions, discuss Ask Me Three Transportation: Other (to be determined by disposition) Plan: Anticipate Venus will be transferred to a intermediate facility for short term rehab prior to returning home with family. She will follow up with the facility providers and plan of care. Transportation will be determined by disposition. CM will follow and continue to support discharge planning needs. SDOH(Care Management) Screening Will the Patient Participate in the Screening?: Yes Do you worry about having a steady place to live?: no Problems where you live: no known problems In the past 12 months, have you had to go without electric, gas, oil or water in your home?: no Have you or anyone in your house had to go without enough food to eat?: no Has lack of transportation kept you from medical appointments or from doing things needed for daily living?: no Has anyone in your support network made you feel unsafe for any reason?: no
--- NOTE | 2024-02-20 15:26 | CHAPLAIN ---
Venus was in bed with her eyes closed when I walked in, but she opened her eyes and greeted me. She was trying to nap, so I didn't stay long. I introduced myself, explained my role and offered support. Venus's Bryn is listed as her next of kin, but he I believe he has . He was here as a patient several times, some staff got to know him well, and Venus was his caregiver. They also have a son, Jose Alejandro. I will check back in with Venus tomorrow.
--- NOTE | 2024-02-20 17:49 | PGE_ITS ---
Date of Service Date of service: 02/20/24 Time of Service: 17:49 Assessment and Plan Assessment and plan (1) LORRIE (acute kidney injury): Start date: 02/18/24 Status: Acute Assessment and plan: -secondary to increased loss with nausea and vomiting and possibly diarrhea and decreased PO intake over the last ~5 days -Cr 7.8 on admission (baseline 1.2), significantly improved with IV fluids and is down to 4.5 as of 11a02/19 -will continue IV fluids until patient is able to tolerate PO intake -f/u AM BMP (2) Dehydration: Start date: 02/18/24 Status: Acute Assessment and plan: -Secondary to GI loss and poor intake as noted above (3) Nausea vomiting and diarrhea: Start date: 02/18/24 Status: Acute Assessment and plan: -continue PRN Zofran and low-dose Ativan as needed. (4) Acute hyperkalemia: Start date: 02/18/24 Status: Acute Assessment and plan: -K was up to 5.8 in ED, now down to 4.7 as of 11a02/19 -f/u AM BMP (5) Acute hyperglycemia: Start date: 02/18/24 Status: Acute Assessment and plan: -brief, and did respond rapidly with IV insulin (6) Cardiomyopathy: Assessment and plan: -echocardiogram in 2018 revealing normal right ventricular function and hyperdynamic left ventricular function -TTE showed EF 67%, no acute findings Qualifiers: Cardiomyopathy type: other Qualified Code(s): I42.8 - Other cardiomyopathies (7) Essential hypertension: Status: Chronic Assessment and plan: -Hold home carvedilol (8) GERD (gastroesophageal reflux disease): Status: Chronic Assessment and plan: -Continue PPI. Qualifiers: Esophagitis presence: without esophagitis Qualified Code(s): K21.9 - Gastro-esophageal reflux disease without esophagitis (9) Anxiety associated with depression: Status: Chronic Assessment and plan: -Continue outpatient medication therapy with Ativan as needed for nausea as well. (10) IBS (irritable bowel syndrome): Assessment and plan: -No specific therapy at this time does appear to have an associated diarrhea. Follow-up long-term with PCP. Qualifiers: Irritable bowel syndrome type: with diarrhea Qualified Code(s): K58.0 - Irritable bowel syndrome with diarrhea Subjective Subjective Interval history since last seen: Patient states that she is feeling better today and has been trying to increase her p.o. intake. She has been having some ongoing stomach discomfort likely due to irritation from gastroenteritis and has been ordered viscous lidocaine. Exam Narrative Exam Narrative: Fatigued but well-appearing older female laying in bed in no acute distress, ANO x 4, heart regular rhythm, lungs clear to auscultation bilaterally, abdomen soft, with mild diffuse tenderness without guarding or rebound Objective Last Vital Signs Temp 97.2 F L 02/20/24 16:43 Pulse 60 02/20/24 16:43 Resp 15 02/20/24 16:43 BP 97/67 L 02/20/24 16:43 Pulse Ox 96 02/20/24 16:43 Laboratory Results - last 24 hr 02/20/24 02/20/24 06:22 08:54 WBC 4.07 L Cancelled RBC 3.23 L Cancelled Hgb 9.4 L Cancelled Hct 29.2 L Cancelled MCV 90 Cancelled MCH 29.1 Cancelled MCHC 32.2 Cancelled RDW 13.3 Cancelled Plt Count 118 L Cancelled MPV 10.4 Cancelled Immature Gran % Cancelled Neutrophils % Cancelled Band Neutrophils % Cancelled Lymphocytes % Cancelled Atypical Lymphs % Cancelled Monocytes % Cancelled Eosinophils % Cancelled Basophils % Cancelled Metamyelocytes % Cancelled Myelocytes % Cancelled Promyelocytes % Cancelled Other Cells % Cancelled Nucleated RBC % Cancelled Absolute Neutrophils Cancelled Absolute Lymphocytes Cancelled Absolute Monocytes Cancelled Absolute Eosinophils Cancelled Absolute Basophils Cancelled RBC Morphology Cancelled Polychromasia Cancelled Hypochromasia Cancelled Poikilocytosis Cancelled Basophilic Stippling Cancelled Anisocytosis Cancelled Microcytosis Cancelled Macrocytosis Cancelled Spherocytes Cancelled Tear Drop Cells Cancelled Ovalocytes Cancelled Stomatocytes Cancelled [place] Bodies Cancelled [place] Cells/Echinocytes Cancelled Acanthocytes (Spur) Cancelled Schistocytes Cancelled Sodium 139 Potassium 4.7 Chloride 110 H Carbon Dioxide 17.3 L Anion Gap 11.7 H BUN 70 H Creatinine 4.5 H* Est GFR (CKD-EPI 2020) 9.43 Glucose 84 Calcium 8.4 L Time Spent with Patient Time Spent with Patient: >50 minutes Time was spent: preparing to see the patient(eg.review tests), obtaining and/or reviewing separately otained hiistory, ordering medications,tests, procedures, referring, communicating with other health healthcare advisory services manager, indepentently interpreting results, counseling the patient and care coordination
[2024-02-20] MEDS: Rosuvastatin 20 MG TAB PO (20:01)
[2024-02-20] MEDS: traMADol 50 MG TAB PO (20:01)
[2024-02-20] MEDS: Pantoprazole 20 MG TABCR PO (22:31)
[2024-02-21] VITALS (7 sets, daily range): BP systolic 121–154; BP diastolic 47–65; PULSE 57–63; RESP 17–20; TEMP 36.2–37.2; O2SAT 94–97
[2024-02-21] MEDS: Lactated Ringers 1,000 ML 150 ML IV ×3 (02:43→16:20)
[2024-02-21] MEDS: Levothyroxine 50 MCG TAB PO (06:20)
[2024-02-21] MEDS: Citalopram 20 MG TAB 40 MG PO (08:06)
[2024-02-21] MEDS: Dexlansoprazole 30 MG CAP 60 MG PO (08:06)
[2024-02-21] MEDS: Donepezil 5 MG TAB PO (08:07)
[2024-02-21] MEDS: Aspirin E.C. 81 MG TABEC PO (08:07)
[2024-02-21] MEDS: Carvedilol 6.25 MG TAB PO ×2 (08:07→20:47)
[2024-02-21] MEDS: Docusate Sodium 100 MG CAP PO (08:08)
[2024-02-21] MEDS: Pantoprazole 20 MG TABCR PO (08:20)
--- NOTE | 2024-02-21 10:46 | PDOC.CMPRO ---
Date of service: 02/21/24 Time of Service: 10:46 Care Management Progress Note Progress Note Text Progress Note Text: Venus was sitting up in a chair when CM met with her, her son Kishore and his . Venus continues to have nausea and anorexia and is eating little if any of her meals. Each time she attempts to eat she complains of nausea. She was medicated with compazine before lunch but was still not able to tolerate the meal. Kishore and his family are flying to [place] tomorrow to attend their daughter's wedding this weekend. Kishore was very worried about his mother and her potential transition to a senior living facility for short term rehab. Fortunately a bed offer was received [facility] which the family accepted. When CM contacted him about the offer, he admitted being relieved that she had a safe place to go and would be cared for in their absence. They plan to return to [place] next week. Discharge Potential Discharge Needs: PCP F/U Appt and Other (SNF for STR) Anticipated Barriers to Discharge: Bed availability Patient/Family Education Needs: Review discharge instructions, discuss Ask Me Three Transportation: Other (to be determined by disposition) Plan: Anticipate Venus will be transferred to a senior living facility for short term rehab prior to returning home with family. She has been offered a bed [facility] and her son accepted the bed on her behalf. She will follow up with the facility providers and plan of care. Transportation will likely be via the facility wheelchair van. CM will follow and continue to support discharge planning needs. SDOH(Care Management) Screening Will the Patient Participate in the Screening?: Yes Do you worry about having a steady place to live?: no Problems where you live: no known problems In the past 12 months, have you had to go without electric, gas, oil or water in your home?: no Have you or anyone in your house had to go without enough food to eat?: no Has lack of transportation kept you from medical appointments or from doing things needed for daily living?: no Has anyone in your support network made you feel unsafe for any reason?: no
--- NOTE | 2024-02-21 11:36 | PT.INTREAT ---
PT Notes Visit Reasons: Acute renal failure Inpatient Physical Therapy Treatment Note [facility] Date: 02/20/2024 PRECAUTIONS: Activity as tolerated. Fall risk. Standard precautions in place. SUBJECTIVE: Feels weak. Agreeable to working with PT while chair is being swapped. Nurse Bonilla and CRISTIANE Kingattending to patient for vital signs taking and blood sugar monitoring. Per Nurse Bonilla, a chair has been recommendedn by primary PT to nsure safety and comfort. Son came in at beginning of session and is happy about his mother agreeing to participate in PT. Did verbalize having no appetite and nt really looking forward to eating. OBJECTIVE: Stanford catheter in place. IV through R UE. ? PAIN: None reported throughout session. VITALS: CRISTIANE King measured vitals signs right before PT session and have been WNL BED MOBILITY/TRANSFERS: Direct one-on-one instruction in dynamic activities to improve functional performance and technique throughout, required minimal cueing for safety ? Sit-stand: contact guard assist with FWW, cueing given to use B hands for support as needed? Stand-sit: contact guard assist with FWW, cueing given to use B hands for support as needed? Bed-Chair: contact guard assist with FWW, cueing given to use B hands for support during ascent as needed? Chair-bed: contact guard assist with FWW, cueing given to use B hands for support during descent as needed? ? ? GAIT: ? ? Facilitated safe and correct performance of activity below with minimal cueing provided only for directions, walker management and weight distribution for safety and decreased fatigue. ? Assistive Device: FWW? Weight bearing: FWB Assist: Contact guard assist ? Distance:? 250 feet ? Deviation: Decreased tony due to weakness and decreased confidence to move? ASSESSMENT:? Needed encouragement to participate in PT. Once goals have been discussed and aligned, patient was willing to work as much as she could to ultimately go home. Distantly considering SNF if she ends up needing it. Will reassess discharge recommendation as strength, appetite, and motivation improve while on admission. Needed to eat lunch right after returning back to room after walking activity. Patient with good cognition and motivation to go home. She also has good family support. PLAN: Progress strength, activity tolerance, mobility level and balance skillsto independent without and assistive device per prior level function. DISCHARGE RECOMMENDATION: Short-term rehab vs HH PT based on progress towards goals and mobility improvement TREATMENT CODE/TIME: 11255 x 25 minutes for 2 units (11:36-12:01).
[2024-02-21] MEDS: Prochlorperazine 10 MG/2 ML VIAL 5 MG IVP (11:58)
[2024-02-21 12:19] LABS: Abs Immature Grans 0.02 10^3/uL (0.0-0.06); Absolute Basophil Count 0.03 10^3/uL (0.0-0.2); Absolute Eosinophil Count 0.06 10^3/uL (0.0-0.7); Absolute Lymphocyte Count 1.88 10^3/uL (1.2-3.4); Absolute Monocyte Count 0.43 10^3/uL (0.1-0.8); Absolute Neutrophil Count 4.03 10^3/uL (1.2-6.7); Basophils % 0.5 %; Eosinophils % 0.9 %; HCT 32.4 % (36.0-46.0); HGB 10.8 g/dL (11.2-15.7); Immature Grans % 0.3 %; Lymphocytes % 29.1 %; MCH 29.8 pg (27.0-33.0); MCHC 33.3 % (32.0-36.0); MCV 89 fL (80-95); MPV 10.6 fL (8.0-11.0); Monocytes % 6.7 %; Neutrophils % 62.5 %; Platelet Count 154 10^3/uL (130-400); RBC 3.63 10^6/uL (3.93-5.22); RDW-SD 42.8 fL; WBC 6.45 10^3/uL (4.4-10.8)
[2024-02-21 12:29] LABS: Anion Gap 9.9 mmol/L (3-11); BUN 50 mg/dL (7-18); CO2 18.1 mmol/L (21.0-32.0); CREATININE 3.5 mg/dL (0.55-1.02); Calcium 8.8 mg/dL (8.5-10.1); Chloride 107 mmol/L (98-107); Estimated GFR 12.75 (mL/min/1.73m2); Glucose 92 mg/dL (74-106); Magnesium 1.4 mg/dL (1.8-2.4); Potassium 4.7 mmol/L (3.5-5.1); Sodium 135 mmol/L (136-145)
--- NOTE | 2024-02-21 15:00 | W.PM.PROGNOT ---
Date of Service Date of service: 02/21/24 Time of Service: 15:00 Assessment and Plan Assessment and plan (1) LORRIE (acute kidney injury): Start date: 02/18/24 Status: Acute Assessment and plan: -Pre-renal secondary to increased loss with nausea and vomiting and poor PO since 02/01 treatment with Bactrim DS, possible direct effect of Bactrim as well. -Cr 7.8 on admission (baseline 1.2), continues to imrpove down to 3.5 as of 11am 02/20 -will continue IV fluids until patient is better able to tolerate PO intake -f/u AM BMP/mg (2) Nausea vomiting and diarrhea: Start date: 02/18/24 Status: Acute Assessment and plan: -QTc long, so given option for compazine today rather than ondansatron, also has low-dose Ativan as needed. (3) Acute hyperkalemia: Start date: 02/18/24 Status: Acute Assessment and plan: -K was up to 5.8 in ED, normalized -f/u AM BMP (4) Acute hyperglycemia: Start date: 02/18/24 Status: Acute Assessment and plan: -brief, and did respond rapidly with IV insulin, no recurrence. (5) Cardiomyopathy: Assessment and plan: -echocardiogram in 2018 revealing normal right ventricular function and hyperdynamic left ventricular function -TTE showed EF 67%, no acute findings -No signs of heart failure on fluids Qualifiers: Cardiomyopathy type: other Qualified Code(s): I42.8 - Other cardiomyopathies (6) Essential hypertension: Status: Chronic Assessment and plan: -back on home carvedilol (7) GERD (gastroesophageal reflux disease): Status: Chronic Assessment and plan: -Continue PPI. Qualifiers: Esophagitis presence: without esophagitis Qualified Code(s): K21.9 - Gastro-esophageal reflux disease without esophagitis (8) Anxiety associated with depression: Status: Chronic Assessment and plan: -Continue outpatient medication therapy with SSRI, substituted escitalopram 20mg for citalopram 40mg due to QTc concern. Continue lorazepam as needed for nausea as well. (9) IBS (irritable bowel syndrome): Assessment and plan: -No specific therapy at this time does appear to have an associated diarrhea. Follow-up long-term with PCP. Qualifiers: Irritable bowel syndrome type: with diarrhea Qualified Code(s): K58.0 - Irritable bowel syndrome with diarrhea (10) Hypothyroid: Status: Chronic Assessment and plan: was overcorrected at admission. Given age, goal TSH 2-3. Cut dose to 37.5mg, f/u with PCP Subjective Subjective Patient reports: nausea; denies tolerating a regular diet, vomiting, shortness of breath or fever Interval history since last seen: Still feeling fatigued. Had only some sips and feels nausea. Her family says she has not felt well since she was treated with antibiotics for UTI 2 weeks ago, and hasn't been eating. Exam Narrative Exam Narrative: Fatigued but well-appearing older female sitting up in a chair, no acute distress, ANO x 4, heart regular rhythm, lungs clear to auscultation bilaterally, abdomen soft, with active BS, mild diffuse tenderness without guarding or rebound. Extremities warm, non-tender, no edema. Objective Last Vital Signs Temp 36.5 C 02/21/24 11:47 Pulse 57 L 02/21/24 11:47 Resp 18 02/21/24 11:47 BP 126/52 L 02/21/24 11:47 Pulse Ox 97 02/21/24 11:47 Laboratory Results - last 24 hr 02/21/24 02/21/24 12:06 12:06 WBC 6.45 RBC 3.63 L Hgb 10.8 L Hct 32.4 L MCV 89 MCH 29.8 MCHC 33.3 RDW 13.0 Plt Count 154 MPV 10.6 Immature Gran % 0.3 Neutrophils % 62.5 Lymphocytes % 29.1 Monocytes % 6.7 Eosinophils % 0.9 Basophils % 0.5 Nucleated RBC % 0.0 Absolute Neutrophils 4.03 Absolute Lymphocytes 1.88 Absolute Monocytes 0.43 Absolute Eosinophils 0.06 Absolute Basophils 0.03 Sodium 135 L Potassium 4.7 Chloride 107 Carbon Dioxide 18.1 L Anion Gap 9.9 BUN 50 H Creatinine 3.5 H Est GFR (CKD-EPI 2020) 12.75 Glucose 92 Calcium 8.8 Magnesium 1.4 L Cancelled Time Spent with Patient Time Spent with Patient: >50 minutes Time was spent: preparing to see the patient(eg.review tests), obtaining and/or reviewing separately otained hiistory, ordering medications,tests, procedures, referring, communicating with other health personal care assistant, indepentently interpreting results, counseling the patient and care coordination
--- NOTE | 2024-02-21 15:49 | PTTR_ITS ---
PT Notes Visit Reasons: Acute renal failure Inpatient Physical Therapy Treatment Note [facility] Date: 02-21-2024 PRECAUTIONS: Stanford catheter, IV, standard precautions SUBJECTIVE: Patient reporting no energy and just wants to lay in the chair. Patient reports low back/buttock sore OBJECTIVE: Reclined in chair when approached.patient initially declined to participate in therapy then agreeable to perform transfers within the room. ? PAIN: Low back/buttock 1-07/08 Therapeutic Activities (17542e2): Direct one-on-one instruction in dynamic activities to improve functional performance. ?? Sit to stand x 4 trials with standby assist Chair to commode transfers with standby assist Commode to bed transfer with standby assist and FWW Bed mobility/sit to supine/rolling independent ? ASSESSMENT: Patient demonstrates improved ability to perform functional tasks after max cues for motivation and encouragement. Patient noted to have bl anchable area to sacrum/coccyx (nursing notified) after sitting in recliner. Patient assisted to bed and encouraged to lay on side to unweight sacrum/coccyx. Lambswool applied to recliner. PLAN: Continue twice daily treatments for strengthening ,functional mobility training ,activity tolerance until medically appropriate for discharge TREATMENT CODE/TIME: 71355 x 13 minutes/1340?[id number] DISCHARGE RECOMMENDATION: SNF versus home with HH PT
[2024-02-21] MEDS: Normal Saline Flush 10 ML SYR IVP ×2 (17:56→20:49)
[2024-02-21] MEDS: MAGNESIUM SULFATE 4 GM/100 ML BAG IVINF (18:02)
[2024-02-21] MEDS: traMADol 50 MG TAB PO (20:46)
[2024-02-21] MEDS: Acetaminophen 325 MG TAB PO (20:46)
[2024-02-21] MEDS: Lidocaine 2% Viscous 15 ML CUP PO (20:46)
[2024-02-21] MEDS: Rosuvastatin 20 MG TAB PO (20:46)
[2024-02-21] MEDS: Lidocaine 5% Patch 1 PATCH TP (20:51)
[2024-02-22] MEDS: Lactated Ringers 1,000 ML 150 ML IV (02:56)
[2024-02-22] MEDS: Levothyroxine 75 MCG TAB 37.5 MCG PO (05:51)
[2024-02-22] MEDS: Mylanta Suspension 30 ML CUP PO (06:44)
[2024-02-22 07:07] LABS: Abs Immature Grans 0.02 10^3/uL (0.0-0.06); Absolute Basophil Count 0.04 10^3/uL (0.0-0.2); Absolute Eosinophil Count 0.09 10^3/uL (0.0-0.7); Absolute Lymphocyte Count 1.73 10^3/uL (1.2-3.4); Basophils % 0.8 %; Eosinophils % 1.7 %; HCT 28.9 % (36.0-46.0); HGB 9.9 g/dL (11.2-15.7); Immature Grans % 0.4 %; Lymphocytes % 32.8 %; MCH 29.7 pg (27.0-33.0); MCHC 34.3 % (32.0-36.0); MCV 87 fL (80-95); MPV 10.8 fL (8.0-11.0); Monocytes % 7.6 %; Neutrophils % 56.7 %; Platelet Count 145 10^3/uL (130-400); RBC 3.33 10^6/uL (3.93-5.22); RDW-SD 41.1 fL; WBC 5.28 10^3/uL (4.4-10.8)
[2024-02-22 07:22] LABS: Anion Gap 11.2 mmol/L (3-11); BUN 44 mg/dL (7-18); CO2 16.8 mmol/L (21.0-32.0); CREATININE 3.2 mg/dL (0.55-1.02); Calcium 8.8 mg/dL (8.5-10.1); Chloride 108 mmol/L (98-107); Estimated GFR 14.19 (mL/min/1.73m2); Glucose 87 mg/dL (74-106); Magnesium 2.8 mg/dL (1.8-2.4); Potassium 4.4 mmol/L (3.5-5.1); Sodium 136 mmol/L (136-145)
[2024-02-22 07:57] VITALS: BP 168/68; PULSE 63; RESP 14; TEMP 36.5; O2SAT 95
[2024-02-22] MEDS: Carvedilol 6.25 MG TAB PO ×2 (08:21→21:03)
[2024-02-22] MEDS: Dexlansoprazole 30 MG CAP 60 MG PO (08:21)
[2024-02-22] MEDS: Escitalopram 20 MG TAB PO (08:22)
[2024-02-22] MEDS: Normal Saline Flush 10 ML SYR IVP ×2 (08:22→21:03)
[2024-02-22] MEDS: Pantoprazole 20 MG TABCR PO (08:22)
[2024-02-22] MEDS: Donepezil 5 MG TAB PO (08:22)
[2024-02-22] MEDS: Aspirin E.C. 81 MG TABEC PO (08:22)
[2024-02-22] MEDS: Prochlorperazine 10 MG/2 ML VIAL 5 MG IVP (08:30)
--- NOTE | 2024-02-22 10:32 | PT.INTREAT ---
PT Notes Visit Reasons: Acute renal failure Inpatient Physical Therapy Treatment Note [facility] Date: 02/22/2024 PRECAUTIONS: Activity as tolerated. Fall risk. Standard precautions in place. SUBJECTIVE: PT came in at 8:50 AM and patient's breakfast was untouched. Did not want to eat despite persistent attempts by nursing staff and this provider. Verbalizes that she has been nauseous and she knows what will happen if she eats when she is nauseous. Agreeable to walking, was very dizzy at the start. Could not remember anything that happened in the past regarding how long ago she her , how many years try were , how long ago her son or her passed. Motivation too low, needed a lot of encouragement to participate. In the afternoon, Nurse Regina said that patient did not eat lunch again. Nurse added that son said that patient has been like this for the past 3 weeks with worsening loss of appetite. Patient does not feel that nausea medication is working. OBJECTIVE: IV through R UE. Name tag on right removed by PT as it is starting to dig on her swelling L arm. ? PAIN: None reported throughout session. VITALS: Closely monitored by nursing BED MOBILITY/TRANSFERS: Direct one-on-one instruction in dynamic activities to improve functional performance and technique throughout, required minimal cueing for safety ?Sit-stand: stand by assist with FWW, cueing given to use B hands for support as needed? Stand-sit: contact guard assist with FWW, cueing given to use B hands for support as needed? Bed-Chair: contact guard assist with FWW, cueing given to use B hands for support during ascent as needed? Chair-bed: contact guard assist with FWW, cueing given to use B hands for support during descent as needed? ? ? GAIT: ? ? Facilitated safe and correct performance of activity below with minimal cueing provided only for directions, walker management and weight distribution for safety and decreased fatigue. ? Assistive Device: FWW? Weight bearing: FWB Assist: Contact guard assist ? Distance:? 250 feet in AM, 350 feet in PM? Deviation: Decreased tony due to weakness and decreased confidence to move. Mild loss of balance posteriorly twice during this walk that required minimal assist from PT?for safety. Gait speed improved during the afternoon session. Respiratory wheezes noted after PM walk. BP 190/73 mmHg, HR 60 bpm, SaO2 94% on RA. ? ASSESSMENT:? Needed encouragement to participate in PT. Continued decrease in oral intake has been contributory to weakness and balance issues along with persistent nausea. Patient showing some signs of depression: lack of appetite, apathy, needing motivation with self-care and mobility, and sadness. Decision-making poor. Question value of a psychological consult to address ongoing symptoms that limit progress towards functional mobility goals. PLAN: Progress strength, activity tolerance, mobility level and balance skillsto independent without and assistive device per prior level function. DISCHARGE RECOMMENDATION: Short-term rehab vs HH PT based on progress towards goals and mobility improvement TREATMENT CODE/TIME: Session 1--32590 x 25 minutes for 2 units (08:50-09:16). Session2-- 18042 x 25 minutes for 2 units (15:05-15:29).
[2024-02-22 11:16] VITALS: BP 158/68; PULSE 49; RESP 18; TEMP 36.1; O2SAT 97
[2024-02-22 15:30] VITALS: BP 140/65; PULSE 56; RESP 14; TEMP 36.1; O2SAT 97
--- NOTE | 2024-02-22 17:13 | PDOC.CMPRO ---
Date of service: 02/22/24 Time of Service: 17:13 Care Management Progress Note Progress Note Text Progress Note Text: Venus was sitting up in her chair when CM met with her. She was resting, but opened her eyes to tell CM that she has been better. CM called and spoke to her son, Kishore, and discussed the discharge plan; Venus has been accepted at both [facility] and [facility]; Kishore stated that the family's preference is [facility], because their father was there. Per MD, she is not medically cleared for discharge today, as she has not been eating due to her nausea. Her son stated that Venus is nauseas at baseline, and doesn't anticipate this to change overnight. CM will continue to follow. Discharge Potential Discharge Needs: Other (SNF) Anticipated Barriers to Discharge: Medical Status Patient/Family Education Needs: Review discharge instructions, discuss Ask Me Three Transportation: Facility Transport Plan: Venus will transfer to SNF once medically cleared by MD. She has accepted a bed offer at [facility], pending PA. She will likely transport via facility w/c van. She will follow up with her community providers and her discharge plan of care. CM will continue to follow. SDOH(Care Management) Screening Will the Patient Participate in the Screening?: Yes Do you worry about having a steady place to live?: no Problems where you live: no known problems In the past 12 months, have you had to go without electric, gas, oil or water in your home?: no Have you or anyone in your house had to go without enough food to eat?: no Has lack of transportation kept you from medical appointments or from doing things needed for daily living?: no Has anyone in your support network made you feel unsafe for any reason?: no
--- NOTE | 2024-02-22 18:28 | PGE_ITS ---
Date of Service Date of service: 02/22/24 Time of Service: 18:29 Assessment and Plan Assessment and plan (1) LORRIE (acute kidney injury): Start date: 02/18/24 Status: Acute Assessment and plan: -Pre-renal secondary to increased loss with nausea and vomiting and poor PO since 02/01 treatment with Bactrim DS, possible direct/intrinsic effect of Bactrim as well. -Cr 7.8 on admission (baseline 1.2), continues to imrpove down to 3.2 as of 11am 02/20 -Stopped fluids, but still minimal oral so will resume overnight. -f/u AM CMP (2) Nausea vomiting and diarrhea: Start date: 02/18/24 Status: Acute Assessment and plan: -QTc long, so given option for compazine today rather than ondansatron, also has low-dose Ativan as needed. -reassuring CT A/P on admission -This has gone on for weeks associated with malaise, get AM cortisol (3) Cardiomyopathy: Assessment and plan: -echocardiogram in 2018 revealing normal right ventricular function and hyperdynamic left ventricular function -TTE showed EF 67%, no acute findings -No signs of heart failure on fluids Qualifiers: Cardiomyopathy type: other Qualified Code(s): I42.8 - Other cardiomyopathies (4) Essential hypertension: Status: Chronic Assessment and plan: -back on home carvedilol (5) GERD (gastroesophageal reflux disease): Status: Chronic Assessment and plan: -Continue PPI. Qualifiers: Esophagitis presence: without esophagitis Qualified Code(s): K21.9 - Gastro-esophageal reflux disease without esophagitis (6) Anxiety associated with depression: Status: Chronic Assessment and plan: -Continue outpatient medication therapy with SSRI, substituted escitalopram 20mg for citalopram 40mg due to QTc concern. Continue lorazepam as needed for nausea as well. She feels worse since being here, but doesn't want to change medication. (7) Hypothyroid: Status: Chronic Assessment and plan: was overcorrected at admission. Given age, goal TSH 2-3. Cut dose to 37.5mg on 02/20, f/u with PCP Subjective Subjective Patient reports: voiding w/o difficulty and bowel movement; denies diarrhea, vomiting, shortness of breath or fever Interval history since last seen: Venus doesn't feel any better. Feels fatigued, low energy, down. Hasn't been eating much. Some nausea but not terrible, just doesn't want to eat or drink much. No focal pain other than a sore throat that started today. no GI or symptoms. No joint pain or rash. She is sleeping okay. She denies depressed mood. Exam Narrative Exam Narrative: Fatigued appearing older female sitting up in a chair, no acute distress, ANO x 4, heart regular rhythm, lungs clear to auscultation bilaterally, abdomen soft, with active BS, mild diffuse tenderness without guarding or rebound. Extremities warm, non-tender, no edema. no joint swelling, no rashes. Affect mildly depressed, nl thought process. Objective Last Vital Signs Temp 36.1 C L 02/22/24 15:30 Pulse 56 L 02/22/24 15:30 Resp 14 02/22/24 15:30 BP 140/65 02/22/24 15:30 Pulse Ox 97 02/22/24 15:30 Laboratory Results - last 24 hr 02/22/24 06:32 WBC 5.28 RBC 3.33 L Hgb 9.9 L Hct 28.9 L MCV 87 MCH 29.7 MCHC 34.3 RDW 13.0 Plt Count 145 MPV 10.8 Immature Gran % 0.4 Neutrophils % 56.7 Lymphocytes % 32.8 Monocytes % 7.6 Eosinophils % 1.7 Basophils % 0.8 Nucleated RBC % 0.0 Absolute Neutrophils 3.00 Absolute Lymphocytes 1.73 Absolute Monocytes 0.40 Absolute Eosinophils 0.09 Absolute Basophils 0.04 Sodium 136 Potassium 4.4 Chloride 108 H Carbon Dioxide 16.8 L Anion Gap 11.2 H BUN 44 H Creatinine 3.2 H Est GFR (CKD-EPI 2020) 14.19 Glucose 87 Calcium 8.8 Magnesium 2.8 H Time Spent with Patient Time Spent with Patient: 35-49 minutes Time was spent: preparing to see the patient(eg.review tests), obtaining and/or reviewing separately otained hiistory, ordering medications,tests, procedures, referring, communicating with other health critical care unit manager, indepentently interpreting results, counseling the patient and care coordination
[2024-02-22 20:59] VITALS: BP 150/75; PULSE 60; RESP 20; TEMP 37.1; O2SAT 97
[2024-02-22] MEDS: Lidocaine 2% Viscous 15 ML CUP PO (21:03)
[2024-02-22] MEDS: traMADol 50 MG TAB PO (21:03)
[2024-02-22] MEDS: Acetaminophen 325 MG TAB PO (21:03)
[2024-02-22] MEDS: Rosuvastatin 20 MG TAB PO (21:03)
[2024-02-22] MEDS: Patch Removal 1 EACH TP (21:04)
[2024-02-22] MEDS: Lactated Ringers 1,000 ML 100 ML IV (21:04)
[2024-02-23 00:22] LABS: COVID-19 PCR Negative (Negative); Influenza A PCR Negative (Negative); Influenza B PCR Negative (Negative); RSV PCR Negative (Negative)
[2024-02-23 00:28] LABS: Source Nasopharynx
[2024-02-23 03:20] VITALS: BP 155/60; PULSE 70; RESP 18; TEMP 36.8; O2SAT 97
[2024-02-23] MEDS: Lactated Ringers 1,000 ML 100 ML IV (06:40)
[2024-02-23] MEDS: Levothyroxine 75 MCG TAB 37.5 MCG PO (06:40)
[2024-02-23 07:37] VITALS: BP 157/66; PULSE 54; RESP 16; TEMP 36.7; O2SAT 98
--- NOTE | 2024-02-23 07:45 | PTTR_ITS ---
PT Notes Visit Reasons: Acute renal failure Inpatient Physical Therapy Treatment Note [facility] Date: 02/23/2024 PRECAUTIONS: Activity as tolerated. Fall risk. Standard precautions in place. SUBJECTIVE: PT came in at 8:45 AM and patient's breakfast placed beside patient's bedside chair, was again untouched. Continues to complain that she has been nauseous and she knows what will happen if she eats when she is nauseous. Has not received any medication for nausea earlier today/before breakfast. Agreeable to showering today as arranged with CRISTIANE Okeefe. Agreeable to walking. PT coaxed patient into eating chicken noodle soup PT warmed up for patient. Nurse hugo stayed a bit longer to continue to encouarge patient to eat. In the afternoon, patient had very little of her chicken noodle soup and a teaspoon of her fruit. Did not want the egg sandwich. [place] much better since her shower with CRISTIANE okeefe this morning. OBJECTIVE: IV through R UE. ? PAIN: None reported throughout session. VITALS: Closely monitored by nursing staff. See below for walking VS. BED MOBILITY/TRANSFERS: Direct one-on-one instruction in dynamic activities to improve functional performance and technique throughout, required minimal cueing for safety ?Sit-stand: stand by assist with FWW, cueing given to use B hands for support as needed? Stand-sit: stand by assist with FWW, cueing given to use B hands for support as needed? Bed-Chair: stand by assist with FWW, cueing given to use B hands for support during ascent as needed? Chair-bed: stand by assist with FWW, cueing given to use B hands for support during descent as needed? ? ? GAIT: ? ? Facilitated safe and correct performance of activity below with minimal cueing provided only for directions, walker management and weight distribution for safety and decreased fatigue. ?Readjusted walker height for optimal weight distribution. ? Assistive Device: FWW? Weight bearing: FWB Assist: Stand by assist ? Distance:? 350 feet in AM, 350 feet in PM? Deviation: Decreased tony due to weakness and decreased confidence to move. No loss of balance posteriorly. Gait speed improved during the afternoon session. Respiratory wheezes noted after PM walk. BP 193/76 mmHg, HR 54 bpm, SaO2 98% on RA. THERA EX: One-on-one instruction on safe and correct execution of functional exercises as follows: Stepping exercises on 4-inch steps while holding onto B rails x 10 reps Side stepping around therapy stairs leading with L leg x 12 steps Side stepping around therapy stairs leading with R leg x 12 steps ? ASSESSMENT:? provided assiatnce with toileting prior to the afternoon walk with no difficulty as long as she held onto grab bar during clean up. High systolic BP after walk. Decreased rotation in trunk observed during side stepping activity. Continues to need encouragement to participate in PT. Gait appeared more stable today. Expiratory wheezes notable after ambulation activity but SaO2 was 98%. Continued decrease in oral intake has been contributory to weakness and balance issues along with persistent nausea. Patient showing some signs of depression: lack of appetite, apathy, needing motivation with self-care and mobility, and sadness. Decision-making poor. Question value of a psychological consult to address ongoing symptoms that limit progress towards functional mobility goals. PLAN: Progress strength, activity tolerance, mobility level and balance skillsto independent without and assistive device per prior level function. DISCHARGE RECOMMENDATION: Short-term rehab vs PT based on progress towards goals and mobility improvement TREATMENT CODE/TIME: Session 1--08478 x 30 minutes for 2 units, 79930 x 19 minutes for 1 unit (07:45-08:35). Session2-- 18 x minutes for 1 unit1 (14:20-14:38).
[2024-02-23 07:48] LABS: ALT 20 U/L (14-59); AST 23 U/L (15-37); Albumin 2.7 g/dL (3.4-5.0); Alkaline Phosphatase 90 U/L (46-116); Anion Gap 13.3 mmol/L (3-11); BUN 38 mg/dL (7-18); Bilirubin, Total 0.41 mg/dL (0.2-1.0); CO2 15.7 mmol/L (21.0-32.0); CREATININE 2.8 mg/dL (0.55-1.02); Calcium 8.6 mg/dL (8.5-10.1); Chloride 108 mmol/L (98-107); Estimated GFR 16.66 (mL/min/1.73m2); Glucose 72 mg/dL (74-106); Potassium 4.4 mmol/L (3.5-5.1); Sodium 137 mmol/L (136-145); Total Protein 5.3 g/dL (6.4-8.2); Vitamin B12 489 pg/mL (193-986)
[2024-02-23] MEDS: Dexlansoprazole 30 MG CAP 60 MG PO (08:29)
[2024-02-23] MEDS: Prochlorperazine 10 MG/2 ML VIAL 5 MG IVP (08:29)
[2024-02-23] MEDS: Normal Saline Flush 10 ML SYR IVP ×2 (08:30→20:57)
[2024-02-23] MEDS: Aspirin E.C. 81 MG TABEC PO (08:30)
[2024-02-23] MEDS: Escitalopram 20 MG TAB PO (08:30)
[2024-02-23] MEDS: Carvedilol 6.25 MG TAB PO ×2 (08:30→20:57)
[2024-02-23] MEDS: Donepezil 5 MG TAB PO (08:30)
[2024-02-23] MEDS: Furosemide 40 MG/4 ML VIAL IVP (09:14)
[2024-02-23] MEDS: amLODIPine 5 MG TAB PO (09:14)
--- NOTE | 2024-02-23 11:08 | PDOC.CMPRO ---
Date of service: 02/23/24 Time of Service: 11:08 Care Management Progress Note Progress Note Text Progress Note Text: Venus was sitting up in a chair with her lunch tray in front of her when CM met with her. Her eyes were closed and very little, if any, of her food had been touched. Per her family, Venus has chronic nausea and anorexia. Venus was minimally engaged with CM during the visit. Later in the afternoon CM observed Venus ambulating with PT. She appeared to be doing quite well and was awake, alert and engaged in the process. She will likely transition to [facility] early next week. Discharge Potential Discharge Needs: Other (SNF) Anticipated Barriers to Discharge: Medical Status Patient/Family Education Needs: Review discharge instructions, discuss [facility] Transportation: Facility Transport Plan: Venus will transfer to SNF once medically cleared by . She has accepted a bed offer at [facility], prior authorization approved. She will likely transport via facility w/c van. She will follow up with her community providers and her discharge plan of care. CM will continue to follow. SDOH(Care Management) Screening Will the Patient Participate in the Screening?: Yes Do you worry about having a steady place to live?: no Problems where you live: no known problems In the past 12 months, have you had to go without electric, gas, oil or water in your home?: no Have you or anyone in your house had to go without enough food to eat?: no Has lack of transportation kept you from medical appointments or from doing things needed for daily living?: no Has anyone in your support network made you feel unsafe for any reason?: no
[2024-02-23 15:42] VITALS: BP 131/49; PULSE 56; RESP 17; TEMP 35.7; O2SAT 97
--- NOTE | 2024-02-23 15:59 | PGE_ITS ---
Date of Service Date of service: 02/23/24 Time of Service: 15:59 Assessment and Plan Assessment and plan (1) LORRIE (acute kidney injury): Start date: 02/18/24 Status: Acute Assessment and plan: -Pre-renal secondary to increased loss with nausea and vomiting and poor PO since 02/01 treatment with Bactrim DS, possible direct/intrinsic effect of Bactrim as well. -Cr 7.8 on admission (baseline 1.2), continues to imrpove down to 2.8 as of 02/22 -Stopping fluids again. -She is 8L positive since admission and getting edema. Will give a dose of furosemide to treat fluid overload. (2) Nausea vomiting and diarrhea: Start date: 02/18/24 Status: Acute Assessment and plan: -QTc was long, so given option for compazine instead of ondansatron, also has low-dose Ativan as needed. -reassuring CT A/P on admission -stool normalizing, but still chronic nausea -This has gone on for weeks associated with malaise, AM cortisol pending from 02/22. -some sore throat but viral swabs negative. (3) Cardiomyopathy: Assessment and plan: -echocardiogram in 2018 revealing normal right ventricular function and hyperdynamic left ventricular function -TTE showed EF 67%, no acute findings -No signs of heart failure on fluids despite fluid positive Qualifiers: Cardiomyopathy type: other Qualified Code(s): I42.8 - Other cardiomyopathies (4) Essential hypertension: Status: Chronic Assessment and plan: -back on home carvedilol (5) GERD (gastroesophageal reflux disease): Status: Chronic Assessment and plan: -Continue PPI. Qualifiers: Esophagitis presence: without esophagitis Qualified Code(s): K21.9 - Gastro-esophageal reflux disease without esophagitis (6) Anxiety associated with depression: Status: Chronic Assessment and plan: -Continue outpatient medication therapy with SSRI, substituted escitalopram 20mg for citalopram 40mg due to QTc concern. Continue lorazepam as needed for nausea as well. She feels worse since being here, but doesn't want to change medica tion. Shower and PT seem to be helping today. (7) Hypothyroid: Status: Chronic Assessment and plan: was overcorrected at admission. Given age, goal TSH 2-3. Cut dose to 37.5mg on 02/20, f/u with PCP (8) DVT prophylaxis: Status: Acute Assessment and plan: Off heparin after platelets dropped in half from 02/17 to 02/19. SCDs. (9) Discharge planning issues: Status: Acute Assessment and plan: LORRIE improved. Will see how stable she is off fluids this time. Nausea and poor po has been chronic. Seeing PT, plan placement likely Monday. Subjective Subjective Patient reports: no new complaints; denies vomiting, shortness of breath or fever Interval history since last seen: still not hungry. Per family this has been true for months at least, though weight not dropping. Two soft brown stools yesterday, one this morning. Nauseous, but no vomiting. Exam Narrative Exam Narrative: Fatigued appearing older female sitting up in a chair, no acute distress, ANO x 4, heart regular rhythm, lungs clear to auscultation bilaterally, abdomen soft, with active BS, mild LLQ tenderness without guarding or rebound. Extremities warm, non-tender, 1+ LE edema. no joint swelling, no rashes. Affect mildly depressed, slightly better than yesterday, nl thought process. Objective Last Vital Signs Temp 35.7 C L 02/23/24 15:42 Pulse 56 L 02/23/24 15:42 Resp 17 02/23/24 15:42 BP 131/49 L 02/23/24 15:42 Pulse Ox 97 02/23/24 15:42 Laboratory Results - last 24 hr 02/22/24 02/23/24 21:00 06:16 Sodium 137 Potassium 4.4 Chloride 108 H Carbon Dioxide 15.7 L Anion Gap 13.3 H BUN 38 H Creatinine 2.8 H Est GFR (CKD-EPI 2020) 16.66 Glucose 72 L Calcium 8.6 Total Bilirubin 0.41 AST 23 ALT 20 Alkaline Phosphatase 90 Total Protein 5.3 L Albumin 2.7 L Vitamin B12 489 COVID-19 Source Nasopharynx SARS-CoV-2 (PCR) Negative Influenza Type A (PCR) Negative Influenza Type B (PCR) Negative RSV (PCR) Negative Time Spent with Patient Time Spent with Patient: 35-49 minutes Time was spent: preparing to see the patient(eg.review tests), obtaining and/or reviewing separately otained hiistory, ordering medications,tests, procedures, referring, communicating with other health care management associate, indepentently interpreting results, counseling the patient and care coordination
[2024-02-23 20:13] VITALS: BP 160/74; PULSE 84; RESP 17; TEMP 36.4; O2SAT 97
[2024-02-23] MEDS: Rosuvastatin 20 MG TAB PO (20:56)
[2024-02-23] MEDS: traMADol 50 MG TAB PO (20:57)
[2024-02-23] MEDS: Patch Removal 1 EACH TP (21:38)
[2024-02-23 23:04] VITALS: BP 147/69; PULSE 66; RESP 18; TEMP 36.6; O2SAT 97
[2024-02-24] VITALS (7 sets, daily range): BP systolic 103–170; BP diastolic 41–64; PULSE 54–68; RESP 17–18; TEMP 36.4–38.3; O2SAT 95–97
[2024-02-24] MEDS: Levothyroxine 75 MCG TAB 37.5 MCG PO (05:48)
[2024-02-24 07:01] LABS: Abs Immature Grans 0.02 10^3/uL (0.0-0.06); Absolute Basophil Count 0.04 10^3/uL (0.0-0.2); Absolute Eosinophil Count 0.07 10^3/uL (0.0-0.7); Absolute Lymphocyte Count 1.73 10^3/uL (1.2-3.4); Absolute Monocyte Count 0.45 10^3/uL (0.1-0.8); Absolute Neutrophil Count 3.65 10^3/uL (1.2-6.7); Basophils % 0.7 %; Eosinophils % 1.2 %; HCT 27.9 % (36.0-46.0); HGB 9.3 g/dL (11.2-15.7); Immature Grans % 0.3 %; MCH 29.3 pg (27.0-33.0); MCHC 33.3 % (32.0-36.0); MCV 88 fL (80-95); MPV 10.4 fL (8.0-11.0); Monocytes % 7.6 %; Neutrophils % 61.2 %; Platelet Count 159 10^3/uL (130-400); RBC 3.17 10^6/uL (3.93-5.22); RDW 12.7 % (11.7-14.6); RDW-SD 40.9 fL; WBC 5.96 10^3/uL (4.4-10.8)
[2024-02-24 07:16] LABS: Anion Gap 13.3 mmol/L (3-11); BUN 33 mg/dL (7-18); CO2 19.7 mmol/L (21.0-32.0); CREATININE 2.8 mg/dL (0.55-1.02); Calcium 8.6 mg/dL (8.5-10.1); Chloride 105 mmol/L (98-107); Estimated GFR 16.66 (mL/min/1.73m2); Glucose 81 mg/dL (74-106); Magnesium 1.9 mg/dL (1.8-2.4); Potassium 3.7 mmol/L (3.5-5.1); Sodium 138 mmol/L (136-145)
[2024-02-24] MEDS: Lidocaine 5% Patch 1 PATCH TP (07:52)
[2024-02-24] MEDS: Dexlansoprazole 30 MG CAP 60 MG PO (07:53)
[2024-02-24] MEDS: Aspirin E.C. 81 MG TABEC PO (07:53)
[2024-02-24] MEDS: Escitalopram 20 MG TAB PO (07:54)
[2024-02-24] MEDS: Carvedilol 6.25 MG TAB PO (07:54)
[2024-02-24] MEDS: amLODIPine 5 MG TAB PO (07:54)
[2024-02-24] MEDS: Donepezil 5 MG TAB PO (07:54)
[2024-02-24] MEDS: Normal Saline Flush 10 ML SYR IVP ×2 (07:57→21:38)
--- NOTE | 2024-02-24 11:58 | PT.INTREAT ---
PT Notes Visit Reasons: Acute renal failure Inpatient Physical Therapy Treatment Note [facility] Date: 02/24/24 SUBJECTIVE: Venus is agreeable to PT, but made it clear that she would rather sit in her recliner. OBJECTIVE: []? VITALS: ?monitored by [facility] Therapeutic Activities (87085z7): Direct one-on-one instruction in dynamic activities to improve functional performance. ? BED MOBILITY/TRANSFERS? sitting in recliner? Sit-stand:CGA ? Stand-sit: CGA? Provided skilled cues and instruction on performance and technique throughout. ? GAIT? Assistive Device: FWW? Weight bearing: full Assist: SBA/CGA ? Distance:?approx 260'? Therapeutic Exercises ([id number]): Direct one-on-one instruction in therapeutic exercises to develop strength, endurance, range of motion and flexibility. ? Exercises ?sit to stand x5 HR x10, Hip flex and abd standing x 5ea. Seated LAQ x10, SLR x10, and hip abd/add x10. Provided skilled instruction in proper exercise performance. ASSESSMENT:? tolerated session well, despite not feeling up to it. No LOB or fatigue noted. Low energy and not very self motivated. PLAN: will continue to progress functional mobility to tolerance. TREATMENT CODE/TIME: 25 min. [id number]. ([id number], [id number])
--- NOTE | 2024-02-24 12:30 | W.PM.PROGNOT ---
Date of Service Date of service: 02/24/24 Time of Service: 12:40 Assessment and Plan Assessment and plan (1) LORRIE (acute kidney injury): Start date: 02/18/24 Status: Acute Assessment and plan: -Unclear time course. [place] secondary to pre-renal secondary to GI loss with nausea and vomiting and poor PO since 02/01 treatment with Bactrim DS, possible direct/intrinsic effect of Bactrim as well. -she was taking 2/3 of her antihypertensives, she could have had more chronic progression of her previous CKD. -Cr 7.8 on admission (baseline 1.2-5, but last done in July), continues to imrpove down to 2.8 as of 02/22, leveled out off fluids s/p one dose furosemide. -She appears euvolemic today. She may be at a new baseline. -Will resume WOLF at low dose and monitor K+ (2) Nausea vomiting and diarrhea: Start date: 02/18/24 Status: Acute Assessment and plan: -reassuring CT A/P on admission -stool normalizing, but still chronic nausea -This has gone on for weeks associated with malaise, AM cortisol pending from 02/22. -some sore throat but viral swabs negative. -will stop benzo as she is becoming more active, follow up QTc on EKG. (3) Essential hypertension: Status: Chronic Assessment and plan: -back on home amlodipine. Per pharmacy she was not filling carvedilol. Given depressed mood I will cut this down. -She was filling lisinopril, which has been held with LORRIE. resume at low dose today. (4) GERD (gastroesophageal reflux disease): Status: Chronic Assessment and plan: -Continue PPI. Qualifiers: Esophagitis presence: without esophagitis Qualified Code(s): K21.9 - Gastro-esophageal reflux disease without esophagitis (5) Anxiety associated with depression: Status: Chronic Assessment and plan: - Phamacy records reviewed and she was not filling the citalopram. We've been giving her max dose citalopram/escitalopram here, which may be causing nausea. Her mood is finally improving though. Will cut escitalopram to 10mg. (6) Hypothyroid: Status: Chronic Assessment and plan: was overcorrected at admission. Given age, goal TSH 2-3. Cut dose to 37.5mg on 02/20, f/u with PCP (7) DVT prophylaxis: Status: Acute Assessment and plan: Off heparin after platelets dropped in half from 02/17 to 02/19. SCDs. (8) Discharge planning issues: Status: Acute Assessment and plan: LORRIE improved. Will see how stable she is off fluids this time. Nausea and poor po has been chronic. We are titrating her medications. Seeing PT, plan placement likely Monday. Subjective Subjective Patient reports: nausea; denies diarrhea, vomiting, shortness of breath or fever Interval history since last seen: 24hr: Stopped fluids, one dose furosemide yesterday. She was up with PT yesterday, took a shower. Still not eating much but she states she will eat. She feels a little better. Exam Narrative Exam Narrative: Older female sitting up in a chair, no acute distress, ANO x 4, though memory for recent events poor. heart regular rhythm, lungs clear to auscultation bilaterally, abdomen soft, with active BS, no tenderness. Extremities warm, non-tender, 1+ LE edema. no joint swelling, no rashes. Affect less depressed, slightly better than yesterday, nl thought process. Objective Last Vital Signs Temp 36.4 C L 02/24/24 10:58 Pulse 54 L 02/24/24 10:58 Resp 17 02/24/24 10:58 BP 131/53 L 02/24/24 10:58 Pulse Ox 96 02/24/24 10:58 Laboratory Results - last 24 hr 02/24/24 06:28 WBC 5.96 RBC 3.17 L Hgb 9.3 L Hct 27.9 L MCV 88 MCH 29.3 MCHC 33.3 RDW 12.7 Plt Count 159 MPV 10.4 Immature Gran % 0.3 Neutrophils % 61.2 Lymphocytes % 29.0 Monocytes % 7.6 Eosinophils % 1.2 Basophils % 0.7 Nucleated RBC % 0.0 Absolute Neutrophils 3.65 Absolute Lymphocytes 1.73 Absolute Monocytes 0.45 Absolute Eosinophils 0.07 Absolute Basophils 0.04 Sodium 138 Potassium 3.7 Chloride 105 Carbon Dioxide 19.7 L Anion Gap 13.3 H BUN 33 H Creatinine 2.8 H Est GFR (CKD-EPI 2020) 16.66 Glucose 81 Calcium 8.6 Magnesium 1.9 Time Spent with Patient Time Spent with Patient: >50 minutes Time was spent: preparing to see the patient(eg.review tests), obtaining and/or reviewing separately otained hiistory, ordering medications,tests, procedures, referring, communicating with other health respiratory care practitioner, indepentently interpreting results, counseling the patient and care coordination
--- NOTE | 2024-02-24 12:45 | RT.EKG_ITS ---
APPROVED REPORT Exam: Resting ECG Reason for Exam: follow up long QTc Patient Location: I HR:56 bpm ECG Measurements Heart Rate 56 AXIS TX [id number] P [id number] QRSd 50 QRS 52 QT 571 T [id number] QTc 552 Conclusion Junctional rhythm...absent P waves, slow V-rate Low voltage, precordial leads...precordial leads <1.0mV Borderline T abnormalities, diffuse leads...T flat/neg Prolonged QT interval...QTc >500mS
[2024-02-24] MEDS: Rosuvastatin 20 MG TAB PO (21:38)
[2024-02-24] MEDS: Carvedilol 6.25 MG TAB 3.125 MG PO (21:39)
[2024-02-24] MEDS: Patch Removal 1 EACH TP (21:40)
--- NOTE | 2024-02-24 23:46 | NUR.NOTE ---
Nursing Note: Assumed care at 2300
[2024-02-25] VITALS (7 sets, daily range): BP systolic 102–154; BP diastolic 52–83; PULSE 62–75; RESP 16–18; TEMP 36.8–37.6; O2SAT 95–97
[2024-02-25] MEDS: Levothyroxine 75 MCG TAB 37.5 MCG PO (06:30)
[2024-02-25 07:10] LABS: BUN 27 mg/dL (7-18); CREATININE 2.5 mg/dL (0.55-1.02); Calcium 8.6 mg/dL (8.5-10.1); Chloride 103 mmol/L (98-107); Estimated GFR 19.08 (mL/min/1.73m2); Glucose 78 mg/dL (74-106); Potassium 3.5 mmol/L (3.5-5.1); Sodium 135 mmol/L (136-145)
[2024-02-25] MEDS: Lidocaine 5% Patch 1 PATCH TP (07:43)
[2024-02-25] MEDS: Dexlansoprazole 30 MG CAP 60 MG PO (07:44)
[2024-02-25] MEDS: Normal Saline Flush 10 ML SYR IVP ×2 (07:44→20:39)
[2024-02-25] MEDS: amLODIPine 5 MG TAB PO (07:45)
[2024-02-25] MEDS: Donepezil 5 MG TAB PO (07:45)
[2024-02-25] MEDS: Carvedilol 6.25 MG TAB 3.125 MG PO (07:45)
[2024-02-25] MEDS: Aspirin E.C. 81 MG TABEC PO (07:45)
[2024-02-25] MEDS: Lisinopril 5 MG TAB PO (07:46)
[2024-02-25] MEDS: Escitalopram 20 MG TAB 10 MG PO (07:46)
--- NOTE | 2024-02-25 10:23 | PTTR_ITS ---
PT Notes Visit Reasons: Acute renal failure Inpatient Physical Therapy Treatment Note [facility] Date: 02/25/24 SUBJECTIVE: Venus is agreeable to PT. She offers no complaints to me this am. OBJECTIVE: []? VITALS: ?monitored by [facility] Therapeutic Activities ([id number]): Direct one-on-one instruction in dynamic activities to improve functional performance. ? BED MOBILITY/TRANSFERS? sitting in recliner? Sit-stand:CGA ? Stand-sit: CGA? Provided skilled cues and instruction on performance and technique throughout. ? GAIT? Assistive Device: FWW? Weight bearing: full Assist: SBA/CGA ? Distance:?approx 260'? she was also able to ambulated approx 10' with SBA and no AD. ? Therapeutic Exercises ([id number]): Direct one-on-one instruction in therapeutic exercises to develop strength, endurance, range of motion and flexibility. ? Exercises ?sit to stand x5 (without use of UE) HR x10, Hip flex and abd, SSH standing x 8ea. stand unsupported ft together 10 sec, with arm mvmt x10s. Partial/modified tandem Provided skilled instruction in proper exercise performance. ASSESSMENT:? tolerated session well. Improved balance today. seemed to be steadier on her feet compared to yesterday. PLAN: will continue to progress functional mobility to tolerance. TREATMENT CODE/TIME: 23 min. 17-1024 ([id number], [id number])
--- NOTE | 2024-02-25 11:35 | W.PM.PROGNOT ---
Date of Service Date of service: 02/25/24 Time of Service: 11:38 Assessment and Plan Assessment and plan (1) LORRIE (acute kidney injury): Start date: 02/18/24 Status: Acute Assessment and plan: -Unclear time course. [place] secondary to pre-renal secondary to GI loss with nausea and vomiting and poor PO since 02/01 treatment with Bactrim DS, possible direct/intrinsic effect of Bactrim as well. -she was taking 2/3 of her antihypertensives, she could have had more chronic progression of her previous CKD. -Cr 7.8 on admission (baseline 1.2-5, but last done in July), continues to imrpove down to 2.5 as of 02/24, down from 02/23 off IV fluids, which is reassuring, got lisinopril 02/24 AM. -She appears euvolemic today. . -continue to monitor Cr/K+ with WOLF resumption (2) Nausea vomiting and diarrhea: Start date: 02/18/24 Status: Acute Assessment and plan: -reassuring CT A/P on admission -stool normalized, but still chronic nausea -This has gone on for weeks to months and associated with malaise, AM cortisol pending from 02/22. -some sore throat but viral swabs negative. -has compazine prn (3) Essential hypertension: Status: Chronic Assessment and plan: -back on home amlodipine. Per pharmacy she was not filling carvedilol. Given depressed mood I cut this down, BP still low so I stopped it. -She was filling lisinopril, which has been held with LORRIE. resumed at low dose 02/24 (4) GERD (gastroesophageal reflux disease): Status: Chronic Assessment and plan: -Continue PPI. Qualifiers: Esophagitis presence: without esophagitis Qualified Code(s): K21.9 - Gastro-esophageal reflux disease without esophagitis (5) Anxiety associated with depression: Status: Chronic Assessment and plan: - Phamacy records reviewed and she was not filling the citalopram. We were been giving her max dose citalopram/escitalopram here, which may be causing nausea. Her mood is finally improving though. Escitalopram to 10mg as of 03/26 dose. (6) Hypothyroid: Status: Chronic Assessment and plan: was overcorrected at admission. Given age, goal TSH 2-3. Cut dose to 37.5mg on 02/20, f/u with PCP (7) DVT prophylaxis: Status: Acute Assessment and plan: Off heparin after platelets dropped in half from 02/17 to 02/19. SCDs. (8) Discharge planning issues: Status: Acute Assessment and plan: LORRIE improved and stable she off fluids this time. Nausea and poor po has been chronic. We are titrating her medications. Seeing PT, plan is rehab placement 02/25. Subjective Subjective Patient reports: no new complaints and nausea; denies diarrhea, vomiting, shortness of breath or fever Interval history since last seen: she is still a little bit nauseous, though this is chronic. She is eating and drinking, just doesn't eat much breakfast. Exam Narrative Exam Narrative: Older female sitting up in a chair, no acute distress, alert and oriented, though memory for recent events poor. Heart regular rhythm, lungs clear to auscultation bilaterally, abdomen soft, with active BS, no tenderness. Extremities warm, non-tender, trace LE edema. no joint swelling, no rashes. Affect has improved from being withdrawn/depressed, nl thought process. Objective Last Vital Signs Temp 37.6 C H 02/25/24 11:14 Pulse 63 02/25/24 11:14 Resp 16 02/25/24 11:14 BP 102/83 02/25/24 11:14 Pulse Ox 95 02/25/24 11:14 Laboratory Results - last 24 hr 02/25/24 06:08 Sodium 135 L Potassium 3.5 Chloride 103 Carbon Dioxide 19.0 L Anion Gap 13.0 H BUN 27 H Creatinine 2.5 H Est GFR (CKD-EPI 2020) 19.08 Glucose 78 Calcium 8.6 Time Spent with Patient Time Spent with Patient: 35-49 minutes Time was spent: preparing to see the patient(eg.review tests), obtaining and/or reviewing separately otained hiistory, ordering medications,tests, procedures, referring, communicating with other health care support representative, indepentently interpreting results, counseling the patient and care coordination
[2024-02-25] MEDS: Acetaminophen 325 MG TAB PO (15:15)
[2024-02-25] MEDS: traMADol 50 MG TAB PO (20:38)
[2024-02-25] MEDS: Rosuvastatin 20 MG TAB PO (20:38)
[2024-02-25] MEDS: Patch Removal 1 EACH TP (20:45)
[2024-02-26 03:14] VITALS: BP 154/70; PULSE 70; RESP 17; TEMP 36.8; O2SAT 96
[2024-02-26] MEDS: Levothyroxine 75 MCG TAB 37.5 MCG PO (05:56)
[2024-02-26 06:52] LABS: Anion Gap 10.5 mmol/L (3-11); BUN 21 mg/dL (7-18); CO2 21.5 mmol/L (21.0-32.0); CREATININE 2.3 mg/dL (0.55-1.02); Calcium 8.5 mg/dL (8.5-10.1); Chloride 104 mmol/L (98-107); Estimated GFR 21.09 (mL/min/1.73m2); Glucose 78 mg/dL (74-106); Potassium 3.5 mmol/L (3.5-5.1); Sodium 136 mmol/L (136-145)
[2024-02-26 07:50] VITALS: BP 167/62; PULSE 63; RESP 15; TEMP 36.1; O2SAT 96
[2024-02-26] MEDS: Lidocaine 5% Patch 1 PATCH TP (07:54)
[2024-02-26] MEDS: Escitalopram 20 MG TAB 10 MG PO (07:55)
[2024-02-26] MEDS: Lisinopril 5 MG TAB PO (07:55)
[2024-02-26] MEDS: Aspirin E.C. 81 MG TABEC PO (07:55)
[2024-02-26] MEDS: amLODIPine 5 MG TAB PO (07:55)
[2024-02-26] MEDS: Donepezil 5 MG TAB PO (07:55)
[2024-02-26] MEDS: Dexlansoprazole 30 MG CAP 60 MG PO (07:55)
[2024-02-26] MEDS: Normal Saline Flush 10 ML SYR IVP (09:03)
--- NOTE | 2024-02-26 09:13 | PTTR_ITS ---
PT Notes Visit Reasons: Acute renal failure Inpatient Physical Therapy Treatment Note [facility] Date: 02/26/2024 PRECAUTIONS: Activity as tolerated. Fall risk. Standard precautions in place. SUBJECTIVE: Still nauseous. Did not again want to eat her breakfast. Agreeable to going for a walk with PT. OBJECTIVE: IV access through R UE. ? PAIN: None reported throughout session. VITALS: Closely monitored by nursing staff. BED MOBILITY/TRANSFERS: Direct one-on-one instruction in dynamic activities to improve functional performance and technique throughout, required minimal cueing for safety ?Sit-stand: stand by assist with FWW, cueing given to use B hands for support as needed? Stand-sit: stand by assist with FWW, cueing given to use B hands for support as needed? Bed-Chair: stand by assist with FWW, cueing given to use B hands for support during ascent as needed? Chair-bed: stand by assist with FWW, cueing given to use B hands for support d uring descent as needed? ? ? GAIT: ? ? Facilitated safe and correct performance of activity below with minimal cueing provided only for directions, walker management and weight distribution for safety and decreased fatigue. ?Readjusted walker height for optimal weight distribution. ? Assistive Device: FWW? Weight bearing: FWB Assist: Stand by assist ? Distance:? 350 feet in AM ? Deviation: Decreased tony due to weakness and decreased confidence to move. No loss of balance posteriorly. Gait speed improved during the afternoon session. ? ASSESSMENT:? Decreased rotation in trunk observed during side stepping activity. Continues to need encouragement to participate in PT. Gait appeared more stable today. Continued decrease in oral intake has been contributory to weakness and balance issues along with persistent nausea Decision-making poor. Chronically has been complaining of being nauseous and not wanting eat for fear of vomiting. Nurse and MD aware of issues and have been managing. PLAN: Progress strength, activity tolerance, mobility level and balance skillsto independent without and assistive device per prior level function. DISCHARGE RECOMMENDATION: Short-term rehab vs HH PT based on progress towards goals and mobility improvement TREATMENT CODE/TIME: 48541 x 18 minutes for 1 unit (09:13-09:31).
--- NOTE | 2024-02-26 10:04 | NUR.NOTE ---
PT c/o of nausea, PRN mediation given through IV at the time, see EMAR Nursing Note:
[2024-02-26 11:26] VITALS: BP 167/58; PULSE 64; RESP 14; TEMP 36.8; O2SAT 97
--- NOTE | 2024-02-26 12:25 | DSE_ITS ---
Date of service: 02/26/24 Time of Service: 12:26 DS: Diagnosis Discharge Diagnosis (1) LORRIE (acute kidney injury): Status: Acute (2) Nausea vomiting and diarrhea: Status: Acute (3) Essential hypertension: Status: Chronic (4) GERD (gastroesophageal reflux disease): Status: Chronic (5) Anxiety associated with depression: Status: Chronic (6) Hypothyroid: Status: Chronic Discharge Plan Disposition Patient Disposition: Detention Facility(SNF) Condition: Good Discharge Details Reason For Visit: Acute renal failure Admit Date/Time: 02/18/24 23:55 Admit Provider: Koko Vega Attending Provider: Koko Vega Primary Care Provider: Katya Phelan Hospital Course Hospital Course: 78 yo F with history of hypertension and depression who presented with nausea, loose stools, and malaise and found to be in acute renal failure with a creatinine of 7.8. She initially had loose stools, c. diff was negative and the stools normalized. Upon further history, the family states her symptoms started after taking Bactrim for a DS for a UTI 3 weeks earlier. Her urinalysis showed only 100 protein and 3-5 red cells and no white cells, and 20-50 fine granular casts. Repeat U/a the following day was the same, but no red cells. CT abdomen and pelvis was benign with no hydronephrosis and normal appearing kidney and bladder. She was maintained IV fluids until 02/23 as she had persistent nausea and wasn't eating or drinking much. By the day of discharge 02/25 her creatinine was 2.3 and still trending down despite being off IV fluids and having restarted lisinopril the previous day at 5mg. Lisinopril was increased to 10mg on discharge, with a plan to slowly increase back to her previous full dose. She needs a BMP in 1 week to follow her renal function and potassium. With the persistent nausea, he medication list was reviewed and it was discovered that she never filled her citalopram or carvedilol as an outpatient. Carvedilol was discontinued. She was changed to escitalopram due to prolonged QTc and the dose was decreased to 10mg, and her nausea improved as well as her mood. We decided to discharge her on 5mg, which is the typical starting dose. She had a sore throat, but negative strep, flu, and COVID testing. Her TSH was low on admission and her levothyroxine was decreased from 50mcg to 37.5mg. TSH/reflex should be repeated in 4-6 weeks. She was seen by physical therapy and short term rehabilitation was ordered to regain mobility and function. Once she leaves rehab, she should follow up with her primary care in another 1-2 weeks. Home Meds and New Rx's Prescriptions: New acetaminophen 325 mg Tablet 650 mg PO Q4H PRN PRNQty: 0 0RF magnesium hydroxide [Milk of Magnesia] 400 mg/5 mL Suspension 30 ml PO DAILY PRN PRNQty: 0 0RF levothyroxine 75 mcg tablet 37.5 mcg PO DAILY Qty: 45 0RF escitalopram oxalate 5 mg tablet 5 mg PO DAILY Qty: 30 0RF lisinopril 10 mg tablet 10 mg PO DAILY Qty: 30 0RF Rx Instructions: lower dose Continued tramadol 50 mg tablet 50 mg PO QHS Patient Comments: #30 with 1 refill.HE clonazepam [Klonopin] 0.5 MG tablet 0.5 mg PO PRN PRN aspirin 81 MG tablet,delayed release (DR/EC) 81 mg PO DAILY Qty: 30 0RF [place] Ultra Strength 4-30-10 % cream 1 applic TP QD-BID PRN (Reason: muscle pain) Qty: 113 0RF dexlansoprazole 60 mg capsule,biphase delayed releas 60 mg PO DAILY Patient Comments: TAKE ONE CAPSULE BY MOUTH EVERY DAY donepezil 5 mg tablet 5 mg PO DAILY Patient Comments: TAKE ONE TABLET BY MOUTH EVERY DAY lidocaine [Lidoderm] 5 % adhesive patch,medicated 1 patch topical DAILY Qty: 15 0RF Rx Instructions: leave on most painful area for up to 12 hrs ranitidine HCl 150 mg capsule 150 mg PO BID Qty: 60 0RF amlodipine 5 mg tablet 5 mg PO DAILY Patient Comments: TAKE ONE TABLET BY MOUTH EVERY DAY FOR BLOOD PRESSURE rosuvastatin 20 mg tablet 20 mg PO .PM Patient Comments: TAKE ONE TABLET BY MOUTH EVERY EVENING Discontinued Citalopram Hydrobromide [Citalopram HBr] 40 MG tablet 40 mg PO DAILY lisinopril 40 MG tablet 40 mg PO QAM carvedilol [Coreg] 6.25 mg Tablet 6.25 mg PO BID Qty: 30 0RF levothyroxine 50 mcg tablet 50 mcg PO DAILY Patient Comments: TAKE ONE TABLET BY MOUTH EVERY MORNING ON AN EMPTY STOMACH 30 MINUTES BEFORE BREAKFAST Discharge Instructions Instructions: Chronic kidney disease, Diet for people with nondialysis chronic kidney disease Additional Instructions: Looks like you were never taking the carvedilol or citalopram. We took these off your list. Your thyroid levels were too high, so you should decrease your thyroid dose to 37.5mg per day (1/2 tablet of 75mcg) Looks like you were not taking the citalopram for your mood. You did not feel good on the full dose, but you felt better on a lower dose of escitalopram instead. This interacts less than citalopram with your other medication. Your lisinopril was not given for a few days, then restarted at a lower dose. As your kidneys recover, you may need to go back up on this dose to control the blood pressure, or use other blood pressure medications. Activity:: Activity as Tolerated Equipment/Supplies:: No Equipment Needed Diet:: As Tolerated Discharge Orders Discharge Orders: Discharge Order (Routine); Ordered 02/26/24 Ordered By: Vidal Harper Other Ambulatory Orders: Basic Metabolic Panel (Routine) Timeframe: 1 Week Facility: [facility] - Location: Laboratory Outpatient - [facility] Ordered By: Vidal Harper DS: Summary Time Spent with Patient providing and/or coordinating discharge services: Greater than 30 minutes Status at Discharge Functional status at discharge: uses cane/walker Overall status at discharge: patient is progressing back to baseline Mental Status: mental status grossly normal Speech and Movement: speech and movement normal Mood: congruent mood Affect: normal affect Quality:SDOH Health Related Social Needs: No Data to Display Exam Narrative Exam Narrative: Older female sitting up on the side of the bed, no acute distress, alert and oriented, though memory for recent events poor. Heart regular rhythm, lungs clear to auscultation bilaterally, abdomen soft, with active BS, no tenderness. Extremities warm, non-tender, trace LE edema. no joint swelling, no rashes. Affect has improved from being withdrawn/depressed, now more normal, nl thought process. Psych Mental Status: mental status grossly normal Speech and Movement: speech and movement normal Mood: congruent mood Affect: normal affect DS: Data Vitals/I&O Vitals and I&O: Vital Signs Temperature 36.8 C 02/26/24 11:26 Temperature Source Skin 02/26/24 11:26 Pulse 64 02/26/24 11:26 Pulse 64 02/19/24 17:01 Respiratory Rate 14 02/26/24 11:26 Respiratory Effort Normal 02/19/24 01:05 Respiratory Depth Normal 02/19/24 01:05 Respiratory Pattern Normal 02/19/24 01:05 Blood Pressure 167/58 H 02/26/24 11:26 Blood Pressure Mean 69 02/19/24 17:01 Blood Pressure Position Supine 02/19/24 01:05 Pulse Oximetry 97 02/26/24 11:26 Oxygen Delivery Method Room Air 02/26/24 11:26 Oxygen Flow Rate 0 02/26/24 11:26 Pain Level 0 02/26/24 11:26 Comment vitals relayed to RN 02/23/24 07:37 Intake & Output 02/25/24 02/26/24 02/26/24 23:59 11:59 23:59 Intake Total 250 / 250 Balance 250 / 250 Weight 58.6 kg Intake: IV Oral 240 / 240 Other: Urine Color Yellow Yellow Urine Appearance Clear Clear Cloudy Urine Odor Normal Comment voided an unmeasurable amount voided an unmeasurable amount Voiding Methods Toilet Toilet Data Completed and Pending Labs on day of discharge: Labs from last 24 hours 02/26/24 02/23/24 05:47 06:16 Sodium 136 Potassium 3.5 Chloride 104 Carbon Dioxide 21.5 Anion Gap 10.5 BUN 21 H Creatinine 2.3 H Est GFR (CKD-EPI 2020) 21.09 Glucose 78 Calcium 8.5 Cortisol 11.1 PFSH All Active Problems (Updated 02/26/24 @ 12:21 by Vidal Harper) Hypothyroid (Chronic) Nausea vomiting and diarrhea (Acute) Acute hyperglycemia (Acute) Dehydration (Acute) Acute hyperkalemia (Acute) LORRIE (acute kidney injury) (Acute) Discharge planning issues (Acute) DVT prophylaxis (Acute) Incidental lung nodule, less than or equal to 3mm (Acute) Thoracic back pain (Acute) Costochondritis (Acute) Atypical chest pain (Acute) Allergic rhinitis (Acute 05/26/14) Anxiety associated with depression (Chronic 11/28/17) Cervical spondylolysis (Acute 11/28/17) Diverticulosis of intestine without bleeding (Acute 11/28/17) Erosive gastritis (Acute 11/28/17) Gastroesophageal reflux disease without esophagitis (Acute 11/28/17) Hiatal hernia (Acute 11/28/17) Unspecified essential hypertension (Acute 11/28/17) Illiteracy (Acute 11/28/17) Insomnia (Acute 05/26/14) Irritable bowel syndrome (Acute 11/28/17) Obstructive sleep apnea (Chronic 11/28/17) Osteoarthritis (Acute 11/28/17) Polyp of colon (Acute 11/28/17) Postnasal drip (Acute 05/26/14) C. difficile enteritis (Acute) Chest pain (Acute) Anemia (Chronic) Hypertension (Chronic) DVT prophylaxis (Acute) Gastroenteritis (Acute) Hypokalemia (Acute) Hypomagnesemia (Acute) Pyelonephritis (Acute) Depression (Chronic) GERD (gastroesophageal reflux disease) (Chronic) Essential hypertension (Chronic) Left carotid bruit (Chronic) Gait disturbance (Chronic) Medical History (Updated 02/26/24 @ 12:21 by Vidal Harper) IBS (irritable bowel syndrome) Cardiomyopathy Allergic rhinitis Adenomatous polyp of colon Environmental allergies Osteopenia Cervical spondylosis Osteoarthritis Surgical History Rectocele, Paravaginal repair Vaginal hysterectomy GASTROSCOPY (01/20/15) DR.ANNICK ARAMBULA Cystocele, Paravaginal repair Colonoscopy - IV Sedation 2009 COLONOSCOPY (~12/2014) DR.ANNICK ARAMBULA Social History Smoking/Tobacco Use Status: Never Smoking risk assessment performed?: Yes Alcohol Intake: current Alcohol Intake frequency: a few times a month Drug use: Never Substance use type: does not use Housing: house Number of Children: 2 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 What is your relationship status?: Panel score (0-1 are the most socially isolated patients): 1 Do you feel safe at home: Yes Do you feel safe in your relationship?: Yes Additional Social history: lives with niece during week then son on weekend Time Spent with Patient Time Spent with Patient: 45-69 minutes Time was spent: preparing to see the patient(eg.review tests), obtaining and/or reviewing separately otained hiistory, ordering medications,tests, procedures, referring, communicating with other health healthcare sales representative, indepentently interpreting results, counseling the patient and care coordination
--- NOTE | 2024-02-26 14:58 | RESPIRATORY ---
02/26/2024 Patient's chart states a history of YVONNE. Patient denies any knowledge of YVONNE, having a sleep study, and CPAP or BIPAP use.
--- NOTE | 2024-02-26 15:50 | CMDISCH_ITS ---
Date of service: 02/26/24 Time of Service: 15:50 LACE Index Scoring Tool Questions: Length of Stay (in days): 7 - 13 Was the patient admitted via the E.D.?: Yes Comorbidities: Liver or Renal Disease E.D. Visits: 2 Answers: Total Score: 15 Risk of Readmission: High Risk Care Management Discharge Plan Reason for Hospitalization: acute renal failure Discharge Plan: Venus will transfer to [facility] for short term rehab prior to returning home. She will transport via [facility] coordinated by CM and will follow up with the facility providers and plan of care. Patient/Family Education Needs: expectations, limitations Services Needed at Discharge: Halfway Facility SDOH Health Related Social Needs: No Data to Display
== END 2024-02-26 13:01 | disposition skilled nursing facility (03) | DRG 683 ==
LOC: ER 02-19 00:22 → ICU 02-19 00:46 → MS 02-19 18:21
PROVIDERS: Family Medicine; Admitting Provider Family Medicine; Emergency Provider Emergency Medicine; PCP Physician Assistant; Visit Provider Family Medicine
DX: N17.9 Acute kidney failure, unspecified (principal); I42.8 Other cardiomyopathies; E86.0 Dehydration; R11.2 Nausea with vomiting, unspecified; E87.5 Hyperkalemia; R73.9 Hyperglycemia, unspecified; K21.9 Gastro-esophageal reflux disease without esophagitis; F41.8 Other specified anxiety disorders; K58.0 Irritable bowel syndrome with diarrhea; E03.9 Hypothyroidism, unspecified; I95.9 Hypotension, unspecified; G47.33 Obstructive sleep apnea (adult) (pediatric); R91.1 Solitary pulmonary nodule; M54.6 Pain in thoracic spine; J30.9 Allergic rhinitis, unspecified; M47.812 Spondylosis without myelopathy or radiculopathy, cervical region; K57.30 Diverticulosis of large intestine without perforation or abscess without bleeding; Z55.0 Illiteracy and low-level literacy; D64.9 Anemia, unspecified; R26.9 Unspecified abnormalities of gait and mobility; R94.31 Abnormal electrocardiogram [ECG] [EKG]; I12.9 Hypertensive chronic kidney disease with stage 1 through stage 4 chronic kidney disease, or unspecified chronic kidney disease; N18.9 Chronic kidney disease, unspecified
CPT/HCPCS: 00123; 36415; 36416; 51702; 80048; 80053; 82375; 82533; 82805; 82962; 83690; 84145; 85027; 86850; 86900; 86901; 87040; 87493; 87637; 93005; 93306; 94640; 96361; 96365; 96375; 97110; 97162; 97530; 99291; 71045; 74176; 80320; 80329; 81003; 81015; 82272; 82607; 83540; 83550; 83605; 83735; 83880; 84439; 84443; 84484; 85025; 85610; 85730; 87081; 93010; 99223; 99232; 99233; 99239; J0613; J0780; J1644; J1815; J1940; J2060; J2405; J3475; J3490; J7613

== ENCOUNTER 2024-03-06 17:11 | Outpatient (REF) | payer MEDICARE, MEDICAID, SELFPAY ==
[2024-03-06 14:03] LABS: Anion Gap 12.8 mmol/L (3-11); BUN 29 mg/dL (7-18); CO2 23.2 mmol/L (21.0-32.0); CREATININE 2.1 mg/dL (0.55-1.02); Calcium 10.3 mg/dL (8.5-10.1); Chloride 107 mmol/L (98-107); Estimated GFR 23.53 (mL/min/1.73m2); Glucose 93 mg/dL (74-106); Potassium 4.4 mmol/L (3.5-5.1); Sodium 143 mmol/L (136-145)
== END 2024-03-06 17:12 | disposition home or self-care (01) ==
LOC: LBN 17:11
PROVIDERS: PCP Physician Assistant; Visit Provider Family Medicine
DX: E03.9 Hypothyroidism, unspecified (principal)
CPT/HCPCS: 80048; 84443

== ENCOUNTER 2024-03-06 22:04 | Emergency (ER) | payer MEDICARE, MEDICAID, SELFPAY ==
[2024-03-06] VITALS (20 sets, daily range): BP systolic 106–164; BP diastolic 36–55; PULSE 60–71; RESP 8–21; TEMP 36.9; O2SAT 94–98
--- NOTE | 2024-03-06 22:00 | DI.CT_ITS ---
Exam(s) CT ABDOMEN PELVIS WO EXAM: CT ABDOMEN PELVIS WO CLINICAL HISTORY: LLQ abdominal pain, eval for tics. TECHNIQUE: Imaging Protocol: Axial computed tomography images with coronal and sagittal reformatted images were created and reviewed CONTRAST MATERIAL: Intravenous: none Oral: None COMPARISON: CT CT ABDOMEN PELVIS WO from 02/18/2024 FINDINGS: VISUALIZED LUNG BASES: No nodules nor pleural effusions evident. ABDOMEN: There is no ascites. LIVER: There are no obvious focal hepatic lesions evident of this noninfused study. GALLBLADDER/BILIARY: Gallbladder is again noted be surgically absent. CBD is not dilated. PANCREAS: No evidence of pancreatic mass nor dilatation of the pancreatic duct. SPLEEN: Spleen is not enlarged. No obvious intrasplenic lesions. ADRENALS: There are no significant adrenal masses. KIDNEYS:No cysts evident. No solid renal masses. No calculi nor hydronephrosis. . ABDOMINAL AORTA: Calcified but not enlarged. Common iliac arteries are also calcified but not enlarg ed. LYMPH NODES: There is no retroperitoneal nor paraaortic adenopathy. ABDOMINAL WALL: No evidence of significant anterior abdominal wall nor inguinal hernia. GI: Diverticulosis seminal: Sigmoid. There is some mild streaking around the upper sigmoid which was not evident on 02/18/2024. This findings consistent with acute diverticulitis. There is no abscess at this time. No free air. PELVIS: LYMPH NODES: There is no intrapelvic nor inguinal adenopathy. GI: Appendix not identified. URINARY BLADDER: Collapsed REPRODUCTIVE: Uterus again noted to be surgically absent. No abnormal adnexal masses. OSSEOUS: No significant osseous lesions. No fractures. IMPRESSION: 1. There is diverticulitis of the descending colon-proximal sigmoid which was not evident on recent s tudy of 02/18/2024. No obvious perforation and there is no evidence of abscess at this time. 2. Previous cholecystectomy and hysterectomy. 3. No evidence of bowel obstruction. RADIATION DOSE DELIVERED: 320.39mGy.cm Total DLP DATA REPOSITORY: All CT scans at this facility are submitted to the National Radiology Data Registry (NRDR) Dose Index Registry (DIR) with the [employer] (A[employer]). RADIATION OPTIMIZATION: All CT scans at this facility use at least one of these dose optimization te chniques: automated exposure control; mA and/or kV adjustment per patient size (includes targeted exa ms where dose is matched to clinical indication); or iterative reconstruction.
--- NOTE | 2024-03-06 22:13 | ED.GENADUL_ITS ---
Discharge Plan Disposition Patient Disposition: Home Condition: Good Discharge Details Clinical Impression: Diverticulitis Primary Care Provider: Katya Phelan ED Provider: Geo Elias Home Meds and New Rx's Prescriptions: New ciprofloxacin HCl [Cipro] 500 mg tablet 500 mg PO BID 7 Days Qty: 14 0RF metronidazole 500 mg tablet 500 mg PO TID 7 Days Qty: 21 0RF No Action tramadol 50 mg tablet 50 mg PO QHS Patient Comments: #30 with 1 refill.HE clonazepam [Klonopin] 0.5 MG tablet 0.5 mg PO PRN PRN aspirin 81 MG tablet,delayed release (DR/EC) 81 mg PO DAILY Qty: 30 0RF Bengay Ultra Strength 4-30-10 % cream 1 applic TP QD-BID PRN (Reason: muscle pain) Qty: 113 0RF dexlansoprazole 60 mg capsule,biphase delayed releas 60 mg PO DAILY Patient Comments: TAKE ONE CAPSULE BY MOUTH EVERY DAY donepezil 5 mg tablet 5 mg PO DAILY Patient Comments: TAKE ONE TABLET BY MOUTH EVERY DAY lidocaine [Lidoderm] 5 % adhesive patch,medicated 1 patch topical DAILY Qty: 15 0RF Rx Instructions: leave on most painful area for up to 12 hrs bisacodyl [Dulcolax (bisacodyl)] 10 mg suppository 10 mg HI DAILY PRN famotidine [Acid Controller] 20 mg tablet 20 mg PO DAILY alum-mag hydroxide-simeth [Advanced Antacid-Antigas] 200-200-20 mg/5 mL suspension 30 ml PO ONCE Rx Instructions: administer between meals and at bedtime ondansetron HCl 4 mg tablet 4 mg PO DAILY ranitidine HCl 150 mg capsule 150 mg PO BID Qty: 60 0RF amlodipine 5 mg tablet 10 mg PO DAILY Patient Comments: TAKE ONE TABLET BY MOUTH EVERY DAY FOR BLOOD PRESSURE rosuvastatin 20 mg tablet 20 mg PO .PM Patient Comments: TAKE ONE TABLET BY MOUTH EVERY EVENING acetaminophen 325 mg Tablet 650 mg PO Q4H PRN PRNQty: 0 0RF magnesium hydroxide [Milk of Magnesia] 400 mg/5 mL Suspension 30 ml PO DAILY PRN PRNQty: 0 0RF levothyroxine 75 mcg tablet 37.5 mcg PO DAILY Qty: 45 0RF escitalopram oxalate 5 mg tablet 5 mg PO DAILY Qty: 30 0RF lisinopril 10 mg tablet 10 mg PO DAILY Qty: 30 0RF Rx Instructions: lower dose Discharge Instructions Instructions: Diverticulitis Additional Instructions: You have evidence of diverticulitis on your imaging. Your workup is otherwise stable. You have been able to tolerate the oral pills here and has had no vomiting. The antibiotics have been sent to your pharmacy on file. Please take these as directed. If you notice any worsening of your symptoms, or any new symptoms such as vomiting, diarrhea, fever, chills, shortness of breath, chest pain, numbness, weakness, or fainting , please return immediately to the emergency department for reevaluation. Please follow up with your primary care provider as soon as possible for reassessment and reevaluation. As always, it was a pleasure participating in your medical care today. Referrals: Katay Phelan [Primary Care Provider] - [facility] General Date/Time Provider Initiated Documentation: 03/06/24 22:04 . HPI Narrative: 78-year-old female whose CODE STATUS is full code, with a past medical history of C. difficile, GERD, renal dysfunction, hypertension, high cholesterol, hypothyroidism, irritable bowel syndrome, with a past surgical history of hysterectomy, who [facility] for abdominal pain. For the day the patient has been having left lower quadrant abdominal pain. No vomiting. She has had nausea and 2 bowel movements in the last 2 days. Health and rehab states that there was blood noted either in the urine or her stool. They were not certain which. No fever. She can be given Zofran and Compazine at [facility] with no improvement. Patient was sent to the ER for further assessment. Related Data Home Medications ?Medication ?Instructions ?Recorded ?Confirmed Klonopin 0.5 mg tablet (clonazepam) 0.5 mg PO PRN PRN 11/28/17 03/06/24 aspirin 81 mg tablet,delayed 81 mg PO DAILY ##30 01/02/18 03/06/24 release ranitidine HCl 150 mg capsule 150 mg PO BID #60 caps 05/10/18 03/06/24 tramadol 50 mg tablet 50 mg PO QHS 10/23/18 03/06/24 camphor 4 %-methyl salicylate 30 1 applic topical QD-BID PRN muscle 06/17/19 03/06/24 %-menthol 10 % topical cream pain #113 grams (Bengay Ultra Strength) dexlansoprazole 60 mg 60 mg PO DAILY 10/02/23 03/06/24 capsule,biphase delayed release donepezil 5 mg tablet 5 mg PO DAILY 10/02/23 03/06/24 lidocaine 5 % topical patch 1 patch topical DAILY #15 ea 10/02/23 03/06/24 (Lidoderm) amlodipine 5 mg tablet 10 mg PO DAILY 02/19/24 03/06/24 rosuvastatin 20 mg tablet 20 mg PO .PM 02/19/24 03/06/24 acetaminophen 325 mg tablet 650 mg (2 x 325 mg) PO Q4H PRN PRN 02/26/24 03/06/24 #0 tabs escitalopram oxalate 5 mg tablet 5 mg PO DAILY #30 tabs 02/26/24 03/06/24 levothyroxine 75 mcg tablet 37.5 mcg (1/2 x 75 mcg) PO DAILY 02/26/24 03/06/24 #45 tabs lisinopril 10 mg tablet 10 mg PO DAILY #30 tabs 02/26/24 03/06/24 magnesium hydroxide 400 mg/5 mL 30 ml PO DAILY PRN PRN #0 mL 02/26/24 03/06/24 oral suspension (Milk of Magnesia) aluminum-mag hydroxide-simethicone 30 ml PO ONCE 03/06/24 03/06/24 200 mg-200 mg-20 mg/5 mL oral susp (Advanced Antacid-Antigas) bisacodyl 10 mg rectal suppository 10 mg HI DAILY PRN 03/06/24 03/06/24 (Dulcolax (bisacodyl)) famotidine 20 mg tablet (Acid 20 mg PO DAILY 03/06/24 03/06/24 Controller) ondansetron HCl 4 mg tablet 4 mg PO DAILY 03/06/24 03/06/24 ciprofloxacin HCl 500 mg tablet 500 mg PO BID 7 days #14 tabs 03/07/24 (Cipro) metronidazole 500 mg tablet 500 mg PO TID 7 days #21 tabs 03/07/24 Previous Rx's ?Medication ?Instructions ?Recorded aspirin 81 mg tablet,delayed 81 mg PO DAILY ##30 01/02/18 release ranitidine HCl 150 mg capsule 150 mg PO BID #60 caps 05/10/18 camphor 4 %-methyl salicylate 30 1 applic topical QD-BID PRN muscle 06/17/ %-menthol 10 % topical cream pain #113 grams (Bengay Ultra Strength) lidocaine 5 % topical patch 1 patch topical DAILY #15 ea 10/02/23 (Lidoderm) acetaminophen 325 mg tablet 650 mg (2 x 325 mg) PO Q4H PRN PRN 02/26/24 #0 tabs escitalopram oxalate 5 mg tablet 5 mg PO DAILY #30 tabs 02/26/24 levothyroxine 75 mcg tablet 37.5 mcg (1/2 x 75 mcg) PO DAILY 02/26/24 #45 tabs lisinopril 10 mg tablet 10 mg PO DAILY #30 tabs 02/26/24 magnesium hydroxide 400 mg/5 mL 30 ml PO DAILY PRN PRN #0 mL 02/26/24 oral suspension (Milk of Magnesia) ciprofloxacin HCl 500 mg tablet 500 mg PO BID 7 days #14 tabs 03/07/24 (Cipro) metronidazole 500 mg tablet 500 mg PO TID 7 days #21 tabs 03/07/24 Allergies Allergy/AdvReac Type Severity Reaction Status Date / Time aspirin AdvReac upset Unverified 03/06/24 22:04 stomach r/t GERD metoclopramide HCl (From AdvReac hysterical Unverified 03/06/24 22:04 Reglan) crying trazodone AdvReac itching Unverified 03/06/24 22:04 enviornmental Allergy Mild head Uncoded 03/06/24 22:04 congestion General Stated Complaint: Abd Prob SEBASTIÁN: 3 Review of Systems All systems reviewed & are unremarkable except as noted in HPI and below Exam Narrative Exam Narrative: 1.Const: Well-nourished, Well-developed, appearing stated age 2.Eyes: PERRL, no conjunctival injection, and symmetrical lids. 3.ENT: Atraumatic external nose and ears. Moist MM. Neck: Symmetric, trachea midline, No thyromegaly. 4.CVS: +S1/S2, No murmurs or gallops. Peripheral pulses 2+ and equal in all extremities. Brisk capillary refill in all extremities. 5.RESP: Unlabored respiratory effort. Clear to auscultation bilaterally. No wheezes rales or rhonchi 6.GI: Soft, notable tenderness throughout particularly in the left lower quadrant. Mild voluntary guarding. Bowel sounds are present. 7.MSK: Normocephalic/Atraumatic, Extremities w/o deformity or ttp No cyanosis or clubbing, Normal movement of all extremities 8.Skin: Warm, Dry. No rashes or lesions. 9.Neuro: designated broker II-XII grossly intact. Sensation grossly intact, no focal neurologic deficits. 10.Psych: (AAO) x0. Pleasant but confused Course Vital Signs Vital signs: Vital Signs Temperature 36.9 C 03/06/24 21:59 Pulse 71 03/06/24 21:59 Respiratory Rate 18 03/06/24 21:59 Blood Pressure 164/55 H 03/06/24 21:59 Pulse Oximetry 97 03/06/24 21:59 Temperature 36.9 C 03/06/24 21:59 Temperature Source Skin 03/06/24 21:59 Pulse 71 03/06/24 21:59 Respiratory Rate 18 03/06/24 21:59 Respiratory Effort Normal 03/06/24 22:03 Blood Pressure 164/55 H 03/06/24 21:59 Blood Pressure Position Sitting 03/06/24 21:59 Pulse Oximetry 97 03/06/24 21:59 Oxygen Delivery Method Room Air 03/06/24 21:59 Oxygen Flow Rate 0 03/06/24 21:59 Medical Decision Making 78-year-old female whose CODE STATUS is full code, with a past medical history of C. difficile, GERD, renal dysfunction, hypertension, high cholesterol, hypothyroidism, irritable bowel syndrome, with a past surgical hist ory of hysterectomy, who presents today [facility] for abdominal pain. For the day the patient has been having left lower quadrant abdominal pain. No vomiting. She has had nausea and 2 bowel movements in the last 2 days. Health and rehab states that there was blood noted either in the urine or her stool. They were not certain which. No fever. She can be given Zofran and Compazine at [facility] with no improvement. Patient was sent to the ER for further assessment. Exam demonstrates stable patient hemodynamically, no fever, oxygen normal, normal heart rate. Notable abdominal tenderness throughout particularly in the left lower quadrant though. Patient is confused, uncertain if this is her baseline. She is very pleasant otherwise. Concern for diverticulitis, urolithiasis, potential colitis or obstruction. Pyelonephritis is also on the differential. We will treat the patient's pain, get a CT scan to rule out these acute processes, monitor closely and reassess. 12:39 AM Patient's laboratory workup has returned, white count normal, no bandemia or left shift. Electrolytes stable, renal function near baseline. CT scan shows evidence of colitis and diverticulitis of the descending colon and proximal sigmoid with no perforation or abscess. Patient's vital signs remain notably stable, she was able to tolerate p.o. medications, she is able to tolerate p.o. intake. No vomiting. Patient has no fever. No evidence of sepsis. Patient stable for outpatient management of diverticulitis. We did attempt to call the on-call doctor for [facility] multiple times, but unfortunately we were not called back by the referral service. Patient will be discharged back to [facility] for further outpatient management. FINDINGS: Lungs: Atelectatic changes in both lower lobes. Coronary arteries: Mild coronary calcifications. Diaphragm: Small hiatal hernia. Liver: Focal fatty infiltration adjacent to the falciform ligament. No susp icious liver lesions. Gallbladder and biliary ducts: Post cholecystectomy. Pancreas: Normal. No ductal dilation. Spleen: Normal. No splenomegaly. Adrenal glands: Normal. No mass. Kidneys and ureters: Normal. No hydronephrosis. Stomach and bowel: Diverticulosis of the sigmoid colon. Mild inflammatory changes surrounding the distal descending colon and proximal sigmoid colon suggestive of colitis/di verticulitis. No abscess formation. No perforation. Appendix: No evidence of appendicitis. Intraperitoneal space: Unremarkable. No free air. No significant fluid collection. Vasculature: Vascular calcifications. Pelvic phleboliths. Lymph nodes: Unremarkable. No enlarged lymph nodes. Urinary bladder: Unremarkable as visualized. Reproductive: Unremarkable as visualized. Bones/joints: Mild degenerative disease of bilateral sacroiliac joints. Curvature of the lumbar spine convex to the left. Bilateral L5-S1 and L4-L5 facet joint arthropathy with mild anterolisthesis of L5 over S1. Soft tissues: Fat containing bilateral inguinal hernias. IMPRESSION: Colitis/diverticulitis of the descending colon and proximal sigmoid colon with no perforation or abscess formation. Thank you for allowing us to participate in the care of your patient. 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 difficile enteritis (Acute) Chest pain (Acute) Anemia (Chronic) Hypertension (Chronic) Gastroenteritis (Acute) Hypokalemia (Acute) Hypomagnesemia (Acute) Pyelonephritis (Acute) Depression (Chronic) GERD (gastroesophageal reflux disease) (Chronic) Gait disturbance (Chronic) Left carotid bruit (Chronic) Essential hypertension (Chronic) Medical History (Updated 03/07/24 @ 00:30 by Geo Elias DO) IBS (irritable bowel syndrome) Cardiomyopathy Allergic rhinitis Adenomatous polyp of colon Environmental allergies Osteopenia Cervical spondylosis Osteoarthritis Surgical History Rectocele, Paravaginal repair Vaginal hysterectomy GASTROSCOPY (01/20/15) DR.ANNICK ARAMBULA Cystocele, Paravaginal repair Colonoscopy - IV Sedation 2009 COLONOSCOPY (~12/2014) DR.ANNICK ARAMBULA Social History Smoking/Tobacco Use Status: Never Smoking risk assessment performed?: Yes Alcohol Intake: current Alcohol Intake frequency: a few times a month Drug use: Never Substance use type: does not use Housing: house Number of Children: 2 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
[2024-03-06 22:20] LABS: Abs Immature Grans 0.03 10^3/uL (0.0-0.06); Absolute Basophil Count 0.02 10^3/uL (0.0-0.2); Absolute Lymphocyte Count 0.78 10^3/uL (1.2-3.4); Absolute Monocyte Count 0.62 10^3/uL (0.1-0.8); Absolute Neutrophil Count 8.77 10^3/uL (1.2-6.7); BE (Venous) -5 mmol/L (-2-3); Basophils % 0.2 %; HCO3 (Venous) 22 mmol/L (23-28); HCT 36.8 % (36.0-46.0); HGB 12.2 g/dL (11.2-15.7); Immature Grans % 0.3 %; Lymphocytes % 7.6 %; MCH 29.5 pg (27.0-33.0); MCHC 33.2 % (32.0-36.0); MCV 89 fL (80-95); MPV 9.3 fL (8.0-11.0); Monocytes % 6.1 %; Neutrophils % 85.8 %; O2 Sat (Venous) 55 %; Platelet Count 280 10^3/uL (130-400); RBC 4.14 10^6/uL (3.93-5.22); RDW 13.2 % (11.7-14.6); RDW-SD 42.7 fL; TCO2 (Venous) 20 mmol/L (24-29); WBC 10.22 10^3/uL (4.4-10.8); pCO2 (Venous) 44 mmHg (41-51); pO2 (Venous) 29 mmHg
[2024-03-06] MEDS: ACETAMINOPHEN 1,000 MG/100 ML BTL 400 MG IVPB (22:24)
[2024-03-06] MEDS: MORPHine 4 MG/ML SYR IVP (22:25)
[2024-03-06] MEDS: Ondansetron 4 MG/2 ML VIAL IVP (22:30)
[2024-03-06 22:40] LABS: PTT Activated 23.9 sec (23.6-32.8); Prothrombin Time 9.6 sec (9.1-11.1)
[2024-03-06 22:47] LABS: ALT 35 U/L (14-59); AST 39 U/L (15-37); Albumin 4.1 g/dL (3.4-5.0); Alkaline Phosphatase 149 U/L (46-116); Anion Gap 12.6 mmol/L (3-11); BUN 35 mg/dL (7-18); CO2 22.4 mmol/L (21.0-32.0); CREATININE 2.5 mg/dL (0.55-1.02); Calcium 10.6 mg/dL (8.5-10.1); Chloride 105 mmol/L (98-107); Estimated GFR 19.08 (mL/min/1.73m2); Glucose 145 mg/dL (74-106); Lipase 74 U/L (16-77); Potassium 4.2 mmol/L (3.5-5.1); Sodium 140 mmol/L (136-145); TSH (W/Ref FT4) 0.35 uIU/mL (0.36-3.74); Total Protein 8.7 g/dL (6.4-8.2)
[2024-03-06 23:07] LABS: FREE T4 1.04 ng/dL (0.76-1.46)
[2024-03-06 23:23] LABS: Bilirubin Small (Negative); Blood Negative (Negative); Clarity Clear (Clear); Glucose Negative (Negative); Ketones Trace mg/dL (Negative); Leukocyte Esterase Negative (Negative); Nitrite Negative (Negative); Specific Gravity >= 1.030 (1.005-1.025); pH 5.5 (5-8)
--- NOTE | 2024-03-06 23:26 | DI.VRAD_ITS ---
PROCEDURE INFORMATION: Exam: CT Abdomen And Pelvis Without Contrast Exam date and time: 03/06/2024 10:31 PM Age: 78 years old Clinical indication: Other: Llq abdominal pain; Additional info: Llq abdominal pain, eval for tics TECHNIQUE: Imaging protocol: Computed tomography of the abdomen and pelvis without contrast. COMPARISON: CT ABDOMEN PELVIS WO 02/18/2024 5:11 PM FINDINGS: Lungs: Atelectatic changes in both lower lobes. Coronary arteries: Mild coronary calcifications. Diaphragm: Small hiatal hernia. Liver: Focal fatty infiltration adjacent to the falciform ligament. No suspicious liver lesions. Gallbladder and biliary ducts: Post cholecystectomy. Pancreas: Normal. No ductal dilation. Spleen: Normal. No splenomegaly. Adrenal glands: Normal. No mass. Kidneys and ureters: Normal. No hydronephrosis. Stomach and bowel: Diverticulosis of the sigmoid colon. Mild inflammatory changes surrounding the distal descending colon and proximal sigmoid colon suggestive of colitis/diverticulitis. No abscess formation. No perforation. Appendix: No evidence of appendicitis. Intraperitoneal space: Unremarkable. No free air. No significant fluid collection. Vasculature: Vascular calcifications. Pelvic phleboliths. Lymph nodes: Unremarkable. No enlarged lymph nodes. Urinary bladder: Unremarkable as visualized. Reproductive: Unremarkable as visualized. Bones/joints: Mild degenerative disease of bilateral sacroiliac joints. Curvature of the lumbar spine convex to the left. Bilateral L5-S1 and L4-L5 facet joint arthropathy with mild anterolisthesis of L5 over S1. Soft tissues: Fat containing bilateral inguinal hernias. IMPRESSION: Colitis/diverticulitis of the descending colon and proximal sigmoid colon with no perforation or abscess formation. Dictated and Authenticated by: Montez Johnson MD. Ordering:GUILHERME Guardado MD
[2024-03-06 23:33] LABS: Bacteria Negative HPF (Negative); C & S Indicated? No; Casts 0-2 Hyaline LPF (Negative); Crystals Negative HPF (Negative); Epithelial Cells Few HPF (Negative); Mucus Heavy (Negative); Other Cells Rare Transitional (Negative)
[2024-03-06] MEDS: metroNIDAZOLE 500 MG TAB PO (23:54)
[2024-03-06] MEDS: Ciprofloxacin 500 MG TAB PO (23:54)
[2024-03-07] VITALS: PULSE 64; RESP 14; O2SAT 98
[2024-03-07 00:10] VITALS: PULSE 65; RESP 10; O2SAT 96
[2024-03-07 00:20] VITALS: PULSE 66; RESP 15; O2SAT 98
[2024-03-07 00:30] VITALS: PULSE 60; RESP 19; O2SAT 95
[2024-03-07 00:40] VITALS: PULSE 64; RESP 23
== END 2024-03-07 01:03 | disposition home or self-care (01) ==
PROVIDERS: Emergency Provider Student in an Organized Health Care Education/Training Program; PCP Physician Assistant
DX: K57.32 Diverticulitis of large intestine without perforation or abscess without bleeding (principal); I10 Essential (primary) hypertension; E78.5 Hyperlipidemia, unspecified; Z79.82 Long term (current) use of aspirin
CPT/HCPCS: 80053; 82805; 83690; 86850; 86900; 86901; 96365; 96375; 99284; 74176; 81003; 81015; 84439; 84443; 85025; 85610; 85730; J0131; J2270; J2405

== ENCOUNTER 2024-03-11 14:00 | Inpatient (IN) | payer MEDICARE, MEDICAID, SELFPAY ==
[2024-03-11] VITALS (35 sets, daily range): BP systolic 144–202; BP diastolic 44–84; PULSE 61–81; RESP 9–26; TEMP 36.6–36.8; O2SAT 95–99
--- NOTE | 2024-03-11 15:15 | RT.EKG_ITS ---
APPROVED REPORT Exam: Resting ECG Reason for Exam: epigastric pain, nausea Patient Location: E HR:61 bpm ECG Measurements Heart Rate 61 AXIS AZ 161 P 64 QRSd 82 QRS 59 QT 603 T 57 QTc 604 Conclusion Sinus rhythm, rate 61 No STEMI QTc prolonged
--- NOTE | 2024-03-11 15:28 | W.ED.GENAD ---
Discharge Plan Disposition Patient Disposition: Admit to [facility] Condition: Stable Discharge Details Chief Complaint: Abd Prob Clinical Impression: Colitis, GERD (gastroesophageal reflux disease), Hypertension, Anemia, Diverticulosis of intestine without bleeding, CKD (chronic kidney disease) stage 4, GFR 15-29 ml/min Primary Care Provider: Katya Phelan ED Provider: Della James Home Meds and New Rx's Prescriptions: No Action tramadol 50 mg tablet 50 mg PO QHS Patient Comments: #30 with 1 refill.HE clonazepam [Klonopin] 0.5 MG tablet 0.5 mg PO PRN PRN aspirin 81 MG tablet,delayed release (DR/EC) 81 mg PO DAILY Qty: 30 0RF Bengay Ultra Strength 4-30-10 % cream 1 applic TP QD-BID PRN (Reason: muscle pain) Qty: 113 0RF dexlansoprazole 60 mg capsule,biphase delayed releas 60 mg PO DAILY Patient Comments: TAKE ONE CAPSULE BY MOUTH EVERY DAY donepezil 5 mg tablet 5 mg PO DAILY Patient Comments: TAKE ONE TABLET BY MOUTH EVERY DAY lidocaine [Lidoderm] 5 % adhesive patch,medicated 1 patch topical DAILY Qty: 15 0RF Rx Instructions: leave on most painful area for up to 12 hrs bisacodyl [Dulcolax (bisacodyl)] 10 mg suppository 10 mg ME DAILY PRN famotidine [Acid Controller] 20 mg tablet 20 mg PO DAILY alum-mag hydroxide-simeth [Advanced Antacid-Antigas] 200-200-20 mg/5 mL suspension 30 ml PO ONCE Rx Instructions: administer between meals and at bedtime ondansetron HCl 4 mg tablet 4 mg PO DAILY ciprofloxacin HCl [Cipro] 500 mg tablet 500 mg PO BID 7 Days Qty: 14 0RF metronidazole 500 mg tablet 500 mg PO TID 7 Days Qty: 21 0RF ranitidine HCl 150 mg capsule 150 mg PO BID Qty: 60 0RF amlodipine 5 mg tablet 10 mg PO DAILY Patient Comments: TAKE ONE TABLET BY MOUTH EVERY DAY FOR BLOOD PRESSURE rosuvastatin 20 mg tablet 20 mg PO .PM Patient Comments: TAKE ONE TABLET BY MOUTH EVERY EVENING acetaminophen 325 mg Tablet 650 mg PO Q4H PRN PRNQty: 0 0RF magnesium hydroxide [Milk of Magnesia] 400 mg/5 mL Suspension 30 ml PO DAILY PRN PRNQty: 0 0RF levothyroxine 75 mcg tablet 37.5 mcg PO DAILY Qty: 45 0RF escitalopram oxalate 5 mg tablet 5 mg PO DAILY Qty: 30 0RF lisinopril 10 mg tablet 10 mg PO DAILY Qty: 30 0RF Rx Instructions: lower dose HPI General Mode of arrival: ambulatory. Date/Time Provider Initiated Documentation: 03/11/24 14:09. Limitations to Documentation: no limitations. Information obtained by: patient, family and old records reviewed. HPI Narrative: HPI: This is a 78-year-old female patient with a past medical history most notable for recent admission to our hospital for [facility] due to a GI illness, discharged on 02/25, as well as a visit to our emergency department with a diagnosis of uncomplicated diverticulitis and colitis on 03/06, who is presenting for evaluation of ongoing poor p.o. intake and nausea. History is obtained from the patient as well as her son who is at bedside and provides a great deal of history. He reports that for the last several weeks, since before her admission, she has had poor appetite, and states that eating makes her feel very nauseated. She feels a squeezing sensation in the pit of her stomach whenever she thinks about or tries to eat. He is concerned that her poor p.o. intake will lead to worsening kidney function, and this is what prompted her repeat presentation to care. The patient has a history of hiatal hernia, hypertension, GERD. She states that she is mildly nauseated at baseline, with no specific specific abdominal pain at rest. She states that she felt a slightly strange sensation when urinating, has not urinated since 9 PM last night. She has not passed the stool in several days, denies diarrhea. She has not had fevers at home but always feels cold. Exam: Gen: Awake and alert, in no apparent distress HEENT: Non-icteric sclera, pupils constricted at 2 mm Neck: Supple Lungs: No apparent respiratory distress, normal respiratory effort. Lung sounds clear and equal bilaterally without wheezes, rhonchi, rales CV: Appears well perfused, heart with regular rate and rhythm, strong distal pulses Abdomen: Non-distended, soft, tender to palpation in the epigastric and periumbilical region without rigidity, rebound, or guarding MSK: Moves 4 extremities without apparent limitation in ROM. No peripheral edema noted Skin: Visualized skin without rashes, cyanosis. Neuro: No obvious focal deficits or facial asymmetry. Speaks in full, clear sentences. Psych: Appropriate for situation. MDM: This is a 78-year-old female patient presenting for evaluation of nausea and poor p.o. intake. My differential includes but is not limited to complicated diverticulitis including development of perforation, abscess, bowel obstruction. Certainly considered gastritis, gastroenteritis, pancreatitis. Considered metabolic and electrolyte derangements, kidney injury, dehydration, anemia, liver injury. I considered mesenteric ischemia, ACS, arrhythmia. The patient is reassuringly hemodynamically appropriate, endorsing active nausea for which I will provide her with a dose of Zofran. We will obtain laboratory studies to include CBC, CMP, troponin, lipase, and lactate. I will obtain a urinalysis to evaluate for UTI. Given the patient's recent kidney injury, I will avoid IV contrast but will obtain a CT of the abdomen and pelvis to evaluate for any abnormalities which might account for the patient's symptoms. ED Course: I reviewed the patient's laboratory studies, which show a mild leukocytosis to 12.4, stable anemia and no thrombocytopenia. Lactate is 1.6, chemistry with very mild hypokalemia to 3.3, baseline renal dysfunction with an EGFR of 21. The patient does have a new mild transaminitis, and an alk phos elevation to 215. Troponin was negative with no delta change on rechecks. Lipase is low. EKG nonischemic but she does have a prolongation in her QT interval, for which reason I avoided conventional antiemetics and provided her with a dose of Tigan. The patient had vomiting despite this administration when she attempted to drink water. I am concerned for her ability to maintain her oral intake in the outpatient environment and provided her with a liter of IV fluids. I independently interpreted and reviewed the patient's CT scan with the radiologist, who notes ongoing circumferential colitis, as well as diverticuli with no clear diverticulitis or evidence of complication. The patient's case was discussed with the general surgeon, given the potential for mesenteric ischemia, which she feels is unlikely given the reassuring examination, very mild elevation in lactate and white blood cell count, and for this reason the patient will be admitted by the hospitalist service. She remained in hemodynamically stable condition while under my care and was transferred to the floor without incident. Della James MD Related Data Home Medications ?Medication ?Instructions ?Recorded ?Confirmed Klonopin 0.5 mg tablet (clonazepam) 0.5 mg PO PRN PRN 11/28/17 03/11/24 aspirin 81 mg tablet,delayed 81 mg PO DAILY ##30 01/02/18 03/11/24 release ranitidine HCl 150 mg capsule 150 mg PO BID #60 caps 05/10/18 03/11/24 tramadol 50 mg tablet 50 mg PO QHS 10/23/18 03/11/24 camphor 4 %-methyl salicylate 30 1 applic topical QD-BID PRN muscle 06/17/19 03/11/24 %-menthol 10 % topical cream pain #113 grams (Bengay Ultra Strength) dexlansoprazole 60 mg 60 mg PO DAILY 10/02/23 03/11/24 capsule,biphase delayed release donepezil 5 mg tablet 5 mg PO DAILY 10/02/23 03/11/24 lidocaine 5 % topical patch 1 patch topical DAILY #15 ea 10/02/23 03/11/24 (Lidoderm) amlodipine 5 mg tablet 10 mg PO DAILY 02/19/24 03/11/24 rosuvastatin 20 mg tablet 20 mg PO .PM 02/19/24 03/11/24 acetaminophen 325 mg tablet 650 mg (2 x 325 mg) PO Q4H PRN PRN 02/26/24 03/11/24 #0 tabs escitalopram oxalate 5 mg tablet 5 mg PO DAILY #30 tabs 02/26/24 03/11/24 levothyroxine 75 mcg tablet 37.5 mcg (1/2 x 75 mcg) PO DAILY 02/26/24 03/11/24 #45 tabs lisinopril 10 mg tablet 10 mg PO DAILY #30 tabs 02/26/24 03/11/24 magnesium hydroxide 400 mg/5 mL 30 ml PO DAILY PRN PRN #0 mL 02/26/24 03/11/24 oral suspension (Milk of Magnesia) aluminum-mag hydroxide-simethicone 30 ml PO ONCE 03/06/24 03/11/24 200 mg-200 mg-20 mg/5 mL oral susp (Advanced Antacid-Antigas) bisacodyl 10 mg rectal suppository 10 mg ME DAILY PRN 03/06/24 03/11/24 (Dulcolax (bisacodyl)) famotidine 20 mg tablet (Acid 20 mg PO DAILY 03/06/24 03/11/24 Controller) ondansetron HCl 4 mg tablet 4 mg PO DAILY 03/06/24 03/11/24 ciprofloxacin HCl 500 mg tablet 500 mg PO BID 7 days #14 tabs 03/07/24 03/11/24 (Cipro) metronidazole 500 mg tablet 500 mg PO TID 7 days #21 tabs 03/07/24 03/11/24 Previous Rx's ?Medication ?Instructions ?Recorded aspirin 81 mg tablet,delayed 81 mg PO DAILY ##30 01/02/18 release ranitidine HCl 150 mg capsule 150 mg PO BID #60 caps 05/10/18 camphor 4 %-methyl salicylate 30 1 applic topical QD-BID PRN muscle 06/17/19 %-menthol 10 % topical cream pain #113 grams (Bengay Ultra Strength) lidocaine 5 % topical patch 1 patch topical DAILY #15 ea 10/02/23 (Lidoderm) acetaminophen 325 mg tablet 650 mg (2 x 325 mg) PO Q4H PRN PRN 02/26/24 #0 tabs escitalopram oxalate 5 mg tablet 5 mg PO DAILY #30 tabs 02/26/24 levothyroxine 75 mcg tablet 37.5 mcg (1/2 x 75 mcg) PO DAILY 02/26/24 #45 tabs lisinopril 10 mg tablet 10 mg PO DAILY #30 tabs 02/26/24 magnesium hydroxide 400 mg/5 mL 30 ml PO DAILY PRN PRN #0 mL 02/26/24 oral suspension (Milk of Magnesia) ciprofloxacin HCl 500 mg tablet 500 mg PO BID 7 days #14 tabs 03/07/24 (Cipro) metronidazole 500 mg tablet 500 mg PO TID 7 days #21 tabs 03/07/24 Allergies Allergy/AdvReac Type Severity Reaction Status Date / Time aspirin AdvReac upset Unverified 03/06/24 22:04 stomach r/t GERD metoclopramide HCl (From AdvReac hysterical Unverified 03/06/24 22:04 Reglan) crying trazodone AdvReac itching Unverified 03/06/24 22:04 enviornmental Allergy Mild head Uncoded 03/06/24 22:04 congestion General Stated Complaint: Abd Prob SEBASTIÁN: 3 Course Vital Signs Vital signs: Vital Signs Temperature 36.6 C 03/11/24 14:03 Pulse 72 03/11/24 14:03 Respiratory Rate 15 03/11/24 14:03 Blood Pressure 144/55 H 03/11/24 14:03 Pulse Oximetry 97 03/11/24 14:03 Temperature 36.6 C 03/11/24 14:10 Pulse 72 03/11/24 14:10 Respiratory Rate 15 03/11/24 14:10 Respiratory Effort Normal 03/11/24 14:10 Blood Pressure 144/55 H 03/11/24 14:10 Blood Pressure Position Sitting 03/11/24 14:10 Pulse Oximetry 97 03/11/24 14:10 Oxygen Delivery Method Room Air 03/11/24 14:03 Oxygen Flow Rate 0 03/11/24 14:03 Medical Decision Making Quality:SDOH Health Related Social Needs: No Data to Display PFSH All Active Problems (Updated 03/11/24 @ 22:32 by Della James MD) Colitis (Acute) Colitis (Acute) CKD (chronic kidney disease) stage 4, GFR 15-29 ml/min (Chronic) Diverticulitis (Acute) Hypothyroid (Chronic) DVT prophylaxis (Acute) Incidental lung nodule, less than or equal to 3mm (Acute) Thoracic back pain (Acute) Costochondritis (Acute) Atypical chest pain (Acute) Allergic rhinitis (Acute 05/26/14) 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 difficile enteritis (Acute) Chest pain (Acute) Anemia (Chronic) Hypertension (Chronic) Gastroenteritis (Acute) Hypokalemia (Acute) Hypomagnesemia (Acute) Pyelonephritis (Acute) Depression (Chronic) GERD (gastroesophageal reflux disease) (Chronic) Gait disturbance (Chronic) Left carotid bruit (Chronic) Essential hypertension (Chronic) Medical History (Updated 03/11/24 @ 22:32 by Della James MD) IBS (irritable bowel syndrome) Cardiomyopathy Allergic rhinitis Adenomatous polyp of colon Environmental allergies Osteopenia Cervical spondylosis Osteoarthritis Surgical History Rectocele, Paravaginal repair Vaginal hysterectomy GASTROSCOPY (01/20/15) DR.ANNICK ARAMBULA Cystocele, Paravaginal repair Colonoscopy - IV Sedation 2009 COLONOSCOPY (~12/2014) DR.ANNICK ARAMBULA Social History Smoking/Tobacco Use Status: Never Smoking risk assessment performed?: Yes Alcohol Intake: current Alcohol Intake frequency: a few times a month Drug use: Never Substance use type: does not use Housing: house Number of Children: 2 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
[2024-03-11 16:03] LABS: Lactate 1.6 mmol/L (0.6-1.4)
[2024-03-11 16:13] LABS: Abs Immature Grans 0.46 10^3/uL (0.0-0.06); Absolute Basophil Count 0.07 10^3/uL (0.0-0.2); Absolute Eosinophil Count 0.06 10^3/uL (0.0-0.7); Absolute Monocyte Count 0.91 10^3/uL (0.1-0.8); Absolute Neutrophil Count 8.58 10^3/uL (1.2-6.7); Basophils % 0.6 %; Eosinophils % 0.5 %; HCT 33.4 % (36.0-46.0); Immature Grans % 3.7 %; Lymphocytes % 18.8 %; MCH 29.3 pg (27.0-33.0); MCHC 32.9 % (32.0-36.0); MCV 89 fL (80-95); MPV 9.5 fL (8.0-11.0); Monocytes % 7.3 %; Neutrophils % 69.1 %; Platelet Count 450 10^3/uL (130-400); RBC 3.76 10^6/uL (3.93-5.22); RDW 13.7 % (11.7-14.6); RDW-SD 44.3 fL; WBC 12.42 10^3/uL (4.4-10.8)
[2024-03-11 16:14] LABS: Absolute Lymphocyte Count 2.33 10^3/uL (1.2-3.4)
[2024-03-11 16:23] LABS: ALT 85 U/L (14-59); AST 63 U/L (15-37); Alkaline Phosphatase 215 U/L (46-116); Anion Gap 15.5 mmol/L (3-11); BUN 31 mg/dL (7-18); Bilirubin, Total 0.46 mg/dL (0.2-1.0); CO2 22.5 mmol/L (21.0-32.0); CREATININE 2.3 mg/dL (0.55-1.02); Calcium 10.4 mg/dL (8.5-10.1); Chloride 102 mmol/L (98-107); Estimated GFR 21.09 (mL/min/1.73m2); Glucose 128 mg/dL (74-106); Lipase 42 U/L (16-77); Potassium 3.3 mmol/L (3.5-5.1); Sodium 140 mmol/L (136-145); Total Protein 9.1 g/dL (6.4-8.2); Troponin I 6 ng/L (<or=51)
--- NOTE | 2024-03-11 16:47 | DI.CT_ITS ---
Exam(s) CT ABDOMEN PELVIS WO EXAM: CT ABDOMEN PELVIS WO CLINICAL HISTORY: Recent diverticulitis, still nausea, poor PO. TECHNIQUE: Imaging Protocol: Axial computed tomography images with coronal and sagittal reformatted images were created and reviewed CONTRAST MATERIAL: Intravenous: none Oral: None COMPARISON: CT CT ABDOMEN PELVIS WO from 03/06/2024 FINDINGS: VISUALIZED LUNG BASES: No infiltrates nor pleural effusions. ABDOMEN: There is no ascites. LIVER: There are no obvious focal hepatic lesions evident of this noninfused study. GALLBLADDER/BILIARY: Gallbladder is again noted be surgically absent. CBD is not dilated. PANCREAS: No evidence of pancreatic mass nor dilatation of the pancreatic duct. SPLEEN: Spleen is not enlarged. No obvious intrasplenic lesions. ADRENALS: There are no significant adrenal masses. KIDNEYS:No cysts evident. No solid renal masses. No calculi nor hydronephrosis. . ABDOMINAL AORTA: Calcified but not enlarged. Common iliac arteries are not enlarged. LYMPH NODES: There is no retroperitoneal nor paraaortic adenopathy. ABDOMINAL WALL: No evidence of significant anterior abdominal wall hernia. Bilateral fat only contai marixa inguinal hernias again noted. GI: No evidence of bowel obstruction. PELVIS: LYMPH NODES: There is no intrapelvic nor inguinal adenopathy. GI: No evidence of appendicitis.The previously described abnormally thickened-edematous descending-le ft colon and sigmoid is again noted. There also appears to be a colitis-type pattern of the descendi ng colon from the level the splenic flexure down to the sigmoid although the amount of pericolonic st reaking appears to have slightly decreased. There is no perforation or free air nor abscess evident. No free fluid in the dependent aspect of the pelvis. URINARY BLADDER: No calculi nor obvious masses evident REPRODUCTIVE: Uterus is again noted to be surgically absent. OSSEOUS: No significant osseous lesions. No acute fractures. IMPRESSION: 1. There is a colitis pattern evident in the descending colon at and distal to the splenic flexure. The amount of pericolonic streaking as slightly decreased but colitis pattern is still significantly evident. In addition, there is diverticulosis again noted throughout the sigmoid. Cannot identify a culprit diverticulum and therefore the most significant acute pathology most probably is related to the colitis pattern in the left side of the colon at and distal to the splenic flexure. There does n ot appear to be obvious involvement of the colon proximal to the splenic flexure. 2. There is no ascites. No gas in the portal venous system. No bowel obstruction nor free air nor a bscess. 3. Again noted is evidence of prior cholecystectomy and hysterectomy. Appendix appears unremarkable. Report called by myself to ER physician 03/11/2024 at 5:15 p.m. RADIATION DOSE DELIVERED: 288.29mGy.cm Total DLP DATA REPOSITORY: All CT scans at this facility are submitted to the National Radiology Data Registry (NRDR) Dose Index Registry (DIR) with the [employer] ([employer]). RADIATION OPTIMIZATION: All CT scans at this facility use at least one of these dose optimization te chniques: automated exposure control; mA and/or kV adjustment per patient size (includes targeted exa ms where dose is matched to clinical indication); or iterative reconstruction.
[2024-03-11] MEDS: Trimethobenzamide 200 MG/2 ML VIAL IM (17:36)
[2024-03-11 17:53] LABS: Troponin I 6 ng/L (<or=51)
[2024-03-11] MEDS: Lactated Ringers 1,000 ML 1000 ML IV (18:34)
--- NOTE | 2024-03-11 21:23 | SCONE_ITS ---
Date of service: 03/12/24 Time of Service: 09:02 Assessment and Plan Assessment and plan (1) Intractable nausea: Status: Acute (2) GERD (gastroesophageal reflux disease): Status: Chronic Qualifiers: Esophagitis presence: without esophagitis Qualified Code(s): K21.9 - Gastro-esophageal reflux disease without esophagitis (3) Gastroenteritis: Status: Acute (4) Gastroesophageal reflux disease without esophagitis: Status: Acute (5) Erosive gastritis: Status: Acute (6) Irritable bowel syndrome: Status: Chronic (7) Diverticulosis of intestine without bleeding: Status: Acute (8) Diverticulitis: Status: Acute (9) Colitis: Status: Acute Assessment and plan: Informed consent is obtained for the procedural (explained in simple layman's terms that the pt. and/or family could understand) explaining risks vs benefits and alternatives to the procedure and consequences if we do not do the procedure and need/rational for the procedure. Risks include but are not limited to: bleeding, infection, perforation of esophagus, stomach, colon, small intestines, bronchus or trachea, or PTX. This would necessitate emergency surgery to repair the damage w/ possible ostomy; and other associated complications w/ the required surgery. Also complications of anesthesia including aspiration, ME/CVA/. egd and flex sig (10) Hiatal hernia: Status: Acute (11) CKD (chronic kidney disease) stage 4, GFR 15-29 ml/min: Status: Chronic (12) Anemia: Status: Chronic (13) Obstructive sleep apnea: Status: Chronic (14) Cardiomyopathy: Qualifiers: Cardiomyopathy type: other Qualified Code(s): I42.8 - Other cardiomyopathies (15) Hypertension: Status: Chronic Qualifiers: Hypertension type: essential hypertension Qualified Code(s): I10 - Essential (primary) hypertension History of Present Illness Narrative: Today: Patient is feeling better today. She does not have any nausea or vomiting today. She is still complaining of abdominal pain in the left lower quadrant. She denies having any diarrhea. The [place] [facility] reported that she has been having severe loose stools causing acute dehydration/hypokalemia. And she has been unable to take in oral intake. She denies vomiting blood or noting any blood in her stools. She has no acute abdominal pain today-mild dull achy pain in bilateral lower quadrants. C. difficile was negative Pt was d/c on 02/25 similar s/s d/c summary: Hospital Course: 78 yo F with history of hypertension and depression who presented with nausea, loose stools, and malaise and found to be in acute renal failure with a creatinine of 7.8. She initially had loose stools, c. diff was negative and the stools normalized. Upon further history, the family states her symptoms started after taking Bactrim for a DS for a UTI 3 weeks earlier. Her urinalysis showed only 100 protein and 3-5 red cells and no white cells, and 20-50 fine granular casts. Repeat U/a the following day was the same, but no red cells. CT abdomen and pelvis was benign with no hydronephrosis and normal appearing kidney and bladder. She was maintained IV fluids until 02/23 as she had persistent nausea and wasn't eating or drinking much. By the day of discharge 02/25 her creatinine was 2.3 and still trending down despite being off IV fluids and having restarted lisinopril the previous day at 5mg. Lisinopril was increased to 10mg on discharge, with a plan to slowly increase back to her previous full dose. She needs a BMP in 1 week to follow her renal function and potassium. CE 2015 Once sedated and comfortable, the scope was introduced into the oropharynx down into the esophagus. The proximal, mid and distal esophagus were noted to be normal. No esophagitis was indentified. The scope was advanced into the stomach were erosive gastritis was identified without ulcerations. There was one gastric polyp in the antrum. The scope was advanced through the pylorus into the third portion of the duodenum. The third, second and first portions of the duodenum were normal. The scope was retracted back into the stomach where a biopsy of the antrum was done for H. pylori. The gastric polyp was also removed using forceps. The scope was retroflexed, a small hiatal hernia was identified. The scope was straightened and pulled back into the esophagus. A hiatal hernia was measured at around 3 cm. The scope was removed and the patient's bed was turned around. The scope was changed out and while still under sedation, the colonoscopy was introduced and advanced to the cecum without difficulty. The terminal ileum and appendiceal were identified. Two polyps were identified in the cecum, which were removed with the forceps. The scope was retracted into the ascending colon, where another polyp was identified and removed with forceps. The scope was retracted into the transverse colon, where two polyps were identified and removed. The scope was retracted into the descending colon, where another polyp was identified, then it was retracted into the sigmoid colon where a sixth polyp was identified and removed. There was mild diverticulosis also noted within the sigmoid colon. The scope was retroflexed. No internal hemorrhoids were noted. PAth stomach- no H. pylori cecum: Villous ascending T adenoma Transverse: T adenoma sigmoid: T. 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 difficile enteritis (Acute) Chest pain (Acute) Anemia (Chronic) Hypertension (Chronic) Gastroenteritis (Acute) Hypokalemia (Acute) Hypomagnesemia (Acute) Pyelonephritis (Acute) Depression (Chronic) GERD (gastroesophageal reflux disease) (Chronic) Gait disturbance (Chronic) Left carotid bruit (Chronic) Essential hypertension (Chronic) Medical History (Updated 03/12/24 @ 09:01 by Mesha Betancourt DO) IBS (irritable bowel syndrome) Cardiomyopathy Allergic rhinitis Adenomatous polyp of colon Environmental allergies Osteopenia Cervical spondylosis Osteoarthritis Surgical History Rectocele, Paravaginal repair Vaginal hysterectomy GASTROSCOPY (01/20/15) DR.ANNICK ARAMBULA Cystocele, Paravaginal repair Colonoscopy - IV Sedation 2009 COLONOSCOPY (~12/2014) DR.ANNICK ARAMBULA Social History Smoking/Tobacco Use Status: Never Smoking risk assessment performed?: Yes Alcohol Intake: current Alcohol Intake frequency: a few times a month Drug use: Never Substance use type: does not use Housing: house Number of Children: 2 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 What is your relationship status?: Panel score (0-1 are the most socially isolated patients): 1 Do you feel safe at home: Yes Do you feel safe in your relationship?: Yes Additional Social history: lives with niece during week then son on weekend Exam Narrative Exam Narrative: L: cta b/l H: nsr A: mild llq tenderness Results Last Vital Signs Temp 36.6 C 03/11/24 14:10 Pulse 67 03/11/24 18:45 Resp 18 03/11/24 18:50 BP 152/47 H 03/11/24 18:45 Pulse Ox 98 03/11/24 18:50 Labs 03/12/24 06:20 03/12/24 06:20 Labs: Laboratory Results - last 24 hr 03/11/24 03/11/24 03/11/24 15:56 16:01 17:30 WBC 12.42 H RBC 3.76 L Hgb 11.0 L Hct 33.4 L MCV 89 MCH 29.3 MCHC 32.9 RDW 13.7 Plt Count 450 H MPV 9.5 Immature Gran % 3.7 Neutrophils % 69.1 Lymphocytes % 18.8 Monocytes % 7.3 Eosinophils % 0.5 Basophils % 0.6 Nucleated RBC % 0.0 Absolute Neutrophils 8.58 H Absolute Lymphocytes 2.33 Absolute Monocytes 0.91 H Absolute Eosinophils 0.06 Absolute Basophils 0.07 VBG Lactate 1.6 H Sodium 140 Potassium 3.3 L Chloride 102 Carbon Dioxide 22.5 Anion Gap 15.5 H BUN 31 H Creatinine 2.3 H Est GFR (CKD-EPI 2020) 21.09 Glucose 128 H Calcium 10.4 H Magnesium 2.0 Total Bilirubin 0.46 AST 63 H ALT 85 H Alkaline Phosphatase 215 H Troponin I 6 6 Total Protein 9.1 H Albumin 4.0 Lipase 42 03/11/24 18:24 WBC RBC Hgb Hct MCV MCH MCHC RDW Plt Count MPV Immature Gran % Neutrophils % Lymphocytes % Monocytes % Eosinophils % Basophils % Nucleated RBC % Absolute Neutrophils Absolute Lymphocytes Absolute Monocytes Absolute Eosinophils Absolute Basophils VBG Lactate Sodium Potassium Chloride Carbon Dioxide Anion Gap BUN Creatinine Est GFR (CKD-EPI 2020) Glucose Calcium Magnesium Total Bilirubin AST ALT Alkaline Phosphatase Troponin I Cancelled Total Protein Albumin Lipase
--- NOTE | 2024-03-11 21:48 | W.PM.HP.N ---
Date of service: 03/11/24 Time of Service: 21:48 Assessment and Plan Assessment and plan (1) Diverticulitis: Start date: 03/11/24 Status: Acute Assessment and plan: This is a 78-year-old lady with failed outpatient treatment of diverticulitis. She had advancing findings on CT of the abdomen with concerns for colitis. She last had endoscopy done in 2014 with multiple polyps and diverticulum at that time. She is having persistent nausea decreasing her intake. She is concerned about dehydration. She does have decreased services at home and lives with her grandchild. She will be admitted for converting to IV Zosyn and surgical consultation with patient to have endoscopies for evaluation both EGD and colonoscopy if available. She does have CKD which is chronic now with anemia but no evidence of blood loss. She has had a history of C. difficile in the past which will be rechecked with other pathogen for GI symptoms. She is not having significant diarrhea. Her nausea did seem to respond to antidepressants but this did also increase her QT interval. She will be monitored on telemetry. She is a full code. (2) Colitis: Start date: 03/11/24 Status: Acute Assessment and plan: Question of colitis with patient to have endoscopies for evaluation surgery consulted. Hold treatment with IV steroids for now, treat diverticulitis with IV Zosyn and follow surgical recommendations for treatment options and changes. (3) Hypokalemia: Start date: 03/11/24 Status: Acute Assessment and plan: Replete with IV potassium but gingerly with patient having CKD stage IV. She is not on diuretics. (4) Anxiety associated with depression: Status: Chronic Assessment and plan: Continue outpatient medical therapy with telemetry watching QT prolongation which is present. Avoid conflicting medical therapies. 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 She has had a history of C. difficile infection in the past as well. Check pathogens and C. difficile antigen with treatment as appropriate. Patient is on IV Zosyn for diverticulitis. Qualifiers: Irritable bowel syndrome type: other Qualified Code(s): K58.8 - Other irritable bowel syndrome (6) Polyp of colon: Status: Chronic Assessment and plan: Patient did have multiple polyps by previous colonoscopy in 2015 found and all segments of the colon. Follow-up colonoscopy. Qualifiers: Colon location: descending Colon polyp type: adenomatous Qualified Code(s): D12.4 - Benign neoplasm of descending colon (7) CKD (chronic kidney disease) stage 4, GFR 15-29 ml/min: Status: Chronic Assessment and plan: Stable with patient CKD stage IV. Monitor as we treat with gentle IV hydration. She has associated anemia. There is no evidence of acute or ongoing blood loss. Her appetite and nutrition is poor. History of Present Illness History of Present Illness Chief Complaint: Intractable nausea with left lower quadrant abdominal pain. Narrative: This is a 78-year-old female patient who has had several weeks of abdominal symptoms including nausea with recent intractable nausea and poor intake. She was hospitalized over late summer with acute kidney injury and renal failure secondary to dehydration from these symptoms with IV fluid resuscitation partially normalizing her creatinine but the patient continued to have CKD stage IV. She also has anemia. She denies any hematemesis or gross blood in her stool also denies any significant diarrhea. She presented to the ED just recently after discharge from her acute hospitalization late January 2024 with a visit March 06, 2024 for acute diverticulitis which was treated as an outpatient with oral Flagyl and Cipro. She persists with nausea and poor intake and presented to the ED this visit concerned about her kidneys. She denies any fever or chills. ED evaluation did reveal continued descending colon colitis and probable diverticulitis without abscess with an elevated WBC, sed rate and CRP with stable renal functions. Cultures were obtained and the patient was initiated on Zosyn instead of oral Cipro/Flagyl with gentle IV hydration initiated. Patient had an echocardiogram in January 2024 with preserved left ventricular ejection fraction. Patient does have dementia and is a poor historian offering no further significant history. He does live with her grandchild and they take care of each other. Surgery was consulted and after review they agreed with plan for endoscopies after bowel prep the patient n.p.o. after midnight. She is a full code. Review of Systems Narrative: 13 point review of systems otherwise unrevealing or stable. PFSH All Active Problems (Updated 03/12/24 @ 13:52 by Koko Vega) Intractable nausea (Acute) Colitis (Acute) Colitis (Acute) CKD (chronic kidney disease) stage 4, GFR 15-29 ml/min (Chronic) Diverticulitis (Acute) Hypothyroid (Chronic) DVT prophylaxis (Acute) Incidental lung nodule, less than or equal to 3mm (Acute) Thoracic back pain (Acute) Costochondritis (Acute) Atypical chest pain (Acute) Allergic rhinitis (Acute 05/26/14) 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 difficile enteritis (Acute) Chest pain (Acute) Anemia (Chronic) Hypertension (Chronic) Gastroenteritis (Acute) Hypokalemia (Acute) Hypomagnesemia (Acute) Pyelonephritis (Acute) Depression (Chronic) GERD (gastroesophageal reflux disease) (Chronic) Gait disturbance (Chronic) Left carotid bruit (Chronic) Essential hypertension (Chronic) Medical History (Updated 03/12/24 @ 13:52 by Koko Vega) IBS (irritable bowel syndrome) Cardiomyopathy Allergic rhinitis Adenomatous polyp of colon Environmental allergies Osteopenia Cervical spondylosis Osteoarthritis Surgical History Rectocele, Paravaginal repair Vaginal hysterectomy GASTROSCOPY (01/20/15) DR.ANNICK ARAMBULA Cystocele, Paravaginal repair Colonoscopy - IV Sedation 2009 COLONOSCOPY (~12/2014) DR.ANNICK ARAMBULA Social History Smoking/Tobacco Use Status: Never Smoking risk assessment performed?: Yes Alcohol Intake: current Alcohol Intake frequency: a few times a month Drug use: Never Substance use type: does not use Housing: house Number of Children: 2 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 What is your relationship status?: Panel score (0-1 are the most socially isolated patients): 1 Do you feel safe at home: Yes Do you feel safe in your relationship?: Yes Additional Social history: lives with niece during week then son on weekend Meds Allergies and Home Medications Allergies Allergy/AdvReac Type Severity Reaction Status Date / Time aspirin AdvReac upset Unverified 03/06/24 22:04 stomach r/t GERD metoclopramide HCl (From AdvReac hysterical Unverified 03/06/24 22:04 Reglan) crying trazodone AdvReac itching Unverified 03/06/24 22:04 enviornmental Allergy Mild head Uncoded 03/06/24 22:04 congestion Home Medications ?Medication ?Instructions ?Recorded ?Confirmed ?Type Klonopin 0.5 mg tablet (clonazepam) 0.5 mg PO PRN PRN 11/28/17 03/11/24 History aspirin 81 mg tablet,delayed 81 mg PO DAILY ##30 01/02/18 03/11/24 Rx release tramadol 50 mg tablet 50 mg PO QHS 10/23/18 03/11/24 History camphor 4 %-methyl salicylate 30 1 applic topical QD-BID PRN muscle 06/17/19 03/11/24 Rx %-menthol 10 % topical cream pain #113 grams (Bengay Ultra Strength) dexlansoprazole 60 mg 60 mg PO DAILY 10/02/23 03/11/24 History capsule,biphase delayed release donepezil 5 mg tablet 5 mg PO DAILY 10/02/23 03/11/24 History lidocaine 5 % topical patch 1 patch topical DAILY #15 ea 10/02/23 03/11/24 Rx (Lidoderm) amlodipine 5 mg tablet 10 mg PO DAILY 02/19/24 03/11/24 History rosuvastatin 20 mg tablet 20 mg PO .PM 02/19/24 03/11/24 History acetaminophen 325 mg tablet 650 mg (2 x 325 mg) PO Q4H PRN PRN 02/26/24 03/11/24 Rx #0 tabs escitalopram oxalate 5 mg tablet 5 mg PO DAILY #30 tabs 02/26/24 03/11/24 Rx levothyroxine 75 mcg tablet 37.5 mcg (1/2 x 75 mcg) PO DAILY 02/26/24 03/11/24 Rx #45 tabs lisinopril 10 mg tablet 10 mg PO DAILY #30 tabs 02/26/24 03/11/24 Rx magnesium hydroxide 400 mg/5 mL 30 ml PO DAILY PRN PRN #0 mL 02/26/24 03/11/24 Rx oral suspension (Milk of Magnesia) aluminum-mag hydroxide-simethicone 30 ml PO ONCE 03/06/24 03/11/24 History 200 mg-200 mg-20 mg/5 mL oral susp (Advanced Antacid-Antigas) bisacodyl 10 mg rectal suppository 10 mg ME DAILY PRN 03/06/24 03/11/24 History (Dulcolax (bisacodyl)) famotidine 20 mg tablet (Acid 20 mg PO DAILY 03/06/24 03/11/24 History Controller) ondansetron HCl 4 mg tablet 4 mg PO DAILY 03/06/24 03/11/24 History ciprofloxacin HCl 500 mg tablet 500 mg PO BID 7 days #14 tabs 03/07/24 03/11/24 Rx (Cipro) metronidazole 500 mg tablet 500 mg PO TID 7 days #21 tabs 03/07/24 03/11/24 Rx Exam Narrative Exam Narrative: General: Patient appears appropriate for age and is lying in bed comfortably without complaints of nausea. She is morbidly obese. She is alert and oriented at least to person and place. She does wander in conversation. She is in no acute distress. HEENT: Normocephalic, course and facial features. Eyes with pupils equal and reactive to light symmetrically, extraocular movement intact and sclera anicteric. Oropharynx with dry mucosa and fair dentition. Neck: Supple without JVD. Back: Kyphotic without CVA tenderness. Skin: Warm to touch, normal color, moist especially over the trunk. No skin breakdown noted. Lungs: Fair aeration with poor respiratory effort, no focalizing rales or rhonchi. No expiratory wheeze. No dullness to percussion. Breast: Exam deferred. Heart: Regular rate and rhythm with no appreciable murmur or gallop. Abdomen: Obese contour, soft with tenderness and guarding over the left lower quadrant no rebound. No palpable masses. Bowel sounds are positive but hypoactive especially left lower quadrant no palpable hepatosplenomegaly. Genitalia/rectal: Exam deferred. Extremities: No clubbing, cyanosis or grossly pitting edema with patient having chronic nonpitting edema lower extremities. Slight chronic venous stasis changes of skin over lower extremities. Fair capillary refill. Neuro: Cranial nerves II through XII intact, no focalized motor deficits and no tremor. Psych: Flattened affect with depressed mood. No abnormal thought processes but decreased short-term memory. Remote memory appear to be grossly intact. Results Imaging Imaging Studies: EXAM: CT ABDOMEN PELVIS WO CLINICAL HISTORY: Recent diverticulitis, still nausea, poor PO. CONTRAST MATERIAL: Intravenous: none Oral: None COMPARISON: CT CT ABDOMEN PELVIS WO from 03/06/2024 FINDINGS: VISUALIZED LUNG BASES: No infiltrates nor pleural effusions. ABDOMEN: There is no ascites. LIVER: There are no obvious focal hepatic lesions evident of this noninfused study. GALLBLADDER/BILIARY: Gallbladder is again noted be surgically absent. CBD is not dilated. PANCREAS: No evidence of pancreatic mass nor dilatation of the pancreatic duct. SPLEEN: Spleen is not enlarged. No obvious intrasplenic lesions. ADRENALS: There are no significant adrenal masses. KIDNEYS:No cysts evident. No solid renal masses. No calculi nor hydronephrosis. . ABDOMINAL AORTA: Calcified but not enlarged. Common iliac arteries are not enlarged. LYMPH NODES: There is no retroperitoneal nor paraaortic adenopathy. ABDOMINAL WALL: No evidence of significant anterior abdominal wall hernia. Bilateral fat only containing inguinal hernias again noted. GI: No evidence of bowel obstruction. PELVIS: LYMPH NODES: There is no intrapelvic nor inguinal adenopathy. GI: No evidence of appendicitis.The previously described abnormally thickened-edematous descending-left colon and sigmoid is again noted. There also appears to be a colitis-type pattern of the descending colon from the level the splenic flexure down to the sigmoid although the amount of pericolonic streaking appears to have slightly decreased. There is no perforation or free air nor abscess evident. No free fluid in the dependent aspect of the pelvis. URINARY BLADDER: No calculi nor obvious masses evident REPRODUCTIVE: Uterus is again noted to be surgically absent. OSSEOUS: No significant osseous lesions. No acute fractures. IMPRESSION: 1. There is a colitis pattern evident in the descending colon at and distal to the splenic flexure. The amount of pericolonic streaking as slightly decreased but colitis pattern is still significantly evident. In addition, there is diverticulosis again noted throughout the sigmoid. Cannot identify a culprit diverticulum and therefore the most significant acute pathology most probably is related to the colitis pattern in the left side of the colon at and distal to the splenic flexure. There does not appear to be obvious involvement of the colon proximal to the splenic flexure. 2. There is no ascites. No gas in the portal venous system. No bowel obstruction nor free air nor abscess. 3. Again noted is evidence of prior cholecystectomy and hysterectomy. Appendix appears unremarkable. EXAM: Comprehensive 2D, Doppler, and color-flow Echocardiogram Date of Exam: 02/19/24 Conclusion Normal left ventricular wall thickness and chamber size. Ejection fraction is 67%. Wall motion is normal Normal right ventricular size and function Left atrium is mildly dilated. Right atrial size is normal Aortic valve is trileaflet and sclerotic without stenosis or regurgitation Mild mitral annular calcification. Mild mitral regurgitation Normal tricuspid valve with mild to moderate regurgitation. Estimated right ventricular systolic pressure is 44 mmHg Labs 03/12/24 06:20 03/12/24 06:20 Labs: Laboratory Results - last 24 hr 03/11/24 03/11/24 03/11/24 15:56 16:01 17:30 WBC 12.42 H RBC 3.76 L Hgb 11.0 L Hct 33.4 L MCV 89 MCH 29.3 MCHC 32.9 RDW 13.7 Plt Count 450 H MPV 9.5 Immature Gran % 3.7 Neutrophils % 69.1 Lymphocytes % 18.8 Monocytes % 7.3 Eosinophils % 0.5 Basophils % 0.6 Nucleated RBC % 0.0 Absolute Neutrophils 8.58 H Absolute Lymphocytes 2.33 Absolute Monocytes 0.91 H Absolute Eosinophils 0.06 Absolute Basophils 0.07 VBG Lactate 1.6 H Sodium 140 Potassium 3.3 L Chloride 102 Carbon Dioxide 22.5 Anion Gap 15.5 H BUN 31 H Creatinine 2.3 H Est GFR (CKD-EPI 2020) 21.09 Glucose 128 H Calcium 10.4 H Magnesium 2.0 Total Bilirubin 0.46 AST 63 H ALT 85 H Alkaline Phosphatase 215 H Troponin I 6 6 Total Protein 9.1 H Albumin 4.0 Lipase 42 03/11/24 18:24 WBC RBC Hgb Hct MCV MCH MCHC RDW Plt Count MPV Immature Gran % Neutrophils % Lymphocytes % Monocytes % Eosinophils % Basophils % Nucleated RBC % Absolute Neutrophils Absolute Lymphocytes Absolute Monocytes Absolute Eosinophils Absolute Basophils VBG Lactate Sodium Potassium Chloride Carbon Dioxide Anion Gap BUN Creatinine Est GFR (CKD-EPI 2020) Glucose Calcium Magnesium Total Bilirubin AST ALT Alkaline Phosphatase Troponin I Cancelled Total Protein Albumin Lipase Last Vital Signs Temp 36.6 C 03/11/24 14:10 Pulse 67 03/11/24 18:45 Resp 18 03/11/24 18:50 BP 152/47 H 03/11/24 18:45 Pulse Ox 98 03/11/24 18:50 Time Spent Time spent with Patient: >75 minutes Time was spent: preparing to see the patient(eg.review tests), obtaining and/or reviewing separately otained hiistory, ordering medications,tests, procedures, referring, communicating with other health manager medicare marketing, indepentently interpreting results, counseling the patient and care coordination
[2024-03-11] MEDS: PIPERACILLIN/TAZO 3.375 GM in Normal Saline 50 ML IVPB (22:29)
[2024-03-11 22:50] LABS: ESR 36 mm/hr (0-30)
[2024-03-11 22:58] LABS: C-Reactive Protein 1.39 mg/dL (<or=0.5)
[2024-03-11] MEDS: POTASSIUM CHLORIDE 10 MEQ/100 ML BAG 100 MEQ IV_INF (23:18)
--- NOTE | 2024-03-11 23:40 | W.PC.ACHO ---
Registration Status: Primary Language: Preferred Language: ED Information & Data Chief Complaint Abd Prob 03/11/24 15:33 Triage Note Little to no oral intake ( 03/11/24 14:03 food or water) for at least a week. Taking medications as prescribed. Mild persistent nausea, belching. Recent weight loss. Medical / Surgical History (Last Reviewed 03/11/24 @ 21:48 by Koko Vega) IBS (irritable bowel syndrome) Cardiomyopathy Allergic rhinitis Adenomatous polyp of colon Environmental allergies Osteopenia Cervical spondylosis Osteoarthritis (Last Reviewed 03/11/24 @ 21:48 by Koko Vega) Rectocele, Paravaginal repair Vaginal hysterectomy GASTROSCOPY (01/20/15) Cystocele, Paravaginal repair Colonoscopy - IV Sedation COLONOSCOPY (~12/2014) Most Recent Vital Signs Temperature 36.6 C 03/11/24 14:10 Pulse 72 03/11/24 22:46 Pulse 81 03/11/24 22:46 Respiratory Rate 26 H 03/11/24 22:46 Respiratory Effort Normal 03/11/24 14:10 Blood Pressure 189/66 H 03/11/24 22:46 Blood Pressure Mean 109 03/11/24 22:46 Blood Pressure Position Sitting 03/11/24 14:10 Pulse Oximetry 98 03/11/24 22:46 Oxygen Delivery Method Room Air 03/11/24 14:03 Oxygen Flow Rate 0 03/11/24 14:03 Allergies aspirin Adverse Reaction (Unverified 03/06/24 22:04) upset stomach r/t GERD metoclopramide HCl (From Reglan) Adverse Reaction (Unverified 03/06/24 22:04) hysterical crying trazodone Adverse Reaction (Unverified 03/06/24 22:04) itching enviornmental Allergy (Mild, Uncoded 03/06/24 22:04) head congestion Active Medications Generic Name Dose Route Start Last Admin Trade Name Freq PRN Reason Stop Dose Admin Piperacillin Sod/Tazobactam 50 mls @ 100 mls/hr 03/11/24 22:00 03/11/24 23:00 Sod 3.375 gm/ Sodium Chloride IVPB Infused Q6H BARAK Infusion IV IV Catheter Gauge [Left Hand] 22 Diet Orders Category Date Time Status npo [Nothing Per Oral] [DIET] Nutrition 03/12/24 Breakfast Ordered Diagnostics 03/11/24 03/11/24 03/11/24 Range/Units 22:27 18:24 17:30 WBC (4.4-10.8) 10^3/uL RBC (3.93-5.22) 10^6/uL Hgb (11.2-15.7) g/dL Hct (36.0-46.0) % MCV (80-95) fL MCH (27.0-33.0) pg MCHC (32.0-36.0) % RDW (11.7-14.6) % Plt Count (130-400) 10^3/uL MPV (8.0-11.0) fL Immature Gran % % Neutrophils % % Lymphocytes % % Monocytes % % Eosinophils % % Basophils % % Nucleated RBC % (0.0-0.3) % Absolute Neutrophils (1.2-6.7) 10^3/uL Absolute Lymphocytes (1.2-3.4) 10^3/uL Absolute Monocytes (0.1-0.8) 10^3/uL Absolute Eosinophils (0.0-0.7) 10^3/uL Absolute Basophils (0.0-0.2) 10^3/uL ESR (0-30) mm/hr VBG Lactate (0.6-1.4) mmol/L Sodium (136-145) mmol/L Potassium (3.5-5.1) mmol/L Chloride (98-107) mmol/L Carbon Dioxide (21.0-32.0) mmol/L Anion Gap (3-11) mmol/L BUN (7-18) mg/dL Creatinine (0.55-1.02) mg/dL Est GFR (CKD-EPI 2020) (mL/min/1.73m2) Glucose (74-106) mg/dL Calcium (8.5-10.1) mg/dL Magnesium (1.8-2.4) mg/dL Total Bilirubin (0.2-1.0) mg/dL AST (15-37) U/L ALT (14-59) U/L Alkaline Phosphatase (46-116) U/L Troponin I Cancelled 6 (<or=51) ng/L C-Reactive Protein (<or=0.5) mg/dL Total Protein (6.4-8.2) g/dL Albumin (3.4-5.0) g/dL Lipase (16-77) U/L COVID-19 Source Pending SARS-CoV-2 (PCR) Pending 03/11/24 03/11/24 03/11/24 Range/Units 16:01 15:59 15:56 WBC 12.42 H (4.4-10.8) 10^3/uL RBC 3.76 L (3.93-5.22) 10^6/uL Hgb 11.0 L (11.2-15.7) g/dL Hct 33.4 L (36.0-46.0) % MCV 89 (80-95) fL MCH 29.3 (27.0-33.0) pg MCHC 32.9 (32.0-36.0) % RDW 13.7 (11.7-14.6) % Plt Count 450 H (130-400) 10^3/uL MPV 9.5 (8.0-11.0) fL Immature Gran % 3.7 % Neutrophils % 69.1 % Lymphocytes % 18.8 % Monocytes % 7.3 % Eosinophils % 0.5 % Basophils % 0.6 % Nucleated RBC % 0.0 (0.0-0.3) % Absolute Neutrophils 8.58 H (1.2-6.7) 10^3/uL Absolute Lymphocytes 2.33 (1.2-3.4) 10^3/uL Absolute Monocytes 0.91 H (0.1-0.8) 10^3/uL Absolute Eosinophils 0.06 (0.0-0.7) 10^3/uL Absolute Basophils 0.07 (0.0-0.2) 10^3/uL ESR 36 H (0-30) mm/hr VBG Lactate 1.6 H (0.6-1.4) mmol/L Sodium 140 (136-145) mmol/L Potassium 3.3 L (3.5-5.1) mmol/L Chloride 102 (98-107) mmol/L Carbon Dioxide 22.5 (21.0-32.0) mmol/L Anion Gap 15.5 H (3-11) mmol/L BUN 31 H (7-18) mg/dL Creatinine 2.3 H (0.55-1.02) mg/dL Est GFR (CKD-EPI 2020) 21.09 (mL/min/1.73m2) Glucose 128 H (74-106) mg/dL Calcium 10.4 H (8.5-10.1) mg/dL Magnesium 2.0 (1.8-2.4) mg/dL Total Bilirubin 0.46 (0.2-1.0) mg/dL AST 63 H (15-37) U/L ALT 85 H (14-59) U/L Alkaline Phosphatase 215 H (46-116) U/L Troponin I 6 (<or=51) ng/L C-Reactive Protein 1.39 H (<or=0.5) mg/dL Total Protein 9.1 H (6.4-8.2) g/dL Albumin 4.0 (3.4-5.0) g/dL Lipase 42 (16-77) U/L COVID-19 Source SARS-CoV-2 (PCR) Intake and Output - 24 Hour Total 03/11/24 14:00 thru 03/11/24 23:00 Intake Total 1050 Balance 1050 Weight 50.7 kg Intake: IV 1050 Falls Risk Assessment History of Falls No History 03/11/24 14:10 Contributing Factors No Factors 03/11/24 14:10 Ambulatory Aids Independent 03/11/24 14:10 Tubes/Lines None 03/11/24 14:10 Gait Evaluation No gait disturbance 03/11/24 14:10 Cognition No cognitive impairment 03/11/24 14:10 Fall Total Score 0 03/11/24 14:10 Level of Risk Standard/Low Risk 03/11/24 14:10 Problems (Last Reviewed 03/11/24 @ 21:48 by Koko Vega) Colitis (Acute) CKD (chronic kidney disease) stage 4, GFR 15-29 ml/min (Chronic) Diverticulitis (Acute) Anxiety associated with depression (Chronic 11/28/17) Irritable bowel syndrome (Chronic 11/28/17) Polyp of colon (Chronic 11/28/17) Hypokalemia (Acute) v v v v v v v v v Sending and/or Receiving Nurses: Please use comment section below to note any information pertinent to the patient hand-off not included above. Information / Comments: Infusing Potassium 10 meq IVPB, VS BP 178/53, HR 75 bpm, RR 18, 96% on room air. last BM tonight at the ED, need urine sample, Received LR, Zofran, Jinny, and IV antibiotic. Report received from: Kendal Cuevas RN
[2024-03-11 23:44] LABS: Source Nasal/Nares
[2024-03-12] VITALS (15 sets, daily range): BP systolic 103–174; BP diastolic 31–76; PULSE 61–96; RESP 14–21; TEMP 36.2–37.2; O2SAT 96–99; BMI 23.7
[2024-03-12 00:14] LABS: COVID-19 PCR Negative (Negative)
[2024-03-12] MEDS: Lactated Ringers 1,000 ML 125 ML IV (01:14)
[2024-03-12] MEDS: PIPERACILLIN/TAZO 3.375 GM in Normal Saline 50 ML IVPB (04:28)
[2024-03-12 04:35] LABS: C Diff PCR Negative (Negative)
[2024-03-12] MEDS: ACETAMINOPHEN 1,000 MG/100 ML BTL 400 MG IVPB (05:02)
[2024-03-12 05:08] LABS: Bilirubin Negative (Negative); Blood Negative (Negative); Clarity Clear (Clear); Glucose Negative (Negative); Ketones Trace mg/dL (Negative); Leukocyte Esterase Negative (Negative); Nitrite Positive (Negative); Specific Gravity >= 1.030 (1.005-1.025); Urobilinogen 0.2 mg/dL (Up to 0.2); pH 5.5 (5-8)
[2024-03-12 05:18] LABS: Bacteria Few HPF (Negative); C & S Indicated? No; Casts Negative LPF (Negative); Crystals Negative HPF (Negative); Epithelial Cells Rare HPF (Negative); Mucus Negative (Negative); Other Cells Rare Renal (Negative); RBC 0-2 HPF (0-2); WBC 0-2 HPF (0-5)
[2024-03-12 06:49] LABS: HCT 26.6 % (36.0-46.0); HGB 9.1 g/dL (11.2-15.7); MCH 29.5 pg (27.0-33.0); MCHC 34.2 % (32.0-36.0); MCV 86 fL (80-95); MPV 9.3 fL (8.0-11.0); Platelet Count 335 10^3/uL (130-400); RBC 3.08 10^6/uL (3.93-5.22); RDW 13.7 % (11.7-14.6); RDW-SD 42.5 fL; WBC 9.87 10^3/uL (4.4-10.8)
[2024-03-12 07:26] LABS: ALT 46 U/L (14-59); AST 40 U/L (15-37); Albumin 2.7 g/dL (3.4-5.0); Alkaline Phosphatase 140 U/L (46-116); Anion Gap 10.7 mmol/L (3-11); BUN 24 mg/dL (7-18); Bilirubin, Total 0.37 mg/dL (0.2-1.0); CO2 23.3 mmol/L (21.0-32.0); Calcium 8.9 mg/dL (8.5-10.1); Chloride 107 mmol/L (98-107); Estimated GFR 24.94 (mL/min/1.73m2); Glucose 125 mg/dL (74-106); Magnesium 1.8 mg/dL (1.8-2.4); Potassium 3.2 mmol/L (3.5-5.1); Sodium 141 mmol/L (136-145); Total Protein 6.2 g/dL (6.4-8.2)
[2024-03-12 07:28] LABS: TSH (W/Ref FT4) 0.91 uIU/mL (0.36-3.74)
[2024-03-12 07:35] LABS: Procalcitonin 0.1 ng/mL
[2024-03-12 07:45] LABS: Ferritin 460 ng/mL (8-252); Folate 13.8 ng/mL (8.6-20.0); Vitamin B12 476 pg/mL (193-986)
[2024-03-12] MEDS: Levothyroxine 75 MCG TAB 37.5 MCG PO (07:52)
--- NOTE | 2024-03-12 08:47 | PGE_ITS ---
Date of Service Date of service: 03/12/24 Time of Service: 08:47 Assessment and Plan Assessment and plan (1) Colitis: Status: Acute Assessment and plan: Left sided Colitis noted on CT scan on 03/11. Patient continues to report indigestion and LLQ pain. Last Colonoscopy was in 2014, which was remarkable for diverticulosis, tubular adenomatous polyps x 4 and tubulovillious adenoma x 1. EGD in 2015 was remarkable for gastritis and hiatal hernia. Hgb decreased over night to 9.1 She denies any chest pain, SOB or dizziness. She has been ambulating to and from the bathroom. Will discuss and consider EGD and Colonoscopy for further evaluation. EGD and flex sig today (2) Gastroesophageal reflux disease without esophagitis: Status: Acute Assessment and plan: EGD in 2014 was remarkable for gastritis and hiatal hernia. Subjective Subjective Interval history since last seen: Patient reports she is feeling okay, this morning. She states she has not noted any bleeding. However she continues to have indigestion and burping along with point tenderness in LLQ. She denies any dizziness, chest pain or palpitations. Denies chest pain, palpitations, dyspnea or dyspnea with exertion. Denies personal or family history of adverse reactions to anesthesia. Denies any history of [place], stroke, seizures, bleeding or clotting disorders. Denies having any implanted metal. Denies any history of chemotherapy or radiation. Exam Const General: cooperative, healthy appearing and comfortable Orientation: alert and oriented x3 Resp Effort & Inspection: normal respiratory effort, no audible wheezes and no cough GI Inspection: normal to inspection Palpation: soft, no guarding and nontender Objective Last Vital Signs Temp 37.2 C 03/12/24 07:43 Pulse 65 03/12/24 07:43 Resp 18 03/12/24 07:43 BP 169/67 H 03/12/24 07:43 Pulse Ox 97 03/12/24 07:43 Laboratory Results - last 24 hr 03/11/24 03/11/24 03/11/24 15:56 15:59 16:01 WBC 12.42 H RBC 3.76 L Hgb 11.0 L Hct 33.4 L MCV 89 MCH 29.3 MCHC 32.9 RDW 13.7 Plt Count 450 H MPV 9.5 Reticulocyte % (Auto) Immature Gran % 3.7 Neutrophils % 69.1 Lymphocytes % 18.8 Monocytes % 7.3 Eosinophils % 0.5 Basophils % 0.6 Nucleated RBC % 0.0 Absolute Neutrophils 8.58 H Absolute Lymphocytes 2.33 Absolute Monocytes 0.91 H Absolute Eosinophils 0.06 Absolute Basophils 0.07 ESR 36 H VBG Lactate 1.6 H Sodium 140 Potassium 3.3 L Chloride 102 Carbon Dioxide 22.5 Anion Gap 15.5 H BUN 31 H Creatinine 2.3 H Est GFR (CKD-EPI 2020) 21.09 Glucose 128 H Calcium 10.4 H Magnesium 2.0 Ferritin Total Bilirubin 0.46 AST 63 H ALT 85 H Alkaline Phosphatase 215 H Troponin I 6 C-Reactive Protein 1.39 H Total Protein 9.1 H Albumin 4.0 Lipase 42 Vitamin B12 Folate Procalcitonin TSH Urine Color Urine Clarity Urine pH Ur Specific Goodman Urine Protein Urine Ketones Urine Blood Urine Nitrite Urine Bilirubin Urine Urobilinogen Ur Leukocyte Esterase Urine RBC Urine WBC Ur Epithelial Cells Urine Crystals Urine Bacteria Urine Casts Urine Mucus Urine Other Ur Culture Indicated? Urine Glucose Stl C.difficile Tox PCR COVID-19 Source SARS-CoV-2 (PCR) 03/11/24 03/11/24 03/11/24 17:30 18:24 23:35 WBC RBC Hgb Hct MCV MCH MCHC RDW Plt Count MPV Reticulocyte % (Auto) Immature Gran % Neutrophils % Lymphocytes % Monocytes % Eosinophils % Basophils % Nucleated RBC % Absolute Neutrophils Absolute Lymphocytes Absolute Monocytes Absolute Eosinophils Absolute Basophils ESR VBG Lactate Sodium Potassium Chloride Carbon Dioxide Anion Gap BUN Creatinine Est GFR (CKD-EPI 2020) Glucose Calcium Magnesium Ferritin Total Bilirubin AST ALT Alkaline Phosphatase Troponin I 6 Cancelled C-Reactive Protein Total Protein Albumin Lipase Vitamin B12 Folate Procalcitonin TSH Urine Color Urine Clarity Urine pH Ur Specific Goodman Urine Protein Urine Ketones Urine Blood Urine Nitrite Urine Bilirubin Urine Urobilinogen Ur Leukocyte Esterase Urine RBC Urine WBC Ur Epithelial Cells Urine Crystals Urine Bacteria Urine Casts Urine Mucus Urine Other Ur Culture Indicated? Urine Glucose Stl C.difficile Tox PCR COVID-19 Source Nasal/Nares SARS-CoV-2 (PCR) Negative 03/12/24 03/12/24 03/12/24 03:45 04:45 06:20 WBC 9.87 RBC 3.08 L Hgb 9.1 L Hct 26.6 L MCV 86 MCH 29.5 MCHC 34.2 RDW 13.7 Plt Count 335 MPV 9.3 Reticulocyte % (Auto) 2.0 Immature Gran % Neutrophils % Lymphocytes % Monocytes % Eosinophils % Basophils % Nucleated RBC % Absolute Neutrophils Absolute Lymphocytes Absolute Monocytes Absolute Eosinophils Absolute Basophils ESR VBG Lactate Sodium 141 Potassium 3.2 L Chloride 107 Carbon Dioxide 23.3 Anion Gap 10.7 BUN 24 H Creatinine 2.0 H Est GFR (CKD-EPI 2020) 24.94 Glucose 125 H Calcium 8.9 Magnesium 1.8 Ferritin 460 H Total Bilirubin 0.37 AST 40 H ALT 46 Alkaline Phosphatase 140 H Troponin I C-Reactive Protein Total Protein 6.2 L Albumin 2.7 L Lipase Vitamin B12 476 Folate 13.8 Procalcitonin 0.1 TSH 0.91 Urine Color Yellow Urine Clarity Clear Urine pH 5.5 Ur Specific Goodman >= 1.030 H Urine Protein 30 H Urine Ketones Trace H Urine Blood Negative Urine Nitrite Positive H Urine Bilirubin Negative Urine Urobilinogen 0.2 Ur Leukocyte Esterase Negative Urine RBC 0-2 Urine WBC 0-2 Ur Epithelial Cells Rare Urine Crystals Negative Urine Bacteria Few Urine Casts Negative Urine Mucus Negative Urine Other Rare Renal Ur Culture Indicated? No Urine Glucose Negative Stl C.difficile Tox PCR Negative COVID-19 Source SARS-CoV-2 (PCR) PAWSS Have you Been Recently Intoxicated or Drunk Within the Last 30 days?: No Have you Ever Experienced Previous Episodes of Alcohol Withdrawal?: No Have you ever Experienced Withdrawal Seizures?: No Have you ever Experienced Delirium Tremens(DT)s?: No Have you ever undergone Alcohol Rehabilitation Treatment (i.e, inpt ot outpatient treatment programs)?: No Have you ever Experienced Blackouts?: No Have you ever Combined Alcohol with other Downers within the last 90 days?: No Have you ever Combined Alcohol with any other Substance of Abuse during the last 90 days?: No Positive Blood Alcohol level on Presentation? [PCS.BAL]: No Evidence of Increased Autonomic Activity (i.e. HR>120, tremor, sweating, agitation, nausea)?: No Result: 0 Time Spent with Patient Time Spent with Patient: <25 minutes Time was spent: preparing to see the patient(eg.review tests), obtaining and/or reviewing separately otained hiistory, indepentently interpreting results and counseling the patient
[2024-03-12] MEDS: Escitalopram 10 MG TAB 5 MG PO (09:09)
[2024-03-12] MEDS: Lidocaine 5% Patch 1 PATCH TP (09:09)
[2024-03-12] MEDS: Lisinopril 10 MG TAB PO (09:10)
[2024-03-12] MEDS: Normal Saline Flush 10 ML SYR IVP ×2 (09:10→19:32)
[2024-03-12] MEDS: POTASSIUM CHLORIDE 10 MEQ/100 ML BAG 100 MEQ IV_INF (09:10)
[2024-03-12] MEDS: amLODIPine 5 MG TAB 10 MG PO (09:10)
[2024-03-12] MEDS: Pantoprazole 40 MG VIAL IVP ×2 (09:10→19:32)
--- NOTE | 2024-03-12 09:15 | PDOC.CMIN ---
Date of service: 03/12/24 Time of Service: 09:15 Care Management Initial Assmt Initial Assessment Reason for Hospitalization: diverticulitis, nausea Functional Status/Living Situation Patient Presentation: Venus was sitting up in the bed when CM met with her today. She had just come back from an EGD and flex sigmoidoscopy. She said she tolerated that well, but doesn't know the results, they don't tell you anything. Venus presented to the ED yesterday afternoon with c/o poor PO intake and nausea. She was recently discharged on 02/25 for [facility] due to GI illness, and was also seen in the ED on 03/06 for diverticulitis and colitis. Venus was very pleasant to speak with today, but a bit difficult to follow. Venus was unable to tell me if she had a f/u with her PCP since her last admission. She had a vague remembrance of being at [facility] after she was discharged on 02/25. She was not sure how she arrived to the hospital. Venus denied any GI symptoms at this time. Venus lives with her granddaughter, Yesenia, and another woman, Tigist shares the home as well. She currently has no community services in the home. CM contacted Yesenia today. Yesenia has been worried about her grandmother for some time, as she has not been eating and drinking, and she has not been urinating enough. CM reached out to son, Jose Alejandro today as well, but had to leave a message Town of Residence: [place] Significant Other/Family: Local (Son, Jose Alejandro, daughter in law, Diana and Yesenia, granddaughter.) Natural Supports: Yesenia and Jose Alejandro are biggest supports. Employment Status: Retired Instrumental Activities of Daily Living (ADLs): Independent (per patient) Medications Medication Management: No Issues/Barriers identified Physical Functioning/Mobility Assistive Device: denies Advance Directives Advance Directives: Do you have an Advance Directive: Y 01/02/15 14:11 AD On File at [facility]: Y 01/02/15 14:11 Date Asked AD Date Reviewed 02/19/24 02/19/24 00:19 COLST On File at [facility] COLST Date Scanned Code Status Resuscitation Status Full Code Insurance Coverage/Financial Issues Insurance: [facility]/ [facility] Replacemetn Care Team Visit Care Team Role Provider Type Katya Phelan Primary Care Provider NON-[facility] STAFF PHYSICIAN Mesha Betancourt DO Other Providers OSTEOPATHIC DOCTOR Della James MD Emergency Provider [facility] STAFF PHYSICIAN Koko Vega Admit Provider NON-[facility] STAFF PHYSICIAN Attending Provider Discharge Potential Discharge Needs: PCP F/U Appt Anticipated Barriers to Discharge: None Identified Patient/Family Education Needs: Review discharge instructions, discuss Ask Me Three Transportation: Private vehicle Plan: Anticipate Venus will be discharged home with new orders for HH RN, PT, VENTILATION EQUIPMENT TENDER through [facility] when medically stable. She will follow up with her PCP and plan of care and transport with family. CM will follow and continue to support discharge planning needs. 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 difficile enteritis (Acute) Chest pain (Acute) Anemia (Chronic) Hypertension (Chronic) Gastroenteritis (Acute) Hypokalemia (Acute) Hypomagnesemia (Acute) Pyelonephritis (Acute) Depression (Chronic) GERD (gastroesophageal reflux disease) (Chronic) Gait disturbance (Chronic) Left carotid bruit (Chronic) Essential hypertension (Chronic) Medical History (Updated 03/12/24 @ 09:01 by Mesha Betancourt, DO) IBS (irritable bowel syndrome) Cardiomyopathy Allergic rhinitis Adenomatous polyp of colon Environmental allergies Osteopenia Cervical spondylosis Osteoarthritis Surgical History Rectocele, Paravaginal repair Vaginal hysterectomy GASTROSCOPY (01/20/15) DR.ANNICK ARAMBULA Cystocele, Paravaginal repair Colonoscopy - IV Sedation 2009 COLONOSCOPY (~12/2014) DR.ANNICK ARAMBULA Social History Smoking/Tobacco Use Status: Never Smoking risk assessment performed?: Yes Alcohol Intake: current Alcohol Intake frequency: a few times a month Drug use: Never Substance use type: does not use Housing: house Number of Children: 2 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 Her discharge note from 02/25 stated she was [facility] , Venus was unable to confirm this. ED visits How many ED visits in the past 12 months: 4 Assessment for Readmission Summary of readmission circumstances, based upon interviews: Does not appear that the admissions were related SDOH(Care Management) Screening Will the Patient Participate in the Screening?: Yes Do you worry about having a steady place to live?: no In the past 12 months, have you had to go without electric, gas, oil or water in your home?: no Have you or anyone in your house had to go without enough food to eat?: no Has lack of transportation kept you from medical appointments or from doing things needed for daily living?: no Has anyone in your support network made you feel unsafe for any reason?: no Social Determinants of Health Comments(SDOH Details): Patient lives with her granddaughter at home. Patient denies any issues on her living situation. Anticipated HH Services Anticipated HH Services at [facility] Services Needed (RN, PT, VENTILATION EQUIPMENT TENDER).
--- NOTE | 2024-03-12 10:28 | ANES.PREOP_ITS ---
General Info Date of Service Date Performed: 03/12/24 Height: 4 ft 10 in Weight: 51.5 kg Body Mass Index (BMI): 23.7 Surgical Procedure: Operation Date: 03/12/24 09:55 Proposed Procedure Side Surgeon p Flexible Sigmoidoscopy Mesha Betancourt, DO s Gastroscopy Mesha Betancourt, DO Actual Procedure Side Surgeon p Flexible Sigmoidoscopy Mesha Betancourt, DO s Gastroscopy Mesha Betancourt, DO Pre-Op Diagnosis Post-Op Diagnosis COLITIS GERD Meds Allergies and Home Medications Allergies Allergy/AdvReac Type Severity Reaction Status Date / Time aspirin AdvReac upset Unverified 03/06/24 22:04 stomach r/t GERD metoclopramide HCl (From AdvReac hysterical Unverified 03/06/24 22:04 Reglan) crying trazodone AdvReac itching Unverified 03/06/24 22:04 enviornmental Allergy Mild head Uncoded 03/06/24 22:04 congestion Home Medication ?Medication ?Instructions ?Recorded Klonopin 0.5 mg tablet (clonazepam) 0.5 mg PO PRN PRN 11/28/17 aspirin 81 mg tablet,delayed 81 mg PO DAILY ##30 01/02/18 release tramadol 50 mg tablet 50 mg PO QHS 10/23/18 camphor 4 %-methyl salicylate 30 1 applic topical QD-BID PRN muscle 06/17/ %-menthol 10 % topical cream pain #113 grams (Bengay Ultra Strength) dexlansoprazole 60 mg 60 mg PO DAILY 10/02/23 capsule,biphase delayed release donepezil 5 mg tablet 5 mg PO DAILY 10/02/23 lidocaine 5 % topical patch 1 patch topical DAILY #15 ea 10/02/23 (Lidoderm) amlodipine 5 mg tablet 10 mg PO DAILY 02/19/24 rosuvastatin 20 mg tablet 20 mg PO .PM 02/19/24 acetaminophen 325 mg tablet 650 mg (2 x 325 mg) PO Q4H PRN PRN 02/26/24 #0 tabs escitalopram oxalate 5 mg tablet 5 mg PO DAILY #30 tabs 02/26/24 levothyroxine 75 mcg tablet 37.5 mcg (1/2 x 75 mcg) PO DAILY 02/26/24 #45 tabs lisinopril 10 mg tablet 10 mg PO DAILY #30 tabs 02/26/24 magnesium hydroxide 400 mg/5 mL 30 ml PO DAILY PRN PRN #0 mL 02/26/24 oral suspension (Milk of Magnesia) aluminum-mag hydroxide-simethicone 30 ml PO ONCE 03/06/24 200 mg-200 mg-20 mg/5 mL oral susp (Advanced Antacid-Antigas) bisacodyl 10 mg rectal suppository 10 mg CA DAILY PRN 03/06/24 (Dulcolax (bisacodyl)) famotidine 20 mg tablet (Acid 20 mg PO DAILY 03/06/24 Controller) ondansetron HCl 4 mg tablet 4 mg PO DAILY 03/06/24 ciprofloxacin HCl 500 mg tablet 500 mg PO BID 7 days #14 tabs 03/07/24 (Cipro) metronidazole 500 mg tablet 500 mg PO TID 7 days #21 tabs 03/07/24 Current Visit Medications: Current Medications Generic Name Dose Route Start Last Admin Trade Name Freq PRN Reason Stop Dose Admin Al Hydrox/Mg Hydrox/Simethicone 30 ml 03/12/24 00:53 Mylanta Suspension 30 Ml Cup PO Q2H PRN PRN Amlodipine Besylate 10 mg 03/12/24 08:30 03/12/24 09:10 Amlodipine 5 Mg Tab PO 10 mg DAILY BARAK Administration Docusate Sodium 100 mg 03/12/24 00:53 Docusate Sodium 100 Mg Cap PO TID PRN PRN Escitalopram Oxalate 5 mg 03/12/24 08:30 03/12/24 09:09 Escitalopram 10 Mg Tab PO 5 mg DAILY BARAK Administration Heparin Sodium (Porcine) 5,000 units 03/12/24 06:00 03/12/24 05:27 Heparin 5,000 Units/Ml Vial SC Not Given Q8H BARAK Ringer's Solution 1,000 mls @ 125 mls/hr 03/12/24 00:53 03/12/24 01:14 IV 125 mls/hr INFUSION BARAK Administration Acetaminophen 1,000 mg in 100 mls @ 400 mls/hr 03/12/24 00:53 03/12/24 05:02 Ofirmev IVPB 400 mls/hr Q8H PRN Administration Piperacillin Sod/Tazobactam 50 mls @ 100 mls/hr 03/12/24 12:00 Sod 2.25 gm/ Sodium Chloride IVPB Q8H BARAK IV Miscellaneous Supplies 1 each 03/12/24 08:45 Iv Access IV DIRECTED BARAK Levothyroxine Sodium 37.5 mcg 03/12/24 06:00 03/12/24 07:52 Levothyroxine 75 Mcg Tab PO 37.5 mcg 0600 BARAK Administration Lidocaine 1 patch 03/12/24 08:30 03/12/24 09:09 Lidocaine 5% Patch TP 1 patch DAILY BARAK Administration Lisinopril 10 mg 03/12/24 08:30 03/12/24 09:10 Lisinopril 10 Mg Tab PO 10 mg DAILY BARAK Administration Lorazepam 0.5 mg 03/12/24 08:24 Lorazepam 0.5 Mg Tab PO TID PRN PRN Anxiety Magnesium Hydroxide 30 ml 03/12/24 00:53 Milk Of Magnesia 30 Ml Cup PO DAILY PRN PRN Miscellaneous 1 each 03/12/24 20:30 Patch Removal TP 2030 BARAK Pantoprazole Sodium 40 mg 03/12/24 08:30 03/12/24 09:10 Pantoprazole 40 Mg Vial IVP 40 mg Q24H BARAK Administration Polyethylene Glycol 17 gm 03/12/24 00:53 Polyethylene Glycol 3350 17 Gm Packet PO DAILY PRN PRN Constipation Rosuvastatin Calcium 20 mg 03/12/24 20:00 Rosuvastatin 20 Mg Tab PO HS BARAK Sodium Chloride 0 ml 03/11/24 15:24 Normal Saline 10 Ml Vial IJ DIRECTED PRN Sodium Chloride 0 ml 03/11/24 15:24 Normal Saline Flush 10 Ml Syr IVP PRN PRN Sodium Chloride 0 ml 03/11/24 20:00 03/12/24 09:10 Normal Saline Flush 10 Ml Syr IVP 10 ml BID BARAK Administration PFSH Active Problems Active Problems: Problem Status Onset Code Intractable nausea Acute R11.0 Colitis Acute K52.9 Colitis Acute K52.9 CKD (chronic kidney disease) stage 4, GFR 15-29 ml/min Chronic N18.4 Diverticulitis Acute K57.92 Hypothyroid Chronic E03.9 DVT prophylaxis Acute Z29.9 Incidental lung nodule, less than or equal to 3mm Acute R91.1 Thoracic back pain Acute M54.6 Costochondritis Acute M94.0 Atypical chest pain Acute R07.89 Allergic rhinitis Acute 05/26/14 J30.9 Anxiety associated with depression Chronic 07/03/18 F41.8 Cervical spondylolysis Acute 11/28/17 M43.02 Diverticulosis of intestine without bleeding Acute 11/28/17 K57.90 Erosive gastritis Acute 11/28/17 K29.60 Gastroesophageal reflux disease without esophagitis Acute 11/28/17 K21.9 Hiatal hernia Acute 11/28/17 K44.9 Unspecified essential hypertension Acute 11/28/17 I10 Illiteracy Acute 11/28/17 Z55.0 Insomnia Acute 05/26/14 G47.00 Irritable bowel syndrome Chronic 11/28/17 K58.9 Obstructive sleep apnea Chronic 11/28/17 G47.33 Osteoarthritis Acute 11/28/17 M19.90 Polyp of colon Chronic 11/28/17 K63.5 Postnasal drip Acute 05/26/14 R09.82 C. difficile enteritis Acute A04.72 Chest pain Acute R07.9 Anemia Chronic D64.9 Hypertension Chronic I10 Gastroenteritis Acute K52.9 Hypokalemia Acute E87.6 Hypomagnesemia Acute E83.42 Pyelonephritis Acute N12 Depression Chronic F32.9 GERD (gastroesophageal reflux disease) Chronic K21.9 Gait disturbance Chronic R26.9 Left carotid bruit Chronic R09.89 Essential hypertension Chronic I10 Medical History Medical History (Updated 03/12/24 @ 09:01 by Mesha Betancourt DO) IBS (irritable bowel syndrome) Cardiomyopathy Allergic rhinitis Adenomatous polyp of colon Environmental allergies Osteopenia Cervical spondylosis Osteoarthritis Surgical History Surgical History Rectocele, Paravaginal repair Vaginal hysterectomy GASTROSCOPY (01/20/15) DR.ANNICK ARAMBULA Cystocele, Paravaginal repair Colonoscopy - IV Sedation 2009 COLONOSCOPY (~12/2014) DR.ANNICK ARAMBULA Tobacco Smoking/Tobacco Use Status: Never Alcohol Alcohol Intake: current Alcohol intake frequency: a few times a month Substance Use Substance use: Never Substance use type: does not use Vital Signs and Lab Results Vital Signs Most Recent Vital Signs in EMR: Most Recent Vital Signs Temp Pulse Resp BP Pulse Ox 37.2 C 65 18 169/67 H 97 03/12/24 07:43 03/12/24 07:43 03/12/24 07:43 03/12/24 07:43 03/12/24 07:43 Lab Results 03/12/24 06:20 03/12/24 06:20 Blood Type / Crossmatch: 2 Antibody Screen NEGATIVE 03/06/24 Complete Blood Count: 2 White Blood Count 9.87 10^3/uL (4.4-10.8) 03/12/24 06:20 Red Blood Count 3.08 10^6/uL (3.93-5.22) L 03/12/24 06:20 Hemoglobin 9.1 g/dL (11.2-15.7) L 03/12/24 06:20 Hematocrit 26.6 % (36.0-46.0) L 03/12/24 06:20 Platelet Count 335 10^3/uL (130-400) 03/12/24 06:20 Venous Blood Lactate 1.6 mmol/L (0.6-1.4) H 03/11/24 15:56 Complete Metabolic Panel: 2 Sodium 141 mmol/L (136-145) 03/12/24 06:20 Potassium 3.2 mmol/L (3.5-5.1) L 03/12/24 06:20 Chloride 107 mmol/L (98-107) 03/12/24 06:20 Carbon Dioxide 23.3 mmol/L (21.0-32.0) 03/12/24 06:20 BUN 24 mg/dL (7-18) H 03/12/24 06:20 Creatinine 2.0 mg/dL (0.55-1.02) H 03/12/24 06:20 Est GFR (CKD-EPI 2020) 24.94 (mL/min/1.73m2) 03/12/24 06:20 Magnesium 1.8 mg/dL (1.8-2.4) 03/12/24 06:20 Calcium 8.9 mg/dL (8.5-10.1) 03/12/24 06:20 Albumin 2.7 g/dL (3.4-5.0) L 03/12/24 06:20 Glucose 125 mg/dL (74-106) H 03/12/24 06:20 C-Reactive Protein 1.39 mg/dL (<or=0.5) H 03/11/24 15:59 Liver Function Panel: 2 Alanine Aminotransferase (ALT/SGPT) 46 U/L (14-59) 03/12/24 06: 20 Aspartate Amino Transf (AST/SGOT) 40 U/L (15-37) H 03/12/24 06: 20 Coagulation Panel: 2 INR International Normalized Ratio 1.0 (0.9-1.1) 03/06/24 22:1 0 Prothrombin Time 9.6 sec (9.1-11.1) 03/06/24 22:10 Activated Partial Thromboplast Time 23.9 sec (23.6-32.8) 22:10 Cardiac Panel: 2 Troponin I 6 ng/L (<or=51) 03/11/24 NT-Pro-B Natriuret Pep 202 pg/mL (<300) 02/18/24 Arterial Blood Gas: 2 No Data to Display Venous Blood Gas: 2 Venous Blood pH 7.30 (7.31-7.41) L 03/06/24 22:10 Venous Blood Partial Pressure O2 29 mmHg 03/06/24 22:10 Venous Blood Partial Pressure CO2 44 mmHg (41-51) 03/06/24 22:1 0 Venous Blood Oxygen Saturation 55 % 03/06/24 22:10 Venous Blood HCO3 22 mmol/L (23-28) L 03/06/24 22:10 Venous Blood Base Excess -5 mmol/L (-2-3) L 03/06/24 22:10 Venous Blood Total Carbon Dioxide 20 mmol/L (24-29) L 03/06/24 22:10 Pancreas Panel: 2 Lipase 42 U/L (16-77) 03/11/24 15:56 Thyroid Panel: 2 Thyroid Stimulating Hormone (TSH) 0.91 uIU/mL (0.36-3.74) 03/12 06:20 Infectious Disease: 2 Coronavirus (COVID-19)(PCR) Negative (Negative) 03/11/24 23:35 Coronavirus 2019 Source Nasal/Nares 03/11/24 23:35 Influenza Virus Type A (PCR) Negative (Negative) 02/22/24 21:0 0 Influenza Virus Type B (PCR) Negative (Negative) 02/22/24 21:0 0 Respiratory Syncytial Virus (PCR) Negative (Negative) 02/22/24 21:00 Hepatitis B Surface Antigen Pending 03/12/24 06:20 Hepatitis C Antibody Pending 03/12/24 06:20 Blood Cultures: 2 No Data to Display Toxicology Panel: 2 Ethyl Alcohol Level < 3.0 mg/dL (<10) 02/18/24 20:05 Anesthesia Assessment and Plan Anesthesia History Personal History: No History of Anesthesia Complications Family History: No Family History of Anesthesia Complications Exercise Tolerance Exercise Tolerance: Metabolic Equivalents>4 Pertinent Negatives Pertinent Negatives: No Symptoms of GERD Cardiac & Pulmonary Exam Cardiac Exam: Normal S1/S2 Heart Sounds Pulmonary Exam: Clear Bilateral Breath Sounds Implantable Cardiac Device Does patient have a Pacemaker or an ICD?: No Airway Exam Known Difficult Airway: No Mallampati Class: 2 Mouth Opening: Normal (> 3cm) Thyromental Distance: Greater than 3 cm Neck Range of Motion: Full ROM Neck Circumference: Normal Teeth Condition: Normal Dentition ASA Classification ASA Score: ASA 3 Emergency Case?: No NPO Status NPO Status: NPO Clears >2 hours, Solids >8 hours Anesthesia Plan Resuscitation Status: Full Code Anesthesia Technique: General Anesthesia Airway Planned: Natural Airway Monitors Used: Standard Monitors
[2024-03-12] MEDS: Lactated Ringers 1,000 ML 50 ML IV (10:38)
--- NOTE | 2024-03-12 10:49 | BOWEL_PTH ---
PATIENT: Venus Marrufo I LOC: U#:[id number] AGE/SX: 78/F ROOM: 208 RE03/11/[address]: Koko Vega : 1945 BED: A DIS: 03/15/2024 SPEC #: [id number] RECD: 03/12/24 17:00 STATUS: ANNE REQ #: [id number] LEWIS: 03/12/24 10:[address]: Koko Vega DEPT: Surgical Specimen RECD BY: Dorota Gifford ENTERED: 03/12/24 17:07 SP TYPE: Bowel OTHR DR: Katya Phelan Laura M Tissues: 1 - BIOPSY BOWEL 2 - STOMACH BIOPSY 3 - STOMACH BIOPSY 4 - ESOPHAGUS BIOPSY 5 - BIOPSY BOWEL 6 - BIOPSY BOWEL 7 - BIOPSY BOWEL 8 - BIOPSY BOWEL 9 - BIOPSY BOWEL Procedures: GROSS AND MICRO LEVEL 4 IMMUNOPEROXIDASE STAIN Comments: [id number]
--- NOTE | 2024-03-12 11:24 | W.ANESPOSTOP ---
Postoperative Evaluation Date, Time and Location Date Performed: 03/12/24 Time Performed: 11:25 Patient Location: PACU Vital Signs Most Recent Imported Vital Signs: Most Recent Vital Signs Temp Pulse Resp BP Pulse Ox 37.2 C 65 18 169/67 H 97 03/12/24 07:43 03/12/24 07:43 03/12/24 07:43 03/12/24 07:43 03/12/24 07:43 Pain Score Most Recent Pain Score: Most Recent Pain Score Pain Level 5 03/12/24 05:02 Assessment Mental Status: Awake (Alert & Oriented to Patient Baseline) Airway and Respiratory Function: Patent airway with normal (patient baseline) respiratory exam Cardiovascular Function: Hemodynamically Stable Hydration Status: Adequately Hydrated Nausea & Vomiting: No Nausea or Vomiting Pain: Pt. Denies Any Pain Peripheral Nerve Block: Patient did not receive a nerve block
--- NOTE | 2024-03-12 11:26 | ENDO_ITS ---
Date of service: 03/12/24 Time of Service: 11:26 Endoscopy Report DATE OF PROCEDURE: 03/12/24 PRE-OP DIAGNOSIS: Abdominal pain and nausea and vomiting and inability to eat POST-OP DIAGNOSIS: other (Hiatal hernia and moderate gastritis) SURGEON: Mesha Betancourt ANESTHESIA TYPE: General:No Airway ESTIMATED BLOOD LOSS: 2 PATHOLOGY: other COMPLICATIONS: None DISPOSITION: PACU PROCEDURE DESCRIPTION: Informed consent was obtained from the pt; explaining the benefits and Risks: bleeding, infections, perforations {which could require surgery or antibiotics and prolonged hospital stay}, or ostomy, and complications of anaesthesia, helen aspiration). The patient was take to the procedure room and placed in a supine position. Monitors were applied and a time out was done. The patients name, date of , procedure type, allergies to medications and metal in their body was reviewed. A bite block was placed and the patient was sedated. Once sedated and comfortable an Olympus gastroscope (see RN notes for scope #) was advanced through the oropharynx which was grossly normal, and passed into the esophagus. The proximal and mid-esophagus were normal. The distal esophagus does not show any: dilation/strictures/varices/erosions or ulcers/bleeding noted. The scope was advanced into the stomach and through the pylorus into the duodenum. the duodenum was noted to be normal. The scope was retracted back into the stomach and biopsies were taken of the antrum. There were no gastropathy/ ulcers/masses noted. There is moderate gastritis radiating from the antrum. There is no erosions or ulceration. There is no signs of old or active bleeding. The scope was retroflexed. The cardia and fundus were noted to be normal. There 3 centimeters sliding-type hiatal hernia noted. The scope was retracted back into the esophagus and biopsies were done of the GE junction (in all 4 quadrants) and distal esophagus (2cm above the GE junction) to rule out Gardner's. All specimens are retrieved and no bleeding was noted. The Z line was regular. The scope was removed and the patient was woken up and taken back to [facility] in stable condition.
--- NOTE | 2024-03-12 11:34 | W.COLOREPORT ---
Date of service: 03/12/24 Time of Service: 11:34 Colonoscopy Report Date of procedure: 03/12/24 Pre-op diagnosis general: Diarrhea Post-op diagnosis procedure note: other (Ischemic colitis versus infectious versus autoimmune. Favor ischemic) Surgeon: Mesha Betancourt Anesthesia Type: General:No Airway Estimated blood loss (mL): 3 Pathology: other Complications: None Disposition: PACU Procedure Description: After informed consent was obtained, explaining risks of the procedure, including but not limits to: bleeding, infections, complications of anesthesia, perforations (which may require antibiotics and /or surgery and stay in the hospital), and abdominal pain/cramping. The patient was taken to the procedure room and placed in a left decubitous position. Monitors were applied and a time out was done. The patients name, date of , procedure, allergies to medications and metal in their body was reviewed. The patient was then sedated. Once sedated and comfortable a rectal exam was done. External exam: Poor sphincter tone internal exam revealed poor sphincter tone and no palpable masses. Patient is grossly incontinent of stool. The previously lubricated Olympus scope was then introduced (see RN notes for scope number) and retrofelexed. no internal hemorrhoids were identified. The scope was then advanced to the sigmoid flexure without difficulty. Polyps: no. Diverticula: Moderate diverticula. From 40 to 20 cm, there is edema and slight increase in vascularity and mild erythema to the mucosa. There is also an elongated Whitish ulcerations visualized. This could be autoimmune colitis/infectious colitis/or residual ischemic colitis. Multiple biopsies are taken between 40 and 20 cm. The scope was removed, and the patient was woken up and taken back to Same day surgery in stable condition. The patient tolerated the procedure well and there were no immediate complications. [place] Bowel Prep [place] Bowel Prep Left Colon: 0 Total Score: 0
--- NOTE | 2024-03-12 12:35 | PHA.REVIEW2 ---
Pharmacy Admission Review Admission Clinical Review Admission Pharmacy Review: Intractable nausea (Acute) Colitis (Acute) Diverticulitis (Acute) Diverticulosis of intestine without bleeding (Acute 11/28/17) Erosive gastritis (Acute 11/28/17) Gastroesophageal reflux disease without esophagitis (Acute 11/28/17) Hiatal hernia (Acute 11/28/17) Gastroenteritis (Acute) Hypokalemia (Acute) aspirin Adverse Reaction (Unverified 03/06/24 22:04) upset stomach r/t GERD metoclopramide HCl (From Reglan) Adverse Reaction (Unverified 03/06/24 22:04) hysterical crying trazodone Adverse Reaction (Unverified 03/06/24 22:04) itching enviornmental Allergy (Mild, Uncoded 03/06/24 22:04) head congestion Resuscitation Status Full Code Height 4 ft 10 in Weight 51.5 kg Comments Comments/Follow Ups: EGD and flex sig today Pharmacy Admission Review Renal Dosing Renal Dosing: BUN 24 mg/dL (7-18) H 03/12/24 06:20 Creatinine 2.0 mg/dL (0.55-1.02) H 03/12/24 06:20 Medications needing adjustments: Reviewed (CrCl 17.85 mL/min, BUN decreased from 31 and SCr decreased from 2.3) List of meds needing interventions: Current medications are okay Anticoagulation Anticoagulation: Hgb 9.1 g/dL (11.2-15.7) L 03/12/24 06:20 Hct 26.6 % (36.0-46.0) L 03/12/24 06:20 Plt Count 335 10^3/uL (130-400) 03/12/24 06:20 Creatinine 2.0 mg/dL (0.55-1.02) H 03/12/24 06:20 DVT Prophylaxis: Reviewed (Hgb decreased from 11 and Hct decreased from 33.1) Medications: Heparin (q8h) Relevant Labs Relevant Labs: ESR 36 mm/hr (0-30) H 03/11/24 15:59 Sodium 141 mmol/L (136-145) 03/12/24 06:20 Potassium 3.2 mmol/L (3.5-5.1) L 03/12/24 06:20 Chloride 107 mmol/L (98-107) 03/12/24 06:20 Magnesium 1.8 mg/dL (1.8-2.4) 03/12/24 06:20 C-Reactive Protein 1.39 mg/dL (<or=0.5) H 03/11/24 15:59 Electrolytes, C-Reactive P, ESR: Reviewed (K 3.2 - repleted this AM with IV infusion, AST/ALT decreased from 63/85 to 40/46) Cardiac Review Cardiac Review: Troponin I Cancelled 03/11/24 18:24 Blood Pressure 156/64 1208 Blood Pressure 130/38 1132 Blood Pressure 113/37 1127 Blood Pressure 104/31 1122 Blood Pressure 103/33 1117 Blood Pressure 169/67 0743 Blood Pressure 162/65 0450 BP, HR, EF%: Reviewed (HR WNL) List meds needing interventions: Has order for amlodipine 10mg daily and lisinopril 10mg daily QTc Review QTc: Reviewed (604 from 03/11/24) IV to PO Switch IV Medications: Reviewed (acetaminophen and pantoprazole - POD #0 EGD and flex sig) Home Meds Home Med List reviewed: Reviewed Relevent Home Meds Not ordered & why?: aspirin, bisacodyl (PRN), Bengay (PRN), dexlansoprazole (has order for IV pantoprazole), donepezil (has prolonged QTc), famotidine, clonazepam (has order for lorazepam), ondansetron (PRN and patient has prolonged QTc), tramadol (PRN) Current Meds Current Medication Order Review: Intervened Comments: Added 2nd PRN to lorazepam order per pharmacy protocol Added IV admission order set Pharmacy Antibiotic Review Relevant Labs: Relevant Labs 03/12/24 03/11/24 06:20 15:59 C-Reactive Protein 1.39 H Procalcitonin 0.1 Comments Comments/Follow Ups: EGD and flex sig today
[2024-03-12] MEDS: Sucralfate 1 GM TAB PO ×3 (12:36→21:11)
--- NOTE | 2024-03-12 14:22 | NUR.NOTE ---
Nursing Note:1418-Clarified IVF orders with Agnes Gregory PARTITION NOTCHER. This RN followed order for 75ml/h this AM, but order confusing in MAR with IVF entry also showing 125ml/hr. PARTITION NOTCHER on floor to discuss. Per PARTITION NOTCHER IVF should be running at 75ml/hr.
[2024-03-12] MEDS: Heparin 5,000 UNITS/ML VIAL 5000 UNITS SC ×2 (15:13→21:12)
--- NOTE | 2024-03-12 16:10 | CHAPLAIN ---
Venus was in bed when I visited. We talked about her , Bryn, who was a patient here several times, and Venus took care of him at home for many years before the . 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 She offered to send me a copy of Bryn's book. Venus said what can you do? when talking about Bryn's illness and . Just like I'm here. Not much I can do about it. She lives in [place] with her granddaughter and a friend who shares the house as well. Venus said she is grateful not to be living alone. She also has two cats who are important to her.
--- NOTE | 2024-03-12 16:51 | W.PM.PROGNOT ---
Date of Service Date of service: 03/12/24 Time of Service: 16:51 Assessment and Plan Assessment and plan (1) Colitis: Status: Acute Assessment and plan: continue symptom management fecal bacterial pathogens pending surgery following, completed upper and lower endoscopy today, biopsies pending. follow H&H, vitals are stable. (2) Gastroesophageal reflux disease without esophagitis: Status: Acute Assessment and plan: scope today by surgery, see surgical report continue bid PPI and carafate (3) Hypokalemia: Status: Acute Assessment and plan: due to GI losses, replete and follow Subjective Subjective Patient reports: no new complaints, voiding w/o difficulty and afebrile; denies shortness of breath Interval history since last seen: patient confused, poor historian, no behavioral issues Exam Narrative Exam Narrative: Thin elderly female of stated age no acute distress head is atraumatic normocephalic eyes nonicteric noninjected neck full range of motion no JVD oral mucosa is moist cardiovascular regular rate and rhythm respirations even and unlabored abdomen flat moves all extremities no peripheral edema Objective Last Vital Signs Temp 36.5 C 03/12/24 15:00 Pulse 78 03/12/24 15:00 Resp 14 03/12/24 15:00 BP 118/51 L 03/12/24 15:00 Pulse Ox 99 03/12/24 15:00 Laboratory Results - last 24 hr 03/11/24 03/11/24 03/11/24 15:59 17:30 18:24 WBC RBC Hgb Hct MCV MCH MCHC RDW Plt Count MPV Reticulocyte % (Auto) ESR 36 H Sodium Potassium Chloride Carbon Dioxide Anion Gap BUN Creatinine Est GFR (CKD-EPI 2020) Glucose Calcium Magnesium Ferritin Total Bilirubin AST ALT Alkaline Phosphatase Troponin I 6 Cancelled C-Reactive Protein 1.39 H Total Protein Albumin Vitamin B12 Folate Procalcitonin TSH Urine Color Urine Clarity Urine pH Ur Specific [place] Urine Protein Urine Ketones Urine Blood Urine Nitrite Urine Bilirubin Urine Urobilinogen Ur Leukocyte Esterase Urine RBC Urine WBC Ur Epithelial Cells Urine Crystals Urine Bacteria Urine Casts Urine Mucus Urine Other Ur Culture Indicated? Urine Glucose Stl C.difficile Tox PCR COVID-19 Source SARS-CoV-2 (PCR) 03/11/24 03/12/24 03/12/24 23:35 03:45 04:45 WBC RBC Hgb Hct MCV MCH MCHC RDW Plt Count MPV Reticulocyte % (Auto) ESR Sodium Potassium Chloride Carbon Dioxide Anion Gap BUN Creatinine Est GFR (CKD-EPI 2020) Glucose Calcium Magnesium Ferritin Total Bilirubin AST ALT Alkaline Phosphatase Troponin I C-Reactive Protein Total Protein Albumin Vitamin B12 Folate Procalcitonin TSH Urine Color Yellow Urine Clarity Clear Urine pH 5.5 Ur Specific [place] >= 1.030 H Urine Protein 30 H Urine Ketones Trace H Urine Blood Negative Urine Nitrite Positive H Urine Bilirubin Negative Urine Urobilinogen 0.2 Ur Leukocyte Esterase Negative Urine RBC 0-2 Urine WBC 0-2 Ur Epithelial Cells Rare Urine Crystals Negative Urine Bacteria Few Urine Casts Negative Urine Mucus Negative Urine Other Rare Renal Ur Culture Indicated? No Urine Glucose Negative Stl C.difficile Tox PCR Negative COVID-19 Source Nasal/Nares SARS-CoV-2 (PCR) Negative 03/12/24 06:20 WBC 9.87 RBC 3.08 L Hgb 9.1 L Hct 26.6 L MCV 86 MCH 29.5 MCHC 34.2 RDW 13.7 Plt Count 335 MPV 9.3 Reticulocyte % (Auto) 2.0 ESR Sodium 141 Potassium 3.2 L Chloride 107 Carbon Dioxide 23.3 Anion Gap 10.7 BUN 24 H Creatinine 2.0 H Est GFR (CKD-EPI 2020) 24.94 Glucose 125 H Calcium 8.9 Magnesium 1.8 Ferritin 460 H Total Bilirubin 0.37 AST 40 H ALT 46 Alkaline Phosphatase 140 H Troponin I C-Reactive Protein Total Protein 6.2 L Albumin 2.7 L Vitamin B12 476 Folate 13.8 Procalcitonin 0.1 TSH 0.91 Urine Color Urine Clarity Urine pH Ur Specific [place] Urine Protein Urine Ketones Urine Blood Urine Nitrite Urine Bilirubin Urine Urobilinogen Ur Leukocyte Esterase Urine RBC Urine WBC Ur Epithelial Cells Urine Crystals Urine Bacteria Urine Casts Urine Mucus Urine Other Ur Culture Indicated? Urine Glucose Stl C.difficile Tox PCR COVID-19 Source SARS-CoV-2 (PCR) PAWSS Have you Been Recently Intoxicated or Drunk Within the Last 30 days?: No Have you Ever Experienced Previous Episodes of Alcohol Withdrawal?: No Have you ever Experienced Withdrawal Seizures?: No Have you ever Experienced Delirium Tremens(DT)s?: No Have you ever undergone Alcohol Rehabilitation Treatment (i.e, inpt ot outpatient treatment programs)?: No Have you ever Experienced Blackouts?: No Have you ever Combined Alcohol with other Downers within the last 90 days?: No Have you ever Combined Alcohol with any other Substance of Abuse during the last 90 days?: No Positive Blood Alcohol level on Presentation? [PCS.BAL]: No Evidence of Increased Autonomic Activity (i.e. HR>120, tremor, sweating, agitation, nausea)?: No Result: 0 Time Spent with Patient Time Spent with Patient: 35-49 minutes Time was spent: preparing to see the patient(eg.review tests), obtaining and/or reviewing separately [employer] [facility] hiistory, ordering medications,tests, procedures, referring, communicating with other health ambulatory care nurse, indepentently interpreting results and counseling the patient
[2024-03-12] MEDS: Lactated Ringers 1,000 ML 75 ML IV (17:25)
[2024-03-12] MEDS: Rosuvastatin 20 MG TAB PO (19:34)
--- NOTE | 2024-03-12 19:45 | NUR.NOTE ---
Nursing Note: Pt off floor in OR from [id number].
[2024-03-12 19:46] LABS: Hepatitis A Antibody IgM Negative (Negative); Hepatitis B Core Antibody Negative (Negative); Hepatitis B surface Ag Negative (Negative); Hepatitis C Ab w Rflx HCV PCR Negative (Negative)
[2024-03-12] MEDS: Patch Removal 1 EACH TP (21:23)
[2024-03-12 22:58] LABS: Campylobacter PCR Negative (Negative); Salmonella PCR Negative (Negative); Shiga Toxin PCR Negative (Negative); Shigella/Enteroinvasive Ecoli Negative (Negative)
[2024-03-13] MEDS: LORazepam 0.5 MG TAB PO ×2 (01:29→05:21)
[2024-03-13 03:11] VITALS: BP 133/84; PULSE 93; RESP 17; TEMP 36.2; O2SAT 98
[2024-03-13] MEDS: Levothyroxine 75 MCG TAB 37.5 MCG PO (05:21)
[2024-03-13] MEDS: Heparin 5,000 UNITS/ML VIAL 5000 UNITS SC ×3 (05:27→22:26)
[2024-03-13] MEDS: Lactated Ringers 1,000 ML 75 ML IV (05:31)
[2024-03-13 07:08] LABS: Absolute Basophil Count 0.05 10^3/uL (0.0-0.2); Absolute Eosinophil Count 0.27 10^3/uL (0.0-0.7); Absolute Lymphocyte Count 3.25 10^3/uL (1.2-3.4); Absolute Monocyte Count 0.82 10^3/uL (0.1-0.8); Basophils % 0.5 %; Eosinophils % 2.8 %; HCT 26.7 % (36.0-46.0); HGB 9.2 g/dL (11.2-15.7); Immature Grans % 4.1 %; Lymphocytes % 33.5 %; MCH 29.6 pg (27.0-33.0); MCHC 34.5 % (32.0-36.0); MCV 86 fL (80-95); MPV 9.2 fL (8.0-11.0); Monocytes % 8.5 %; Neutrophils % 50.6 %; Platelet Count 367 10^3/uL (130-400); RBC 3.11 10^6/uL (3.93-5.22); RDW 13.7 % (11.7-14.6); RDW-SD 42.6 fL; WBC 9.69 10^3/uL (4.4-10.8)
[2024-03-13 07:27] LABS: ALT 40 U/L (14-59); AST 36 U/L (15-37); Albumin 2.8 g/dL (3.4-5.0); Alkaline Phosphatase 138 U/L (46-116); Anion Gap 9.3 mmol/L (3-11); BUN 17 mg/dL (7-18); CO2 23.7 mmol/L (21.0-32.0); CREATININE 1.7 mg/dL (0.55-1.02); Calcium 8.8 mg/dL (8.5-10.1); Chloride 107 mmol/L (98-107); Estimated GFR 30.32 (mL/min/1.73m2); Glucose 112 mg/dL (74-106); Magnesium 1.5 mg/dL (1.8-2.4); Sodium 140 mmol/L (136-145)
[2024-03-13 07:30] LABS: Potassium 2.8 mmol/L (3.5-5.1)
[2024-03-13 07:43] VITALS: BP 151/64; PULSE 65; RESP 16; TEMP 36; O2SAT 94
[2024-03-13] MEDS: Pantoprazole 40 MG VIAL IVP (08:04)
[2024-03-13] MEDS: Lisinopril 10 MG TAB PO (08:06)
[2024-03-13] MEDS: amLODIPine 5 MG TAB 10 MG PO (08:06)
[2024-03-13] MEDS: Escitalopram 10 MG TAB 5 MG PO (08:07)
[2024-03-13] MEDS: POTASSIUM CHLORIDE 20 MEQ/100 ML BAG 50 MEQ IV_INF ×2 (08:22→11:24)
[2024-03-13] MEDS: Normal Saline Flush 10 ML SYR IVP ×2 (08:33→22:28)
[2024-03-13] MEDS: Lidocaine 5% Patch 1 PATCH TP (08:36)
--- NOTE | 2024-03-13 09:36 | W.PM.PROGNOT ---
Date of Service Date of service: 03/13/24 Time of Service: 09:37 Assessment and Plan Assessment and plan (1) Colitis: Status: Acute Assessment and plan: (1) S/p upper endoscopy and flexible sigmoidoscopy by Dr. Betancourt yesterday. (2) Probable ischemic colitis (3) Continue present supportive care. (4) Presently, no surgical indications. (2) Intractable nausea: Status: Acute Assessment and plan: (1) No nausea or vomiting this morning. Darrell Wilson D.O. Exam Narrative Exam Narrative: Patient seen and examined on rounds this morning. Case discussed with Dr. Betancourt yesterday. Const Other: Patient appears comfortably resting in recliner chair. Denies pain. Reportedly had a restless night and didn't get much sleep. GI Other: Abdomen is soft, non-tender to palpation. BS are present. There is no guarding and no rebound. Extrem Other: There is no calf pain. Objective Last Vital Signs Temp 96.8 F L 03/13/24 07:43 Pulse 65 03/13/24 07:43 Resp 16 03/13/24 07:43 BP 151/64 H 03/13/24 07:43 Pulse Ox 94 03/13/24 07:43 Laboratory Results - last 24 hr 03/12/24 03/12/24 03/13/24 03:45 06:20 06:40 WBC 9.69 RBC 3.11 L Hgb 9.2 L Hct 26.7 L MCV 86 MCH 29.6 MCHC 34.5 RDW 13.7 Plt Count 367 MPV 9.2 Immature Gran % 4.1 Neutrophils % 50.6 Lymphocytes % 33.5 Monocytes % 8.5 Eosinophils % 2.8 Basophils % 0.5 Nucleated RBC % 0.0 Absolute Neutrophils 4.90 Absolute Lymphocytes 3.25 Absolute Monocytes 0.82 H Absolute Eosinophils 0.27 Absolute Basophils 0.05 Sodium 140 Potassium 2.8 L* Chloride 107 Carbon Dioxide 23.7 Anion Gap 9.3 BUN 17 Creatinine 1.7 H Est GFR (CKD-EPI 2020) 30.32 Glucose 112 H Calcium 8.8 Magnesium 1.5 L Total Bilirubin 0.30 AST 36 ALT 40 Alkaline Phosphatase 138 H Total Protein 6.0 L Albumin 2.8 L Stool Campylobacter PCR Negative Stool Salmonella PCR Negative Stool Shigella PCR Negative Hepatitis A IgM Ab Negative Hep Bs Antigen Negative Hep B Core Total Ab Negative Hepatitis C Antibody Negative Shiga Toxin (PCR) Negative PAWSS Have you Been Recently Intoxicated or Drunk Within the Last 30 days?: No Have you Ever Experienced Previous Episodes of Alcohol Withdrawal?: No Have you ever Experienced Withdrawal Seizures?: No Have you ever Experienced Delirium Tremens(DT)s?: No Have you ever undergone Alcohol Rehabilitation Treatment (i.e, inpt ot outpatient treatment programs)?: No Have you ever Experienced Blackouts?: No Have you ever Combined Alcohol with other Downers within the last 90 days?: No Have you ever Combined Alcohol with any other Substance of Abuse during the last 90 days?: No Positive Blood Alcohol level on Presentation? [PCS.BAL]: No Evidence of Increased Autonomic Activity (i.e. HR>120, tremor, sweating, agitation, nausea)?: No Result: 0 Time Spent with Patient Time Spent with Patient: <25 minutes Time was spent: indepentently interpreting results, counseling the patient and care coordination
--- NOTE | 2024-03-13 10:30 | RT.EKG_ITS ---
APPROVED REPORT Exam: Resting ECG Reason for Exam: long qt, wait until after Mg and K infusions done Patient Location: I HR:61 bpm ECG Measurements Heart Rate 61 AXIS VT 169 P 60 QRSd 67 QRS 46 QT 351 T [id number] QTc 354 Conclusion Sinus rhythm...normal P axis, V-rate 50- [address]-T abnormalities
[2024-03-13 11:03] VITALS: BP 136/68; PULSE 75; RESP 16; TEMP 36.5; O2SAT 98
--- NOTE | 2024-03-13 11:22 | W.PM.PROGNOT ---
Date of Service Date of service: 03/13/24 Time of Service: 11:22 Assessment and Plan Assessment and plan (1) Colitis: Status: Acute Assessment and plan: continue symptom management fecal bacterial pathogens negative, cdiff negative, calprotectin pending, lactoferrin positive surgery following with upper endoscopy/colonoscopy 03/13/24, suspect ischemic bowel over infectious vs inflammatory, biopsies pending. will continue IV fluids for now as po intake poor, will decrease antihypertensive dosing to keep blood pressure up, avoid dehydration and lower blood pressures. (2) Hypokalemia: Status: Acute Assessment and plan: due to GI losses, continue to replete and follow labs daily until stable magnesium level 1.5, will replete also and follow. (3) Hypertension: Status: Chronic Assessment and plan: will lower doses of antihypertensives to keep blood pressure higher, avoid hypotension and dehydration. amlodipine reduced from 10 mg daily to 5 mg daily lisinopril reduced from 10 mg daily to 5 mg daily continue to monitor and adjust meds as needed. Qualifiers: Hypertension type: essential hypertension Qualified Code(s): I10 - Essential (primary) hypertension (4) Erosive gastritis: Status: Acute Assessment and plan: endoscopy yesterday demonstrates: moderate gastritis radiating from the antrum. continue PPI bid and carafate. (5) Delirium: Status: Acute Assessment and plan: in setting of acute illness, hospitalization, and likely baseline cognitive impairment avoid benzos quetiapine at bedtime and prn, adjust as needed. fall and safely precautions. (6) Anemia: Status: Chronic Assessment and plan: normocytic, gi losses from colitis in combination with dilution d/t IV fluids hemoglobin and hematocrit stable. asymptomatic, continue to monitor. anemia labs with iron 87 TIBC 212, %sat 41 in jan retic 2.0, ferritin 460, vit b12 476, folate 13.8 (7) Hypothyroid: Status: Chronic Assessment and plan: continue synthyroid TSH 0.91 (8) Unwitnessed fall: Status: Acute Assessment and plan: found sitting on bathroom floor last evening. denies injury, no obvious evidence of any trauma, re-ambulated safely with no issues or c/o. in setting of delirium overnight, will check head and cspine CT scan. PT consultation fall precautions. (9) On deep vein thrombosis (DVT) prophylaxis: Status: Acute Assessment and plan: continue heparin subcu low threshold to stop if evidence of bleeding. (10) Discharge planning issues: Status: Acute Assessment and plan: PT consultation for discharge planning case management following for discharge planning. discussed with DR Harper Subjective Subjective Patient reports: no new complaints, tolerating liquids well, tolerating a regular diet and afebrile Interval history since last seen: confused overnight, Exam Narrative Exam Narrative: Thin elderly female of stated age no acute distress head is atraumatic normocephalic eyes nonicteric noninjected neck full range of motion no JVD oral mucosa is moist cardiovascular regular rate and rhythm respirations even and unlabored abdomen flat moves all extremities no peripheral edema, neuro awake alert and confused. psychiatric: cooperative Objective Last Vital Signs Temp 36.5 C 03/13/24 11:03 Pulse 75 03/13/24 11:03 Resp 16 03/13/24 11:03 BP 136/68 03/13/24 11:03 Pulse Ox 98 03/13/24 11:03 Laboratory Results - last 24 hr 03/12/24 03/12/24 03/13/24 03:45 06:20 06:40 WBC 9.69 RBC 3.11 L Hgb 9.2 L Hct 26.7 L MCV 86 MCH 29.6 MCHC 34.5 RDW 13.7 Plt Count 367 MPV 9.2 Immature Gran % 4.1 Neutrophils % 50.6 Lymphocytes % 33.5 Monocytes % 8.5 Eosinophils % 2.8 Basophils % 0.5 Nucleated RBC % 0.0 Absolute Neutrophils 4.90 Absolute Lymphocytes 3.25 Absolute Monocytes 0.82 H Absolute Eosinophils 0.27 Absolute Basophils 0.05 Sodium 140 Potassium 2.8 L* Chloride 107 Carbon Dioxide 23.7 Anion Gap 9.3 BUN 17 Creatinine 1.7 H Est GFR (CKD-EPI 2020) 30.32 Glucose 112 H Calcium 8.8 Magnesium 1.5 L Total Bilirubin 0.30 AST 36 ALT 40 Alkaline Phosphatase 138 H Total Protein 6.0 L Albumin 2.8 L Stool Campylobacter PCR Negative Stool Salmonella PCR Negative Stool Shigella PCR Negative Hepatitis A IgM Ab Negative Hep Bs Antigen Negative Hep B Core Total Ab Negative Hepatitis C Antibody Negative Shiga Toxin (PCR) Negative PAWSS Have you Been Recently Intoxicated or Drunk Within the Last 30 days?: No Have you Ever Experienced Previous Episodes of Alcohol Withdrawal?: No Have you ever Experienced Withdrawal Seizures?: No Have you ever Experienced Delirium Tremens(DT)s?: No Have you ever undergone Alcohol Rehabilitation Treatment (i.e, inpt ot outpatient treatment programs)?: No Have you ever Experienced Blackouts?: No Have you ever Combined Alcohol with other Downers within the last 90 days?: No Have you ever Combined Alcohol with any other Substance of Abuse during the last 90 days?: No Positive Blood Alcohol level on Presentation? [PCS.BAL]: No Evidence of Increased Autonomic Activity (i.e. HR>120, tremor, sweating, agitation, nausea)?: No Result: 0 Time Spent with Patient Time Spent with Patient: >50 minutes Time was spent: preparing to see the patient(eg.review tests), obtaining and/or reviewing separately otained hiistory, ordering medications,tests, procedures, indepentently interpreting results and counseling the patient
[2024-03-13] MEDS: Sucralfate 1 GM TAB PO ×3 (12:00→22:25)
--- NOTE | 2024-03-13 12:33 | IN_ITS ---
PT Notes Visit Reasons: Diverticulitis with colitis, Intractable nausea Physical Therapy Initial Evaluation Date:03-13-2024 Referring Doctor: Dr Harper PT Orders: PT CONSULT: Fall Safety Assessment Precautions: Fall Risk, Standard , IV BUE, Telemetry Patient Profile/Admitting Diagnosis: Venus is a 78 yo female presented to the ED on 03/11/24 with a concern about her kidneys. The workup in the ED revealed elevated WBC, sed rate and CRP with stable renal function. pt diagnosed with colitis of descending colon. She was treated with IV hydration, Zosyn and admitted for endoscopy after colonoscopy. Colonoscopy revealed ?autoimmune colitis, infectious colitis or residual ischemic colitis . Endoscopy revealed hiatal hernia with moderate gastritis. then on 03/12/24 pt was observed on the floor in the bathroom. 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 difficile enteritis (Acute) Chest pain (Acute) Anemia (Chronic) Hypertension (Chronic) Gastroenteritis (Acute) Hypokalemia (Acute) Hypomagnesemia (Acute) Pyelonephritis (Acute) Depression (Chronic) GERD (gastroesophageal reflux disease) (Chronic) Gait disturbance (Chronic) Left carotid bruit (Chronic) Essential hypertension (Chronic) Medical History (Updated 03/12/24 @ 13:52 by Koko Vega) IBS (irritable bowel syndrome) Cardiomyopathy Allergic rhinitis Adenomatous polyp of colon Environmental allergies Osteopenia Cervical spondylosis Osteoarthritis Surgical History Rectocele, Paravaginal repair Vaginal hysterectomy GASTROSCOPY (01/20/15) DR.ANNICK ARAMBULACystocele, Paravaginal repair Colonoscopy - IV Sedation 2010COLONOSCOPY (~12/2014) DR.ANNICK ARAMBULA Social History/Home Situation: Pt lives with her granddaughter during the week then stays with her son on the weekends. She has 4 steps to enter her home. She was independent driving, ambulation , ADL, meal preparation until recent hospitalization in January 2024. Equipment Owned/DME: [employer] Subjective: Pt stating she has to get dressed and get out of her now to make sure her granddaughter got to work. Objective: [] General Observation: Pt impulsive self rising unaware and not concerned regarding the IV infusing into her right forearm. Mental Status: oriented to person, repeating statements difficult to console, Pain: denied ROM: [] Right Upper Extremity: WFL Left Upper Extremity: WFL Right Lower Extremity: WFL Left Lower Extremity: WFL Strength: grossly assessed as pt unable to follow commands for MMT Bilateral Upper Extremity: Patient observed to raise hands overhead, able to touch the back of her head patient noted with limited grasp right upper extremity possibly related to IV and proximal forearm with potassium infusing resulting in pain patient able to bring food to her mouth with limited grasp on fork able to hold cup without difficulty bilateral upper extremities Bilateral Lower Extremity: pt demonstrates proximal/pelvic instability in standing impaired ankle stability. without support Sensation: Intact Bed Mobility/Transfers: [] Supine to sit independent Sit to stand supervision Stand to sit supervision Bed to chair supervision with and without FWW Gait: Ambulates without FWW CGA 50 feet demonstrating impaired ankle and hip strategies to maintain upright balance, positive sway and trunk. Ambulates with FWW 100 feet CGA demonstrating improved pelvic stability with use of upper extremities for support reciprocal pattern with improved step length and foot clearance Balance: [] Static Sitting: Normal Dynamic Sitting: Fair Static Standing: Fair Dynamic Standing: Fair minus Special Tests: Unable to follow commands for 4 stage balance assessment at this time Mobility Limitations Standardized Measure [facility]-PAC 6 clicks Basic Mobility Inpatient Short Form: Raw Score: 21 CMS Score: 28.97% Informed Consent/Education: Patient instructed in purpose of PT consult gaols and plan of treatment. Assessment: Patient demonstrates poor insight into unsafe situations placing her at increased risk for falls. Patient has poor short-term memory and impulsivity placing her also at risk for falls. Patient with significant change in mentation from prior admission in January. Patient presents with clinical signs and symptoms consistent with current/admitting diagnoses that have resulted to mobility limitations, gait instability, generalized weakness, and impairment of motor control as demonstrated by the following impairment level findings: 1. Decreased strength/motor control of bilateral lower extremity major muscle groups 2. Impaired standing balance 3. Impaired functional activity tolerance Impairments are contributing to the following functional limitations: 1. Inability to safely ambulate without assistive device 2. Increase completion time for mobility ADL performance 3. Increased fall risk 4. Decreased ability to perform stairs safely. Patient is assessed as a moderate complexity based on the following: History: 78-year-old female with impairment level findings, functional limitations, and past medical history as indicated above Examination: Demonstrable impairment in strength, balance, and mobility level with underlying impairments and functional limitations as documented above Presentation: Evolving Decision Making: Moderate Goals: 1. Independent with transfers with least restrictive device 2. Independent ambulation with least restrictive device on level surfaces greater than 200 feet without loss of balance 3. Supervision on 5stairs to safely enter and exit home Plan of Care/Treatment Plan: PT evaluation and 1-2 times per day treatment session until medically appropriate for discharge DISCHARGE RECOMMENDATIONS: Home with increased oversight due to poor safety awareness increased risk for falls vs SNF TREATMENT CODE/TIME: 56695 x 1 unit/1155?1220 Thank you for the opportunity to participate in the care of this patient. Please sign an return this page within 30 days if you agree with the above POC. Thank you! Physician Signature Date [facility]
[2024-03-13] MEDS: QUEtiapine 25 MG TAB 12.5 MG PO ×2 (12:43→22:26)
--- NOTE | 2024-03-13 13:29 | DI.CT_ITS ---
Exam(s) CT HEAD CERVICAL SPINE WO EXAM: CT HEAD CERVICAL SPINE WO CLINICAL HISTORY: unwitnessed fall, delirium. TECHNIQUE: Imaging Protocol: Axial computed tomography images with coronal and sagittal reformatted images were created and reviewed COMPARISON: CT HEAD WITH/WITHOUT CONTRAST from 03/08/2010 CT HEAD WITHOUT CONTRAST from 01/02/2018 FINDINGS: CT Head: Ventricles and Extra axial spaces: Normal in size and morphology for the patient's age. Hemorrhage: None. Cerebral parenchyma: No acute territorial infarct. No acute mass effect is present. Midline shift: None. Brainstem/Cerebellum: Normal. Calvarium: Normal. Visualized Paranasal sinuses/Mastoids: Clear. Soft Tissues: Unremarkable. CT Cervical Spine: Bones: No acute fracture or subluxation. There is mild reversal of the normal cervical lordosis cente red at C4. Moderate degenerative changes are present throughout the cervical spine. Soft Tissues: Unremarkable. Lung Apices: Clear. IMPRESSION: 1. No acute intracranial process. 2. No acute fracture or subluxation in the cervical spine. RADIATION DOSE DELIVERED: 1,046.42mGy.cm Total DLP DATA REPOSITORY: All CT scans at this facility are submitted to the National Radiology Data Registry (NRDR) Dose Index Registry (DIR) with the [employer] ([employer]). RADIATION OPTIMIZATION: All CT scans at this facility use at least one of these dose optimization te chniques: automated exposure control; mA and/or kV adjustment per patient size (includes targeted exa ms where dose is matched to clinical indication); or iterative reconstruction.
[2024-03-13] MEDS: MAGNESIUM SULFATE 2 GM/50 ML BAG IV_INF (13:54)
[2024-03-13 15:01] VITALS: BP 137/53; PULSE 71; RESP 18; TEMP 36.9; O2SAT 100
--- NOTE | 2024-03-13 15:38 | PDOC.CMPRO ---
Date of service: 03/13/24 Time of Service: 13:00 Care Management Progress Note Progress Note Text Progress Note Text: Venus was lying in bed, HOB at 45 degree angle, when CM met with her this afternoon. She was pleasant, albeit a little confused. She stated that she has absolutely no strength, feels that she can not even get out of the bed by herself.(PT eval CGA, HH vs SNF for safety awareness). Venus clearly stated that she does not want to go to a SNF after discharge. She feels she would do better at home, and is very accepting of the idea of HH PT. Discharge Potential Discharge Needs: PCP F/U Appt Anticipated Barriers to Discharge: None Identified Patient/Family Education Needs: Review discharge instructions, discuss Ask Me Three Transportation: Private vehicle Plan: Anticipate that Venus will be discharged home with new HH PT and RN. She will f/u with her PCP and continue per her plan of care. She will be transported home in a private vehicle with her son, Jose Alejandro. SDOH(Care Management) Screening Will the Patient Participate in the Screening?: Yes Do you worry about having a steady place to live?: no In the past 12 months, have you had to go without electric, gas, oil or water in your home?: no Have you or anyone in your house had to go without enough food to eat?: no Has lack of transportation kept you from medical appointments or from doing things needed for daily living?: no Has anyone in your support network made you feel unsafe for any reason?: no Social Determinants of Health Comments(SDOH Details): Patient lives with her granddaughter at home. Patient denies any issues on her living situation. Anticipated HH Services Anticipated HH Services at Discharge [facility] Services Needed ([facility], RN.).
--- NOTE | 2024-03-13 17:15 | PT.INTREAT ---
PT Notes Visit Reasons: Diverticulitis with colitis, Intractable nausea Inpatient Physical Therapy Treatment Note [facility] Date: 03/13/2024 PRECAUTIONS: Telemetry, fall risk, standard, IV access right forearm SUBJECTIVE: Patient son Jose Alejandro cardenas he reports when patient went home she ate for 1 day and then stopped eating and drinking. OBJECTIVE: Patient supine in bed head of the bed slightly elevated IV infusing to right forearm. Her son is visiting she is agreeable to get out of bed initially difficulty maintaining eyes open with slightly garbled speech. Son reports this is what happens when she is really tired.? PAIN: Denies VITALS: ?Monitored by nursing via telemetry Therapeutic Activities (81104w 2): Direct one-on-one instruction in dynamic activities to improve functional performance. ?? Provided cues and instructions throughout for safety ? BED MOBILITY/TRANSFERS? Rolling L/R: Independent Supine-sit: Min assist to scoot to the edge ? Sit-stand: Contact-guard assist and cues for hand placement? Stand-sit: Contact-guard assist and cues for hand placement? Bed-commode: Min assist for rolling walker management and cues for safe approach to surface ? Commode?chair: Min assist for rolling walker management and cues for safe approach to chair Ambulation: Contact-guard assist 60 feet decreased step length bilaterally narrow base of support intermittent stepping with occasional posterior loss of balance during s static stand. ASSESSMENT: Patient noted with increased lethargy this session as compared to morning session. Patient with decreased clarity of speech. However patient less anxious. Patient able to attend and focus to follow instructions this session despite lethargy. Patient with posterior loss of balance during static standing requiring contact-guard assist patient did demonstrate retrostepping to assist in regaining balance. PLAN:Pt would benefit from skilled PT 1-2 times per day for global strengthening, transfers, ambulation, pain management and balance facilitation TREATMENT CODE/TIME: 58451 x 26 minutes for 2 units/0600?2442 DISCHARGE RECOMMENDATION: PT with increased oversight for meals medication management
[2024-03-13] MEDS: Potassium Chloride 20 MEQ TABCR PO (17:27)
[2024-03-13 19:29] VITALS: BP 123/56; PULSE 60; RESP 17; TEMP 36.6; O2SAT 98
[2024-03-13] MEDS: Pantoprazole 40 MG TABCR PO (22:25)
[2024-03-13] MEDS: Rosuvastatin 20 MG TAB PO (22:25)
[2024-03-13] MEDS: Patch Removal 1 EACH TP (22:29)
[2024-03-13 22:53] VITALS: BP 124/55; PULSE 70; RESP 16; TEMP 36.9; O2SAT 96
--- NOTE | 2024-03-14 01:52 | PTTR_ITS ---
PT Notes Visit Reasons: Diverticulitis with colitis, Intractable nausea Inpatient Physical Therapy Treatment Note [facility] Date: 03/14/2024 PRECAUTIONS: Activity as tolerated. Impaired short-term memory. Fall risk. SUBJECTIVE: Pleasant and cooperative. Agreeable to bothe session with PT. Wanted snacks for the afternoon session, said yes to chicken noodle soup which COUNTER [employer]ISH CARRIER simeon heated up for patient. denied headache, chest pain, and lightheadedness throughout session. OBJECTIVE: Resting in bed but was easily rousable and agreeable to moving. IV through R UE. Telemetry monitoring in place. ? PAIN: None reported VITALS: Closely monitored via telemetry ? BED MOBILITY/TRANSFERS: Minimal cueing provided for use of B hands as needed for support, movement sequence, AD management, and posture to reduce fall risk and minimize pain report ? Supine-sit: stand by assist? Sit-stand: stand by assist with FWW? Stand-sit: stand by assist with FWW? GAIT: Stand by assist with front-wheeeld walker covering a distance of 350 feet in the AM and 700 feet in the PM with no report of chst pain, headache, and lightheadedness. THERA EX: Sit<>stand at edge of bed using B hands x 10 Bilateral heel raises x 10 Partial knee bends x 10 ASSESSMENT: Patient appears to be almost at midline cognitive and mobility level and will continue to require skilling for strengthening and balance progression to reduce fall risk. PLAN: Continue with global strengthening, transfers, ambulation, pain management and balance facilitation DISCHARGE RECOMMENDATION: PT with increased oversight for meals medication management TREATMENT CODE/TIME: Session 1--94029 x 15 minutes for 1 unit, 82335 x 13 minutes for 1 unit (10:32-11:00). Session 2-- 86018 x 20 minutes for 1 unit (13:52-14:12).
[2024-03-14 02:55] VITALS: BP 137/52; PULSE 69; RESP 14; TEMP 36.4; O2SAT 95
[2024-03-14] MEDS: Lactated Ringers 1,000 ML 75 ML IV ×2 (03:38→16:06)
[2024-03-14] MEDS: Levothyroxine 75 MCG TAB 37.5 MCG PO (06:11)
[2024-03-14] MEDS: Heparin 5,000 UNITS/ML VIAL 5000 UNITS SC ×3 (06:11→21:20)
[2024-03-14 06:44] LABS: Abs Immature Grans 0.27 10^3/uL (0.0-0.06); Absolute Basophil Count 0.04 10^3/uL (0.0-0.2); Absolute Eosinophil Count 0.27 10^3/uL (0.0-0.7); Absolute Lymphocyte Count 3.89 10^3/uL (1.2-3.4); Absolute Monocyte Count 0.65 10^3/uL (0.1-0.8); Absolute Neutrophil Count 4.55 10^3/uL (1.2-6.7); Basophils % 0.4 %; Eosinophils % 2.8 %; HCT 25.3 % (36.0-46.0); HGB 8.3 g/dL (11.2-15.7); Immature Grans % 2.8 %; Lymphocytes % 40.2 %; MCH 29.1 pg (27.0-33.0); MCHC 32.8 % (32.0-36.0); MCV 89 fL (80-95); Monocytes % 6.7 %; Neutrophils % 47.1 %; Platelet Count 304 10^3/uL (130-400); RBC 2.85 10^6/uL (3.93-5.22); RDW-SD 45.1 fL; WBC 9.67 10^3/uL (4.4-10.8)
[2024-03-14 07:00] LABS: BUN 17 mg/dL (7-18); CREATININE 1.7 mg/dL (0.55-1.02); Calcium 8.6 mg/dL (8.5-10.1); Chloride 110 mmol/L (98-107); Estimated GFR 30.32 (mL/min/1.73m2); Glucose 98 mg/dL (74-106); Magnesium 2.1 mg/dL (1.8-2.4); Potassium 3.5 mmol/L (3.5-5.1); Sodium 144 mmol/L (136-145)
[2024-03-14 07:32] LABS: Anisocytosis 1+; Diff Comment RBC Morph Reviewed
[2024-03-14 07:33] LABS: Hypochromasia 1+; Poikilocytes 1+
[2024-03-14] MEDS: amLODIPine 5 MG TAB PO (07:42)
[2024-03-14] MEDS: Pantoprazole 40 MG TABCR PO ×2 (07:43→21:21)
[2024-03-14] MEDS: Potassium Chloride 20 MEQ TABCR PO ×3 (07:43→16:06)
[2024-03-14] MEDS: Lidocaine 5% Patch 1 PATCH TP (07:43)
[2024-03-14] MEDS: Escitalopram 10 MG TAB 5 MG PO (07:43)
[2024-03-14] MEDS: Sucralfate 1 GM TAB PO ×4 (07:43→21:21)
[2024-03-14] MEDS: Lisinopril 10 MG TAB 5 MG PO (07:43)
[2024-03-14] MEDS: Normal Saline Flush 10 ML SYR IVP ×2 (07:44→21:20)
[2024-03-14 07:55] VITALS: BP 143/62; PULSE 74; RESP 17; TEMP 36.6; O2SAT 97
--- NOTE | 2024-03-14 09:23 | W.PM.PROGNOT ---
Date of Service Date of service: 03/14/24 Time of Service: 09:24 Assessment and Plan Assessment and plan (1) Colitis: Status: Acute Assessment and plan: Continue symptom management fecal bacterial pathogens negative, cdiff negative, calprotectin pending, lactoferrin positive most likely d/t inflamation PRN immodium Surgery consulted: upper endoscopy/colonoscopy 03/13/24, suspected ischemic bowel over infectious vs inflammatory, biopsies result still pending. In the setting of suspected ischemic bowel d/t dehydration Will continue IV fluids for now as po intake poor -urine output at approx 70cc/hr without evidence of retention as per BS Continue decreased dose of antihypertensive dosing to keep blood pressure up prevent lack of perfusion to the bowel (2) Hypokalemia: Status: Acute Assessment and plan: most likely d/t to GI losses, continue to replete and follow labs daily until stable K 3.5 magnesium level is now 2.1 (3) Hypertension: Status: Chronic Assessment and plan: In the setting of suspected ischemic bowel d/t dehydration doses of antihypertensives were reduced to keep blood pressure higher and avoid hypotension. Continue amlodipine reduced dose of 5 mg daily from 10 mg Continue lisinopril reduced dose of 5 mg daily from from 10 mg Continue to monitor VS and adjust meds as needed. Qualifiers: Hypertension type: essential hypertension Qualified Code(s): I10 - Essential (primary) hypertension (4) Erosive gastritis: Status: Acute Assessment and plan: endoscopy completed on 03/13 showed : moderate gastritis radiating from the antrum. Will continue oral PPI bid and carafate. (5) Delirium: Status: Acute Assessment and plan: in setting of acute illness, hospitalization, and likely baseline cognitive impairment Will avoid benzodiazepine in the elderly patient Will continue quetiapine at bedtime and prn, adjust as needed. Maintain fall and safely precautions. (6) Anemia: Status: Chronic Assessment and plan: H&H 8.3 & 25.3, from 9.2&26.7 normocytic, gi losses from colitis in combination with dilution d/t IV fluids hemoglobin and hematocrit stable. asymptomatic, continue to monitor. anemia labs with iron 87 TIBC 212, %sat 41 in sept retic 2.0, ferritin 460, vit b12 476, folate 13.8 CBC in AM (7) Hypothyroid: Status: Chronic Assessment and plan: Continue home dose of levothryroxine TSH 0.91 (8) Unwitnessed fall: Status: Acute Assessment and plan: On 03/12 found sitting on bathroom floor last evening. denies injury, no obvious evidence of any trauma, re-ambulated safely with no issues or c/o. in setting of delirium overnight, head and c-spine CT scan completed and showed no acute intracranial process and no acute fracture or subluxation in the cervical spine. PT consult ongoing Maintain fall precautions. (9) On deep vein thrombosis (DVT) prophylaxis: Status: Acute Assessment and plan: Continue heparin SC Plat 304 stable CBC in AM low threshold to stop if evidence of bleeding. (10) Discharge planning issues: Status: Acute Assessment and plan: PT consultation ongoing -Will be d/c home with HH, refractory to rehab - Son is the health care agent case management following for discharge planning. Discussed with Dr. Harper Subjective Subjective Patient reports: no new complaints, tolerating liquids well, tolerating a regular diet, voiding w/o difficulty (small quantity =200 ml / void ) and afebrile; denies diarrhea, blood in stool, nausea, vomiting or shortness of breath Exam Narrative Exam Narrative: Constitutional The patient is sitting in chair without acute distress . Facial structures with normal appearance Eyes: Well aligned, intact ROM Neuro:alert and oriented to self, person. No neurological focal deficit Chest:Chest is symmetrical and normal appearance Resp: Clear lung bilaterally Cardio: Regular rhythm, S1, S2, no murmur, bilateral radial and dorsalis pedis pulses are positive. GI: Abdomen is not distended, soft and non tender, bowel sounds are present : Negative Costovertebral angle tenderness, no bladder distension Back/spine/Pelvis: No back tenderness, normal alignment Integumentary: No skin lesions or rash Extremities: strength 5/5 to bilateral lower and upper extremities Psych: RASS 0, congruent mood and normal affect. Objective Last Vital Signs Temp 36.6 C 03/14/24 07:55 Pulse 74 03/14/24 07:55 Resp 17 03/14/24 07:55 BP 143/62 H 03/14/24 07:55 Pulse Ox 97 03/14/24 07:55 Laboratory Results - last 24 hr 03/14/24 06:05 WBC 9.67 RBC 2.85 L Hgb 8.3 L Hct 25.3 L MCV 89 MCH 29.1 MCHC 32.8 RDW 14.0 Plt Count 304 MPV 9.0 Immature Gran % 2.8 Neutrophils % 47.1 Lymphocytes % 40.2 Monocytes % 6.7 Eosinophils % 2.8 Basophils % 0.4 Nucleated RBC % 0.0 Absolute Neutrophils 4.55 Absolute Lymphocytes 3.89 H Absolute Monocytes 0.65 Absolute Eosinophils 0.27 Absolute Basophils 0.04 RBC Morphology See Below Hypochromasia 1+ Poikilocytosis 1+ Anisocytosis 1+ Sodium 144 Potassium 3.5 Chloride 110 H Carbon Dioxide 25.0 Anion Gap 9.0 BUN 17 Creatinine 1.7 H Est GFR (CKD-EPI 2020) 30.32 Glucose 98 Calcium 8.6 Magnesium 2.1 PAWSS Have you Been Recently Intoxicated or Drunk Within the Last 30 days?: No Have you Ever Experienced Previous Episodes of Alcohol Withdrawal?: No Have you ever Experienced Withdrawal Seizures?: No Have you ever Experienced Delirium Tremens(DT)s?: No Have you ever undergone Alcohol Rehabilitation Treatment (i.e, inpt ot outpatient treatment programs)?: No Have you ever Experienced Blackouts?: No Have you ever Combined Alcohol with other Downers within the last 90 days?: No Have you ever Combined Alcohol with any other Substance of Abuse during the last 90 days?: No Positive Blood Alcohol level on Presentation? [PCS.BAL]: No Evidence of Increased Autonomic Activity (i.e. HR>120, tremor, sweating, agitation, nausea)?: No Result: 0 Time Spent with Patient Time Spent with Patient: >50 minutes Time was spent: preparing to see the patient(eg.review tests), obtaining and/or reviewing separately otained hiistory, ordering medications,tests, procedures, referring, communicating with other health healthcare customer service, indepentently interpreting results, counseling the patient and care coordination
[2024-03-14 11:56] VITALS: BP 127/42; PULSE 72; RESP 15; TEMP 36.1; O2SAT 99
[2024-03-14 15:16] VITALS: BP 104/56; PULSE 70; RESP 15; TEMP 36.3; O2SAT 99
--- NOTE | 2024-03-14 16:22 | PDOC.CMPRO ---
Date of service: 03/14/24 Time of Service: 16:22 Care Management Progress Note Progress Note Text Progress Note Text: CM met with Venus x 2 today. She is much more clear than yesterday. She is making jokes and eating. She looks much better. Venus's son Jose Alejandro was here later in the day and is very pleased with his mom's status today. They are all hoping that Venus will be discharged home tomorrow. Nursing also reports that Venus is much more clear, and much more steady on her feet. Discharge Potential Discharge Needs: PCP F/U Appt Anticipated Barriers to Discharge: None Identified Patient/Family Education Needs: Review discharge instructions, discuss Ask Me Three Transportation: Private vehicle (with her son, Jose Alejandro) Plan: Anticipate that Venus will return home where she lives with her granddaughter and her granddaughter's care provider, with new orders for HH RN and PT through [employer]. She will f/u with her PCP and continue per her plan of care. She will be transported home in a private vehicle with her son, Jose Alejandro. SDOH(Care Management) Screening Will the Patient Participate in the Screening?: Yes Do you worry about having a steady place to live?: no In the past 12 months, have you had to go without electric, gas, oil or water in your home?: no Have you or anyone in your house had to go without enough food to eat?: no Has lack of transportation kept you from medical appointments or from doing things needed for daily living?: no Has anyone in your support network made you feel unsafe for any reason?: no Social Determinants of Health Comments(SDOH Details): Patient lives with her granddaughter at home. Patient denies any issues on her living situation.
[2024-03-14 19:33] VITALS: BP 106/60; PULSE 90; RESP 18; TEMP 36.5; O2SAT 94
[2024-03-14 19:51] LABS: Calprotectin 2395 mcg/g
[2024-03-14] MEDS: Rosuvastatin 20 MG TAB PO (21:20)
[2024-03-14] MEDS: QUEtiapine 25 MG TAB 12.5 MG PO (21:21)
[2024-03-14] MEDS: Patch Removal 1 EACH TP (21:29)
[2024-03-15 03:34] VITALS: BP 121/56; PULSE 88; RESP 16; TEMP 36.7; O2SAT 98
[2024-03-15] MEDS: Lactated Ringers 1,000 ML 75 ML IV (05:24)
[2024-03-15] MEDS: Heparin 5,000 UNITS/ML VIAL 5000 UNITS SC ×2 (06:34→14:17)
[2024-03-15] MEDS: Levothyroxine 75 MCG TAB 37.5 MCG PO (06:34)
[2024-03-15] MEDS: amLODIPine 5 MG TAB PO (07:43)
[2024-03-15] MEDS: Lisinopril 10 MG TAB 5 MG PO (07:45)
[2024-03-15] MEDS: Lidocaine 5% Patch 1 PATCH TP (07:45)
[2024-03-15] MEDS: Pantoprazole 40 MG TABCR PO (07:49)
[2024-03-15] MEDS: Potassium Chloride 20 MEQ TABCR PO ×2 (07:49→13:04)
[2024-03-15] MEDS: Sucralfate 1 GM TAB PO ×2 (07:50→12:06)
[2024-03-15] MEDS: Escitalopram 10 MG TAB 5 MG PO (07:54)
[2024-03-15 08:11] VITALS: BP 144/60; PULSE 65; RESP 16; TEMP 36.4; O2SAT 98
[2024-03-15 10:48] LABS: Abs Immature Grans 0.21 10^3/uL (0.0-0.06); Absolute Basophil Count 0.03 10^3/uL (0.0-0.2); Absolute Eosinophil Count 0.22 10^3/uL (0.0-0.7); Absolute Lymphocyte Count 3.11 10^3/uL (1.2-3.4); Absolute Neutrophil Count 5.84 10^3/uL (1.2-6.7); Basophils % 0.3 %; Eosinophils % 2.2 %; HGB 7.9 g/dL (11.2-15.7); Immature Grans % 2.1 %; Lymphocytes % 30.8 %; MCH 29.4 pg (27.0-33.0); MCHC 32.9 % (32.0-36.0); MCV 89 fL (80-95); MPV 8.9 fL (8.0-11.0); Monocytes % 6.9 %; Neutrophils % 57.7 %; Platelet Count 271 10^3/uL (130-400); RBC 2.69 10^6/uL (3.93-5.22); RDW 14.3 % (11.7-14.6); RDW-SD 45.9 fL; WBC 10.11 10^3/uL (4.4-10.8)
[2024-03-15 10:55] LABS: BUN 22 mg/dL (7-18); CREATININE 1.7 mg/dL (0.55-1.02); Calcium 8.4 mg/dL (8.5-10.1); Chloride 110 mmol/L (98-107); Estimated GFR 30.32 (mL/min/1.73m2); Glucose 102 mg/dL (74-106); Potassium 4.5 mmol/L (3.5-5.1); Sodium 140 mmol/L (136-145)
[2024-03-15 11:33] LABS: Bilirubin Negative (Negative); Blood Negative (Negative); Clarity Clear (Clear); Glucose Negative (Negative); Ketones Negative (Negative); Leukocyte Esterase Negative (Negative); Nitrite Negative (Negative); Urobilinogen 0.2 mg/dL (Up to 0.2)
[2024-03-15 12:09] VITALS: BP 118/54; PULSE 75; RESP 15; TEMP 36.4; O2SAT 97
--- NOTE | 2024-03-15 12:33 | PT.INTREAT ---
PT Notes Visit Reasons: Diverticulitis with colitis, Intractable nausea Inpatient Physical Therapy Treatment Note [facility] Date: 03/15/2024 PRECAUTIONS: Activity as tolerated. Impaired short-term memory. Fall risk. SUBJECTIVE: Still in bed when seen by Pt late morning but was easily agreeable to getting up and to moving. wanted to pass by bathroom first before going for her walk. OBJECTIVE: Geernal Observation: IV through R UE. Telemetry monitoring in place. ? PAIN: None reported VITALS: Closely monitored via telemetry ? BED MOBILITY/TRANSFERS: Minimal cueing provided for use of B hands as needed for support, movement sequence, AD management, and posture to reduce fall risk and minimize pain report ? Supine-sit: supervision? Sit-stand: supervision? with FWW? Stand-sit: supervision? with FWW? Bed-chair: stand by assist with FWW CAhir-bed:?stand by assist with FWW ? GAIT: Stand by assist with front-wheeled walker covering a distance of 700 feet in the AM and feet in the PM with no report of chest pain, headache, and lightheadedness. THERA EX: Guided patient with accurate asn safe movement sequence for exercises below: Standing bilateral heel raises x 10 Partial knee bends x 10 Standing hip extension x 10 ASSESSMENT: Patient appears to be almost at baseline cognitive and mobility level and will continue to require skilling for strengthening and balance progression to reduce fall risk. PLAN: Continue with global strengthening, transfers, ambulation, pain management and balance facilitation DISCHARGE RECOMMENDATION: PT with increased oversight for meals and medication management TREATMENT CODE/TIME: 49717 x 15 minutes for 1 unit, 95692 x 14 minutes for 1 unit (10:56-11:25).
--- NOTE | 2024-03-15 13:05 | W.PM.DS.N ---
Date of service: 03/15/24 Time of Service: 13:08 DS: Diagnosis Discharge Diagnosis (1) Colitis: Status: Acute (2) Hypokalemia: Status: Acute (3) Hypertension: Status: Chronic (4) Erosive gastritis: Status: Acute (5) Delirium: Status: Acute (6) Anemia: Status: Chronic (7) Hypothyroid: Status: Chronic (8) Unwitnessed fall: Status: Acute (9) On deep vein thrombosis (DVT) prophylaxis: Status: Acute (10) Discharge planning issues: Status: Acute Discharge Plan Disposition Patient Disposition: Home W/Home Health Services Condition: Improving Discharge Details Reason For Visit: Diverticulitis with colitis, Intractable nausea Admit Date/Time: 03/11/24 22:27 Admit Provider: Koko Vega Attending Provider: Koko Vega Primary Care Provider: Katya Phelan Hospital Course Hospital Course: This 78-year-old female patient with a past medical history including but not limited to hypertension, GERD, CKD stage IV, C. difficile , hiatal hernia and most notable for recent admission to our hospital for [facility] due to a GI illness, discharged on 02/25, as well as a visit to our emergency department with a diagnosis of uncomplicated diverticulitis and colitis on 03/06, presented on 03/11/2024 to the ED at [facility] for evaluation of ongoing poor oral intake and nausea. History was provided by the son at bedside who reported that for the last several weeks prior to presentation the patient had a poor appetite, and stating that eating made her feel very nauseated. She felt a squeezing sensation in the pit of her stomach whenever she thought about or tried to eat. With concerns that her poor p.o. intake would lead to worsening kidney function, the patient seek medical care in the ED. the patient reported baseline mild nausea without specific abdominal pain, report dysuria but denied voiding since the day prior to presentation, denied bowel movement for the past several days, denied diarrhea and denied fever. Workup in the ED showed mild leukocytosis at 12.4, mild stable anemia without thrombocytopenia, lactate of 1.6, hypokalemia at 3.3, GFR of 21, new mild transaminitis with an alk phos elevation to 215. Sed rate and CRP were elevated. Lipase was negative. EKG was nonischemic but QT and recommendation was noted and conventional antiemetic were avoided and the patient; she was treated with Tigan in the ED. The patient was unable to tolerate water intake and vomited after receiving the dose of antiemetic. The abdominal CT showed ongoing differential colitis with diverticuli with no clear diverticulitis or evidence of complication. Surgery was consulted with concern for mesenteric ischemia despite no symptoms such as abdominal pain and hematochezia with only a mild elevation in the lactate and WBC. The surgery was consulted and the patient was admitted to the medical surgical floor for evaluation and management of diverticulitis, colitis, nausea and vomiting, hypokalemia, dehydration. During the stay, C. difficile was found to be negative, the patient continued to receive IV hydration with an improvement in her creatinine. Surgical services completed an upper and lower endoscopy with findings of moderate gastritis radiating from the antrum without erosion or ulceration, and moderate diverticula with increase vascularity and mild erythema noted between 40 to 20 cm in the colon. There were also whitish and needed ulcerations visualized which could be due to autoimmune colitis versus infectious colitis versus residual ischemic colitis. Biopsies were taken in both upper endoscopic and lower endoscopic procedures results are pending and should be followed up by the primary care practitioner. Pharmacological therapy was initiated with proton pump inhibitors and sucralfate scheduled. While the patient was treated for ischemic bowel due to most likely dehydration with IV fluids and adjustment of her antihypertensive medicine to prevent hypotension and allow for optimal bowel perfusion, the patient was able to tolerate oral intake without any further vomiting. Creatinine stabilized at 1.7 with a GFR above 30. Hypokalemia resolved with oral supplementation. Lactoferrin was positive pointing to an inflammatory process and calprotectin was elevated at 2395 pointing to most likely irritable bowel syndrome with predominant diarrhea diagnosis. Other fecal pathogens were negative. Further workup should be done as per the primary care practitioner for celiac disease. Recommendations given to initiate lifestyle and dietary modification such as excluding gas producing food with a diet low in fermentable oligo-, -di, -mono and polysaccharides. Nutrition consultattion is recommended outpatient and is to be discussed with primary care practitioner. Further QTc readings had improved to 344 ms. Urinalysis was negative for any infection. Low-dose Seroquel was initiated at night due to episode of delirium. The therapy was effective and will continue upon discharge with further shared decision to be made with primary care practitioner. The patient will be discharged home with home health for physical therapy, nursing, Occupational Therapy and medical staff assistant. Discussed with Dr. Rivera Home Meds and New Rx's Prescriptions: New quetiapine 25 mg Tablet 12.5 mg PO QPM Qty: 30 0RF Rx Instructions: give at 18:00 pantoprazole 40 mg Tablet,Delayed Release (Dr/Ec) 40 mg PO BID@0730,1999 Qty: 60 0RF sucralfate 1 gram Tablet 1 g PO AC & HS Qty: 120 0RF quetiapine 25 mg Tablet 12.5 mg PO DAILY PRN PRN (Reason: Agitation) Qty: 15 0RF Rx Instructions: For agitation Continued tramadol 50 mg tablet 50 mg PO QHS Patient Comments: #30 with 1 refill.HE aspirin 81 MG tablet,delayed release (DR/EC) 81 mg PO DAILY Qty: 30 0RF Bengay Ultra Strength 4-30-10 % cream 1 applic TP QD-BID PRN (Reason: muscle pain) Qty: 113 0RF donepezil 5 mg tablet 5 mg PO DAILY Patient Comments: TAKE ONE TABLET BY MOUTH EVERY DAY lidocaine [Lidoderm] 5 % adhesive patch,medicated 1 patch topical DAILY Qty: 15 0RF Rx Instructions: leave on most painful area for up to 12 hrs bisacodyl [Dulcolax (bisacodyl)] 10 mg suppository 10 mg [place] DAILY PRN alum-mag hydroxide-simeth [Advanced Antacid-Antigas] 200-200-20 mg/5 mL suspension 30 ml PO ONCE Rx Instructions: administer between meals and at bedtime ondansetron HCl 4 mg tablet 4 mg PO DAILY rosuvastatin 20 mg tablet 20 mg PO .PM Patient Comments: TAKE ONE TABLET BY MOUTH EVERY EVENING magnesium hydroxide [Milk of Magnesia] 400 mg/5 mL Suspension 30 ml PO DAILY PRN PRNQty: 0 0RF levothyroxine 75 mcg tablet 37.5 mcg PO DAILY Qty: 45 0RF escitalopram oxalate 5 mg tablet 5 mg PO DAILY Qty: 30 0RF Changed acetaminophen 325 mg Tablet 650 mg PO Q6H PRNQty: 0 0RF amlodipine 5 mg tablet 5 mg PO DAILY Qty: 0 0RF Patient Comments: TAKE ONE TABLET BY MOUTH EVERY DAY FOR BLOOD PRESSURE famotidine [Acid Controller] 20 mg tablet 10 mg PO DAILY Qty: 0 0RF lisinopril 10 mg tablet 5 mg PO DAILY Qty: 30 0RF Rx Instructions: lower dose Held clonazepam [Klonopin] 0.5 MG tablet 0.5 mg PO PRN PRN Hold Instructions: Resume on 03/25/24. Restart as per PCP Discontinued dexlansoprazole 60 mg capsule,biphase delayed releas 60 mg PO DAILY Patient Comments: TAKE ONE CAPSULE BY MOUTH EVERY DAY ciprofloxacin HCl [Cipro] 500 mg tablet 500 mg PO BID 7 Days Qty: 14 0RF metronidazole 500 mg tablet 500 mg PO TID 7 Days Qty: 21 0RF Discharge Instructions Stand Alone Forms: Nursing Discharge Form Referrals: Katya Phelan [Primary Care Provider] - 03/22/24 10:30 am Activity:: Activity as Tolerated Equipment/Supplies:: Walker Diet:: Heart healthy & Reduced in gas producing food DS: Summary Time Spent with Patient providing and/or coordinating discharge services: Greater than 30 minutes Status at Discharge Functional status at discharge: uses cane/walker Overall status at discharge: patient is progressing back to baseline Mental Status: mental status grossly normal Speech and Movement: speech and movement normal Mood: congruent mood Affect: normal affect Quality:SDOH Health Related Social Needs: No Data to Display Exam Narrative Exam Narrative: Constitutional The patient is sitting in chair without acute distress . Facial structures with normal appearance Neuro:alert and oriented to self, person and place . No neurological focal deficit Resp: Clear lung bilaterally Cardio: Regular rhythm, S1, S2, no murmur, bilateral radial and dorsalis pedis pulses are positive. GI: Abdomen is not distended, soft and non tender, bowel sounds are present : Negative Costovertebral angle tenderness Back/spine/Pelvis: No back tenderness, normal alignment Integumentary: No skin lesions or rash on exposed skin Extremities: strength 5/5 to bilateral lower and upper extremities Psych: RASS 0, congruent mood and normal affect. Psych Mental Status: mental status grossly normal Speech and Movement: speech and movement normal Mood: congruent mood Affect: normal affect DS: Data Vitals/I&O Vitals and I&O: Vital Signs Temperature 36.4 C L 03/15/24 12:09 Temperature Source Temporal Artery Scan 03/15/24 12:09 Pulse 75 03/15/24 12:09 Pulse Rhythm Regular 03/12/24 00:08 Pulse 70 03/11/24 23:31 Respiratory Rate 15 03/15/24 12:09 Respiratory Effort Normal, Non-Labored 03/12/24 00:08 Respiratory Depth Normal 03/12/24 00:08 Respiratory Pattern Normal 03/12/24 00:08 Blood Pressure 118/54 L 03/15/24 12:09 Blood Pressure Mean 100 03/11/24 23:30 Blood Pressure Position Sitting 03/11/24 14:10 Pulse Oximetry 97 03/15/24 12:09 Oxygen Delivery Method Room Air 03/15/24 12:09 Oxygen Flow Rate 0 03/15/24 12:09 Pain Level 0 03/15/24 12:09 Comment RN notified of bp 03/14/24 15:16 Intake & Output 03/14/24 03/15/24 03/15/24 23:59 11:59 23:59 Intake Total 1485 / 1785 997.5 / 997.5 Output Total 426 / 1026 570 / 570 Balance 1059 / 759 427.5 / 427.5 Intake: IV 935 / 1235 997.5 / 997.5 Oral 550 / 550 Output: Urine 425 / 1025 570 / 570 Stool Other: Urine Color Yellow Pale Urine Appearance Clear Clear Urine Odor Normal None Comment voided in toilet 119-170 Stool Size Small Small Stool Characteristics Soft Soft Formed Data Completed and Pending Labs on day of discharge: Labs from last 24 hours 03/15/24 03/15/24 03/12/24 11:20 10:40 03:45 WBC 10.11 RBC 2.69 L Hgb 7.9 L Hct 24.0 L MCV 89 MCH 29.4 MCHC 32.9 RDW 14.3 Plt Count 271 MPV 8.9 Immature Gran % 2.1 Neutrophils % 57.7 Lymphocytes % 30.8 Monocytes % 6.9 Eosinophils % 2.2 Basophils % 0.3 Nucleated RBC % 0.0 Absolute Neutrophils 5.84 Absolute Lymphocytes 3.11 Absolute Monocytes 0.70 Absolute Eosinophils 0.22 Absolute Basophils 0.03 Sodium 140 Potassium 4.5 D Chloride 110 H Carbon Dioxide 23.0 Anion Gap 7.0 BUN 22 H Creatinine 1.7 H Est GFR (CKD-EPI 2020) 30.32 Glucose 102 Calcium 8.4 L Urine Color Yellow Urine Clarity Clear Urine pH 7.0 Ur Specific Grover 1.020 Urine Protein Negative Urine Ketones Negative Urine Blood Negative Urine Nitrite Negative Urine Bilirubin Negative Urine Urobilinogen 0.2 Ur Leukocyte Esterase Negative Urine Glucose Negative Stool Calprotectin 2395 H PFSH All Active Problems (Updated 03/13/24 @ 12:01 by Agnes Gregory NP) Unwitnessed fall (Acute) Discharge planning issues (Acute) On deep vein thrombosis (DVT) prophylaxis (Acute) Delirium (Acute) Intractable nausea (Acute) Colitis (Acute) Colitis (Acute) CKD (chronic kidney disease) stage 4, GFR 15-29 ml/min (Chronic) Diverticulitis (Acute) Hypothyroid (Chronic) DVT prophylaxis (Acute) Incidental lung nodule, less than or equal to 3mm (Acute) Thoracic back pain (Acute) Costochondritis (Acute) Atypical chest pain (Acute) Allergic rhinitis (Acute 05/26/14) 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 difficile enteritis (Acute) Chest pain (Acute) Anemia (Chronic) Hypertension (Chronic) Gastroenteritis (Acute) Hypokalemia (Acute) Hypomagnesemia (Acute) Pyelonephritis (Acute) Depression (Chronic) GERD (gastroesophageal reflux disease) (Chronic) Gait disturbance (Chronic) Left carotid bruit (Chronic) Essential hypertension (Chronic) Medical History (Updated 03/13/24 @ 12:01 by Agnes Gregory NP) IBS (irritable bowel syndrome) Cardiomyopathy Allergic rhinitis Adenomatous polyp of colon Environmental allergies Osteopenia Cervical spondylosis Osteoarthritis Surgical History Rectocele, Paravaginal repair Vaginal hysterectomy GASTROSCOPY (01/20/15) DR.ANNICK ARAMBULA Cystocele, Paravaginal repair Colonoscopy - IV Sedation 2009 COLONOSCOPY (~12/2014) DR.ANNICK ARAMBULA Social History Smoking/Tobacco Use Status: Never Smoking risk assessment performed?: Yes Alcohol Intake: current Alcohol Intake frequency: a few times a month Drug use: Never Substance use type: does not use Housing: house Number of Children: 2 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 What is your relationship status?: Panel score (0-1 are the most socially isolated patients): 1 Do you feel safe at home: Yes Do you feel safe in your relationship?: Yes Additional Social history: lives with niece during week then son on weekend Time Spent with Patient Time Spent with Patient: 70-84 minutes4 Time was spent: preparing to see the patient(eg.review tests), obtaining and/or reviewing separately otained hiistory, ordering medications,tests, procedures, referring, communicating with other health post acute care registered nurse, indepentently interpreting results, counseling the patient and care coordination
--- NOTE | 2024-03-15 15:30 | NUR.NOTE ---
Nursing Note: Received pt at 1500 from Lizzeth MARADIAGA. Pt sitting up in chair awaiting discharge. VSS, no s/sx of distress noted, will CTM.
--- NOTE | 2024-03-15 16:17 | PDOC.HHF2F_ITS ---
Home Health Referral Home Health Orders Clinical synopsis of why skilled professionals are needed: This 78-year-old female patient with a past medical history including but not limited to hypertension, GERD, CKD stage IV, C. difficile , hiatal hernia and most notable for recent admission to our hospital for [facility] due to a GI illness, discharged on 02/25, as well as a visit to our emergency department with a diagnosis of uncomplicated diverticulitis and colitis on 03/06, presented on 03/11/2024 to the ED at [facility] for evaluation of ongoing poor oral intake and nausea. History was provided by the son at bedside who reported that for the last several weeks prior to presentation the patient had a poor appetite, and stating that eating made her feel very nauseated. She felt a squeezing sensation in the pit of her stomach whenever she thought about or tried to eat. With concerns that her poor p.o. intake would lead to worsening kidney function, the patient seek medical care in the ED. the patient reported baseline mild nausea without specific abdominal pain, report dysuria but denied voiding since the day prior to presentation, denied bowel movement for the past several days, denied diarrhea and denied fever. Workup in the ED showed mild leukocytosis at 12.4, mild stable anemia without thrombocytopenia, lactate of 1.6, hypokalemia at 3.3, GFR of 21, new mild transaminitis with an alk phos elevation to 215. Sed rate and CRP were elevated. Lipase was negative. EKG was nonischemic but QT and recommendation was noted and conventional antiemetic were avoided and the patient; she was treated with Tigan in the ED. The patient was unable to tolerate water intake and vomited after receiving the dose of antiemetic. The abdominal CT showed ongoing differential colitis with diverticuli with no clear diverticulitis or evidence of complication. Surgery was consulted with concern for mesenteric ischemia despite no symptoms such as abdominal pain and hematochezia with only a mild elevation in the lactate and WBC. The surgery was consulted and the patient was admitted to the medical surgical floor for evaluation and management of diverticulitis, colitis, nausea and vomiting, hypokalemia, dehydration. During the stay, C. difficile was found to be negative, the patient continued to receive IV hydration with an improvement in her creatinine. Surgical services completed an upper and lower endoscopy with findings of moderate gastritis radiating from the antrum without erosion or ulceration, and moderate diverticula with increase vascularity and mild erythema noted between 40 to 20 cm in the colon. There were also whitish and needed ulcerations visualized which could be due to autoimmune colitis versus infectious colitis versus residual ischemic colitis. Biopsies were taken in both upper endoscopic and lower endoscopic procedures results are pending and should be followed up by the primary care practitioner. Pharmacological therapy was initiated with proton pump inhibitors and sucralfate scheduled. While the patient was treated for ischemic bowel due to most likely dehydration with IV fluids and adjustment of her antihypertensive medicine to prevent hypotension and allow for optimal bowel perfusion, the patient was able to tolerate oral intake without any further vomiting. Creatinine stabilized at 1.7 with a GFR above 30. Hypokalemia resolved with oral supplementation. Lactoferrin was positive pointing to an inflammatory process and calprotectin was elevated at 2395 pointing to most likely irritable bowel syndrome with predominant diarrhea diagnosis. Other fecal pathogens were negative. Further workup should be done as per the primary care practitioner for celiac disease. Recommendations given to initiate lifestyle and dietary modification such as excluding gas producing food with a diet low in fermentable oligo-, -di, -mono and polysaccharides. Nutrition consultattion is recommended outpatient and is to be discussed with primary care practitioner. Further QTc readings had improved to 344 ms. Urinalysis was negative for any infection. Low-dose Seroquel was initiated at night due to episode of delirium. The therapy was effective and will continue upon discharge with further shared decision to be made with primary care practitioner. The patient will be discharged home with home health for physical therapy, nursing, Occupational Therapy and er medical technician. Discussed with Dr. Rivera Medical diagnosis necessitation home health referral: Colitis, IBS, hypertension, weakness s/p dehydration, gastriti, anemia Registered Nurse: Check all that apply Instruct on new or changed medication(s)/assess compliance: Ordered Assess for exacerbation of medical condition, instruct patient/caregivers on signs and symptoms to report for early detection: Ordered Physical Therapist: Check all that apply Increase strength & endurance for safe mobility at home: Ordered To design/establish home maintenance program: Ordered Fall reduction therapy program for patient with history of frequent falls: Ordered Home safety evaluation and teaching/gait training including stair management (if applicable): Ordered Better Breathing Program: Ordered Occupational Therapist: Evaluate and treat for patient unable to perform ADL/IADL/self-care: Ordered Upper extremity strengthening, range and motion: Ordered Burlap Roll Coverer: Assist with community resources: Ordered Assist with dedicated intermodal truck driver care planning: Ordered Home Bound Status Requires the aid of supportive device (check all that apply): Walker Describe why leaving home would require a considerable and taxing effort: Requires frequent rest periods Encounter Date and Reason: I certify that a FTF encounter for this patient was performed on March 15, 2024 and that such encounter was related to the primary reason the patient requires home health services. The encounter was conducted in the following manner: * By me as the certifying physician, TOMOGRAPHIC TECH, PA or * By an inpatient physician, TOMOGRAPHIC TECH or PA during an inpatient stay who communicated findings to me, Certification And Authentication I certify that I composed the above information based on my clinical judgment relating to this patient's medical condition and, if applicable, clinical findings communicated to me by the NPP or inpatient physician who performed the FTF encounter. Name of Provider that will be monitoring home health services: Katya Phelan
== END 2024-03-15 16:30 | disposition home health service (06) | DRG 394 ==
LOC: ER 23:48 → MS 23:51
PROVIDERS: Family Medicine; Nurse Practitioner Acute Care; Surgery; Admitting Provider Family Medicine; Emergency Provider Emergency Medicine; PCP Physician Assistant; Visit Provider Family Medicine
PROC: 0DJD8ZZ Inspection of Lower Intestinal Tract, Via Natural or Artificial Opening Endoscopic (ICD-10-PCS; CPT 45330; principal; 2024-03-12 09:45)
PROC: 0DJ68ZZ Inspection of Stomach, Via Natural or Artificial Opening Endoscopic (ICD-10-PCS; CPT 43235; 2024-03-12 09:45)
DX: K55.8 Other vascular disorders of intestine (principal); F05 Delirium due to known physiological condition; K57.32 Diverticulitis of large intestine without perforation or abscess without bleeding; N18.4 Chronic kidney disease, stage 4 (severe); I42.8 Other cardiomyopathies; K63.3 Ulcer of intestine; K21.9 Gastro-esophageal reflux disease without esophagitis; R11.0 Nausea; K29.60 Other gastritis without bleeding; K44.9 Diaphragmatic hernia without obstruction or gangrene; G47.33 Obstructive sleep apnea (adult) (pediatric); I12.9 Hypertensive chronic kidney disease with stage 1 through stage 4 chronic kidney disease, or unspecified chronic kidney disease; E87.6 Hypokalemia; F41.8 Other specified anxiety disorders; E03.9 Hypothyroidism, unspecified; R29.6 Repeated falls; Z79.899 Other long term (current) drug therapy; K57.30 Diverticulosis of large intestine without perforation or abscess without bleeding; F32.A Depression, unspecified; Z86.0101 Personal history of adenomatous and serrated colon polyps; R91.1 Solitary pulmonary nodule; M54.6 Pain in thoracic spine; R07.89 Other chest pain; M43.02 Spondylolysis, cervical region; G47.00 Insomnia, unspecified; K58.9 Irritable bowel syndrome, unspecified; Z55.0 Illiteracy and low-level literacy; D64.9 Anemia, unspecified; E83.42 Hypomagnesemia; R26.89 Other abnormalities of gait and mobility; M85.80 Other specified disorders of bone density and structure, unspecified site; W19.XXXA Unspecified fall, initial encounter; E86.0 Dehydration; K58.0 Irritable bowel syndrome with diarrhea; K31.9 Disease of stomach and duodenum, unspecified; K63.89 Other specified diseases of intestine
CPT/HCPCS: 43239; 45380; 00123; 36415; 80048; 80053; 83690; 84145; 85027; 85652; 86704; 86709; 86803; 87340; 87493; 87505; 87635; 88305; 93005; 96360; 96361; 96372; 97110; 97162; 97530; 99223; 99285; 70450; 72125; 74176; 81003; 81015; 82607; 82728; 82746; 83605; 83630; 83735; 83993; 84443; 84484; 85025; 85045; 86140; 88361; 93010; 99232; 99233; 99239; J0131; J1644; J2470; J2543; J2704; J3250; J3475; J3480; J3490

== ENCOUNTER 2024-03-22 12:56 | Outpatient (REF) | payer MEDICARE, SELFPAY ==
[2024-03-22 19:26] LABS: Abs Immature Grans 0.02 10^3/uL (0.0-0.06); Absolute Basophil Count 0.03 10^3/uL (0.0-0.2); Absolute Lymphocyte Count 1.44 10^3/uL (1.2-3.4); Absolute Monocyte Count 0.32 10^3/uL (0.1-0.8); Absolute Neutrophil Count 4.16 10^3/uL (1.2-6.7); Basophils % 0.5 %; Eosinophils % 1.6 %; HCT 29.7 % (36.0-46.0); HGB 10.4 g/dL (11.2-15.7); Immature Grans % 0.3 %; Lymphocytes % 23.7 %; MCH 32.1 pg (27.0-33.0); MCV 92 fL (80-95); Monocytes % 5.3 %; Neutrophils % 68.6 %; Platelet Count 392 10^3/uL (130-400); RBC 3.24 10^6/uL (3.93-5.22); RDW 14.3 % (11.7-14.6); RDW-SD 47.5 fL; WBC 6.07 10^3/uL (4.4-10.8)
[2024-03-22 20:03] LABS: ALT 26 U/L (14-59); AST 26 U/L (15-37); Albumin 3.3 g/dL (3.4-5.0); Alkaline Phosphatase 104 U/L (46-116); Anion Gap 9.6 mmol/L (3-11); BUN 21 mg/dL (7-18); Bilirubin, Total 0.36 mg/dL (0.2-1.0); CO2 24.4 mmol/L (21.0-32.0); CREATININE 1.8 mg/dL (0.55-1.02); Calcium 10.2 mg/dL (8.5-10.1); Chloride 109 mmol/L (98-107); Estimated GFR 28.31 (mL/min/1.73m2); Glucose 135 mg/dL (74-106); Potassium 3.6 mmol/L (3.5-5.1); Sodium 143 mmol/L (136-145); Total Protein 7.7 g/dL (6.4-8.2)
[2024-03-25 11:45] LABS: IgA 221 mg/dL (85-499); Interpretation (See Note); Tissue Transglutaminase IgA <4.0 CU (<20.0)
== END 2024-03-22 12:57 | disposition home or self-care (01) ==
LOC: NCHCN 12:56
PROVIDERS: PCP Physician Assistant; Visit Provider Physician Assistant
DX: D64.9 Anemia, unspecified (principal); N18.30 Chronic kidney disease, stage 3 unspecified; R19.7 Diarrhea, unspecified
CPT/HCPCS: 80053; 82784; 83516; 85025

== ENCOUNTER 2024-04-18 12:44 | Outpatient (REF) | payer MEDICARE, SELFPAY ==
[2024-04-18 19:11] LABS: HCT 33.1 % (36.0-46.0); HGB 10.6 g/dL (11.2-15.7); MCH 29.4 pg (27.0-33.0); MCV 92 fL (80-95); MPV 9.9 fL (8.0-11.0); Platelet Count 298 10^3/uL (130-400); RDW 14.2 % (11.7-14.6); RDW-SD 48.5 fL; WBC 5.73 10^3/uL (4.4-10.8)
[2024-04-18 19:27] LABS: Anion Gap 7.2 mmol/L (3-11); BUN 31 mg/dL (7-18); CO2 25.8 mmol/L (21.0-32.0); CREATININE 1.8 mg/dL (0.55-1.02); Calcium 10.4 mg/dL (8.5-10.1); Chloride 108 mmol/L (98-107); Estimated GFR 28.31 (mL/min/1.73m2); Glucose 107 mg/dL (74-106); Potassium 4.2 mmol/L (3.5-5.1); Sodium 141 mmol/L (136-145)
== END 2024-04-18 12:45 | disposition home or self-care (01) ==
LOC: NCHCN 12:44
PROVIDERS: PCP Physician Assistant; Visit Provider Physician Assistant
DX: D64.9 Anemia, unspecified (principal)
CPT/HCPCS: 80048; 85027

== ENCOUNTER 2024-05-17 12:59 | Outpatient (REF) | payer MEDICARE, MEDICAID, SELFPAY ==
[2024-05-17 19:44] LABS: Abs Immature Grans 0.01 10^3/uL (0.0-0.06); Absolute Basophil Count 0.03 10^3/uL (0.0-0.2); Absolute Eosinophil Count 0.08 10^3/uL (0.0-0.7); Absolute Lymphocyte Count 2.22 10^3/uL (1.2-3.4); Absolute Monocyte Count 0.33 10^3/uL (0.1-0.8); Basophils % 0.5 %; Eosinophils % 1.4 %; HCT 32.6 % (36.0-46.0); Immature Grans % 0.2 %; Lymphocytes % 37.8 %; MCH 30.6 pg (27.0-33.0); MCHC 33.7 % (32.0-36.0); MCV 91 fL (80-95); MPV 10.6 fL (8.0-11.0); Monocytes % 5.6 %; Neutrophils % 54.5 %; Platelet Count 244 10^3/uL (130-400); RBC 3.59 10^6/uL (3.93-5.22); RDW 13.1 % (11.7-14.6); RDW-SD 43.5 fL; WBC 5.87 10^3/uL (4.4-10.8)
[2024-05-17 19:45] LABS: Anion Gap 8.7 mmol/L (3-11); BUN 20 mg/dL (7-18); CO2 25.3 mmol/L (21.0-32.0); CREATININE 1.5 mg/dL (0.55-1.02); Calcium 9.7 mg/dL (8.5-10.1); Chloride 110 mmol/L (98-107); Estimated GFR 35.23 (mL/min/1.73m2); Glucose 107 mg/dL (74-106); Potassium 3.4 mmol/L (3.5-5.1); Sodium 144 mmol/L (136-145)
== END 2024-05-17 13:00 | disposition home or self-care (01) ==
LOC: NCHCN 12:59
PROVIDERS: PCP Physician Assistant; Visit Provider Physician Assistant
DX: N18.30 Chronic kidney disease, stage 3 unspecified (principal)
CPT/HCPCS: 80048; 85025

== ENCOUNTER 2024-06-10 15:49 | Outpatient (REF) | payer MEDICARE, MEDICAID, SELFPAY ==
[2024-06-10 19:32] LABS: BUN 48 mg/dL (7-18); CREATININE 2.3 mg/dL (0.55-1.02); Calcium 10.7 mg/dL (8.5-10.1); Chloride 106 mmol/L (98-107); Estimated GFR 21.09 (mL/min/1.73m2); Glucose 132 mg/dL (74-106); Potassium 4.3 mmol/L (3.5-5.1); Sodium 138 mmol/L (136-145)
== END 2024-06-10 15:50 | disposition home or self-care (01) ==
LOC: NCHCN 15:49
PROVIDERS: PCP Physician Assistant; Visit Provider Physician Assistant
DX: E87.6 Hypokalemia (principal)
CPT/HCPCS: 80048

== ENCOUNTER → 2024-08-07 10:15 | Outpatient (BNVA) | payer MEDICARE, MEDICAID, SELFPAY | PROVIDERS: PCP Physician Assistant; Referring Provider Physician Assistant; Visit Provider Podiatrist | DX: L60.0 Ingrowing nail (principal); L60.2 Onychogryphosis | CPT/HCPCS: 99213 ==

== ENCOUNTER 2024-08-18 18:20 | Emergency (ER) | payer MEDICARE, MEDICAID, SELFPAY ==
--- NOTE | 2024-08-18 18:15 | RT.EKG_ITS ---
APPROVED REPORT Exam: Resting ECG Reason for Exam: Chest Pain Patient Location: E HR:69 bpm ECG Measurements Heart Rate 69 AXIS ID [id number] P [id number] QRSd 72 QRS 56 QT 381 T 133 QTc 408 Conclusion Junctional rhythm...absent P waves, slow V-rate
[2024-08-18 18:23] VITALS: BP 156/45; PULSE 73; RESP 16; TEMP 36.8; O2SAT 98
[2024-08-18 18:25] VITALS: PULSE 77; PULSE 78; RESP 17; O2SAT 99
[2024-08-18 18:27] VITALS: BP 156/45; PULSE 75; PULSE 76; RESP 19; O2SAT 98
--- NOTE | 2024-08-18 18:41 | ED.GENADUL_ITS ---
Discharge Plan Disposition Patient Disposition: Home Condition: Stable Discharge Details Clinical Impression: Chest pain of uncertain etiology Primary Care Provider: Katya Phelan ED Provider: Geo Parsons Home Meds and New Rx's Prescriptions: Continued clonazepam [Klonopin] 0.5 MG tablet 0.5 mg PO PRN PRN Bengay Ultra Strength 4-30-10 % cream 1 applic TP QD-BID PRN (Reason: muscle pain) Qty: 113 0RF donepezil 5 mg tablet 5 mg PO DAILY Patient Comments: TAKE ONE TABLET BY MOUTH EVERY DAY lidocaine [Lidoderm] 5 % adhesive patch,medicated 1 patch topical DAILY Qty: 15 0RF Rx Instructions: leave on most painful area for up to 12 hrs alum-mag hydroxide-simeth [Advanced Antacid-Antigas] 200-200-20 mg/5 mL suspension 30 ml PO ONCE Rx Instructions: administer between meals and at bedtime ondansetron HCl 4 mg tablet 4 mg PO DAILY quetiapine 25 mg Tablet 12.5 mg PO QPM Qty: 30 0RF Rx Instructions: give at 18:00 pantoprazole 40 mg Tablet,Delayed Release (Dr/Ec) 40 mg PO BID@0730,2000 Qty: 60 0RF sucralfate 1 gram Tablet 1 g PO AC & HS Qty: 120 0RF quetiapine 25 mg Tablet 12.5 mg PO DAILY PRN PRN (Reason: Agitation) Qty: 15 0RF Rx Instructions: For agitation acetaminophen 325 mg Tablet 650 mg PO Q6H PRNQty: 0 0RF amlodipine 5 mg tablet 5 mg PO DAILY Qty: 0 0RF Patient Comments: TAKE ONE TABLET BY MOUTH EVERY DAY FOR BLOOD PRESSURE famotidine [Acid Controller] 20 mg tablet 10 mg PO DAILY Qty: 0 0RF lisinopril 10 mg tablet 5 mg PO DAILY Qty: 30 0RF Rx Instructions: lower dose rosuvastatin 20 mg tablet 20 mg PO .PM Patient Comments: TAKE ONE TABLET BY MOUTH EVERY EVENING levothyroxine 75 mcg tablet 37.5 mcg PO DAILY Qty: 45 0RF Discharge Instructions Instructions: Chest Pain, Adult ED Additional Instructions: You were seen in the emergency department for your chest pain as well as some agitation and frequent wandering around the home, your laboratory workup shows no elevation of cardiac enzymes indicating no damage to the heart, shows improved kidney function on prior acute renal failure values, and shows no signs of significant infection, no UTI on your urinalysis. Your chest x-ray shows no pneumonia. I suspect some of this is behavioral and related to dementia and age-related normal cognitive changes, please return to the emergency department for any further episodes of chest pain especially shortness of breath, near fainting, cough with fever, flank pain, nausea or vomiting, or any other emergent concerns. Referrals: Katya Phelan [Primary Care Provider] - Discharge Data Discharge Date/Time-TO BE ENTERED AT DEPARTURE: 08/18/24 21:12 HPI General Date/Time Provider Initiated Documentation: 08/18/24 18:24 . HPI Narrative: 78 year-old female presents to ED today by EMS with a chief complaint of one week of lethargy, sweating, increased confusion around the home- moving from room to room without any real purpose, increased frequency of urination per son and caregivers- patient complaining of mild chest pain as well, unknown onset. Quality described as chest tightness, otherwise state she feels fine, no radiation to fever, nausea, vomiting, shortness of breath, syncope, agitated delerium, diarrhea, hematuria. Severity is described as mild. Palliating factors include nothing specific attempted. Provoking factors include nothing specific. Events leading up to the incident/Associated Symptoms: Patient has history of dementia. Patient not anticoagulated. Related Data Home Medications ?Medication ?Instructions ?Recorded ?Confirmed Klonopin 0.5 mg tablet (clonazepam) 0.5 mg PO PRN PRN 11/28/17 08/18/24 camphor 4 %-methyl salicylate 30 1 applic topical QD-BID PRN muscle 06/17/19 08/18/24 %-menthol 10 % topical cream pain #113 grams (Bengay Ultra Strength) donepezil 5 mg tablet 5 mg PO DAILY 10/02/23 08/18/24 lidocaine 5 % topical patch 1 patch topical DAILY #15 ea 10/02/23 08/18/24 (Lidoderm) rosuvastatin 20 mg tablet 20 mg PO .PM 02/19/24 08/18/24 levothyroxine 75 mcg tablet 37.5 mcg (1/2 x 75 mcg) PO DAILY 02/26/24 08/18/24 #45 tabs aluminum-mag hydroxide-simethicone 30 ml PO ONCE 03/06/24 08/07/24 200 mg-200 mg-20 mg/5 mL oral susp (Advanced Antacid-Antigas) ondansetron HCl 4 mg tablet 4 mg PO DAILY 03/06/24 08/18/24 acetaminophen 325 mg tablet 650 mg (2 x 325 mg) PO Q6H PRN #0 03/15/24 08/18/24 tabs amlodipine 5 mg tablet 5 mg PO DAILY #0 tabs 03/15/24 08/18/24 famotidine 20 mg tablet (Acid 10 mg (1/2 x 20 mg) PO DAILY #0 03/15/24 08/18/24 Controller) tabs lisinopril 10 mg tablet 5 mg (1/2 x 10 mg) PO DAILY #30 03/15/24 08/18/24 tabs pantoprazole 40 mg tablet,delayed 40 mg PO BID@0730,1999 #60 tabs 03/15/24 08/18/24 release quetiapine 25 mg tablet 12.5 mg (1/2 x 25 mg) PO DAILY PRN 03/15/24 08/18/24 PRN Agitation #15 tabs quetiapine 25 mg tablet 12.5 mg (1/2 x 25 mg) PO QPM #30 03/15/24 08/18/24 tabs sucralfate 1 gram tablet 1 g PO AC & HS #120 tabs 03/15/24 08/18/24 Previous Rx's ?Medication ?Instructions ?Recorded camphor 4 %-methyl salicylate 30 1 applic topical QD-BID PRN muscle 06/17/19 %-menthol 10 % topical cream pain #113 grams (Bengay Ultra Strength) lidocaine 5 % topical patch 1 patch topical DAILY #15 ea 10/02/23 (Lidoderm) levothyroxine 75 mcg tablet 37.5 mcg (1/2 x 75 mcg) PO DAILY 02/26/24 #45 tabs acetaminophen 325 mg tablet 650 mg (2 x 325 mg) PO Q6H PRN #0 03/15/24 tabs amlodipine 5 mg tablet 5 mg PO DAILY #0 tabs 03/15/24 famotidine 20 mg tablet (Acid 10 mg (1/2 x 20 mg) PO DAILY #0 03/15/24 Controller) tabs lisinopril 10 mg tablet 5 mg (1/2 x 10 mg) PO DAILY #30 03/15/24 tabs pantoprazole 40 mg tablet,delayed 40 mg PO BID@0730,1999 #60 tabs 03/15/24 release quetiapine 25 mg tablet 12.5 mg (1/2 x 25 mg) PO DAILY PRN 03/15/24 PRN Agitation #15 tabs quetiapine 25 mg tablet 12.5 mg (1/2 x 25 mg) PO QPM #30 03/15/24 tabs sucralfate 1 gram tablet 1 g PO AC & HS #120 tabs 03/15/24 Allergies Allergy/AdvReac Type Severity Reaction Status Date / Time aspirin AdvReac upset Unverified 08/18/24 19:24 stomach r/t GERD metoclopramide HCl (From AdvReac hysterical Unverified 08/18/24 19:24 Reglan) crying trazodone AdvReac itching Unverified 08/18/24 19:24 enviornmental Allergy Mild head Uncoded 08/18/24 19:24 congestion General Stated Complaint: AMS/LOC SEBASTIÁN: 3 Review of Systems All systems reviewed & are unremarkable except as noted in HPI and below Exam Narrative Exam Narrative: GENERAL APPEARANCE: Well-nourished, non-toxic, awake and alert, atraumatic, no acute distress. SKIN: Warm, pink, dry, intact, without rashes/lesions/ulcerations. HEAD: Normocephalic, atraumatic, normal hair distribution for gender/age. EYES: Normal conjunctiva, no exudates on lids/lashes. ENT: Nares patent, no circumoral cyanosis, no facial swelling NECK: Supple, trachea midline, painless cervical ROM. LUNGS/CHEST: Lungs CTA bilaterally, non-labored respirations, normal A/P diameter, symmetrical expansion, no chest wall deformity HEART (CV/PV): Regular rate and rhythm without murmur, no peripheral edema, no JVD. ABDOMEN: Soft, non-distended, no guarding. MSK: Normal ROM, no swelling/deformity to bilateral UEs or LEs, moving all extremities without weakness, no cyanosis, spine midline without tenderness, normal curvature. NEURO: Mental Status AAOx4 - alert to person, place, time, events No facial droop, no forehead involvement. Motor: No focal weakness - strength 5/5 in bilateral UEs and LEs, proximal and distal, symmetric. Sensory: sensation intact to light touch globally. Gait normal: patient ambulated without ataxia into ED room. PSYCH: euthymic, cooperative, pleasant, appropriate speech Course Vital Signs Vital signs: Vital Signs Temperature 36.8 C 08/18/24 18:23 Pulse 73 08/18/24 18:23 Respiratory Rate 16 08/18/24 18:23 Blood Pressure 156/45 H 08/18/24 18:23 Pulse Oximetry 98 08/18/24 18:23 Temperature 36.8 C 08/18/24 18:23 Temperature Source Oral 08/18/24 18:23 Pulse 73 08/18/24 18:23 Respiratory Rate 16 08/18/24 18:23 Respiratory Effort Normal 08/18/24 18:30 Respiratory Depth Normal 08/18/24 18:30 Respiratory Pattern Normal 08/18/24 18:30 Blood Pressure 156/45 H 08/18/24 18:23 Blood Pressure Position Supine 08/18/24 18:23 Pulse Oximetry 98 08/18/24 18:23 Oxygen Delivery Method Room Air 08/18/24 18:23 Oxygen Flow Rate 0 08/18/24 18:23 Pain Level 0 08/18/24 18:23 Medical Decision Making This dictation utilizes [id number] dictation software and may contain unedited grammatical errors. 78 year-old female presents to ED today by EMS with a chief complaint of one week of lethargy, sweating, increased confusion around the home- moving from r oom to room without any real purpose, increased frequency of urination per son and caregivers- patient complaining of mild chest pain as well, unknown onset. Quality described as chest tightness, otherwise state she feels fine, no radiation to fever, nausea, vomiting, shortness of breath, syncope, agitated delerium, diarrhea, hematuria. Severity is described as mild. Palliating factors include nothing specific attempted. Provoking factors include nothing specific. Events leading up to the incident/Associated Symptoms: Patient has history of dementia, endorses mild sore throat later in exam. Patients' medical history: Colitis, diverticulitis, IBS, delirium, CKD, costochondritis, atypical chest pain, anemia, hypomagnesemia, pyelonephritis, gait disturbance. Family and social history: Lives independently, has caregivers, does not drink alcohol. Pertinent exam findings / vital signs include benign cardiopulmonary exam, benign abdomen, neurologically baseline, nontoxic vitals, afebrile. Differential / pathologies of concern include dementia, ACS, UTI, viral syndrome. Diagnostic studies of: -CBC, CMP, magnesium, serial troponins, lipase, TSH, UA, rapid strep, chest x- ray, EKG. -Serial troponins negative -CBC shows no leukocytosis, shows mild chronic anemia -CMP shows no signs of significant LORRIE, her creatinine is improved from past episodes of renal failure -Magnesium within normal limits -Lipase negative -TSH elevated, free T4 pending-patient is compliant with levothyroxine -Rapid strep negative -Chest x-ray questions a right lower lobe atelectasis patient is asymptomatic for respiratory infection -EKG shows junctional rhythm at 69 bpm without ischemic changes, normal intervals -UA shows no sign of infection Interventions of: -PO Tylenol 1g. ED Course/Assessment/Plan: 78-year-old female presents with vague complaints of mild sore throat, some chest pains, mainly she has been observed wandering around her home often entering room without any purpose, she has a history of delirium on donepezil, I suspect this is all related to dementia related changes, has no evidence of UTI, no significant respiratory distress and her troponins are negative with EKGs compared to priors, counseled on eating well and staying healthy and following up with PCP but strict return criteria for any worsening chest pain, dizziness, fevers, nausea vomiting or other emergent concerns, patient son was comfortable with this disposition. Findings not consistent with ACS, UTI, respiratory infection, sepsis, arrhythmia, acute abdominal problem, alteration from baseline. Disposition of chest pain of uncertain etiology. Patient verbalized understanding of the plan and return to ED criteria and engaged in shared decision making. Medical Records Medical records reviewed: Yes I reviewed the patient's medical records. Imaging Data Radiologic Study: Attestation: I personally reviewed and interpreted this imaging study as follows: Imaging: X-Ray Radiologist's impression: Exam: XR Chest Exam date and time: 08/18/2024 7:41 PM Age: 78 years old Clinical indication: Other: Unspecified; Chest pain TECHNIQUE: Imaging protocol: Radiologic exam of the chest. Views: 2 views. COMPARISON: CR XR PORTABLE CHEST AP 02/18/2024 4:07 PM FINDINGS: Lungs: There is some minimal increased opacity at the right lung base medially not seen on previous exam. It is not definitely identified on lateral view. Suspect atelectasis. No definite consolidation. Pleural spaces: Unremarkable. No pleural effusion. No pneumothorax. Heart/Mediastinum: Unremarkable. No cardiomegaly. Bones/joints: Unremarkable. IMPRESSION: Probable right lower lobe atelectasis. Dictated and Authenticated by: Nadia Calix MD. Lab Data Lab results reviewed: Yes I reviewed the patient's lab results. Labs: 08/18/24 19:27 Tonsil - Not Specified Group A Streptococcus Culture - Pending Laboratory Tests Range/Units 08/18/24 08/18/24 08/18/24 18:35 18:56 20:00 WBC (4.4-10.8) 10^3/uL 8.04 RBC (3.93-5.22) 10^6/uL 3.78 L Hgb (11.2-15.7) g/dL 11.9 Hct (36.0-46.0) % 35.6 L MCV (80-95) fL 94 MCH (27.0-33.0) pg 31.5 MCHC (32.0-36.0) % 33.4 RDW (11.7-14.6) % 12.7 Plt Count (130-400) 10^3/uL 265 MPV (8.0-11.0) fL 9.6 Immature Gran % % 0.2 Neutrophils % % 53.9 Lymphocytes % % 35.8 Monocytes % % 8.5 Eosinophils % % 1.1 Basophils % % 0.5 Nucleated RBC % (0.0-0.3) % 0.0 Absolute Neutrophils (1.2-6.7) 10^3/uL 4.33 Absolute Lymphocytes (1.2-3.4) 10^3/uL 2.88 Absolute Monocytes (0.1-0.8) 10^3/uL 0.68 Absolute Eosinophils (0.0-0.7) 10^3/uL 0.09 Absolute Basophils (0.0-0.2) 10^3/uL 0.04 Sodium (136-145) mmol/L 140 Potassium (3.5-5.1) mmol/L 4.4 Chloride (98-107) mmol/L 105 Carbon Dioxide (21.0-32.0) mmol/L 22.2 Anion Gap (3-11) mmol/L 12.8 H BUN (7-18) mg/dL 41 H Creatinine (0.55-1.02) mg/dL 2.1 H Est GFR (CKD-EPI 2020) (mL/min/1.73m2) 23.53 Glucose (74-106) mg/dL 155 H Calcium (8.5-10.1) mg/dL 10.1 Magnesium (1.8-2.4) mg/dL 2.4 Total Bilirubin (0.2-1.0) mg/dL 0.4 AST (15-37) U/L 24 ALT (14-59) U/L 23 Alkaline Phosphatase (46-116) U/L 118 H Troponin I (<or=51) ng/L 8 10 Total Protein (6.4-8.2) g/dL 7.8 Albumin (3.4-5.0) g/dL 3.8 Lipase (<78) U/L 67 TSH (0.36-3.74) uIU/mL 8.77 H Urine Color (Yellow) Yellow Urine Clarity (Clear) Clear Urine pH (5-8) 5.5 Ur Specific [place] (1.005-1.025) 1.015 Urine Protein (Neg-Trace) mg/dL Negative Urine Ketones (Negative) mg/dL Negative Urine Blood (Negative) Negative Urine Nitrite (Negative) Negative Urine Bilirubin (Negative) Negative Urine Urobilinogen (Up to 0.2) mg/dL 0.2 Ur Leukocyte Esterase (Negative) Negative Urine Glucose (Negative) mg/dL Negative Quality:SDOH Health Related Social Needs: No Data to Display PFSH All Active Problems (Updated 08/18/24 @ 21:10 by KATIE Rainey) Chest pain of uncertain etiology (Acute) Ingrown toenail (Acute) Long toenail (Acute) Chronic ischemic colitis (Acute) Distribution of the [place]ERON Delirium (Acute) CKD (chronic kidney disease) stage 4, GFR 15-29 ml/min (Chronic) Diverticulitis (Acute) Hypothyroid (Chronic) DVT prophylaxis (Acute) Incidental lung nodule, less than or equal to 3mm (Acute) Thoracic back pain (Acute) Costochondritis (Acute) Atypical chest pain (Acute) Allergic rhinitis (Acute 05/26/14) 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 difficile enteritis (Acute) Chest pain (Acute) Anemia (Chronic) Hypertension (Chronic) Hypomagnesemia (Acute) Pyelonephritis (Acute) Depression (Chronic) Gait disturbance (Chronic) Left carotid bruit (Chronic) Essential hypertension (Chronic) Medical History (Updated 08/18/24 @ 21:10 by KATIE Rainey) Unwitnessed fall On deep vein thrombosis (DVT) prophylaxis Intractable nausea Colitis Colitis Diverticulosis of intestine without bleeding (11/28/17) Erosive gastritis (11/28/17) Obstructive sleep apnea (11/28/17) Polyp of colon (11/28/17) Gastroenteritis Hypokalemia GERD (gastroesophageal reflux disease) IBS (irritable bowel syndrome) Cardiomyopathy Allergic rhinitis Adenomatous polyp of colon Environmental allergies Osteopenia Cervical spondylosis Osteoarthritis Surgical History Rectocele, Paravaginal repair Vaginal hysterectomy GASTROSCOPY (01/20/15) DR.ANNICK ARAMBULA Cystocele, Paravaginal repair Colonoscopy - IV Sedation 2009 COLONOSCOPY (~12/2014) DR.ANNICK ARAMBULA Social History Smoking/Tobacco Use Status: Never Smoking risk assessment performed?: Yes Alcohol Intake: current Alcohol Intake frequency: holidays/special occasions only Drug use: Never Substance use type: does not use Housing: house Number of Children: 2 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
--- NOTE | 2024-08-18 18:45 | DI.RAD_ITS ---
Exam(s) XR CHEST 2V PA LATERAL EXAM: XR CHEST 2V PA LATERAL CLINICAL HISTORY: chest pain. TECHNIQUE: 2D digital imaging was performed. COMPARISON: No exams were available for comparison FINDINGS: 2 views: Heart size is normal. The mediastinum is not widened. There is subsegmental platelike atelectasis in the medial right lung base. No confluent infiltrates. No pleural effusions. No pulmonary edema. IMPRESSION: There is platelike atelectasis in the medial right lung base. DATA REPOSITORY: RADIATION DOSE DELIVERED:
[2024-08-18 18:54] VITALS: BP 136/47; PULSE 70; PULSE 83; RESP 16; O2SAT 99
[2024-08-18 19:06] LABS: Bilirubin Negative (Negative); Blood Negative (Negative); Clarity Clear (Clear); Glucose Negative (Negative); Ketones Negative (Negative); Leukocyte Esterase Negative (Negative); Nitrite Negative (Negative); Specific Gravity 1.015 (1.005-1.025); Urobilinogen 0.2 mg/dL (Up to 0.2); pH 5.5 (5-8)
[2024-08-18 19:09] LABS: Abs Immature Grans 0.02 10^3/uL (0.0-0.06); Absolute Basophil Count 0.04 10^3/uL (0.0-0.2); Absolute Eosinophil Count 0.09 10^3/uL (0.0-0.7); Absolute Lymphocyte Count 2.88 10^3/uL (1.2-3.4); Absolute Monocyte Count 0.68 10^3/uL (0.1-0.8); Absolute Neutrophil Count 4.33 10^3/uL (1.2-6.7); Basophils % 0.5 %; Eosinophils % 1.1 %; HCT 35.6 % (36.0-46.0); HGB 11.9 g/dL (11.2-15.7); Immature Grans % 0.2 %; Lymphocytes % 35.8 %; MCH 31.5 pg (27.0-33.0); MCHC 33.4 % (32.0-36.0); MCV 94 fL (80-95); MPV 9.6 fL (8.0-11.0); Monocytes % 8.5 %; Neutrophils % 53.9 %; Platelet Count 265 10^3/uL (130-400); RBC 3.78 10^6/uL (3.93-5.22); RDW 12.7 % (11.7-14.6); RDW-SD 44.1 fL; WBC 8.04 10^3/uL (4.4-10.8)
[2024-08-18 19:32] LABS: Magnesium 2.4 mg/dL (1.8-2.4); Troponin I 8 ng/L (<or=51)
[2024-08-18 19:35] LABS: ALT 23 U/L (14-59); AST 24 U/L (15-37); Albumin 3.8 g/dL (3.4-5.0); Alkaline Phosphatase 118 U/L (46-116); Anion Gap 12.8 mmol/L (3-11); BUN 41 mg/dL (7-18); Bilirubin, Total 0.4 mg/dL (0.2-1.0); CO2 22.2 mmol/L (21.0-32.0); CREATININE 2.1 mg/dL (0.55-1.02); Calcium 10.1 mg/dL (8.5-10.1); Chloride 105 mmol/L (98-107); Estimated GFR 23.53 (mL/min/1.73m2); Glucose 155 mg/dL (74-106); Lipase 67 U/L (<78); Potassium 4.4 mmol/L (3.5-5.1); Sodium 140 mmol/L (136-145); TSH (W/Ref FT4) 8.77 uIU/mL (0.36-3.74); Total Protein 7.8 g/dL (6.4-8.2)
[2024-08-18 20:17] VITALS: BP 128/58; PULSE 86; RESP 18; O2SAT 99
[2024-08-18] MEDS: Acetaminophen 500 MG TAB 1000 MG PO (20:21)
[2024-08-18 20:31] VITALS: BP 132/40; PULSE 75; PULSE 91; RESP 16
[2024-08-18 20:42] LABS: Troponin I 10 ng/L (<or=51)
--- NOTE | 2024-08-18 21:27 | DI.VRAD_ITS ---
PROCEDURE INFORMATION: Exam: XR Chest Exam date and time: 08/18/2024 7:41 PM Age: 78 years old Clinical indication: Other: Unspecified; Chest pain TECHNIQUE: Imaging protocol: Radiologic exam of the chest. Views: 2 views. COMPARISON: CR XR PORTABLE CHEST AP 02/18/2024 4:07 PM FINDINGS: Lungs: There is some minimal increased opacity at the right lung base medially not seen on previous exam. It is not definitely identified on lateral view. Suspect atelectasis. No definite consolidation. Pleural spaces: Unremarkable. No pleural effusion. No pneumothorax. Heart/Mediastinum: Unremarkable. No cardiomegaly. Bones/joints: Unremarkable. IMPRESSION: Probable right lower lobe atelectasis. Dictated and Authenticated by: Nadia Calix MD. Orderin Jaqueline Guardado MD
[2024-08-19 19:21] LABS: T4, Free 0.8 ng/dL (0.8-2.2)
== END 2024-08-18 21:12 | disposition home or self-care (01) ==
PROVIDERS: Emergency Provider Physician Assistant; PCP Physician Assistant
DX: R07.9 Chest pain, unspecified (principal); R35.0 Frequency of micturition; E03.9 Hypothyroidism, unspecified; I10 Essential (primary) hypertension
CPT/HCPCS: 36415; 80053; 83690; 93005; 99284; 71046; 81003; 83735; 84439; 84443; 84484; 85025; 87081; 93010

== ENCOUNTER → 2024-09-04 11:20 | Outpatient (BNVA) | payer MEDICARE, MEDICAID, SELFPAY | PROVIDERS: PCP Physician Assistant; Referring Provider Physician Assistant; Visit Provider Podiatrist ==

== ENCOUNTER 2024-10-02 15:52 | Outpatient (REF) | payer MEDICARE, SELFPAY ==
[2024-10-02 20:29] LABS: TSH (W/Ref FT4) 0.71 uIU/mL (0.36-3.74); Vitamin D 25 Total 24 ng/mL (30-100)
== END 2024-10-02 15:53 | disposition home or self-care (01) ==
LOC: NCHCN 15:52
PROVIDERS: PCP Physician Assistant; Visit Provider Physician Assistant
DX: E03.9 Hypothyroidism, unspecified (principal); N18.30 Chronic kidney disease, stage 3 unspecified
CPT/HCPCS: 82306; 84443

== ENCOUNTER 2024-10-03 08:52 | Outpatient (REF) | payer MEDICARE, SELFPAY | END 2024-10-03 08:53 | disposition home or self-care (01) | LOC: NCHCN 08:52 | PROVIDERS: PCP Physician Assistant; Visit Provider Physician Assistant | DX: R35.0 Frequency of micturition (principal); R82.79 Other abnormal findings on microbiological examination of urine | CPT/HCPCS: 87077; 87086; 87186 ==

== ENCOUNTER 2024-10-18 20:40 | Outpatient (REF) | payer MEDICARE, SELFPAY | END 2024-10-18 20:41 | disposition home or self-care (01) | LOC: NCHCN 20:40 | PROVIDERS: PCP Physician Assistant; Visit Provider Physician Assistant | DX: N39.0 Urinary tract infection, site not specified (principal); R82.89 Other abnormal findings on cytological and histological examination of urine | CPT/HCPCS: 87086 ==

== ENCOUNTER 2024-11-13 02:20 | Outpatient (CLI) | payer MEDICARE, SELFPAY ==
--- NOTE | 2024-11-13 13:20 | DI.US_ITS ---
Exam(s) US CAROTID EXAM: US CAROTID CLINICAL HISTORY: Bilateral carotid bruits, R09.89-other specified symptoms and signs. TECHNIQUE: Ultrasound carotids performed using grayscale, color-flow, and spectral Doppler imaging. COMPARISON: US CAROTID ULTRASOUND from 01/02/2018 FINDINGS: RIGHT CAROTID ARTERY: Plaque: There is calcific plaque seen in the common carotid artery. There is prominent calcific plaque seen in the proximal and mid internal carotid artery and carotid bulb. Velocity elevation: Please see below. LEFT CAROTID ARTERY: Plaque: There is moderate calcific plaque seen in the proximal and mid internal carotid artery and carotid bulb. There is also calcific plaque seen in the external carotid artery. Velocity elevation: Please see below. VERTEBRAL ARTERIES: Antegrade flow. Measurements: R Bulb: 258.4cm/s PS / 46.7cm/s ED R CCA: 89.3cm/s PS / 18cm/s ED R ECA: 385.1cm/s PS / 27cm/s ED R ICA Prox: 202.6cm/s PS / 38.3cm/s ED R ICA Mid: 182.5cm/s PS / 37.5cm/s ED R ICA Distal: 150.1cm/s PS /32.5cm/s ED R Vert: 100.2cm/s PS / 16.2cm/s ED R SVR: 2.9 R DVR: 2.6 L Bulb: 111.6cm/s PS / 16.1cm/s ED L CCA: 79.2cm/s PS / 21.5cm/s ED L ECA: 173.6cm/s PS / 31.9cm/s ED L ICA Prox: 201.5cm/s PS / 34.4cm/s ED L ICA Mid: 143.8cm/s PS / 22.9cm/s ED L ICA Distal: 83.3cm/s PS / 19.8cm/s ED L Vert: 54.8cm/s PS / 18.6cm/s ED L SVR: 2.5 L DVR: 1.6 IMPRESSION: 1. Findings consistent with bilateral 50-69 percent internal carotid artery stenosis. 2. Prominent calcific plaque seen in the carotid bulbs and the proximal mid internal carotid arteries bilaterally. Criteria for Carotid Stenosis: Normal: ICA PSV <125 cm/s no plaque or intimal thickening is visible. <50% stenosis: ICA PSV <125 cm/s and plaque or intimal thickening is visible. 50-69% stenosis: ICA PSV is 125-250 cm/s and plaque is visible. >70% stenosis to near occlusion: ICA PSV >250 cm/s with visible plaque and luminal narrowing. DATA REPOSITORY:
== END 2024-11-13 02:40 ==
LOC: DI 02:20
PROVIDERS: PCP Physician Assistant; Visit Provider Physician Assistant
DX: R09.89 Other specified symptoms and signs involving the circulatory and respiratory systems (principal)
CPT/HCPCS: 93880

== ENCOUNTER 2024-11-13 02:21 | Outpatient (CLI) | payer MEDICARE, SELFPAY ==
--- NOTE | 2024-11-13 13:20 | DI.US_ITS ---
Exam(s) US RENAL EXAM: US RENAL CLINICAL HISTORY: CHRONIC KIDNEY DISEASE,STAGE 4,? KIDNEY STONES,N18.4. TECHNIQUE: Whalen scale, color and spectral Doppler were used. COMPARISON: US US renal from 05/07/2018 FINDINGS: Renal size in cm: Right: 9.5. Left: 8.1. Echogenicity: Normal. Hydronephrosis: No. Cyst or mass: No. Nephrolithiasis: No. Other findings: None. Bladder:Normal. Ureteral jets: Right: Not visualized on this examination. Left: Not visualized on this examination. Prevoid vol:109 cc Postvoid vol:61 cc Renal color flow: Symmetric and within normal limits. IMPRESSION: 1. Small postvoid urinary bladder volume. 2. Slightly small size of the kidneys which are otherwise unremarkable. DATA REPOSITORY:
== END 2024-11-13 02:41 ==
LOC: DI 02:21
PROVIDERS: PCP Physician Assistant; Visit Provider Internal Medicine
DX: N18.4 Chronic kidney disease, stage 4 (severe) (principal)
CPT/HCPCS: 76770

== ENCOUNTER 2025-01-02 14:50 | Outpatient (REF) | payer MEDICARE, MEDICAID, SELFPAY ==
[2025-01-02 19:22] LABS: Anion Gap 7.3 mmol/L (3-11); BUN 35 mg/dL (7-18); CO2 27.7 mmol/L (21.0-32.0); Calcium 10.6 mg/dL (8.5-10.1); Chloride 107 mmol/L (98-107); Estimated GFR 28.13 (mL/min/1.73m2); Glucose 132 mg/dL (74-106); Potassium 4.4 mmol/L (3.5-5.1); Sodium 142 mmol/L (136-145)
== END 2025-01-02 14:51 | disposition home or self-care (01) ==
LOC: NCHCN 14:50
PROVIDERS: PCP Physician Assistant; Visit Provider Physician Assistant
DX: N18.4 Chronic kidney disease, stage 4 (severe) (principal)
CPT/HCPCS: 80048

== ENCOUNTER 2025-03-28 17:12 | Outpatient (REF) | payer MEDICARE, MEDICAID, SELFPAY | END 2025-03-28 17:13 | disposition home or self-care (01) | LOC: NCHCN 17:12 | PROVIDERS: PCP Physician Assistant; Visit Provider Physician Assistant | DX: F03.90 Unspecified dementia, unspecified severity, without behavioral disturbance, psychotic disturbance, mood disturbance, and anxiety (principal) | CPT/HCPCS: 87086 ==